=== PATIENT | female | born 1965 | race Two or more races ===

== ENCOUNTER 2020-05-11 12:14 | Outpatient (REF) | payer MEDICAID, SELFPAY ==
--- NOTE | ~2020-05-11 | XR_ITS ---
EXAMINATION: XR HAND/WRIST, BILATERAL CLINICAL INFORMATION: Rheumatoid arthritis with positive rheumatoid factor. COMPARISON: None TECHNIQUE: Four views each hand/wrist. FINDINGS: Left hand/wrist: There is no visible acute fracture, dislocation or subluxation seen. No bony erosive changes. There is an osseous structure adjacent to the ulnar styloid process, likely old avulsion injury. Right hand/wrist: There is no visible acute fracture, dislocation or subluxation. The scaphoid bone is intact. The soft tissues are normal. XR/XR hand wrist LT IMPRESSION: Unremarkable bilateral hand/wrist examination.
--- NOTE | ~2020-05-11 | XR_ITS ---
EXAMINATION: XR HAND/WRIST, BILATERAL CLINICAL INFORMATION: Rheumatoid arthritis with positive rheumatoid factor. COMPARISON: None TECHNIQUE: Four views each hand/wrist. FINDINGS: Left hand/wrist: There is no visible acute fracture, dislocation or subluxation seen. No bony erosive changes. There is an osseous structure adjacent to the ulnar styloid process, likely old avulsion injury. Right hand/wrist: There is no visible acute fracture, dislocation or subluxation. The scaphoid bone is intact. The soft tissues are normal. XR/XR hand wrist RT IMPRESSION: Unremarkable bilateral hand/wrist examination.
[2020-05-11 13:42] LABS: MANUAL DIFF FLAG NO
[2020-05-11 13:47] LABS: Basophils Percent Auto 0.4 % (0-2); Eosinophils Absolute Auto 0.4 X10*3/uL (0.0-0.4); Eosinophils Percent Auto 4.2 % (0-4); Hematocrit 37.3 % (37-47); Hemoglobin 12.3 g/dl (12.0-16.0); Imm Gran Abs Auto 0.03 X10*3/uL (0.00-0.03); Imm Gran Pct Auto 0.4 % (0.0-0.4); Lymphocytes Absolute Auto 3.2 X10*3/uL (1.2-4.9); Lymphocytes Percent Auto 38.4 % (20-40); Mean Corpuscular Hemoglobin 29.4 pg (27.0-33.0); Mean Corpuscular Volume 89.2 fL (80-98); Mean Platelet Volume 11.2 fL (9.4-12.3); Monocytes Absolute Auto 0.8 X10*3/uL (0.1-1.2); Monocytes Percent Auto 9.3 % (2-11); Neutrophils Absolute Auto 3.9 X10*3/uL (2.0-8.3); Neutrophils Percent Auto 47.3 % (45-73); Platelet Count 282 X10*3/uL (160-400); Red Blood Count 4.18 X10*6/uL (4.20-5.50); Red Cell Distribution Width 12.3 % (11.0-16.0); White Blood Count 8.3 X10*3/uL (4.8-10.8)
[2020-05-11 13:50] LABS: Glucose Urine UA NEG (NEG); Leukocyte Esterase Urine NEG (NEG); Nitrite Urine NEG (NEG); Specific Gravity - Urine >= 1.030 (1.005-1.025); Urine Blood 2+ (NEG); Urine Ketones NEG (NEG); Urine Protein 2+ MG/DL (NEG-TRACE)
[2020-05-11 13:51] LABS: Appearance Urine CLEAR; Color Urine YELLOW
[2020-05-11 13:55] LABS: Bacteria Urine TRACE /LPF; Squamous Epithelial Cell Urine 4+ /LPF; WBC Urine 0-2 /HPF (0-4)
[2020-05-11 14:31] LABS: Erythrocyte Sedimentation Rate 28 MM/HR (0-20)
[2020-05-11 14:36] LABS: Alanine Aminotransferase 20 U/L (0-31); Albumin Level 4.1 g/dL (3.5-5.0); Alkaline Phosphatase 83 U/L (39-117); Anion Gap 10 (12-20); Aspartate Amino Transferase 22 U/L (5-31); Blood Urea Nitrogen 17 mg/dL (9-16); C Reactive Protein 1.28 mg/dL (< or = 0.50); Calcium 8.8 mg/dL (8.4-10.2); Carbon Dioxide 32 mmol/L (22-29); Chloride 104 mmol/L (96-108); Estimated Glomerular Filt Rate > 60; Glucose Random 109 mg/dL (60-115); Potassium 3.9 mmol/L (3.3-5.1); Sodium 142 mmol/L (135-145); Total Protein 7.2 g/dL (6.5-8.0)
[2020-05-12 05:26] LABS: Thyroglobulin Antibodies 68 IU/mL (< or = 1); Thyroid Peroxidase Antibodies 370 IU/mL (<9)
[2020-05-12 08:34] LABS: HBS Num1 0.48 mIU/mL (0-7.99); HBc Num1 0.08 S/CO (0.00-0.79); Hepatitis A Antibody IgM 0.68 Index (0-0.79); Hepatitis B Core Antibody Nonreactive (Nonreactive); ~Hepatitis A Antibody IgM Nonreactive (Nonreactive); ~Hepatitis B Surface Antibody NONREACTIVE (Nonreactive)
[2020-05-12 08:55] LABS: HBsAGNum1 0.12 S/CO (0.00-0.99); Hepatitis B Surface Antigen Negative (Negative); ~HepC Num1 0.09 S/CO (0.00-0.79); ~Hepatitis C Antibody Nonreactive (Nonreactive)
[2020-05-12 10:36] LABS: Complement C3 87 mg/dL (83-193)
[2020-05-12 12:38] LABS: Anti DNA DS Antibody 2 IU/mL; Antibody to SS-A Antigen <1.0 NEG AI (<1.0 NEG); Antibody to SS-B Antigen <1.0 NEG AI (<1.0 NEG); Cyclic Citrullinated Peptide 141 UNITS; SM/Ribonucleoprotein Ab <1.0 NEG AI (<1.0 NEG); Scleroderma 70 Antibody <1.0 NEG AI (<1.0 NEG); Smith Protein <1.0 NEG AI (<1.0 NEG)
[2020-05-12 14:11] LABS: Anti Nuclear Antibody Screen NEGATIVE (NEGATIVE)
[2020-05-14 13:56] LABS: TS Negative Control Passed; TS Panel A 0; TS Panel B 0; TS Positive Control Passed; TSpotTB Negative (SeeBelow)
== END 2020-05-11 12:15 | disposition home or self-care (01) ==
LOC: HO.LAB 12:14
PROVIDERS: PCP Family Medicine; Referring Provider Family Medicine; Visit Provider Student in an Organized Health Care Education/Training Program
DX: M05.9 Rheumatoid arthritis with rheumatoid factor, unspecified (principal); R76.8 Other specified abnormal immunological findings in serum; J45.909 Unspecified asthma, uncomplicated; I10 Essential (primary) hypertension; E03.9 Hypothyroidism, unspecified; Z79.899 Other long term (current) drug therapy
CPT/HCPCS: 36415; 73110; 73130; 80053; 81001; 85025; 85652; 86038; 86039; 86140; 86160; 86200; 86225; 86235; 86376; 86431; 86481; 86704; 86706; 86709; 86800; 86803; 87340; 99202

== ENCOUNTER 2020-05-14 13:20 | Outpatient (REF) | payer MEDICAID, SELFPAY ==
--- NOTE | ~2020-05-14 | MM_ITS ---
EXAMINATION: MM SCREENING DIGITAL BREAST TOMOSYNTHESIS, BILATERAL CLINICAL INFORMATION: Screening. Asymptomatic. The lifetime risk of breast cancer based on the Tyrer-Cuzick Model is 5%. COMPARISON: Mammography: 09/13/2018, 06/13/2018, 11/07/2017, 08/08/2016 TECHNIQUE: Digital breast tomosynthesis is performed in both the craniocaudal and mediolateral oblique views along with computer-aided detection (CAD). Synthesized 2D images are generated from the tomosynthesis. FINDINGS: There are scattered areas of fibroglandular density (ACR BI-RADS breast composition Category b). There are no significant masses, abnormal calcifications, or other abnormalities. Parenchymal pattern is similar to prior studies. There is some stable nodularity mid outer right breast. The bilateral axilla and skin contours are unremarkable. MM/MM tomosynthesis screening BI IMPRESSION: No mammographic evidence of malignancy. ASSESSMENT: BI-RADS 2: Benign RECOMMENDATION: Routine annual mammography screening. This patient's information was entered into a reminder system with a target due date for their next mammogram.
== END 2020-05-14 13:21 | disposition home or self-care (01) ==
LOC: HO.MAMMO 13:20
PROVIDERS: PCP Family Medicine; Visit Provider Family Medicine
DX: Z12.31 Encounter for screening mammogram for malignant neoplasm of breast (principal)
CPT/HCPCS: 77063; 77067

== ENCOUNTER → 2020-06-18 13:26 | Outpatient (BNVA) | payer MEDICAID, SELFPAY | PROVIDERS: PCP Family Medicine; Visit Provider Student in an Organized Health Care Education/Training Program | DX: M05.9 Rheumatoid arthritis with rheumatoid factor, unspecified (principal); R76.8 Other specified abnormal immunological findings in serum | CPT/HCPCS: 99212 ==

== ENCOUNTER → 2020-10-13 14:30 | Outpatient (BNVA) | payer MEDICAID, SELFPAY | PROVIDERS: PCP Family Medicine; Visit Provider Student in an Organized Health Care Education/Training Program | DX: M05.9 Rheumatoid arthritis with rheumatoid factor, unspecified (principal); M62.838 Other muscle spasm | CPT/HCPCS: 99212 ==

== ENCOUNTER 2020-11-29 14:03 | Outpatient (REF) | payer MEDICAID, SELFPAY ==
--- NOTE | ~2020-11-29 | XR_ITS ---
EXAMINATION: XR CERVICAL SPINE CLINICAL INFORMATION: Cervicalgia. COMPARISON: None. TECHNIQUE: AP, lateral, open-mouth, and foraminal views of the cervical spine. FINDINGS: Mild reversal the normal cervical lordosis, which may be positional or related to muscular spasm. No acute fracture or subluxation. No loss of vertebral body height. Multilevel loss of intervertebral disc height with anterior endplate osteophytes. Findings are most prominent at C6-C7. Normal atlantoaxial alignment. Unremarkable prevertebral soft tissues. XR/XR cervical spine 4V IMPRESSION: Mild reversal the normal cervical lordosis, which may be positional or related to muscular spasm. Multilevel degenerative disc disease, most prominent at C6-C7.
== END 2020-11-29 14:04 | disposition home or self-care (01) ==
LOC: HO.XRAY 14:03
PROVIDERS: PCP Family Medicine; Visit Provider Family Medicine
DX: M54.2 Cervicalgia (principal)
CPT/HCPCS: 72050

== ENCOUNTER 2021-03-07 14:59 | Emergency (ER) | payer MEDICAID, SELFPAY | END 2021-03-07 20:24 | disposition left against medical advice (07) | PROVIDERS: Emergency Provider Emergency Medicine; PCP Family Medicine | DX: N23 Unspecified renal colic (principal) ==

== ENCOUNTER 2021-06-30 14:32 | Outpatient (REF) | payer MEDICAID, SELFPAY ==
--- NOTE | ~2021-06-30 | MM_ITS ---
EXAMINATION: MM SCREENING DIGITAL BREAST TOMOSYNTHESIS, BILATERAL CLINICAL INFORMATION: Screening. Asymptomatic. The lifetime risk of breast cancer based on the Tyrer-Cuzick Model is 5.2%. COMPARISON: Mammography: May 14, 2020 and studies dating back to January 16, 2013 TECHNIQUE: Digital breast tomosynthesis is performed in both the craniocaudal and mediolateral oblique views along with computer-aided detection (CAD). Synthesized 2D images are generated from the tomosynthesis. FINDINGS: There are scattered areas of fibroglandular density (ACR BI-RADS breast composition Category b). There are no new significant masses, abnormal calcifications, or other abnormalities. There is again noted be stable circumscribed and lobular densities about the lateral aspect of the right breast for which previous ultrasound did not demonstrate any significant ultrasound findings. MM/MM tomosynthesis screening BI IMPRESSION: There are no significant changes from prior study. ASSESSMENT: BI-RADS 2: Benign RECOMMENDATION: Routine annual mammography screening. This patient's information was entered into a reminder system with a target due date for their next mammogram.
== END 2021-06-30 14:33 | disposition home or self-care (01) ==
LOC: HO.MAMMO 14:32
PROVIDERS: PCP Family Medicine; Visit Provider Family Medicine
DX: Z12.31 Encounter for screening mammogram for malignant neoplasm of breast (principal)
CPT/HCPCS: 77063; 77067

== ENCOUNTER 2021-07-28 17:30 | Outpatient (REF) | payer MEDICAID, SELFPAY ==
--- NOTE | ~2021-07-28 | MR_ITS ---
EXAMINATION: MR CERVICAL SPINE WITHOUT CONTRAST CLINICAL INFORMATION: Neck pain. Rheumatoid arthritis. COMPARISON: Cervical spine radiographs 11/29/2020. TECHNIQUE: MRI of the cervical spine was obtained using routine sequences without contrast. FINDINGS: There is nonspecific reversal of cervical lordosis. Alignment is otherwise normal. Vertebral body heights are preserved. No acute bone marrow signal changes. The slight loss of intervertebral disc height and T2 signal intensity at multiple levels related to disc degeneration. There is a retropharyngeal effusion that extends from C1 to C5, the source of which is uncertain on the basis of this examination. There are a few prominent retropharyngeal lymph nodes are also partially included within the [id number] of this examination. Visualized soft tissues of the neck are otherwise normal. Vascular flow voids are grossly maintained. The cervicomedullary junction is normal. Limited visualization of the posterior fossa reveals no abnormal finding. The occipital condyles and lateral C1 masses are intact. There is degenerative arthrosis of the atlantodental joint and the left C1-C2 articular facet joint. At C2-C3 there is a slightly bulging disc. No canal stenosis. There is minimal uncovertebral joint spurring on the left. No substantial neuroforaminal encroachment. At C3-C4 there is a small central protrusion superimposed upon a bulging disc causing mild canal stenosis. Uncovertebral joint spurring and facet degenerative change causes moderate bilateral neuroforaminal encroachment, slightly greater on the left. At C4-C5 there is a bulging disc causing mild canal stenosis. Uncovertebral joint spurring and facet degenerative change causes moderate bilateral neuroforaminal encroachment, slightly greater on the left. At C5-C6 there is a central protrusion superimposed upon a bulging disc. Moderate canal stenosis. Uncovertebral joint spurring and facet degenerative change causes severe bilateral neuroforaminal encroachment. At C6-C7 there is a bulging disc and buckling of the ligamenta flava causing moderate canal stenosis. Uncovertebral joint spurring and facet degenerative change causes severe left and moderate right neuroforaminal encroachment. At C7-T1 the annular contour is normal. No canal or neuroforaminal compromise. MR/MR cervical spine wo con IMPRESSION: There is a retropharyngeal effusion that extends from C1 to C5, the source of which is uncertain on the basis of this examination. Prominent bilateral retropharyngeal lymph nodes are also partially included within the [id number]. There is multilevel degenerative spondylosis of the cervical spine. Moderate canal stenosis at the levels of C5-C6 and C6-C7. Mild canal stenosis at C3-C4 and C4-C5. There are varying degrees of neuroforaminal encroachment related to uncovertebral joint spurring and facet degenerative change as described above.
== END 2021-07-28 17:31 | disposition home or self-care (01) ==
LOC: HO.MRI 17:30
PROVIDERS: Visit Provider Family Medicine
DX: M54.2 Cervicalgia (principal); M05.9 Rheumatoid arthritis with rheumatoid factor, unspecified
CPT/HCPCS: 72141

== ENCOUNTER 2021-09-19 15:12 | Outpatient (REF) | payer MEDICAID, SELFPAY ==
--- NOTE | ~2021-09-19 | US_ITS ---
EXAMINATION: US PELVIS CLINICAL INFORMATION: Pelvic pain. COMPARISON: Ultrasound pelvis 12/04/2017. TECHNIQUE: Ultrasound of the pelvis is performed using both transabdominal and transvaginal transducers along with Doppler. Transvaginal imaging is performed due to inadequate visualization transabdominally. FINDINGS: Uterus: The uterus is retroverted, retroflexed and measures 6.9 x 4.2 x 4.7 cm. The double wall endometrial thickness is 0.8 cm. There are cystic areas seen within the endometrial canal versus tiny fluid. There is a small hyperechoic foci within the endometrial canal measuring 0.9 x 0.6 with an 0.0 cm suspicious for a small polyp. The uterus is smooth in contour and has normal myometrial echogenicity. There are 2 hypoechoic lesions. 1. Lesion in the right upper body of uterus measures 4.0 x 3.4 x 3.1 cm. Previously it measured 3.4 x 2.8 x 2.6 cm. 2. Lesion in the anterior upper/mid body of uterus measures 1.0 x 0.9 x 1.2 cm. Previously it measured 1.0 x 1.0 x 0.9 cm. No additional lesions seen. There are small anechoic cysts seen in the cervix Adnexa: Both ovaries are nonvisualized. Moderate free fluid in the cul-de-sac US/US pelvic and transvaginal IMPRESSION: Small endometrial cyst versus focal fluid collection. There is a small endometrial polyp measuring 0.9 cm. There are at least 2 uterine fibroids which are stable. Small nabothian cysts in the cervix Ovaries are not visualized. There is moderate free fluid in the cul-de-sac.
== END 2021-09-19 15:13 | disposition home or self-care (01) ==
LOC: HO.US 15:12
PROVIDERS: Visit Provider Family Medicine
DX: R10.2 Pelvic and perineal pain (principal)
CPT/HCPCS: 76830; 76856

== ENCOUNTER → 2021-12-21 15:06 | Outpatient (BNVA) | payer MEDICAID, SELFPAY | PROVIDERS: PCP Family Medicine; Visit Provider Anesthesiology | DX: J39.0 Retropharyngeal and parapharyngeal abscess (principal); R59.0 Localized enlarged lymph nodes; M62.838 Other muscle spasm | CPT/HCPCS: 99202 ==

== ENCOUNTER 2022-03-27 11:09 | Outpatient (REF) | payer MEDICAID, SELFPAY | END 2022-03-27 11:10 | disposition home or self-care (01) | LOC: HO.LAB 11:09 | PROVIDERS: PCP Family Medicine; Visit Provider Advanced Practice Midwife | DX: R10.2 Pelvic and perineal pain (principal); D25.9 Leiomyoma of uterus, unspecified; N84.0 Polyp of corpus uteri; R31.9 Hematuria, unspecified; R93.5 Abnormal findings on diagnostic imaging of other abdominal regions, including retroperitoneum | CPT/HCPCS: 0353U; 81003; 87480; 87510; 87624; 87660; 88142; 99202 ==

== ENCOUNTER 2022-03-27 11:53 | Outpatient (REF) | payer MEDICAID, SELFPAY ==
[2022-03-27 18:18] LABS: CT PCR NOT DETECTED (Not Detect.); NG PCR NOT DETECTED (Not Detect.)
[2022-03-28 09:41] LABS: BV Int Neg Control Negative (Negative); BV Int Pos Control Positive (Positive)
[2022-04-01 03:18] LABS: HPV mRNA E6/E7 rflx Not Detected (Not Detected)
== END 2022-03-27 11:54 | disposition home or self-care (01) ==
LOC: HO.LNP 11:53
PROVIDERS: Visit Provider Advanced Practice Midwife
DX: Z01.411 Encounter for gynecological examination (general) (routine) with abnormal findings (principal); Z11.51 Encounter for screening for human papillomavirus (HPV); R10.2 Pelvic and perineal pain
CPT/HCPCS: 0353U; 87480; 87510; 87624; 87660; 88142

== ENCOUNTER 2022-04-17 13:50 | Outpatient (REF) | payer MEDICAID, SELFPAY ==
--- NOTE | ~2022-04-17 | US_ITS ---
EXAMINATION: US PELVIS COMPLETE CLINICAL INFORMATION: Pelvic and perineal pain; postmenopausal patient. COMPARISON: Pelvic ultrasound dated 08/20/2021. TECHNIQUE: Transabdominal and transvaginal imaging were performed. FINDINGS: The uterus is of normal size and echogenicity measuring 7.9 x 4.1 x 6.6 cm. The uterus is retroverted and retroflexed. A regular homogeneous endometrium is identified measuring 0.8 cm. Within the endometrial canal, a 1.2 x 0.6 x 1.0 cm polyp is noted. Previously, this measured 0.9 x 0.6 x 1.0 cm. Nabothian cysts are seen within the endometrial canal. There is nonspecific fluid within the endometrial canal. FIBROIDS: There are 2 fibroids seen. 1. Location: Upper rightward body, myometrial. Size: 3.0 x 2.5 x 3.0 cm. Prior: 4.0 x 3.4 x 3.1 cm. Fibroid characteristics: Heterogeneous echotexture. 2. Location: Anterior upper body, myometrial. Size: 0.8 x 0.6 x 0.9 cm. Prior: 1.0 x 0.9 x 1.2 cm. Fibroid characteristics: Isoechoic. Both ovaries are nonvisualized. There is no pelvic free fluid. No adnexal mass is seen. US/US pelvic and transvaginal IMPRESSION: 1. A mildly increased endometrial polyp is noted, possibly a hyperplastic polyp, focal endometrial hyperplasia, subendometrial fibroid or other neoplasm. Gynecology evaluation and management are recommended, with consideration for tissue sampling. 2. Nabothian cysts are seen within the cervix. 3. There is nonspecific fluid within the endometrial canal. 4. There are uterine fibroids. 5. The bilateral ovaries are nonvisualized.
== END 2022-04-17 13:51 | disposition home or self-care (01) ==
LOC: HO.US 13:50
PROVIDERS: PCP Family Medicine; Visit Provider Advanced Practice Midwife
DX: R10.2 Pelvic and perineal pain (principal); D25.9 Leiomyoma of uterus, unspecified
CPT/HCPCS: 76830; 76856

== ENCOUNTER → 2022-05-04 09:29 | Outpatient (BNVA) | payer MEDICAID, SELFPAY | PROVIDERS: PCP Family Medicine; Visit Provider Advanced Practice Midwife | DX: Z71.2 Person consulting for explanation of examination or test findings (principal); N84.0 Polyp of corpus uteri; E03.9 Hypothyroidism, unspecified; E55.9 Vitamin D deficiency, unspecified | CPT/HCPCS: 99212 ==

== ENCOUNTER → 2022-05-08 13:54 | Outpatient (BNVA) | payer MEDICAID, SELFPAY | PROVIDERS: PCP Family Medicine; Visit Provider Obstetrics & Gynecology | DX: D25.9 Leiomyoma of uterus, unspecified (principal); N84.0 Polyp of corpus uteri; N88.8 Other specified noninflammatory disorders of cervix uteri; N95.9 Unspecified menopausal and perimenopausal disorder | CPT/HCPCS: 99212 ==

== ENCOUNTER 2022-05-17 15:06 | Outpatient (REF) | payer MEDICAID, SELFPAY ==
--- NOTE | ~2022-05-17 | MR_ITS ---
EXAMINATION: MRI NECK WITHOUT AND WITH CONTRAST CLINICAL INFORMATION: Disease of pharynx. The patient states nasal polyps and thyroid problems. COMPARISON: MRI scan of the cervical spine 07/28/2021. TECHNIQUE: MRI of the neck was obtained using routine sequences without and with contrast. Intravenous contrast: Gadavist 8 mL. FINDINGS: There is no cervical lymphadenopathy. There are small lymph nodes at multiple levels in the neck bilaterally. There is a 1.5 x 1.0 cm heterogenous nodule toward the lower pole of the left lobe of the thyroid gland. The parotid glands are homogeneous in signal. The submandibular glands are normal. No contour abnormality or pathologic enhancement is seen within the oral cavity or pharyngeal mucosal space. The tongue base and nasopharyngeal soft tissues are normal. The laryngeal structures are normal. The parapharyngeal fat is preserved. The skull base is normal in appearance. No extramucosal soft tissue mass or fluid collection is seen. No retropharyngeal fluid collection is evident on this study. There is no mediastinal lymphadenopathy. There are at least 3 irregular enhancement areas of opacification in the right and left upper lobes with possible cavitation. At the upper lobe on the left lobe posteriorly there is a 3.7 x 2.0 cm area, toward the apex on the right there is a 3.3 x 2.7 cm area and posteromedially in the right upper lobe there is a 2.0 x 1.5 cm area. There is extensive opacification of the left maxillary sinus with a large polyp, which appears to extend through the ostiomeatal complex into the left middle meatus. There is also mucoperiosteal thickening of the visualized other paranasal sinuses. There appear to be sequelae of prior paranasal sinus surgery. Marrow signal appears homogenous. There are multilevel spondylitic changes in the cervical spine, better demonstrated on the prior MRI of the cervical spine. The imaged portions of the brain parenchyma are unremarkable. MR/MR orbits face neck wo/w con IMPRESSION: 1. There are irregular areas of opacification with possible cavitation in the upper lobes bilaterally. These may be consistent with areas of infection, inflammation or mass lesions. Recommend CT scan of the chest with contrast for further assessment. 2. There is a large polyp in the left maxillary sinus extending into the left middle meatus, and there is opacification of the other paranasal sinuses. 3. There is a 1.5 cm nodule in the lower pole of the left lobe of thyroid gland. In view of the size of this nodule and the lesions noted in the chest, recommend correlation with thyroid ultrasound. 4. There is no cervical lymphadenopathy. 5. Numerous attempts were made to contact the referring physician in the afternoon of 05/31/2022 and in the morning of 06/01/2022. The [facility] staff will call to confirm receipt of this report with acknowledgement of the findings and any recommendations.
== END 2022-05-17 15:07 | disposition home or self-care (01) ==
LOC: HO.MRI 15:06
PROVIDERS: PCP Family Medicine; Visit Provider Otolaryngology
DX: R93.0 Abnormal findings on diagnostic imaging of skull and head, not elsewhere classified (principal); J39.2 Other diseases of pharynx
CPT/HCPCS: 70543; A9585

== ENCOUNTER 2022-05-18 10:20 | Outpatient (REF) | payer MEDICAID, SELFPAY | END 2022-05-18 10:21 | disposition home or self-care (01) | LOC: HO.MRI 10:20 | PROVIDERS: PCP Family Medicine; Visit Provider Otolaryngology | DX: R93.0 Abnormal findings on diagnostic imaging of skull and head, not elsewhere classified (principal); J39.2 Other diseases of pharynx | CPT/HCPCS: A9585 ==

== ENCOUNTER → 2022-05-19 12:01 | Day surgery (SDC) | payer MEDICAID, SELFPAY ==
[2022-05-16 10:19] VITALS: BMI 28.8
--- NOTE | 2022-05-18 11:14 | HO.ANESPROP2 ---
Documented by User: Marjorie Valle NP 05/18/22 11:15 HPI - Anesthesia Eval Consult details Narrative: 57yo F for D&C Hysteroscopy,poss polypectomy,poss myomectomy PMFSH Active Problems Active Problems: All Active Problems (Updated 05/08/22 @ 14:25 by Joel Flores MD) Seropositive rheumatoid arthritis (Acute) CASIE positive (Acute) Neck muscle spasm (Acute) Retropharyngeal and parapharyngeal abscess (Acute) Retropharyngeal lymphadenopathy (Acute) Uterine leiomyoma (Acute) Polyp of corpus uteri (Acute) Past Medical History Medical History Asthma Chronic allergic rhinitis GERD (gastroesophageal reflux disease) History of depression Hypertension Hypothyroid Vitamin D deficiency Family History Family History Mother HTN (hypertension) Diabetes Colon cancer Father HTN (hypertension) Diabetes Hyperlipidemia Colon cancer Surgical History Surgical History (Updated 05/16/22 @ 10:18 by Shira Pederson RN) H/O colonoscopy H/O nasal polypectomy H/O tubal ligation Hx of cystoscopy Social History Social History Household Members: Spouse Household Members Other:: son Housing: Apartment Alcohol intake: former Patient Tobacco Use Status: Never used Tobacco Use of substances other than those prescribed or required for medical reasons: No Are you DNR?: No Advance Directives: No Advance Directives Information Provided: Yes service: No Current occupational status: disabled Meds Allergies Allergy/AdvReac Type Severity Reaction Status Date / Time magnesium Allergy Intermediate rash Verified 05/08/22 14:02 Home Medications Medication Instructions Recorded Confirmed Last Taken Type escitalopram oxalate 10 mg tablet 10 mg PO DAILY 05/11/20 05/19/22 Unknown History fluticasone 500 mcg-salmeterol 50 1 inh inhalation Q12H 05/11/20 05/19/22 Unknown History mcg/dose blistr powdr for inhalation (Advair Diskus) lisinopril 40 mg tablet 40 mg PO DAILY 05/11/20 05/19/22 05/19/22 History montelukast 10 mg tablet 10 mg PO DAILY 05/11/20 05/19/22 Unknown History (Singulair) naproxen 500 mg tablet 500 mg PO BID 05/11/20 05/19/22 Unknown History levothyroxine 75 mcg tablet 75 mcg PO DAILY 12/21/21 05/19/22 Unknown History clonidine HCl 0.2 mg tablet 0.2 mg PO BEDTIME 03/27/22 05/19/22 Unknown History Exam Exam Date and Time: May 18, 2022 1114 Height,Weight and Vital Signs: Height 5 ft 6 in Weight 81 kg Assessment and Plan Assessment Anesthesia Assessment: Chart Reviewed Documented by User: Seth Arauz MD 05/19/22 12:53 PMFSH Past Medical History Medical History Asthma Chronic allergic rhinitis GERD (gastroesophageal reflux disease) History of depression Hypertension Hypothyroid Vitamin D deficiency Family History Family History Mother HTN (hypertension) Diabetes Colon cancer Father HTN (hypertension) Diabetes Hyperlipidemia Colon cancer Family history of problems with anesthesia: No Surgical History Surgical History (Updated 05/16/22 @ 10:18 by Shira Pederson RN) H/O colonoscopy H/O nasal polypectomy H/O tubal ligation Hx of cystoscopy History of Problems with Anesthesia: No Social History Social History Household Members: Spouse Household Members Other:: son Housing: Apartment Alcohol intake: former Patient Tobacco Use Status: Never used Tobacco Use of substances other than those prescribed or required for medical reasons: No Are you DNR?: No Advance Directives: No Advance Directives Information Provided: Yes service: No Current occupational status: disabled Meds Allergies Allergy/AdvReac Type Severity Reaction Status Date / Time magnesium Allergy Intermediate rash Verified 05/08/22 14:02 Home Medications Medication Instructions Recorded Confirmed Last Taken Type escitalopram oxalate 10 mg tablet 10 mg PO DAILY 05/11/20 05/19/22 Unknown History fluticasone 500 mcg-salmeterol 50 1 inh inhalation Q12H 05/11/20 05/19/22 Unknown History mcg/dose blistr powdr for inhalation (Advair Diskus) lisinopril 40 mg tablet 40 mg PO DAILY 05/11/20 05/19/22 05/19/22 History montelukast 10 mg tablet 10 mg PO DAILY 05/11/20 05/19/22 Unknown History (Singulair) naproxen 500 mg tablet 500 mg PO BID 05/11/20 05/19/22 Unknown History levothyroxine 75 mcg tablet 75 mcg PO DAILY 12/21/21 05/19/22 Unknown History clonidine HCl 0.2 mg tablet 0.2 mg PO BEDTIME 03/27/22 05/19/22 Unknown History Exam Airway Mallampati Class: I TM Dist: >3cm Neck ROM: Full Loose/Missing/Broken Teeth: No Heart: ok Lungs: ok Assessment and Plan Assessment Anesthesia Assessment: Anesthesia Plan Discussed and Chart Reviewed Final Anesthetic Review Family History of Problems with Anesthesia: No History of Problems with Anesthesia: No NPO: Yes ASA Class: II Final Preanesthetic Review: No Changes in Pt Med Stat, Meds/Allgs Chart Reviewed, Consent Obtained/Reviewed and Anes Risks/Benef Reviewed Patient Risk: Low Procedure Risk: Low Anesthetic Plan Anesthetic Plan: GA and Agree w/ Assess. and Plan Disposition: Standard PACU
--- NOTE | 2022-05-19 12:19 | MHC.SHP ---
Pre-Procedural Eval Section A Date of Service: 05/19/22 The patient is an INPATIENT: No Changes since office visit: No Cold of Flu in the past 2 weeks, No New Medical Problems, No Changes in Medication and No Patient answered all questions The History & Physical has been completed within 30 days and I have reviewed it.: Yes Section B Chief Complaint: Leiomyoma of uterus, unspecified Allergies: Allergies Allergy/AdvReac Type Severity Reaction Status Date / Time magnesium Allergy Intermediate rash Verified 05/08/22 14:02 Plan Diagnosis/Plan: Unchanged I have reviewed the history and physical and performed a pertinent physical examination on my patient. No changes have occurred unless specified. Time Spent With Patient Time: Total time managing care of this patient today ____ minutes.
[2022-05-19 12:26] VITALS: BP 148/53; PULSE 114; RESP 16; TEMP 36.6; O2SAT 97; BMI 28.2
[2022-05-19] MEDS: Lactated Ringers 1,000 ML 100 ML IVCONT (12:51)
[2022-05-19 13:40] VITALS: BP 119/65; PULSE 83; RESP 14; TEMP 36.2; O2SAT 94
[2022-05-19 13:45] VITALS: BP 112/68; PULSE 81; RESP 14; O2SAT 95
--- NOTE | 2022-05-19 13:45 | PM.OP ---
Brief Operative Note Date of Service: 05/19/22 Pre-op diagnosis: Endometrial polyp by ultrasound Post-op diagnosis: same Procedure: Hysteroscopy D&C, Polypectomy Surgeon: Joel Flores MD Anesthesia: GLMA Was an Executive Personal Assistant used for this Procedure?: No Estimated blood loss (mL): 0 Pathology: other (Endometrial Scrapping. Polyp) Condition: stable Disposition: PACU
--- NOTE | 2022-05-19 13:46 | W.PM.OPN ---
Operative Note Operative Note Date of Service: 05/19/22 Narrative: Preop Diagnosis: Endometrial polyp by US Operation: Diagnostic Hysteroscopy, Dilataion & Curettage and polypectomy Post Op Diagnosis: Endometrial Polyp QBL: Minimal Anesthesia: GLMA Surgeon: Joel Flores MD Hand Or Machine Paster: None Complication: None Pathology: Endometrial Scrapings, Endometrial polyp Procedure: The patient was put in the dorsal lithotomy position, scrubbed, and draped in the usual manner. A sterile speculum was inserted in the patient's vagina. The anterior lip of the cervix was grasped with a single tooth tenaculum. The cervix was dilated up to 5 mm, then the scope was inserted in the patient's uterus. Inspection revealed endometrial polyp. The Myosure Reach device was used; it was introduced through the operative channel and polypectomy done with no complications. The scope was then taken out from the uterine cavity, sharp curettings was carried on with minimal to moderate amount of tissues retrieved. At the end of the procedure, all instruments were taken out of the patient uterine and vaginal cavity. The single tooth tenaculum was removed and homeostasis was assured using pressure,. The patient tolerated the procedure well and was transferred to the PACU in a stable condition.
[2022-05-19 13:50] VITALS: BP 113/58; PULSE 63; RESP 14; O2SAT 95
[2022-05-19 13:55] VITALS: BP 112/48; PULSE 58; RESP 16; O2SAT 95
== END | disposition home or self-care (01) ==
PROVIDERS: PCP Family Medicine; Visit Provider Obstetrics & Gynecology
PROC: 0UDB8ZZ Extraction of Endometrium, Via Natural or Artificial Opening Endoscopic (ICD-10-PCS; CPT 58558; principal; 2022-05-19 13:30)
DX: D25.9 Leiomyoma of uterus, unspecified (principal); N95.0 Postmenopausal bleeding; N84.0 Polyp of corpus uteri; I10 Essential (primary) hypertension; J45.909 Unspecified asthma, uncomplicated; K21.9 Gastro-esophageal reflux disease without esophagitis; E03.9 Hypothyroidism, unspecified; E55.9 Vitamin D deficiency, unspecified; Z79.51 Long term (current) use of inhaled steroids; Z79.899 Other long term (current) drug therapy; Z88.8 Allergy status to other drugs, medicaments and biological substances; Z98.51 Tubal ligation status
CPT/HCPCS: 58558; 88305; J2405; J3010

== ENCOUNTER → 2022-05-31 15:14 | Outpatient (BNVA) | payer MEDICAID, SELFPAY | PROVIDERS: PCP Family Medicine; Visit Provider Obstetrics & Gynecology | DX: N84.0 Polyp of corpus uteri (principal) | CPT/HCPCS: 99212 ==

== ENCOUNTER 2022-06-14 12:58 | Outpatient (REF) | payer MEDICAID, SELFPAY ==
--- NOTE | ~2022-06-14 | US_ITS ---
EXAMINATION: US THYROID CLINICAL INFORMATION: Evaluate thyroid nodule seen on MRI. COMPARISON: MRI of the neck 05/17/2022. TECHNIQUE: Linear transducer grayscale and color Doppler examination with attention to the region of the thyroid. FINDINGS: SIZE: Measurements of the thyroid lobes and nodules are given in sagittal, anteroposterior and transverse dimensions respectively. Right Thyroid Lobe: 4.5 x 1.3 x 1.6 cm, volume 5.0 mL. Parenchyma: The gland echotexture is heterogeneous. Thyroid vascularity is normal. Left Thyroid Lobe: 4.2 x 0.9 x 1.8 cm, volume 3.6 mL. Parenchyma: The gland echotexture is heterogeneous. Thyroid vascularity is normal. Isthmus: 0.3 cm in maximum AP dimension. Estimated total number of nodules greater than or equal to 1 cm: 0. General Merchandise Manager nodules are described as follows: 1. Location: Left upper pole. Size: 0.5 x 0.5 x 0.7 cm, volume 0.09 mL. Nodule characteristics: Composition: Solid/almost completely solid (2). Echogenicity: Isoechoic (1). Shape: Not taller than wide (0). Margins: Ill-defined (0). Echogenic Foci: None (0). ACR TI-RADS total points: 3 ACR TI-RADS category: 3 2. Location: Left lower pole. Size: 0.6 x 0.5 x 0.6 cm, volume 0.09 mL. Nodule characteristics: Composition: Mixed cystic and solid (1). Echogenicity: Hypoechoic (2). Shape: Not taller than wide (0). Margins: Ill-defined (0). Echogenic Foci: None (0). ACR TI-RADS total points: 3 ACR TI-RADS category: 3 NODES: No lymphadenopathy is seen in the tissue surrounding the thyroid gland. Shotty, nonpathologically enlarged bilateral cervical lymph nodes are seen. US/US thyroid IMPRESSION: 1. Small left thyroid lobe nodules are seen, as detailed. 2. There is heterogeneous thyroid echotexture, which can be associated with thyroiditis. ACR TI-RADS RECOMMENDATION REFERENCE: Ultrasound-guided fine-needle aspiration, followup ultrasound, no further follow up. * TR1 (0 point) and TR2 (2 points): No FNA or follow up. * TR3 (3 points): FNA if more than or equal to 2.5 cm in maximum dimension, followup ultrasound in 1, 3 and 5 years if 1.5 to 2.4 cm in maximum dimension. * TR4 (4-6 points): FNA if more than or equal to 1.5 cm in maximum dimension, followup ultrasound in 1, 2, 3 and 5 years if 1 to 1.4 cm in maximum dimension. * TR5 (more than or equal to 7 points): FNA if more than or equal to 1 cm in maximum dimension, followup ultrasound every year for 5 years if 0.5 to 0.9 cm in maximum dimension. * TR3, TR4 or TR5 nodules that are below the size threshold for followup receive no follow up.
== END 2022-06-14 12:59 | disposition home or self-care (01) ==
LOC: HO.US 12:58
PROVIDERS: Visit Provider Otolaryngology
DX: E04.1 Nontoxic single thyroid nodule (principal); J32.9 Chronic sinusitis, unspecified
CPT/HCPCS: 76536

== ENCOUNTER 2022-06-19 15:04 | Outpatient (REF) | payer MEDICAID, SELFPAY ==
[2022-06-19 16:46] LABS: MANUAL DIFF FLAG NO
[2022-06-19 17:13] LABS: Basophils Percent Auto 0.4 % (0-2); Eosinophils Absolute Auto 0.4 X10*3/uL (0.0-0.4); Eosinophils Percent Auto 4.5 % (0-4); Hematocrit 36.2 % (37.0-47.0); Hemoglobin 11.6 g/dl (12.0-16.0); Imm Gran Abs Auto 0.02 X10*3/uL (0.00-0.03); Imm Gran Pct Auto 0.3 % (0.0-0.4); Lymphocytes Absolute Auto 2.3 X10*3/uL (1.2-4.9); Lymphocytes Percent Auto 29.7 % (20-40); Mean Corpuscular Hemoglobin 28.1 pg (27.0-33.0); Mean Corpuscular Volume 87.7 fL (80.0-98.0); Mean Platelet Volume 10.2 fL (9.4-12.3); Monocytes Absolute Auto 0.7 X10*3/uL (0.1-1.2); Monocytes Percent Auto 9.4 % (2-11); Neutrophils Absolute Auto 4.4 x10*3/uL (2.0-8.3); Neutrophils Percent Auto 55.7 % (45-73); Platelet Count 403 X10*3/uL (160-400); Red Blood Count 4.13 X10*6/uL (4.20-5.50); Red Cell Distribution Width 11.8 % (11.0-16.0); White Blood Count 7.9 X10*3/uL (4.8-10.8)
[2022-06-19 17:18] LABS: Appearance Urine Cloudy; Color Urine Yellow; Glucose Urine UA Negative (Negative); Leukocyte Esterase Urine Trace (Negative); Nitrite Urine Negative (Negative); PH 5.5 (5.0-9.0); UMIC TRIGGER UA YES; Urine Blood Large (3+) (Negative); Urine Ketones Trace mg/dL (Negative); Urine Protein 300 (3+) mg/dL (Neg-Trace)
[2022-06-19 17:21] LABS: Bacteria Urine None Seen (None Seen)
[2022-06-19 17:30] LABS: RBC Urine >20 /HPF (0-2)
[2022-06-19 17:46] LABS: Creatinine Urine 158.37 mg/dL; Protein/Creatinine Ratio, Ur 0.99 (<0.2); Total Protein Urine Random 157 mg/dL (<12)
[2022-06-19 17:47] LABS: Alanine Aminotransferase 13 U/L (0-31); Albumin Level 3.6 g/dL (3.5-5.0); Alkaline Phosphatase 94 U/L (39-117); Anion Gap 14 (12-20); Aspartate Amino Transferase 17 U/L (5-31); Bilirubin Total 0.5 mg/dL (0.0-1.0); Blood Urea Nitrogen 14 mg/dL (9-16); C Reactive Protein 8.45 mg/dL (< or = 0.50); Carbon Dioxide 28 mmol/L (22-29); Chloride 105 mmol/L (96-108); Estimated Glomerular Filt Rate > 60; Glucose Random 106 mg/dL (60-115); Potassium 4.2 mmol/L (3.3-5.1); Sodium 143 mmol/L (135-145); Total Protein 7.6 g/dL (6.5-8.0)
[2022-06-19 18:02] LABS: Erythrocyte Sedimentation Rate 94 MM/HR (0-20)
[2022-06-21 05:10] LABS: HBS Num1 0.37 mIU/mL (0-7.99); HBc Num1 0.09 S/CO (0.00-0.79); HBsAGNum1 0.29 S/CO (0.00-0.99); Hepatitis A Antibody IgM 0.66 Index (0-0.79); Hepatitis B Core Antibody Nonreactive (Nonreactive); Hepatitis B Surface Antigen Negative (Negative); ~HepC Num1 0.21 S/CO (0.00-0.79); ~Hepatitis A Antibody IgM Nonreactive (Nonreactive); ~Hepatitis B Surface Antibody NONREACTIVE (Nonreactive); ~Hepatitis C Antibody Nonreactive (Nonreactive)
[2022-06-21 13:49] LABS: TS Negative Control Passed; TS Panel A 0; TS Panel B 0; TS Positive Control Passed; TSpotTB Negative (Negative)
[2022-06-27 15:08] LABS: Myeloperoxidase Antibody <1.0 AI; Proteinase 3 PR3 Antibodies <1.0 AI
== END 2022-06-19 15:05 | disposition home or self-care (01) ==
LOC: HO.LAB 15:04
PROVIDERS: PCP Family Medicine; Visit Provider Nurse Practitioner Family
DX: J32.9 Chronic sinusitis, unspecified (principal); E03.9 Hypothyroidism, unspecified; R93.89 Abnormal findings on diagnostic imaging of other specified body structures; R76.8 Other specified abnormal immunological findings in serum
CPT/HCPCS: 36415; 80053; 81001; 84156; 84443; 85025; 85652; 86021; 86140; 86481; 86704; 86706; 86709; 86803; 87340; 99212

== ENCOUNTER 2022-06-21 14:25 | Outpatient (REF) | payer MEDICAID, SELFPAY ==
[2022-06-21 17:11] LABS: Appearance Urine Cloudy; Color Urine Yellow; Glucose Urine UA Negative (Negative); Leukocyte Esterase Urine Trace (Negative); Nitrite Urine Negative (Negative); PH 5.5 (5.0-9.0); Specific Gravity - Urine 1.015 (1.005-1.025); UMIC TRIGGER UACC YES; Urine Blood Large (3+) (Negative); Urine Ketones Negative (Negative); Urine Protein 100 (2+) mg/dL (Neg-Trace)
[2022-06-21 17:15] LABS: Bacteria Urine None Seen (None Seen); Hyaline Casts Urine 0-2 /LPF (0-2); RBC Urine >20 /HPF (0-2); UACC Culture Trigger YES
== END 2022-06-21 14:26 | disposition home or self-care (01) ==
LOC: HO.LAB 14:25
PROVIDERS: PCP Family Medicine; Visit Provider Nurse Practitioner Family
DX: R82.90 Unspecified abnormal findings in urine (principal)
CPT/HCPCS: 81001; 87086

== ENCOUNTER 2022-06-27 15:33 | Outpatient (REF) | payer MEDICAID, SELFPAY ==
--- NOTE | ~2022-06-27 | CT_ITS ---
EXAMINATION: CT CHEST WITH CONTRAST CLINICAL INFORMATION: Cavitary lesion on MRI. COMPARISON: None available. TECHNIQUE: Multidetector volumetric CT imaging of the chest was obtained after the administration of 50 mL of Omnipaque 350 intravenous contrast without immediate adverse reactions. Axial MIP volume rendering provided. Sagittal and coronal reformatted images were obtained. This CT examination was performed using dose optimization techniques as appropriate, variously including the following: *Automated exposure control *Adjustment of mA and/or kV according to patient size (this includes techniques or standardized protocols for targeted exams where dose is matched to indication/reason for exam; i.e. 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 LUNGS: The lungs are well expanded with right upper lobe consolidation posterior segment. In addition there is linear parenchymal interstitial thickening in both lung apices, question chronic scarring. There is bilateral apical pleural thickening. There is 7 mm and 6 mm subpleural nodules right lung base image 51/4 and image 46/4 respectively. MEDIASTINUM: The thyroid lobes are symmetrical and normal. Central trachea and the bronchi are widely patent. Heart size and the great vessels are normal caliber. No pericardial effusion seen. Central trachea and the bronchi are widely patent. No coronary artery calcification seen. PLEURA: There is no pleural effusion. No pleural mass or thickening. AXILLA: Small shotty lymph nodes are seen in bilateral axilla. The chest wall is unremarkable. UPPER ABDOMEN: Visualized liver, spleen, pancreas and bilateral adrenal glands are unremarkable. OSSEOUS STRUCTURES: Unremarkable. CT/CT chest w IV con IMPRESSION: Bilateral upper lobe consolidation/atelectasis slightly greater on the right side. There is 6 and 7 mm pulmonary nodules right lower lobe. Minimal plate-like atelectasis right lower lobe. Recommend 6 month followup as per Fleischner guidelines Fleischner guidelines were followed.
[2022-06-27] MEDS: iohexoL 350 MG/ML 100 ML INFUS..BTL IV (16:09)
== END 2022-06-27 15:34 | disposition home or self-care (01) ==
LOC: HO.CT 15:33
PROVIDERS: PCP Family Medicine; Visit Provider Otolaryngology
DX: J32.9 Chronic sinusitis, unspecified (principal); R93.0 Abnormal findings on diagnostic imaging of skull and head, not elsewhere classified
CPT/HCPCS: 71260; Q9967

== ENCOUNTER → 2022-07-04 12:50 | Outpatient (BNVA) | payer MEDICAID, SELFPAY | PROVIDERS: PCP Family Medicine; Visit Provider Nurse Practitioner Family | DX: R76.8 Other specified abnormal immunological findings in serum (principal); R80.9 Proteinuria, unspecified; H20.9 Unspecified iridocyclitis; H15.009 Unspecified scleritis, unspecified eye | CPT/HCPCS: 99212 ==

== ENCOUNTER 2022-07-06 14:56 | Outpatient (REF) | payer MEDICAID, SELFPAY ==
--- NOTE | ~2022-07-06 | MM_ITS ---
EXAMINATION: MM SCREENING DIGITAL BREAST TOMOSYNTHESIS, BILATERAL CLINICAL INFORMATION: Screening. Asymptomatic. The lifetime risk of breast cancer based on the Tyrer-Cuzick Model is 5%. COMPARISON: Prior mammography exams, most recent 06/30/2021. TECHNIQUE: Digital breast tomosynthesis is performed in both the craniocaudal and mediolateral oblique views along with computer-aided detection (CAD). Synthesized 2D images are generated from the tomosynthesis. FINDINGS: There are scattered areas of fibroglandular density (ACR BI-RADS breast composition Category b). There are no significant masses, abnormal calcifications, or other abnormalities. No developing density or architectural abnormality. Nodular asymmetry mid outer right breast is stable. The axilla and skin contours are unremarkable. No significant changes. MM/MM tomosynthesis screening BI IMPRESSION: No significant changes from prior exams. ASSESSMENT: BI-RADS 2: Benign RECOMMENDATION: Routine annual mammography screening. This patient's information was entered into a reminder system with a target due date for their next mammogram.
[2022-07-06 16:10] LABS: Anion Gap 11 (12-20); Blood Urea Nitrogen 13 mg/dL (9-16); Carbon Dioxide 30 mmol/L (22-29); Chloride 106 mmol/L (96-108); Estimated Glomerular Filt Rate > 60; Glucose Random 93 mg/dL (60-115); Sodium 143 mmol/L (135-145)
[2022-07-06 17:30] LABS: Appearance Urine Clear; Color Urine Yellow; Glucose Urine UA Negative (Negative); Leukocyte Esterase Urine Negative (Negative); Nitrite Urine Negative (Negative); Specific Gravity - Urine 1.015 (1.005-1.025); UMIC TRIGGER UACC YES; Urine Blood Large (3+) (Negative); Urine Ketones Negative (Negative); Urine Protein 30 (1+) mg/dL (Neg-Trace)
[2022-07-06 17:36] LABS: Bacteria Urine None Seen (None Seen); Hyaline Casts Urine 0-2 /LPF (0-2); RBC Urine >20 /HPF (0-2); Squamous Epithelial Cell Urine 0-2 /HPF (0-2); WBC Urine 0-5 /HPF (0-5)
[2022-07-11 06:19] LABS: Angiotensin Converting Enzyme 6 U/L (9-67)
== END 2022-07-06 14:57 | disposition home or self-care (01) ==
LOC: HO.MAMMO 14:56
PROVIDERS: Absent Provider Nurse Practitioner Family; PCP Family Medicine; Visit Provider Family Medicine
DX: Z12.31 Encounter for screening mammogram for malignant neoplasm of breast (principal); R80.9 Proteinuria, unspecified; H15.009 Unspecified scleritis, unspecified eye
CPT/HCPCS: 36415; 77063; 77067; 80048; 81001; 82164

== ENCOUNTER → 2022-07-11 10:56 | Outpatient (BNVA) | payer MEDICAID, SELFPAY | PROVIDERS: PCP Family Medicine; Visit Provider Internal Medicine Pulmonary Disease | DX: J84.9 Interstitial pulmonary disease, unspecified (principal); J45.909 Unspecified asthma, uncomplicated; R91.8 Other nonspecific abnormal finding of lung field; R93.89 Abnormal findings on diagnostic imaging of other specified body structures | CPT/HCPCS: 99202 ==

== ENCOUNTER → 2022-07-12 14:03 | Outpatient (BNVA) | payer MEDICAID, SELFPAY | PROVIDERS: PCP Family Medicine; Visit Provider Obstetrics & Gynecology | DX: Z30.430 Encounter for insertion of intrauterine contraceptive device (principal) | CPT/HCPCS: 58300; J7298 ==

== ENCOUNTER 2022-07-14 12:49 | Outpatient (REF) | payer MEDICAID, SELFPAY ==
--- NOTE | 2022-07-14 13:55 | PFT_ITS ---
FINDINGS: 1. Forced vital capacity 65%, FEV1 68%, FEV1/FVC ratio is 83. 2. GXS12-48 74% and MVV 62%. 3. Post bronchodilator therapy, there is no significant change. 4. Total lung capacity 72% and residual volume 70%. 5. Diffusion capacity 71%. CONCLUSION: 1. [id number] degree of restrictive pulmonary disorder. 2. No obstructive airway disorder. 3. No response to bronchodilator therapy. Nya Booth MD MSB/MODL / [id number]
== END 2022-07-14 12:50 | disposition home or self-care (01) ==
LOC: HO.RESP 12:49
PROVIDERS: PCP Family Medicine; Visit Provider Internal Medicine Pulmonary Disease
DX: J84.9 Interstitial pulmonary disease, unspecified (principal)
CPT/HCPCS: 94010; 94727; 94729

== ENCOUNTER 2022-07-17 13:19 | Outpatient (REF) | payer MEDICAID, SELFPAY ==
[2022-07-19 12:50] LABS: Immunoglobulin G Subclass 1 1031 mg/dL (382-929); Immunoglobulin G Subclass 2 431 mg/dL (241-700); Immunoglobulin G Subclass 3 176 mg/dL (22-178); Immunoglobulin G Subclass 4 53.2 mg/dL (4-86); Immunoglobulin G Total 1562 mg/dL (600-1640)
== END 2022-07-17 13:20 | disposition home or self-care (01) ==
LOC: HO.LAB 13:19
PROVIDERS: PCP Family Medicine; Visit Provider Nurse Practitioner Family
DX: H20.9 Unspecified iridocyclitis (principal)
CPT/HCPCS: 36415; 82784

== ENCOUNTER → 2022-08-01 12:14 | Outpatient (BNVA) | payer MEDICAID, SELFPAY | PROVIDERS: PCP Family Medicine; Visit Provider Nurse Practitioner Family | DX: R76.8 Other specified abnormal immunological findings in serum (principal); R80.9 Proteinuria, unspecified; H20.9 Unspecified iridocyclitis; H15.009 Unspecified scleritis, unspecified eye; J84.9 Interstitial pulmonary disease, unspecified; Z79.52 Long term (current) use of systemic steroids; Z79.899 Other long term (current) drug therapy | CPT/HCPCS: 99212 ==

== ENCOUNTER 2022-08-04 13:00 | Outpatient (REF) | payer MEDICAID, SELFPAY ==
--- NOTE | ~2022-08-04 | CT_ITS ---
EXAMINATION: CT CHEST WITHOUT CONTRAST CLINICAL INFORMATION: Interstitial pulmonary disease. COMPARISON: CT chest 06/27/2022. TECHNIQUE: Multidetector volumetric CT imaging of the chest was done. Axial MIP volume rendering provided. Sagittal and coronal reformatted images were obtained. This CT examination was performed using dose optimization techniques as appropriate, variously including the following: *Automated exposure control *Adjustment of mA and/or kV according to patient size (this includes techniques or standardized protocols for targeted exams where dose is matched to indication/reason for exam; i.e. 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 LUNGS: The lungs are well expanded and clear of acute pneumonic process. Previously seen right upper lobe posterior segment consolidation and mild atelectatic changes in the posterior segment left upper lobe have resolved with some residual changes of atelectasis seen. No new areas of consolidations or mass seen. Previously visualized 2 small pulmonary nodules right lung base are smaller. Pleural-based lesion right lower lobe axial image 142/6 measures 5 mm previously measured 7 mm and a small nodule at the right posterior CP angle is barely visible. No additional pulmonary nodule seen. Minimal atelectatic changes scarring seen in the lingula and right lung base. MEDIASTINUM: The thyroid lobes are symmetrical and normal. The central trachea and the bronchi are widely patent. The heart size and great vessels are normal caliber. No pericardial effusion seen. No abnormal-sized mediastinal or hilar lymph nodes seen. CORONARY ARTERY CALCIFICATION: None visualized on this study. PLEURA: There is no pleural effusion. No pleural mass or thickening. AXILLA: No abnormal-sized axillary lymph nodes seen. The chest wall is unremarkable. UPPER ABDOMEN: Visualized liver, spleen, pancreas and bilateral adrenal glands are unremarkable. OSSEOUS STRUCTURES: No aggressive lytic or sclerotic process seen. There is mild spondylosis. CT/CT chest wo IV con IMPRESSION: Right upper lobe consolidation and left upper lobe atelectasis have resolved with some residual changes in the right upper lobe of atelectasis. Two small pulmonary nodules seen in the right lung base are minimally smaller. Second nodule more inferiorly has almost disappeared. Minimal scarring or atelectasis seen in right lower lobe. Fleischner guidelines were followed.
== END 2022-08-04 13:01 | disposition home or self-care (01) ==
LOC: HO.CT 13:00
PROVIDERS: PCP Family Medicine; Visit Provider Internal Medicine Pulmonary Disease
DX: J84.9 Interstitial pulmonary disease, unspecified (principal)
CPT/HCPCS: 71250

== ENCOUNTER 2022-08-11 10:35 | Outpatient (REF) | payer MEDICAID, SELFPAY ==
[2022-08-11 12:39] LABS: Appearance Urine Clear; Color Urine Yellow; Glucose Urine UA Negative (Negative); Leukocyte Esterase Urine Trace (Negative); Nitrite Urine Negative (Negative); PH 5.5 (5.0-9.0); UMIC TRIGGER UA YES; Urine Blood Moderate (2+) (Negative); Urine Ketones Negative (Negative); Urine Protein Negative (Neg-Trace)
[2022-08-11 12:44] LABS: Bacteria Urine None Seen (None Seen); Hyaline Casts Urine 0-2 /LPF (0-2); Squamous Epithelial Cell Urine 0-2 /HPF (0-2); WBC Urine 0-5 /HPF (0-5)
[2022-08-11 13:19] LABS: Erythrocyte Sedimentation Rate 14 MM/HR (0-20)
[2022-08-11 13:34] LABS: Alanine Aminotransferase 18 U/L (0-31); Albumin Level 3.7 g/dL (3.5-5.0); Alkaline Phosphatase 62 U/L (39-117); Anion Gap 12 (12-20); Aspartate Amino Transferase 12 U/L (5-31); Bilirubin Total 1.2 mg/dL (0.0-1.0); Blood Urea Nitrogen 28 mg/dL (9-16); C Reactive Protein 0.29 mg/dL (< or = 0.50); Carbon Dioxide 30 mmol/L (22-29); Chloride 101 mmol/L (96-108); Estimated Glomerular Filt Rate > 60; Glucose Random 85 mg/dL (60-115); Potassium 3.9 mmol/L (3.3-5.1); Sodium 139 mmol/L (135-145); Total Protein 6.6 g/dL (6.5-8.0)
[2022-08-11 13:50] LABS: Creatinine Urine 43.77 mg/dL; Protein/Creatinine Ratio, Ur 0.27 (<0.2); Total Protein Urine Random 12 mg/dL (<12)
== END 2022-08-11 10:36 | disposition home or self-care (01) ==
LOC: HO.LAB 10:35
PROVIDERS: Absent Provider Internal Medicine Rheumatology; PCP Family Medicine; Visit Provider Nurse Practitioner Family
DX: H15.009 Unspecified scleritis, unspecified eye (principal); R80.9 Proteinuria, unspecified; J45.909 Unspecified asthma, uncomplicated; J98.4 Other disorders of lung; R93.89 Abnormal findings on diagnostic imaging of other specified body structures
CPT/HCPCS: 36415; 80053; 81001; 84156; 85652; 86140; 99212

== ENCOUNTER 2022-08-15 14:09 | Outpatient (REF) | payer MEDICAID, SELFPAY | END 2022-08-15 14:10 | disposition home or self-care (01) | LOC: HO.LNP 14:09 | PROVIDERS: PCP Family Medicine; Visit Provider Obstetrics & Gynecology | DX: N95.0 Postmenopausal bleeding (principal); Z78.0 Asymptomatic menopausal state | CPT/HCPCS: 58100; 88305; 99212 ==

== ENCOUNTER 2022-08-24 13:40 | Outpatient (REF) | payer MEDICAID, SELFPAY ==
--- NOTE | ~2022-08-24 | MM_ITS ---
EXAMINATION: BONE DENSITOMETRY CLINICAL INDICATION: Asymptomatic menopausal state. COMPARISON: None (current study represents initial baseline exam). TECHNIQUE: Using a [employer] DXA System (software version: 13.1) manufactured by [employer], dual-energy x-ray absorptiometry was performed of the lumbar spine, left hip, and left forearm radius 33%. The images are of good technical quality. Summary results are attached. FINDINGS: AP SPINE L1-L4: BMD 1.238 g/cm2, Z-score 1.1, T-score 0.5, normal. LEFT FEMUR, NECK: BMD 0.825 g/cm2, Z-score -0.7, T-score -1.5, osteopenia. LEFT FEMUR, TOTAL: BMD 0.913 g/cm2, Z-score -0.3, T-score -0.8, normal. LEFT FOREARM RADIUS 33%: BMD 0.916 g/cm2, Z-score 1.3, T-score 0.5, normal. IDENTIFIED RISK FACTORS: Menopause, secondary osteoporosis, glucocorticoids (chronic). HISTORY OF FRACTURE: None listed. MEDICATIONS: None listed. MM/XR DEXA appendicular skeleton IMPRESSION: 1. DIAGNOSIS: Osteopenia based on the lowest T-score value of -1.5 in the femoral neck applying World Health Organization criteria. 2. 10-YEAR FRACTURE RISK PREDICTION, FRAX: Major osteoporotic fracture (clinical spine, forearm, hip or shoulder) 7.1%. Hip fracture 0.7%. 3. Treatment Recommendations: NOF guidelines recommend consideration for treatment in postmenopausal women and men age 50 and older presenting with the following: -A hip or vertebral (clinical or morphometric) fracture. -T-score less than or equal to -2.5 at the femoral neck or spine after appropriate evaluation to exclude secondary causes. -Low bone mass at the hip or spine and a 10-year fracture probability by FRAX of greater than or equal to 3% for hip fracture or greater than or equal to 20% for major osteoporotic fracture based on the [place] adapted WHO algorithm. 4. Other Recommendations: All treatment decisions require clinical judgment and consideration of individual patient factors, including patient preferences, comorbidities, previous drug use, risk factors not captured in the FRAX model (e.g. frailty, falls, vitamin D deficiency, increased bone turnover, interval significant decline in bone density) and possible under or overestimation of fracture risk by FRAX. Additional medical evaluation for secondary cause of low bone mineral density may be appropriate. FUTURE SCAN RECOMMENDATION: People with diagnosed cases of osteoporosis or at high risk for fracture should have regular bone mineral density tests. For patients eligible for Medicare, routine testing is allowed once every 2 years. The testing frequency can be increased to one year for patients who have rapidly progressing disease, those who are receiving or discontinuing medical therapy to restore bone mass, or have additional risk factors.
== END 2022-08-24 13:41 | disposition home or self-care (01) ==
LOC: HO.MAMMO 13:40
PROVIDERS: PCP Family Medicine; Visit Provider Internal Medicine Rheumatology
DX: Z13.820 Encounter for screening for osteoporosis (principal); Z78.0 Asymptomatic menopausal state; Z79.52 Long term (current) use of systemic steroids
CPT/HCPCS: 77081

== ENCOUNTER → 2022-08-31 08:20 | Outpatient (BNVA) | payer MEDICAID, SELFPAY | PROVIDERS: PCP Family Medicine; Visit Provider Obstetrics & Gynecology | DX: N95.0 Postmenopausal bleeding (principal) | CPT/HCPCS: 99212 ==

== ENCOUNTER → 2022-09-13 10:02 | Outpatient (BNVA) | payer MEDICAID, SELFPAY | PROVIDERS: PCP Family Medicine; Visit Provider Internal Medicine Rheumatology | DX: M05.9 Rheumatoid arthritis with rheumatoid factor, unspecified (principal); E27.49 Other adrenocortical insufficiency; J84.9 Interstitial pulmonary disease, unspecified; R76.8 Other specified abnormal immunological findings in serum; R80.9 Proteinuria, unspecified; H20.9 Unspecified iridocyclitis; H15.009 Unspecified scleritis, unspecified eye; E55.9 Vitamin D deficiency, unspecified; Z79.899 Other long term (current) drug therapy | CPT/HCPCS: 99212 ==

== ENCOUNTER 2022-10-05 11:27 | Outpatient (REF) | payer MEDICAID, SELFPAY ==
[2022-10-05 14:03] LABS: Estimated Average Glucose 128 mg/dL; Hemoglobin A1C 149.1171 umol/L; Hemoglobin A1c % 6.1 %
[2022-10-05 14:12] LABS: Alanine Aminotransferase 22 U/L (0-31); Albumin Level 3.6 g/dL (3.5-5.0); Alkaline Phosphatase 60 U/L (39-117); Anion Gap 15 (12-20); Aspartate Amino Transferase 15 U/L (5-31); Bilirubin Total 0.6 mg/dL (0.0-1.0); Blood Urea Nitrogen 22 mg/dL (9-16); Calcium 8.8 mg/dL (8.4-10.2); Carbon Dioxide 26 mmol/L (22-29); Chloride 102 mmol/L (96-108); Estimated Glomerular Filt Rate > 60; Glucose Random 102 mg/dL (60-115); Sodium 140 mmol/L (135-145); Total Protein 6.6 g/dL (6.5-8.0)
[2022-10-05 14:30] LABS: TSH reflex Free T4 1.56 uIU/mL (0.32-4.0)
== END 2022-10-05 11:28 | disposition home or self-care (01) ==
LOC: HO.HHCL 11:27
PROVIDERS: Visit Provider Family Medicine
DX: I10 Essential (primary) hypertension (principal); E03.8 Other specified hypothyroidism; E06.3 Autoimmune thyroiditis; Z79.52 Long term (current) use of systemic steroids
CPT/HCPCS: 36415; 80053; 83036; 84443

== ENCOUNTER 2022-11-02 12:59 | Outpatient (AMB) | payer MEDICAID, SELFPAY ==
--- NOTE | 2022-11-02 13:06 | A.OFFVIS_ITS ---
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 Patient completed 3 months prednisone 50 mg daily with significant improvement in her dyspnea symptoms and imaging. Now she is being slowly titrated off. She denies any recent exacerbations. [facility] Medical History Asthma Chronic allergic rhinitis GERD (gastroesophageal reflux disease) History of depression Hypertension Hypothyroid Vitamin D deficiency Surgical History H/O colonoscopy H/O nasal polypectomy H/O tubal ligation Hx of cystoscopy Family History Mother HTN (hypertension) Diabetes Colon cancer Father HTN (hypertension) Diabetes Hyperlipidemia Colon cancer Social History Household Members: Spouse Household Members Other:: son Housing: Apartment Alcohol intake: former Patient Tobacco Use Status: Never used Tobacco service: No Current occupational status: disabled Female Reproductive History Menstrual Age of Menarche: 10 Review of Systems Const Denies daytime sleepiness, Denies excessive sweating, Denies fatigue, Denies fever(s), Denies lethargy, Denies malaise, Denies night sweats, Denies snoring and Denies weight loss Eyes Denies blurry vision and Denies itchy eyes ENT Denies nasal congestion, Denies post nasal drip, Denies sinus pain, Denies sinus pressure and Denies other ( Thrush) Card Denies chest pain, Denies pedal edema, Denies dyspnea, Denies orthopnea and Denies paroxysmal nocturnal dyspnea Resp Denies cough, Denies hemoptysis, Denies excessive phlegm production, Denies dyspnea, Denies snoring and Denies wheezing GI Denies abdominal pain and Denies heartburn Musc Denies myalgias, Denies arthralgias and Denies joint swelling Skin/Breast Denies rash Neuro Denies memory loss and Denies seizure-like activity Psych Denies abnormal sleep pattern, Denies anxiety and Denies memory loss Endo Denies excessive sweating, Denies fatigue and Denies heat intolerance Agustin/Lymph Denies easy bruising Aller/Immun Denies itchy eyes, Denies seasonal rhinorrhea and Denies wheezing Physical Exam Vital Signs: Last Vital Signs Pulse 78 11/02/22 13:07 BP 128/82 11/02/22 13:07 Pulse Ox 96 11/02/22 13:07 Oxygen Delivery Method Room Air 11/02/22 13:07 BMI result Body Mass Index 31.1 Const General: no acute distress and alert Nutritional Appearance: not obese Orientation/consciousness: Other orientation findings ( oriented) HEENT Head: Yes atraumatic Eyes General: appearance normal, both eyes and all related structures Sclerae: sclerae normal EOM: EOMs intact bilaterally Neck Neck: Yes supple Lymphatic: no lymphadenopathy noted Resp Effort & Inspection: normal respiratory effort and no use of accessory muscles Auscultation: clear to auscultation bilaterally Cardio Rate: regular rate Rhythm: regular rhythm Heart sounds: no gallops, no murmurs and no rubs Skin General skin exam: other ( warm) Extrem General: No clubbing, No cyanosis and No edema Assessment & Plan Assessment & Plan (1) ILD (interstitial lung disease): Code(s): J84.9 - Interstitial pulmonary disease, unspecified Plan: Significant symptomatic improvement, also improvement in CT imaging, now being titrated of prednisone. Will repeat CT chest to document resolution. (2) Abnormal CT scan, chest: Code(s): R93.89 - Abnormal findings on diagnostic imaging of other specified body structures (3) Asthma: Code(s): J45.909 - Unspecified asthma, uncomplicated Plan: Well controlled on current regimen of Advair and albuterol MDI. Continue current regimen. Orders: Orders CT chest wo IV con Today J84.9 - Interstitial pulmonary disease, unspecified Coding Level of Care Code Est Pt Level 4 (77321) Diagnoses ILD (interstitial lung disease) J84.[address] scan, chest R93.89 Asthma J45.909
[2022-11-02 13:07] VITALS: BP 128/82; PULSE 78; O2SAT 96; BMI 31.1
== END 2022-11-02 13:19 | disposition home or self-care (01) ==
PROVIDERS: PCP Family Medicine; Visit Provider Internal Medicine Pulmonary Disease
DX: J84.9 Interstitial pulmonary disease, unspecified (principal); R93.89 Abnormal findings on diagnostic imaging of other specified body structures; J45.909 Unspecified asthma, uncomplicated
CPT/HCPCS: 99214

== ENCOUNTER → 2022-11-02 12:59 | Outpatient (BNVA) | payer MEDICAID, SELFPAY | PROVIDERS: PCP Family Medicine; Visit Provider Internal Medicine Pulmonary Disease | DX: R93.89 Abnormal findings on diagnostic imaging of other specified body structures (principal); J45.909 Unspecified asthma, uncomplicated; J84.9 Interstitial pulmonary disease, unspecified | CPT/HCPCS: 99212 ==

== ENCOUNTER 2022-11-30 15:21 | Outpatient (REF) | payer MEDICAID, SELFPAY | END 2022-11-30 15:22 | disposition home or self-care (01) | LOC: HO.LNP 15:21 | PROVIDERS: PCP Family Medicine; Visit Provider Obstetrics & Gynecology | DX: D25.9 Leiomyoma of uterus, unspecified (principal) | CPT/HCPCS: 58100; 88305 ==

== ENCOUNTER 2022-11-30 15:21 | Outpatient (AMB) | payer MEDICAID, SELFPAY ==
[2022-11-30 15:37] VITALS: BP 124/78; BMI 31.0
--- NOTE | 2022-11-30 15:37 | MHC.OFFVIS ---
Intake Vital Signs 11/30/22 15:37 Height 5 ft 6 in Weight 191 lb 12.835 oz BMI 31.0 BP 124/78 Intake Visit Reasons: 6 month EMB Route Contractor Required: Yes Route Contractor Name: Monegasque Information Interpreted: non-clinical & clinical Osteopathic Medicine Teacher: Osteopathic Medicine Teacher Present (Arlin KUMAR) Accompanied by: Self / Same As Patient Allergies magnesium Allergy (Intermediate, Verified 11/30/22 15:38) rash Post menopausal: Yes PFSH Medical History Vitamin D deficiency GERD (gastroesophageal reflux disease) History of depression Chronic allergic rhinitis Asthma Hypothyroid Hypertension Surgical History H/O colonoscopy Hx of cystoscopy H/O nasal polypectomy H/O tubal ligation Family History Mother HTN (hypertension) Diabetes Colon cancer Father HTN (hypertension) Diabetes Hyperlipidemia Colon cancer Social History Household Members: Spouse Household Members Other:: son Housing: Apartment Alcohol intake: former Patient Tobacco Use Status: Never used Tobacco service: No Current occupational status: disabled Female Reproductive History Menstrual Age of Menarche: 10 Physical Exam Vital Signs: Last Vital Signs BP 124/78 11/30/22 15:37 BMI result Body Mass Index 31.0 Office Procedures Endometrial Biopsy Details: The patient was counseled regarding the indication and benefits of endometrial sampling to rule out endometrial pathology including not limited to endometrial hyperplasia or endometrial cancer and others; The alternatives (Either do nothing vs. hysteroscopy D&C) & the risks were discussed with the patient including but not limited: pain, uterine perforation, bleeding, infection, possible injury to bladder, bowel, ureter, possible need for blood transfusion with all its possible risks. The patient verbalized understanding all questions answered and signed consent. The patient was placed into the dorsal lithotomy position; a speculum was inserted in the vagina. Using aseptic technique for the procedure, the cervix was cleansed with Betadine. The anterior lip of the cervix was grasped with a single tooth tenaculum. The uterus was sounded to 7 cm with a 4 mm Pipelle was used. Tissues samples were obtained and placed in formalin, in a patient labeled container and sent to the pathology department. At the end of the procedure, there was minimal bleeding noted The patient tolerated the procedure well and was discharged in good condition with the following instructions: Nothing in the vagina until the bleeding stops. No sex until the bleeding stops, to call if any of the following occurs: fever (>100.4), flu-like symptoms, abdominal pain, heavy bleeding, four smelling vaginal discharge. The patient was instructed to schedule a Follow up appointment in 2 weeks to discuss pathology results of the biopsy and treatment options. This note was generated with a voice recognition program. Some errors may have been overlooked during the review of this note. Sometimes these errors may affect the content or meaning of a given sentence. 79323-Zeahdnomzrv Biopsy Assessment & Plan Assessment & Plan Orders: Orders AMB Endometrial Biopsy Today Z78.0 - Asymptomatic menopausal state Coding Level of Care Code Procedure Only CPT Codes Endometrial Biopsy - CPT: 03711-Usurdzsdtip Biopsy ([id number])
== END 2022-11-30 15:54 | disposition home or self-care (01) ==
LOC: HO.HWS 15:21
PROVIDERS: PCP Family Medicine; Visit Provider Obstetrics & Gynecology
DX: D25.9 Leiomyoma of uterus, unspecified (principal)
CPT/HCPCS: 58100

== ENCOUNTER 2022-12-05 11:55 | Outpatient (REF) | payer MEDICAID, SELFPAY ==
[2022-12-05 12:25] LABS: MANUAL DIFF FLAG NO
[2022-12-05 12:59] LABS: Basophils Absolute Auto 0.1 X10*3/uL (0.0-0.2); Basophils Percent Auto 0.7 % (0-2); Eosinophils Absolute Auto 0.3 X10*3/uL (0.0-0.4); Eosinophils Percent Auto 3.4 % (0-4); Hematocrit 41.3 % (37.0-47.0); Hemoglobin 13.2 g/dl (12.0-16.0); Imm Gran Abs Auto 0.08 X10*3/uL (0.00-0.03); Imm Gran Pct Auto 0.9 % (0.0-0.4); Lymphocytes Absolute Auto 3.3 X10*3/uL (1.2-4.9); Mean Corpuscular Hemoglobin 28.8 pg (27.0-33.0); Mean Platelet Volume 10.6 fL (9.4-12.3); Monocytes Absolute Auto 0.9 X10*3/uL (0.1-1.2); Monocytes Percent Auto 10.7 % (2-11); Neutrophils Absolute Auto 4.1 x10*3/uL (2.0-8.3); Neutrophils Percent Auto 46.3 % (45-73); Platelet Count 300 X10*3/uL (160-400); Red Blood Count 4.59 X10*6/uL (4.20-5.50); Red Cell Distribution Width 12.5 % (11.0-16.0); White Blood Count 8.8 X10*3/uL (4.8-10.8)
[2022-12-05 14:03] LABS: Erythrocyte Sedimentation Rate 29 MM/HR (0-20)
[2022-12-05 14:09] LABS: C Reactive Protein 1.06 mg/dL (< or = 0.50); Estimated Glomerular Filt Rate > 60
== END 2022-12-05 11:56 | disposition home or self-care (01) ==
LOC: HO.LAB 11:55
PROVIDERS: PCP Family Medicine; Visit Provider Internal Medicine Rheumatology
DX: J84.9 Interstitial pulmonary disease, unspecified (principal); R80.9 Proteinuria, unspecified; Z79.899 Other long term (current) drug therapy
CPT/HCPCS: 36415; 82565; 85025; 85652; 86140

== ENCOUNTER 2022-12-07 14:59 | Outpatient (REF) | payer MEDICAID, SELFPAY ==
--- NOTE | ~2022-12-07 | CT_ITS ---
EXAMINATION: CT CHEST WITHOUT CONTRAST CLINICAL INFORMATION: Interstitial pulmonary disease. COMPARISON: Prior CT examinations, most recently 08/04/2022. TECHNIQUE: Multidetector volumetric CT imaging of the chest was done. Axial MIP volume rendering provided. Sagittal and coronal reformatted images were obtained. This CT examination was performed using dose optimization techniques as appropriate, variously including the following: *Automated exposure control *Adjustment of mA and/or kV according to patient size (this includes techniques or standardized protocols for targeted exams where dose is matched to indication/reason for exam; i.e. 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 LUNGS: The lungs are clear with no evidence of inflammation or parenchymal nodules. At the lateral right base (11:153), an 8 mm benign, pleural-based lymph node is incidentally seen. No new nodule, mass, infiltrate or groundglass opacity is seen. There is very mild biapical pleural and parenchymal scarring. There is no generalized increase in peripheral interlobular septal markings. No bleb or bullous formation is seen. There is no honeycombing. A small airways are clear. The central airways are patent. MEDIASTINUM: The thyroid is normal. The ascending thoracic aorta is ectatic, measuring 4.2 x 4.2 cm (10:28). No giuliana thoracic aortic aneurysm is seen. There is no mediastinal or hilar lymphadenopathy. CORONARY ARTERY CALCIFICATION: None visualized on this study. PLEURA: There is no pleural effusion. No pleural mass or thickening. AXILLA: No lymphadenopathy. UPPER ABDOMEN: Unremarkable. OSSEOUS STRUCTURES: Unremarkable. CT/CT chest wo IV con IMPRESSION: 1. No pulmonary nodule, mass, infiltrate or groundglass opacity is seen. 2. There is no generalized increase in peripheral interlobular septal markings or honeycombing to suggest chronic interstitial lung disease. No emphysematous change is noted. 3. No thoracic lymphadenopathy or pleural effusion is seen. 4. The ascending thoracic aorta is ectatic and nonaneurysmal. 5. Osseous structures are unremarkable. Fleischner guidelines were followed.
== END 2022-12-07 15:00 | disposition home or self-care (01) ==
LOC: HO.CT 14:59
PROVIDERS: PCP Family Medicine; Visit Provider Internal Medicine Pulmonary Disease
DX: J84.9 Interstitial pulmonary disease, unspecified (principal)
CPT/HCPCS: 71250

== ENCOUNTER 2022-12-11 14:38 | Outpatient (AMB) | payer MEDICAID, SELFPAY ==
--- NOTE | 2022-12-11 14:39 | MHC.OFFVIS ---
Intake Vital Signs 12/11/22 14:49 Height 5 ft 6 in Weight 190 lb 0.615 oz BMI 30.7 BP 122/90 H Blood Pressure Location Lt brachial Position Sitting Pulse 80 Pulse Source Pulse Oximeter Temp 97.7 F Temp Source Skin Pulse Oximetry (%) 94 Intake Visit Reasons: ILD with aif Intake Note: Patient presents today for ILD with aif follow up. Guncotton Packer Required: Yes Guncotton Packer Name: Hannah Information Interpreted: clinical only Allergies magnesium Allergy (Intermediate, Verified 12/11/22 14:40) rash Medication List - Last Reconciled 12/11/22 by Jay Boudreaux MD alendronate 70 mg PO QWEEK escitalopram oxalate 10 mg PO DAILY fluticasone propion-salmeterol 500-50 mcg/dose (Advair Diskus) 1 inh inhalation Q12H hydroxychloroquine 200 mg PO BID ibuprofen 600 mg PO TID levothyroxine 75 mcg PO DAILY lisinopril 40 mg PO DAILY montelukast (Singulair) 10 mg PO DAILY HPI HPI Comments History of Present Illness Details The the patient returns for evaluation of her interstitial lung disease with autoimmune features. Our curator medical museum, Hannah, assists with the translation at the visit. The patient remains on hydroxychloroquine 200 mg twice a day. She has noted some pain in the left shoulder over the last 5-6 days. This occurs with lifting the arm up to the horizontal. It has been keeping her up at night. She does not recall any recent or distant fall on the area. She thinks she might have had pain there before but does not exactly know when. She has finished off the prednisone for her ILD about a month ago. Her breathing did improve and has been stabilized at present. Unfortunately she did gain weight on the prednisone. [facility] Medical History Vitamin D deficiency GERD (gastroesophageal reflux disease) History of depression Chronic allergic rhinitis Asthma Hypothyroid Hypertension Surgical History H/O colonoscopy Hx of cystoscopy H/O nasal polypectomy H/O tubal ligation Family History Mother HTN (hypertension) Diabetes Colon cancer Father HTN (hypertension) Diabetes Hyperlipidemia Colon cancer Social History Household Members: Spouse Household Members Other:: son Housing: Apartment Alcohol intake: former Patient Tobacco Use Status: Never used Tobacco service: No Current occupational status: disabled Female Reproductive History Menstrual Age of Menarche: 10 Review of Systems Const Details: some weight gain while on the high-dose prednisone. Negative for appetite change, fever, chills, malaise and fatigue Eyes Details: Negative for vision change, dry eyes,headaches and dizziness ENT Details: Negative for hearing change, tinnitus, oral ulcer, nose bleeds and oral dryness. Card Details: Negative chest pain, edema and syncope Resp Details: Negative for SOB, cough and wheezing GI Details: Negative indigestion/heartburn, nausea, abdominal pain, bowel changes, diarrhea, constipation and bloody stool. Skin/Breast Details: Negative for itching, rash, hives, Raynaud's symptoms, sun sensitivity, and skin cancer Endo Details: Negative for polyuria and polydypsia Agustin/Lymph Details: Negative for excessive bruising or bleeding. Physical Exam Vital Signs: Last Vital Signs Temp 97.7 F 12/11/22 14:49 Pulse 80 12/11/22 14:49 BP 122/90 H 12/11/22 14:49 Pulse Ox 94 12/11/22 14:49 BMI result Body Mass Index 30.7 APPEARANCE: Patient in no acute distress EYES no redness, pupils equal and reactive to light, eyelids normal HEART:? Regular rhythm, S1-S2 heard, no murmurs, rubs or gallops. LUNG:? Clear to auscultation, respiratory rate regular and non-labored. EXTREMITIES:? No edema, no calf tenderness, normal peripheral pulses JOINT EXAM:?? Cervical Spine: Full range of motion with mild discomfort. There is some slight cervical muscle tenderness. Thoracic Spine:? No tenderness on palpation. Lumbar Spine:? Alignment normal.? Full range of motion without pain, no tenderness. Hands: Normal pain-free range of motion without tenderness, swelling, increased warmth or erythema. 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 Wrists: Normal pain-free range of motion without tenderness, swelling, increased warmth or erythema. Elbows: Normal pain-free range of motion without tenderness, swelling, increased warmth or erythema. Shoulders:? Left: Mild to moderate pain with abduction 110 degrees or with more than 10 degrees of internal or external rotation. Pain is felt in the anterior and superior aspect of the shoulder. There is tenderness anteriorly, posteriorly and the subacromial region. There is questionable abductor weakness but no redness or swelling . There is no adenopathy. Right:Full range of motion without pain. No tenderness, weakness, swelling, increased warmth or erythema. Hip bursa:? No tenderness. Knees:? Normal pain-free range of motion without tenderness, swelling, increased warmth or erythema.? There is no effusion or crepitation Ankles:? Normal pain-free range of motion without tenderness, swelling, increased warmth or erythema. Feet:? Normal pain-free range of motion without tenderness, swelling, increased warmth or erythema? Results Reviewed Results Reviewed: Laboratory Tests 12/05/22 12:24 WBC 8.8 Hgb 13.2 ESR 29 H Creatinine 0.82 C-Reactive Protein 1.[address] [place] [address] [address] Scan Report Signed Patient: Ilene Dominguez MR#: [id number] : 1965 Acct:[id number] Age/Sex: 57 / F ADM Date: 12/07/[address]: Zaire Jean MD Ordering Physician: Zaire Jean MD Date of Service: 12/07/22 Procedure(s): CT chest wo IV con Accession Number(s): [id number] cc: Zaire Jean MD; Huong David MD~ EXAMINATION: CT CHEST WITHOUT CONTRAST CLINICAL INFORMATION: Interstitial pulmonary disease. COMPARISON: Prior CT examinations, most recently 08/04/2022. TECHNIQUE: Multidetector volumetric CT imaging of the chest was done. Axial MIP volume rendering provided. Sagittal and coronal reformatted images were obtained. This CT examination was performed using dose optimization techniques as appropriate, variously including the following: *Automated exposure control *Adjustment of mA and/or kV according to patient size (this includes techniques or standardized protocols for targeted exams where dose is matched to indication/reason for exam; i.e. extremities or head) *Use of iterative reconstruction technique DLP: 200 mGy-cm FINDINGS: TAILOR FITTER: The lungs are symmetrically well-expanded and grossly clear. LUNGS: The lungs are clear with no evidence of inflammation or parenchymal nodules. At the lateral right base (11:153), an 8 mm benign, pleural-based lymph node is incidentally seen. No new nodule, mass, infiltrate or groundglass opacity is seen. There is very mild biapical pleural and parenchymal scarring. There is no generalized increase in peripheral interlobular septal markings. No bleb or bullous formation is seen. There is no honeycombing. A small airways are clear. The central airways are patent. MEDIASTINUM: The thyroid is normal. The ascending thoracic aorta is ectatic, measuring 4.2 x 4.2 cm (10:28). No giuliana thoracic aortic aneurysm is seen. There is no mediastinal or hilar lymphadenopathy. CORONARY ARTERY CALCIFICATION: None visualized on this study. PLEURA: There is no pleural effusion. No pleural mass or thickening. AXILLA: No lymphadenopathy. UPPER ABDOMEN: Unremarkable. OSSEOUS STRUCTURES: Unremarkable. CT/CT chest wo IV con IMPRESSION: 1. No pulmonary nodule, mass, infiltrate or groundglass opacity is seen. 2. There is no generalized increase in peripheral interlobular septal markings or honeycombing to suggest chronic interstitial lung disease. No emphysematous change is noted. 3. No thoracic lymphadenopathy or pleural effusion is seen. 4. The ascending thoracic aorta is ectatic and nonaneurysmal. 5. Osseous structures are unremarkable. Fleischner guidelines were followed. Dictated By: Nino Jaramillo MD Assessment & Plan Assessment & Plan (1) Shoulder pain, left: Code(s): M25.512 - Pain in left shoulder (2) ILD (interstitial lung disease): Comment: RF and CCP antibodies positive: ILD with IF Code(s): J84.9 - Interstitial pulmonary disease, unspecified Plan The pulmonary symptoms have improved with a course of prednisone. She has some painful range of motion the left shoulder now suggesting some rotator cuff tendinitis. On exam, now that she is off the prednisone, I still do not see signs of an active rheumatoid arthritis picture. She should for now stay with hydroxychloroquine and get regular eye exams. I will get an x-ray of that shoulder. We could consider some physical therapy or a corticosteroid injection. I asked her to use some heat on the shoulder in the morning and do some gentle yjvad-ex-[id number] exercises on her own for now. We will get back to her with the results of the x-ray. She will book back for return visit in 4-5 months. Orders: Orders XR shoulder LT min 2V Today M25.512 - Pain in left shoulder Coding Level of Care Code Est Pt Level 3 (60311) Diagnoses Shoulder pain, left M25.512 ILD (interstitial lung disease) J84.9
[2022-12-11 14:49] VITALS: BP 122/90; PULSE 80; TEMP 36.5; O2SAT 94; BMI 30.7
== END 2022-12-11 15:08 | disposition home or self-care (01) ==
PROVIDERS: PCP Family Medicine; Visit Provider Internal Medicine Rheumatology
DX: M25.512 Pain in left shoulder (principal); J84.9 Interstitial pulmonary disease, unspecified
CPT/HCPCS: 99213

== ENCOUNTER → 2022-12-11 14:38 | Outpatient (BNVA) | payer MEDICAID, SELFPAY | PROVIDERS: PCP Family Medicine; Visit Provider Internal Medicine Rheumatology | DX: J84.9 Interstitial pulmonary disease, unspecified (principal); M25.512 Pain in left shoulder | CPT/HCPCS: 99212 ==

== ENCOUNTER 2022-12-14 13:24 | Outpatient (AMB) | payer MEDICAID, SELFPAY ==
[2022-12-14 13:32] VITALS: BP 142/84; PULSE 76; O2SAT 96; BMI 31.1
--- NOTE | 2022-12-14 13:32 | MHC.OFFVIS ---
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 Patient completed 3 months prednisone 50 mg daily with significant improvement in her dyspnea symptoms and imaging. After the last office visit she has stopped her prednisone with no recurrence of symptoms and essentially normal CT chest. [facility] Medical History Vitamin D deficiency GERD (gastroesophageal reflux disease) History of depression Chronic allergic rhinitis Asthma Hypothyroid Hypertension Surgical History H/O colonoscopy Hx of cystoscopy H/O nasal polypectomy H/O tubal ligation Family History Mother HTN (hypertension) Diabetes Colon cancer Father HTN (hypertension) Diabetes Hyperlipidemia Colon cancer Social History Household Members: Spouse Household Members Other:: son Housing: Apartment Alcohol intake: former Patient Tobacco Use Status: Never used Tobacco service: No Current occupational status: disabled Female Reproductive History Menstrual Age of Menarche: 10 Review of Systems Const Denies daytime sleepiness, Denies excessive sweating, Denies fatigue, Denies fever(s), Denies lethargy, Denies malaise, Denies night sweats, Denies snoring and Denies weight loss Eyes Denies blurry vision and Denies itchy eyes ENT Denies nasal congestion, Denies post nasal drip, Denies sinus pain, Denies sinus pressure and Denies other ( Thrush) Card Denies chest pain, Denies pedal edema, Denies dyspnea, Denies orthopnea and Denies paroxysmal nocturnal dyspnea Resp Denies cough, Denies hemoptysis, Denies excessive phlegm production, Denies dyspnea, Denies snoring and Denies wheezing GI Denies abdominal pain and Denies heartburn Musc Denies myalgias, Denies arthralgias and Denies joint swelling Skin/Breast Denies rash Neuro Denies memory loss and Denies seizure-like activity Psych Denies abnormal sleep pattern, Denies anxiety and Denies memory loss Endo Denies excessive sweating, Denies fatigue and Denies heat intolerance Agustin/Lymph Denies easy bruising Aller/Immun Denies itchy eyes, Denies seasonal rhinorrhea and Denies wheezing Physical Exam Vital Signs: Last Vital Signs Pulse 76 12/14/22 13:32 BP 142/84 H 12/14/22 13:32 Pulse Ox 96 12/14/22 13:32 Oxygen Delivery Method Room Air 12/14/22 13:32 BMI result Body Mass Index 31.1 Const General: no acute distress and alert Nutritional Appearance: not obese Orientation/consciousness: Other orientation findings ( oriented) HEENT Head: Yes atraumatic Eyes General: appearance normal, both eyes and all related structures Sclerae: sclerae normal EOM: EOMs intact bilaterally Neck Neck: Yes supple Lymphatic: no lymphadenopathy noted Resp Effort & Inspection: normal respiratory effort and no use of accessory muscles Auscultation: clear to auscultation bilaterally Cardio Rate: regular rate Rhythm: regular rhythm Heart sounds: no gallops, no murmurs and no rubs Skin General skin exam: other ( warm) Extrem General: No clubbing, No cyanosis and No edema Assessment & Plan Assessment & Plan (1) ILD (interstitial lung disease): Comment: RF and CCP antibodies positive: ILD with IF Code(s): J84.9 - Interstitial pulmonary disease, unspecified Plan: Resolution of symptoms/imaging findings after 3 months prednisone course and no recurrence. Continue to monitor clinically. (2) Asthma: Code(s): J45.909 - Unspecified asthma, uncomplicated Plan: Well controlled on current regimen of Advair and albuterol MDI. Continue current regimen. Coding Level of Care Code Est Pt Level 4 (53020) Diagnoses ILD (interstitial lung disease) J84.9 Asthma J45.909
== END 2022-12-14 13:52 | disposition home or self-care (01) ==
PROVIDERS: PCP Family Medicine; Visit Provider Internal Medicine Pulmonary Disease
DX: J84.9 Interstitial pulmonary disease, unspecified (principal); J45.909 Unspecified asthma, uncomplicated
CPT/HCPCS: 99214

== ENCOUNTER 2022-12-14 13:24 | Outpatient (REF) | payer MEDICAID, SELFPAY | END 2022-12-14 13:25 | disposition home or self-care (01) | LOC: HO.XRAY 13:24 | PROVIDERS: Absent Provider Internal Medicine Rheumatology; PCP Family Medicine; Visit Provider Internal Medicine Pulmonary Disease | DX: J84.9 Interstitial pulmonary disease, unspecified (principal); J45.909 Unspecified asthma, uncomplicated; M25.512 Pain in left shoulder | CPT/HCPCS: 73030; 99212 ==

== ENCOUNTER 2023-01-03 09:08 | Outpatient (AMB) | payer MEDICAID, SELFPAY ==
--- NOTE | 2023-01-03 09:11 | MHC.OFFVIS ---
Intake Vital Signs 01/03/23 09:16 Height 5 ft 6 in Weight 192 lb 10.944 oz BMI 31.1 BP 144/74 H Blood Pressure Location Lt brachial Position Sitting Pulse 74 Pulse Source Pulse Oximeter Temp 97.5 F Temp Source Skin Pulse Oximetry (%) 97 Oxygen Delivery Method Room Air Intake Visit Reasons: Shoulder Pain/injection Intake Note: Patient here today for left shoulder injection. Top Steep Tender Required: Yes Top Steep Tender Language: Emulsion Coater Name: Caren [id number] Information Interpreted: clinical only Accompanied by: Self / Same As Patient Allergies magnesium Allergy (Intermediate, Verified 01/03/23 09:16) rash Medication List - Last Reconciled 01/03/23 by Jay Boudreaux MD alendronate 70 mg PO QWEEK escitalopram oxalate 10 mg PO DAILY fluticasone propion-salmeterol 500-50 mcg/dose (Advair Diskus) 1 inh inhalation Q12H hydroxychloroquine 200 mg PO BID ibuprofen 600 mg PO TID levothyroxine 75 mcg PO DAILY lisinopril 40 mg PO DAILY montelukast (Singulair) 10 mg PO DAILY HPI HPI Comments History of Present Illness Details The patient returns today for her left shoulder pain. The visit is facilitated through the use of the iPad translating service. The x-ray was normal and we had discussed possible corticosteroid injection. The other joints have not been painful. She remains on hydroxychloroquine. She is now off the prednisone given for her interstitial lung disease. [facility] Medical History Vitamin D deficiency GERD (gastroesophageal reflux disease) History of depression Chronic allergic rhinitis Asthma Hypothyroid Hypertension Surgical History H/O colonoscopy Hx of cystoscopy H/O nasal polypectomy H/O tubal ligation Family History Mother HTN (hypertension) Diabetes Colon cancer Father HTN (hypertension) Diabetes Hyperlipidemia Colon cancer Social History Household Members: Spouse Household Members Other:: son Housing: Apartment Alcohol intake: former Patient Tobacco Use Status: Never used Tobacco service: No Current occupational status: disabled Female Reproductive History Menstrual Age of Menarche: 10 Review of Systems Const Details: Negative for appetite change, weight change, fever, chills, malaise and fatigue Resp Details: Negative for SOB, cough and wheezing Endo Details: Negative for polyuria and polydypsia Agustin/Lymph Details: Negative for excessive bruising or bleeding. Physical Exam Vital Signs: Last Vital Signs Temp 97.5 F 01/03/23 09:16 Pulse 74 01/03/23 09:16 BP 144/74 H 01/03/23 09:16 Pulse Ox 97 01/03/23 09:16 Oxygen Delivery Method Room Air 01/03/23 09:16 BMI result Body Mass Index 31.1 APPEARANCE: Patient in no acute distress Shoulders:? Left: Mild to moderate pain with abduction 110 degrees or with more than 20 degrees of internal or external rotation. Pain is felt in the anterior and superior aspect of the shoulder. There is tenderness anteriorly, posteriorly and the subacromial region. There is questionable abductor weakness but no redness or swelling . There is no adenopathy. Right:Full range of motion without pain. No tenderness, weakness, swelling, increased warmth or erythema. Office Procedures Joint Injection/Drain Joint Injection/Drain Primary Site: left shoulder Injected: 40 mg of, Kenalog, with 1 mL of and 1% plain lidocaine Coding Details: With the patient's consent the left shoulder was prepped with ChloraPrep and alcohol. Under a topical ethyl chloride spray the left subacromial space was injected with 40 mg of triamcinolone and 1 cc of 1% lidocaine. The patient tolerated the procedure without any acute adverse effects. 72761 - Large joint Procedure code (CPT) selection complete Results Reviewed Results Reviewed: [address] [address] XRay Report Signed Patient: Ilene Dominguez MR#: [id number] : 1965 Acct:[id number] Age/Sex: 57 / F ADM Date: 12/14/[address]: Zaire Jean MD Ordering Physician: Jay Boudreaux MD Date of Service: 12/14/22 Procedure(s): XR shoulder LT min 2V Accession Number(s): [id number] cc: Huong David MD; Jay Boudreaux MD~ EXAMINATION: XR SHOULDER, LEFT CLINICAL INFORMATION: Left shoulder pain. COMPARISON: CT chest 12/07/2022. TECHNIQUE: AP external rotation, Grashey, scapular Y, and axillary views of the left shoulder. FINDINGS: The bones and soft tissues are normal. No fracture. Glenohumeral and acromioclavicular alignment is anatomic with normal joint space. No abnormal soft tissue calcifications. XR/XR shoulder LT min 2V IMPRESSION: Normal left shoulder. Dictated By: Louis Graves MD Signed By: <Electronically signed by Louis Graves MD in OV> Assessment & Plan Assessment & Plan (1) Tendinitis of left rotator cuff: Code(s): M75.82 - Other shoulder lesions, left shoulder Plan The radiograph was read as normal. She still has painful range of motion consistent with rotator cuff tendinitis and or impingement symptoms. We reviewed potential side effects and risks of corticosteroid injections. With the patient's consent the left shoulder was prepped with ChloraPrep and alcohol. Under a topical ethyl chloride spray the left subacromial space was injected with 40 mg of triamcinolone and 1 cc of 1% lidocaine. The patient tolerated the procedure without any acute adverse effects. She was instructed to rest the arm for a few days and then he should start some rzjxu-[id number] exercises. I demonstrated some gentle, jjewc-wo-sgrtsx exercises. If she fails to improve we would refer her on to physical therapy. Follow-up to check on her rheumatic disease is recommended for 4 months. Orders: Orders AMB Joint Injection/Aspiration Today M75.82 - Other shoulder lesions, left shoulder Coding Level of Care Code Procedure Only Diagnoses Tendinitis of left rotator cuff M75.82 CPT Codes Coding - 26586 Large joint: 25495 - Large joint ([id number])
[2023-01-03 09:16] VITALS: BP 144/74; PULSE 74; TEMP 36.4; O2SAT 97; BMI 31.1
== END 2023-01-03 09:54 | disposition home or self-care (01) ==
PROVIDERS: PCP Family Medicine; Visit Provider Internal Medicine Rheumatology
DX: M75.82 Other shoulder lesions, left shoulder (principal)
CPT/HCPCS: 20610

== ENCOUNTER → 2023-01-03 09:08 | Outpatient (BNVA) | payer MEDICAID, SELFPAY | PROVIDERS: PCP Family Medicine; Visit Provider Internal Medicine Rheumatology | DX: M75.82 Other shoulder lesions, left shoulder (principal) | CPT/HCPCS: 20610 ==

== ENCOUNTER 2023-01-18 10:55 | Outpatient (REF) | payer MEDICAID, SELFPAY ==
[2023-01-18 13:42] LABS: Estimated Average Glucose 117 mg/dL; Hemoglobin A1c % 5.7 % (<6.0)
[2023-01-18 13:46] LABS: Alanine Aminotransferase 14 U/L (0-31); Alkaline Phosphatase 61 U/L (39-117); Anion Gap 10 (12-20); Aspartate Amino Transferase 18 U/L (5-31); Bilirubin Total 0.9 mg/dL (0.0-1.0); Blood Urea Nitrogen 18 mg/dL (9-16); Calcium 9.2 mg/dL (8.4-10.2); Carbon Dioxide 31 mmol/L (22-29); Chloride 104 mmol/L (96-108); Estimated Glomerular Filt Rate > 60; Glucose Random 85 mg/dL (60-115); Magnesium 2.1 mg/dL (1.6-2.6); Potassium 3.7 mmol/L (3.3-5.1); Sodium 141 mmol/L (135-145); Total Protein 7.6 g/dL (6.5-8.0)
[2023-01-18 14:04] LABS: TSH reflex Free T4 3.04 uIU/mL (0.32-4.0)
== END 2023-01-18 10:56 | disposition home or self-care (01) ==
LOC: HO.HHCL 10:55
PROVIDERS: Visit Provider Family Medicine
DX: E03.8 Other specified hypothyroidism (principal); E06.3 Autoimmune thyroiditis; R73.03 Prediabetes; E87.6 Hypokalemia; I10 Essential (primary) hypertension
CPT/HCPCS: 36415; 80053; 83036; 83735; 84443

== ENCOUNTER 2023-01-23 14:54 | Outpatient (AMB) | payer MEDICAID, SELFPAY ==
[2023-01-23 15:05] VITALS: BP 134/82; BMI 31.0
--- NOTE | 2023-01-23 15:05 | MHC.OFFVIS ---
Intake Vital Signs 01/23/23 15:05 Height 5 ft 6 in Weight 192 lb BMI 31.0 BP 134/82 Intake Visit Reasons: EMB results Granite Cutter Apprentice Required: Yes Granite Cutter Apprentice Language: Physician'S Aide Name: Arlin Diana Allergies magnesium Allergy (Intermediate, Verified 01/23/23 15:06) rash Is last menstrual period known: No Post menopausal: Yes Patient : No HPI HPI Comments History of Present Illness Details Presenting for follow-up post endometrial biopsy. The patient is doing well with no complaints . The pathology showed the following: Endometrium, biopsy: - Superficial fragments of benign endometrium with pseudodecidual change; no atypia or hyperplasia identified. - Chronic endometritis PFSH Medical History Vitamin D deficiency GERD (gastroesophageal reflux disease) History of depression Chronic allergic rhinitis Asthma Hypothyroid Hypertension Surgical History H/O colonoscopy Hx of cystoscopy H/O nasal polypectomy H/O tubal ligation Family History Mother HTN (hypertension) Diabetes Colon cancer Father HTN (hypertension) Diabetes Hyperlipidemia Colon cancer Social History Household Members: Spouse Household Members Other:: son Housing: Apartment Alcohol intake: former Patient Tobacco Use Status: Never used Tobacco service: No Current occupational status: disabled Female Reproductive History Menstrual Age of Menarche: 10 control method: permanent sterilization Date of last pap smear: 03/28/22 (negative) Date of Mammogram: 07/06/22 Date of last Bone Density Screenin08/24/22 Review of Systems Const All systems reviewed & are unremarkable except as noted in HPI and below Reports as per HPI and Reports no additional complaints GI Reports no additional complaints Reports no additional complaints Physical Exam Vital Signs: Last Vital Signs BP 134/82 01/23/23 15:05 BMI result Body Mass Index 31.0 Assessment & Plan Assessment & Plan (1) Post-menopausal: Comment: With history of proliferative endometrium on Mirena IUD Last EMB showed benign endometrium Code(s): Z78.0 - Asymptomatic menopausal state Plan: Discussed with the patient the results the pathology showing benign endometrium on Mirena IUD. Discussed with the patient the increase in the risk of endometrial hyperplasia and carcinoma in patient who are postmenopausal with proliferative endometrium, will keep the patient Mirena IUD repeat endometrial biopsy in 6 months. Instructions given the patient to call in case of vaginal bleeding recurs otherwise schedule an EMB appointment 6 minutes. All questions answered, the patient verbalized understanding Coding Level of Care Code Est Pt Level 3 (79600) Diagnoses Post-menopausal Z78.0
== END 2023-01-23 15:19 | disposition home or self-care (01) ==
LOC: HO.HWS 14:54
PROVIDERS: PCP Family Medicine; Visit Provider Obstetrics & Gynecology
DX: Z78.0 Asymptomatic menopausal state (principal)
CPT/HCPCS: 99213

== ENCOUNTER → 2023-01-23 14:54 | Outpatient (BNVA) | payer MEDICAID, SELFPAY | PROVIDERS: PCP Family Medicine; Visit Provider Obstetrics & Gynecology | DX: Z78.0 Asymptomatic menopausal state (principal) | CPT/HCPCS: 99212 ==

== ENCOUNTER 2023-01-25 10:39 | Outpatient (REF) | payer MEDICAID, SELFPAY ==
[2023-01-25 11:52] LABS: Cholesterol 172 mg/dL (<200); HDL Cholesterol 67 mg/dL (>40); LDL Cholesterol Calculated 97 mg/dL (<100); Triglycerides 44 mg/dL (<150)
[2023-01-25 12:32] LABS: Reflex LDLD? No
== END 2023-01-25 10:40 | disposition home or self-care (01) ==
LOC: HO.HHCL 10:39
PROVIDERS: Visit Provider Family Medicine
DX: I10 Essential (primary) hypertension (principal)
CPT/HCPCS: 36415; 80061

== ENCOUNTER 2023-05-01 14:11 | Outpatient (AMB) | payer MEDICAID, SELFPAY ==
[2023-05-01 14:19] VITALS: BP 134/86; PULSE 72; TEMP 36.3; O2SAT 96; BMI 30.1
--- NOTE | 2023-05-01 14:19 | A.OFFVIS_ITS ---
Intake Vital Signs 05/01/23 14:19 Height 5 ft 6 in Weight 186 lb 4.65 oz BMI 30.1 BP 134/86 Blood Pressure Location Lt brachial Position Sitting Pulse 72 Pulse Source Pulse Oximeter Temp 97.4 F Temp Source Skin Pulse Oximetry (%) 96 Oxygen Delivery Method Room Air Intake Visit Reasons: ild with aif kierra aldana Intake Note: Patient last seen 01/03/23 presents today for follow up. Production Honing Machine Operator Required: Yes Production Honing Machine Operator Language: Dumpman Name: Kendy [id number] Information Interpreted: clinical only Accompanied by: Self / Same As Patient Allergies magnesium Allergy (Intermediate, Verified 05/01/23 14:39) rash Medication List - Last Reconciled 05/01/23 by Carlos Jiang MD alendronate 70 mg PO QWEEK escitalopram oxalate 10 mg PO DAILY fluticasone propion-salmeterol 500-50 mcg/dose (Advair Diskus) 1 inh inhalation Q12H ibuprofen 600 mg PO TID levothyroxine 75 mcg PO DAILY lisinopril 40 mg PO DAILY montelukast (Singulair) 10 mg PO DAILY HPI HPI Comments History of Present Illness Details This is a 58-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 She stated that the steroid injection done for the left shoulder by Dr. Boudreaux last visit was significantly helpful. She stated that she has been having right ankle pain for the last week. She denies any significant trauma or overuse. She denies any swollen joints. Denies any chest pain and shortness of breath. He is not on hydroxychloroquine [facility] Medical History Vitamin D deficiency GERD (gastroesophageal reflux disease) History of depression Chronic allergic rhinitis Asthma Hypothyroid Hypertension Surgical History H/O colonoscopy Hx of cystoscopy H/O nasal polypectomy H/O tubal ligation Family History Mother HTN (hypertension) Diabetes Colon cancer Father HTN (hypertension) Diabetes Hyperlipidemia Colon cancer Social History Household Members: Spouse Household Members Other:: son Housing: Apartment Alcohol intake: former Patient Tobacco Use Status: Never used Tobacco service: No Current occupational status: disabled Female Reproductive History Menstrual Age of Menarche: 10 Review of Systems Card Denies dyspnea Resp Denies cough and Denies dyspnea Musc Reports arthralgias Physical Exam Vital Signs: Last Vital Signs Temp 97.4 F 05/01/23 14:19 Pulse 72 05/01/23 14:19 BP 134/86 05/01/23 14:19 Pulse Ox 96 05/01/23 14:19 Oxygen Delivery Method Room Air 05/01/23 14:19 BMI result Body Mass Index 30.1 Const General: cooperative, healthy appearing and comfortable Nutritional Appearance: overweight Orientation/consciousness: patient oriented x3 Limitations: no limitations HEENT Head: Yes normocephalic and Yes atraumatic Mouth: moist mucous membranes Resp Effort & Inspection: normal respiratory effort and able to speak in complete sentences Auscultation: clear to auscultation bilaterally Cardio Rate: regular rate Skin General skin exam: no rashes or lesions noted Neuro General: patient oriented x3 Extrem Other: Mild tenderness at the right Achilles tendon without swelling No active synovitis otherwise Normal nailfold capillaroscopy Results Reviewed Results Reviewed: [address] [address] XRay Report Signed Patient: Ilene Dominguez MR#: [id number] : 1965 Acct:[id number] Age/Sex: 57 / F ADM Date: 12/14/[address]: Zaire Jean MD Ordering Physician: Jay Boudreaux MD Date of Service: 12/14/22 Procedure(s): XR shoulder LT min 2V Accession Number(s): [id number] cc: Huong David MD; Jay Boudreaux MD~ EXAMINATION: XR SHOULDER, LEFT CLINICAL INFORMATION: Left shoulder pain. COMPARISON: CT chest 12/07/2022. TECHNIQUE: AP external rotation, Grashey, scapular Y, and axillary views of the left shoulder. FINDINGS: The bones and soft tissues are normal. No fracture. Glenohumeral and acromioclavicular alignment is anatomic with normal joint space. No abnormal soft tissue calcifications. XR/XR shoulder LT min 2V IMPRESSION: Normal left shoulder. Dictated By: Louis Graves MD Signed By: <Electronically signed by Louis Graves MD in OV> Assessment & Plan Assessment & Plan (1) ILD (interstitial lung disease): Comment: RF and CCP antibodies positive: ILD with IF Code(s): J84.9 - Interstitial pulmonary disease, unspecified Plan: This is a 58-year-old female with ILD with autoimmune features who presents for follow-up. She has a positive RF and anti CCP. 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 She presents for follow-up. Today she has mild right ankle pain out significant swelling. Advised patient to take ibuprofen 600 mg t.i.d. for 1-2 weeks. If no improvement. Follow-up with Podiatry. Will order comprehensive serology to screen for underlying autoimmune rheumatic disease. Plan I spent 48 minutes reviewing patient's chart, evaluating patient, ordering diagnostic workup, counseling patient and documenting in the chart Orders: Orders Comprehensive Met. Panel 3 Months M06.9 - Rheumatoid arthritis, unspecified C Reactive Protein 3 Months M06.9 - Rheumatoid arthritis, unspecified Hepatitis A,B,C Profile 3 Months Z11.59 - Encounter for screening for other viral diseases Protein Electrophoresis, Serum 3 Months M06.9 - Rheumatoid arthritis, unsp ecified Lysozyme, Serum 3 Months D86.9 - Sarcoidosis, unspecified HLA B27 3 Months M45.9 - Ankylosing spondylitis of unspecified sites in spine Complete Blood Count Auto Diff 3 Months M06.9 - Rheumatoid arthritis, unspecified Erythrocyte Sedimentation Rate 3 Months M06.9 - Rheumatoid arthritis, unspecified T Spot TB 3 Months Z11.7 - Encounter for testing for latent tuberculosis infection Immunofixation Pnl, Serum 3 Months M06.9 - Rheumatoid arthritis, unspecified Angiotensin Converting Enzyme 3 Months D86.9 - Sarcoidosis, unspecified Scleroderma 12 Panel 3 Months M34.9 - Systemic sclerosis, unspecified Coding Level of Care Code Est Pt Level 5 (17268) Diagnoses ILD (interstitial lung disease) J84.9
== END 2023-05-01 15:03 | disposition home or self-care (01) ==
PROVIDERS: PCP Family Medicine; Visit Provider Student in an Organized Health Care Education/Training Program
DX: J84.9 Interstitial pulmonary disease, unspecified (principal); M06.89 Other specified rheumatoid arthritis, multiple sites
CPT/HCPCS: 99215

== ENCOUNTER → 2023-05-01 14:11 | Outpatient (BNVA) | payer MEDICAID, SELFPAY | PROVIDERS: PCP Family Medicine; Visit Provider Student in an Organized Health Care Education/Training Program | DX: J84.9 Interstitial pulmonary disease, unspecified (principal) | CPT/HCPCS: 99212 ==

== ENCOUNTER 2023-05-21 16:18 | Outpatient (REF) | payer MEDICAID, SELFPAY ==
[2023-05-21 17:35] LABS: MANUAL DIFF FLAG NO
[2023-05-21 18:07] LABS: Alanine Aminotransferase 19 U/L (0-31); Alkaline Phosphatase 56 U/L (39-117); Anion Gap 11 (12-20); Aspartate Amino Transferase 22 U/L (5-31); Bilirubin Total 0.5 mg/dL (0.0-1.0); Blood Urea Nitrogen 15 mg/dL (9-16); Calcium 9.2 mg/dL (8.4-10.2); Carbon Dioxide 29 mmol/L (22-29); Chloride 107 mmol/L (96-108); Estimated Glomerular Filt Rate > 60; Glucose Random 110 mg/dL (60-115); Potassium 3.9 mmol/L (3.3-5.1); Sodium 143 mmol/L (135-145); Total Protein 7.4 g/dL (6.5-8.0)
[2023-05-21 18:22] LABS: TSH reflex Free T4 2.68 uIU/mL (0.32-4.0)
[2023-05-21 18:26] LABS: Basophils Absolute Auto 0.1 X10*3/uL (0.0-0.2); Basophils Percent Auto 0.6 % (0-2); Eosinophils Absolute Auto 0.4 X10*3/uL (0.0-0.4); Eosinophils Percent Auto 5.4 % (0-4); Hematocrit 39.5 % (37.0-47.0); Hemoglobin 12.7 g/dl (12.0-16.0); Imm Gran Abs Auto 0.02 X10*3/uL (0.00-0.03); Imm Gran Pct Auto 0.2 % (0.0-0.4); Lymphocytes Absolute Auto 3.4 X10*3/uL (1.2-4.9); Lymphocytes Percent Auto 42.6 % (20-40); Mean Corpuscular HGB Conc 32.2 g/dl (31.0-35.0); Mean Corpuscular Hemoglobin 28.8 pg (27.0-33.0); Mean Corpuscular Volume 89.6 fL (80.0-98.0); Mean Platelet Volume 11.1 fL (9.4-12.3); Monocytes Absolute Auto 0.6 X10*3/uL (0.1-1.2); Monocytes Percent Auto 7.7 % (2-11); Neutrophils Absolute Auto 3.5 x10*3/uL (2.0-8.3); Neutrophils Percent Auto 43.5 % (45-73); Platelet Count 289 X10*3/uL (160-400); Red Blood Count 4.41 X10*6/uL (4.20-5.50); Red Cell Distribution Width 12.8 % (11.0-16.0)
== END 2023-05-21 16:19 | disposition home or self-care (01) ==
LOC: HO.HHCL 16:18
PROVIDERS: Visit Provider Family Medicine
DX: R42 Dizziness and giddiness (principal)
CPT/HCPCS: 36415; 80053; 84443; 85025

== ENCOUNTER 2023-06-21 13:17 | Outpatient (AMB) | payer MEDICAID, SELFPAY ==
[2023-06-21 13:19] VITALS: BP 128/77; PULSE 86; O2SAT 94; BMI 30.1
--- NOTE | 2023-06-21 13:19 | A.OFFVIS_ITS ---
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 In 2022 patient completed 3 months prednisone 50 mg daily with significant improvement in her dyspnea symptoms and imaging. At that time her prednisone was stopped with no recurrence of symptoms and essentially normal CT chest. Patient has been using Advair and albuterol MDI to control her underlying asthma symptoms and Singulair for allergic component. Today she complains of an acute exacerbation symptomatic with wheezing and productive cough. [facility] Medical History Vitamin D deficiency GERD (gastroesophageal reflux disease) History of depression Chronic allergic rhinitis Asthma Hypothyroid Hypertension Surgical History H/O colonoscopy Hx of cystoscopy H/O nasal polypectomy H/O tubal ligation Family History Mother HTN (hypertension) Diabetes Colon cancer Father HTN (hypertension) Diabetes Hyperlipidemia Colon cancer Social History Household Members: Spouse Household Members Other:: son Housing: Apartment Alcohol intake: former Patient Tobacco Use Status: Never used Tobacco service: No Current occupational status: disabled Female Reproductive History Menstrual Age of Menarche: 10 Review of Systems Const Denies daytime sleepiness, Denies excessive sweating, Denies fatigue, Denies fever(s), Denies lethargy, Denies malaise, Denies night sweats, Denies snoring and Denies weight loss Eyes Denies blurry vision and Denies itchy eyes ENT Denies nasal congestion, Denies post nasal drip, Denies sinus pain, Denies sinus pressure and Denies other ( Thrush) Card Denies chest pain, Denies pedal edema, Denies dyspnea, Denies orthopnea and Denies paroxysmal nocturnal dyspnea Resp Reports cough, Denies hemoptysis, Reports excessive phlegm production, Denies dyspnea, Denies snoring and Reports wheezing GI Denies abdominal pain and Denies heartburn Musc Denies myalgias, Denies arthralgias and Denies joint swelling Skin/Breast Denies rash Neuro Denies memory loss and Denies seizure-like activity Psych Denies abnormal sleep pattern, Denies anxiety and Denies memory loss Endo Denies excessive sweating, Denies fatigue and Denies heat intolerance Agustin/Lymph Denies easy bruising Aller/Immun Denies itchy eyes, Denies seasonal rhinorrhea and Reports wheezing Physical Exam Vital Signs: Last Vital Signs Pulse 86 06/21/23 13:19 BP 128/77 06/21/23 13:19 Pulse Ox 94 06/21/23 13:19 Oxygen Delivery Method Room Air 06/21/23 13:19 BMI result Body Mass Index 30.1 Const General: no acute distress and alert Nutritional Appearance: not obese Orientation/consciousness: Other orientation findings ( oriented) HEENT Head: Yes atraumatic Eyes General: appearance normal, both eyes and all related structures Sclerae: sclerae normal EOM: EOMs intact bilaterally Neck Neck: Yes supple Lymphatic: no lymphadenopathy noted Resp Effort & Inspection: normal respiratory effort and no use of accessory muscles Auscultation: clear to auscultation bilaterally Cardio Rate: regular rate Rhythm: regular rhythm Heart sounds: no gallops, no murmurs and no rubs Skin General skin exam: other ( warm) Extrem General: No clubbing, No cyanosis and No edema Assessment & Plan Assessment & Plan (1) Asthma: Code(s): J45.909 - Unspecified asthma, uncomplicated Plan: Baseline controlled on Advair, Singulair, and albuterol MDI. Now with an acute exacerbation. Will treat with a course of prednisone and azithromycin. Continue baseline regimen. (2) ILD (interstitial lung disease): Code(s): J84.9 - Interstitial pulmonary disease, unspecified Plan: Status post 3 months prednisone course with taper and resolution of imaging findings and symptoms. Continue to monitor clinically. Medications: New azithromycin For 250 mg dose pack: take 500 mg today (day 1), then 250 mg for 4 days (days 2-5) PO 6 tabs 0RF prednisone 40 mg (2 x 20 mg) PO DAILY 10 tabs 0RF Coding Level of Care Code Est Pt Level 4 (07096) Diagnoses Asthma J45.909 ILD (interstitial lung disease) J84.9
== END 2023-06-21 13:39 | disposition home or self-care (01) ==
PROVIDERS: PCP Family Medicine; Referring Provider Family Medicine; Visit Provider Internal Medicine Pulmonary Disease
DX: J45.909 Unspecified asthma, uncomplicated (principal); J84.9 Interstitial pulmonary disease, unspecified
CPT/HCPCS: 99214

== ENCOUNTER → 2023-06-21 13:17 | Outpatient (BNVA) | payer MEDICAID, SELFPAY | PROVIDERS: PCP Family Medicine; Visit Provider Internal Medicine Pulmonary Disease | DX: J45.909 Unspecified asthma, uncomplicated (principal); J84.9 Interstitial pulmonary disease, unspecified | CPT/HCPCS: 99212 ==

== ENCOUNTER 2023-07-12 14:54 | Outpatient (REF) | payer MEDICAID, SELFPAY | END 2023-07-12 14:55 | disposition home or self-care (01) | LOC: HO.MAMMO 14:54 | PROVIDERS: PCP Family Medicine; Visit Provider Family Medicine | DX: Z12.31 Encounter for screening mammogram for malignant neoplasm of breast (principal) | CPT/HCPCS: 77063; 77067 ==

== ENCOUNTER → 2023-07-12 15:00 | Outpatient (BNV) | payer MEDICAID, SELFPAY | PROVIDERS: PCP Family Medicine; Visit Provider Radiology Diagnostic Radiology | DX: Z12.31 Encounter for screening mammogram for malignant neoplasm of breast (principal) | CPT/HCPCS: 77063; 77067 ==

== ENCOUNTER 2023-07-17 14:01 | Outpatient (AMB) | payer MEDICAID, SELFPAY ==
--- NOTE | 2023-07-17 14:06 | MHC.OFFVIS ---
Vital Signs 07/17/23 14:07 Height 5 ft 6 in Weight 182 lb 15.739 oz BMI 29.5 BP 141/73 H Blood Pressure Location Lt brachial Position Sitting Pulse 87 Intake Visit Reasons: Colonoscopy Screening Intake Note: Ilene presents in the office as a new patient for a colonoscopy screening. CC: She states that she is just due for a colonoscopy - no concerns. Rn Post Partum Required: Yes Rn Post Partum Name: Svetlana [id number] Allergies magnesium Allergy (Intermediate, Verified 07/17/23 14:12) rash HPI HPI Colonoscopy Screening: Details: Year old? female here today for pre colonoscopy screening.? Patient was sent to us by her PCP.? Colonoscopy 10 years ago at [facility]. Patient had no polyps.? Patient denies any gastrointestinal symptoms in the past or at present.? Denies any personal or family history of gastrointestinal diseas. Family history of CRC both of her parents.? Denies history of difficulty with sedation or anesthesia in the past.? Negative for history of sleep apnea.? Denies any history of cardiac, renal, pulmonary, or hepatic disease.?? No history of infectious? diseases like hepatitis A, B, C, HIV or tuberculosis.? Patient is not on any anticoagulation [facility] Medical History Vitamin D deficiency GERD (gastroesophageal reflux disease) History of depression Chronic allergic rhinitis Asthma Hypothyroid Hypertension Surgical History H/O colonoscopy Hx of cystoscopy H/O nasal polypectomy H/O tubal ligation Family History Mother HTN (hypertension) Diabetes Colon cancer Father HTN (hypertension) Diabetes Hyperlipidemia Colon cancer Social History Household Members: Spouse Household Members Other:: son Housing: Apartment Alcohol intake: former Patient Tobacco Use Status: Never used Tobacco service: No Current occupational status: disabled Female Reproductive History Menstrual Age of Menarche: 10 Review of Systems Const Denies weight gain and Denies weight loss ENT Reports no additional complaints, Denies dysphagia and Denies odynophagia Card Reports no additional complaints Resp Reports no additional complaints GI Denies abdominal pain, Denies belching, Denies melena, Denies bloating, Denies change in bowel habits, Denies dysphagia, Denies excessive flatus, Denies dyspepsia, Denies heartburn, Denies diarrhea, Denies loose stools, Denies nausea, Denies odynophagia and Denies vomiting Musc Reports no additional complaints Neuro Reports no additional complaints Psych Reports no additional complaints Endo Reports no additional complaints Physical Exam Vital Signs: Last Vital Signs Pulse 87 07/17/23 14:07 BP 141/73 H 07/17/23 14:07 BMI result Body Mass Index 29.5 Const General: healthy appearing and no acute distress Nutritional Appearance: obese Orientation/consciousness: patient oriented x3 Resp Effort & Inspection: normal respiratory effort, able to speak in complete sentences, no tracheal deviation and symmetric chest movement Auscultation: clear to auscultation bilaterally Cardio Rate: regular rate GI Inspection: Yes normal to inspection, No distended and Yes obesity Palpation (GI): Soft to palpation, not firm, nontender and No hepatosplenomegaly present Auscultation: normal bowel sounds General: Yes no CVA tenderness Back/Spine/Pelvis Back: no CVA tenderness Skin General skin exam: elasticity normal, turgor normal and dry skin Neuro General: patient oriented x3 Psych Appearance: grossly normal Mental Status: mental status grossly normal Assessment & Plan Assessment & Plan (1) Screen for colon cancer: Code(s): Z12.11 - Encounter for screening for malignant neoplasm of colon Plan Patient denies any GI, cardiac or respiratory symptoms.? Denies any issues with anesthesia in the past.? Denies any history of sleep apnea.? No history infectious diseases in the past or present.? Not on any anticoagulation therapy.? FH of CRC. Patient denies melena, hematochezia, unintentional weight loss or ribbon like stools.? Discussed at length the pre-procedure,? prep, diet & medications as well as what to expect prior, during and after the procedure.?? Stressed the importance of good bowel prep. ?Recommended the use of Vaseline or Calmoseptine OTC & baby wipes with bowel movements to promote comfort.? ?Patient verbalizes understanding and agrees to plan of care.? She was given the opportunity to ask questions and all questions answered.? We will see her after the procedure.? Medications: New polyethylene glycol 3350 (Miralax) As directed by gastroenterology department at [facility] 238 grams PO ONCE 238 grams 0RF Z12.11 - Encounter for screening for malignant neoplasm of colon bisacodyl (Dulcolax (bisacodyl)) take 4 tabs at noon the day before your colonoscopy 20 mg (4 x 5 mg) PO ONCE 1 day 4 tabs 0RF Z12.11 - Encounter for screening for malignant neoplasm of colon Coding Level of Care Code New Pt Level 3 (43790) Diagnoses Screen for colon cancer Z12.11 Time Spent (min) 40 Comment 30 minutes spent with patient and additional 10 minutes spent reviewing her records
[2023-07-17 14:07] VITALS: BP 141/73; PULSE 87; BMI 29.5
== END 2023-07-17 14:52 | disposition home or self-care (01) ==
PROVIDERS: PCP Family Medicine; Visit Provider Nurse Practitioner Family
DX: Z12.11 Encounter for screening for malignant neoplasm of colon (principal); Z01.818 Encounter for other preprocedural examination
CPT/HCPCS: 99203

== ENCOUNTER → 2023-07-17 14:01 | Outpatient (BNVA) | payer MEDICAID, SELFPAY | PROVIDERS: PCP Family Medicine; Visit Provider Nurse Practitioner Family | DX: Z01.818 Encounter for other preprocedural examination (principal) | CPT/HCPCS: 99212 ==

== ENCOUNTER 2023-07-31 13:49 | Outpatient (AMB) | payer MEDICAID, SELFPAY ==
--- NOTE | 2023-07-31 14:00 | MHC.OFFVIS ---
Vital Signs 07/31/23 14:05 Height 5 ft 6 in Weight 183 lb 13.848 oz BMI 29.7 BP 126/92 H Blood Pressure Location Lt brachial Position Sitting Pulse 78 Pulse Source Pulse Oximeter Pulse Oximetry (%) 98 Oxygen Delivery Method Room Air Intake Visit Reasons: IPAF/lvm Intake Note: Patient last seen 04/02/23 presents today for follow up and test results. Clinical Review Specialist Required: Yes Clinical Review Specialist Language: Policy Adviser Name: JOSÉ Salazar/PEPITO Information Interpreted: clinical only Accompanied by: Self / Same As Patient Allergies magnesium Allergy (Intermediate, Verified 07/31/23 14:00) rash Medication List - Last Reconciled 07/31/23 by Carlos Jiang MD alendronate 70 mg PO QWEEK bisacodyl (Dulcolax (bisacodyl)) 20 mg (4 x 5 mg) PO ONCE 1 day escitalopram oxalate 10 mg PO DAILY fluticasone propion-salmeterol 500-50 mcg/dose (Advair Diskus) 1 inh inhalation Q12H folic acid 1 mg PO DAILY levothyroxine 75 mcg PO DAILY lisinopril 40 mg PO DAILY methotrexate sodium 15 mg (6 x 2.5 mg) PO QWEEK montelukast (Singulair) 10 mg PO DAILY polyethylene glycol 3350 (Miralax) 238 grams PO ONCE HPI Comments Details: 58-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 She states that she continues to generalized body aches. she gets intermittent alternating ankle swelling. This occurs every few days and lasts 1-2 days and self resolves. she stated that she had 1 episode scleritis that was treated with steroid eyedrops. This was last year. She has a follow-up appointment with her cement sprayer helper tomorrow. 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 She stated that the steroid injection done for the left shoulder by Dr. Boudreaux last visit was significantly helpful. She stated that she has been having right ankle pain for the last week. She denies any significant trauma or overuse. She denies any swollen joints. Denies any chest pain and shortness of breath. He is not on hydroxychloroquine [facility] Medical History Vitamin D deficiency GERD (gastroesophageal reflux disease) History of depression Chronic allergic rhinitis Asthma Hypothyroid Hypertension Surgical History H/O colonoscopy Hx of cystoscopy H/O nasal polypectomy H/O tubal ligation Family History Mother HTN (hypertension) Diabetes Colon cancer Father HTN (hypertension) Diabetes Hyperlipidemia Colon cancer Social History Household Members: Spouse Household Members Other:: son Housing: Apartment Alcohol intake: former Patient Tobacco Use Status: Never used Tobacco service: No Current occupational status: disabled Female Reproductive History Menstrual Age of Menarche: 10 Review of Systems Card Denies dyspnea Resp Denies cough and Denies dyspnea Musc Reports arthralgias and Reports joint swelling Physical Exam Vital Signs: Last Vital Signs Pulse 78 07/31/23 14:05 BP 126/92 H 07/31/23 14:05 Pulse Ox 98 07/31/23 14:05 Oxygen Delivery Method Room Air 07/31/23 14:05 BMI result Body Mass Index 29.7 Const General: cooperative, healthy appearing and comfortable Nutritional Appearance: overweight Orientation/consciousness: patient oriented x3 Limitations: no limitations HEENT Head: Yes normocephalic and Yes atraumatic Mouth: moist mucous membranes Resp Effort & Inspection: normal respiratory effort and able to speak in complete sentences Auscultation: clear to auscultation bilaterally Cardio Rate: regular rate Skin General skin exam: no rashes or lesions noted Neuro General: patient oriented x3 Extrem Other: Mild tenderness at the right Achilles tendon without swelling No active synovitis otherwise Normal nailfold capillaroscopy Results Reviewed Results Reviewed: [address] [address] XRay Report Signed Patient: Ilene Dominguez MR#: [id number] : 1965 Acct:[id number] Age/Sex: 57 / F ADM Date: 12/14/[address]: Zaire Jean MD Ordering Physician: Jay Boudreaux MD Date of Service: 12/14/22 Procedure(s): XR shoulder LT min 2V Accession Number(s): [id number] cc: Huong David MD; Jay Boudreaux MD~ EXAMINATION: XR SHOULDER, LEFT CLINICAL INFORMATION: Left shoulder pain. COMPARISON: CT chest 12/07/2022. TECHNIQUE: AP external rotation, Grashey, scapular Y, and axillary views of the left shoulder. FINDINGS: The bones and soft tissues are normal. No fracture. Glenohumeral and acromioclavicular alignment is anatomic with normal joint space. No abnormal soft tissue calcifications. XR/XR shoulder LT min 2V IMPRESSION: Normal left shoulder. Dictated By: Louis Graves MD Signed By: <Electronically signed by Louis Graves MD in OV> Assessment & Plan Assessment & Plan (1) Seropositive rheumatoid arthritis: Comment: ++RF ++CCP hx of uveitis & scleritis 2022. 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 She has a positive RF and anti CCP In high titers.? 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 patient gets intermittent synovitis usually affecting her ankles. She has chronically elevated inflammatory markers. I think she likely has early rheumatoid arthritis versus palindromic rheumatism however given her chronically elevated inflammatory markers, her episode of pneumonitis and history of uveitis as well as high titer positive rheumatoid factor and anti CCP needs be started on a DMARD. Discussed risks and benefits of methotrexate. Patient agreed proceed. Start methotrexate 15 mg weekly plus folic acid mg daily Labs next visit in 2 months (2) detention methotrexate user: Code(s): Z79.631 - director long term care (current) use of antimetabolite agent Category: Medical Plan: monitor safety labs Plan I spent 28 minutes reviewing patient's chart, evaluating patient, ordering diagnostic workup, counseling patient and documenting in the chart Orders: Orders Comprehensive Met. Panel 2 Months R76.8 - Other specified abnormal immunological findings in serum, Z79.631 - director long term care (current) use of antimetabolite agent Erythrocyte Sedimentation Rate 2 Months R76.8 - Other specified abnormal immunological findings in serum, Z79.631 - detention (current) use of antimetabolite agent Complete Blood Count Auto Diff 2 Months R76.8 - Other specified abnormal immunological findings in serum, Z79.631 - detention (current) use of antimetabolite agent C Reactive Protein 2 Months R76.8 - Other specified abnormal immunological findings in serum, Z79.631 - detention (current) use of antimetabolite agent Medications: New methotrexate sodium 15 mg (6 x 2.5 mg) PO QWEEK 64 tabs 0RF folic acid 1 mg PO DAILY 90 tabs 0RF Coding Level of Care Code Est Pt Level 4 (65649) Diagnoses Seropositive rheumatoid arthritis M05.9 director long term care methotrexate user Z79.631
[2023-07-31 14:05] VITALS: BP 126/92; PULSE 78; O2SAT 98; BMI 29.7
== END 2023-07-31 15:03 | disposition home or self-care (01) ==
PROVIDERS: PCP Family Medicine; Referring Provider Family Medicine; Visit Provider Student in an Organized Health Care Education/Training Program
DX: M05.79 Rheumatoid arthritis with rheumatoid factor of multiple sites without organ or systems involvement (principal); Z79.631 Long term (current) use of antimetabolite agent
CPT/HCPCS: 99214

== ENCOUNTER → 2023-07-31 13:49 | Outpatient (BNVA) | payer MEDICAID, SELFPAY | PROVIDERS: PCP Family Medicine; Visit Provider Student in an Organized Health Care Education/Training Program | DX: M05.9 Rheumatoid arthritis with rheumatoid factor, unspecified (principal); Z79.631 Long term (current) use of antimetabolite agent | CPT/HCPCS: 99212 ==

== ENCOUNTER 2023-09-04 13:05 | Outpatient (REF) | payer MEDICAID, SELFPAY | END 2023-09-04 13:06 | disposition home or self-care (01) | LOC: HO.LNP 13:05 | PROVIDERS: PCP Family Medicine; Visit Provider Obstetrics & Gynecology | DX: D25.9 Leiomyoma of uterus, unspecified (principal); Z78.0 Asymptomatic menopausal state | CPT/HCPCS: 58100; 88305; 99212 ==

== ENCOUNTER 2023-09-04 13:05 | Outpatient (AMB) | payer MEDICAID, SELFPAY ==
--- NOTE | 2023-09-04 13:09 | A.OFFVIS_ITS ---
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: Yes High School Music Director Language: Avionics Manager Services: High School Music Director Present High School Music Director Name: Arlin KUMAR Information Interpreted: non-clinical & clinical Corner Brace Block Machine Operator: Corner Brace Block Machine Operator Present (Arlin KUMAR) Accompanied by: Self / Same As Patient Allergies magnesium Allergy (Intermediate, Verified 09/04/23 13:23) rash HPI Comments Details: Presenting for endometrial biopsy for proliferative endometrium endometrial identified on hysteroscopy/polypectomy/ D&C pathology in 06/01, since then the patient had Mirena IUD inserted EMB in 09/01 and 12/02 showed no evidence of proliferative endometrium. The patient is doing well with no complaints no vaginal bleeding Last mammogram was in 08/02 was BI-RADS 1 Last co testing was in 04/03 was negative Last pelvic ultrasound in 05/04 showed 2 myomas PFSH Medical History Vitamin D deficiency GERD (gastroesophageal reflux disease) History of depression Chronic allergic rhinitis Asthma Hypothyroid Hypertension Surgical History H/O colonoscopy Hx of cystoscopy H/O nasal polypectomy H/O tubal ligation Family History Mother HTN (hypertension) Diabetes Colon cancer Father HTN (hypertension) Diabetes Hyperlipidemia Colon cancer Social History Household Members: Spouse Household Members Other:: son Housing: Apartment Alcohol intake: former Patient Tobacco Use Status: Never used Tobacco service: No Current occupational status: disabled Female Reproductive History Menstrual Age of Menarche: 10 Review of Systems Const All systems reviewed & are unremarkable except as noted in HPI and below Physical Exam Vital Signs: Last Vital Signs BP 128/80 09/04/23 13:12 BMI result Body Mass Index 29.5 General: Yes no CVA tenderness External Female Exam: normal external appearance and normal appearance of the urethra Speculum Exam - Vagina: normal appearance of the vagina, normal palpation, no lesions and no masses Speculum Exam - Cervix: normal appearance of the cervix, normal palpation, no lesions, no masses and nontender Bimanual exam- vagina & uterus: normal bimanual exam, normal palpation, uterine size normal, normal palpation, uterine shape normal, No Cervical tenderness present and non-tender Bimanual Exam- Adnexa, other: normal adnexae Back/Spine/Pelvis Back: no CVA tenderness Office Procedures Endometrial Biopsy Details: The patient was counseled regarding the indication and benefits of endometrial sampling to rule out endometrial pathology including not limited to endometrial hyperplasia or endometrial cancer and others; The alternatives (Either do nothing vs. hysteroscopy D&C) & the risks were discussed with the patient including but not limited: pain, uterine perforation, bleeding, infection, possible injury to bladder, bowel, ureter, possible need for blood transfusion with all its possible risks. The patient verbalized understanding all questions answered and signed consent. The patient was placed into the dorsal lithotomy position; a speculum was inserted in the vagina. Using aseptic technique for the procedure, the cervix was cleansed with Betadine. The anterior lip of the cervix was grasped with a single tooth tenaculum. The uterus was sounded to 7 cm with a 4 mm Pipelle was used. Tissues samples were obtained and placed in formalin, in a patient labeled container and sent to the pathology department. At the end of the procedure, there was minimal bleeding noted The patient tolerated the procedure well and was discharged in good condition with the following instructions: Nothing in the vagina until the bleeding stops. No sex until the bleeding stops, to call if any of the following occurs: fever (>100.4), flu-like symptoms, abdominal pain, heavy bleeding, four smelling vaginal discharge. The patient was instructed to schedule a Follow up appointment in 2 weeks to discuss pathology results of the biopsy and treatment options. This note was generated with a voice recognition program. Some errors may have been overlooked during the review of this note. Sometimes these errors may affect the content or meaning of a given sentence. [id number] Biopsy Assessment & Plan Assessment & Plan (1) Post-menopausal: Comment: With history of proliferative endometrium on Mirena IUD Last EMB 12/02 showed benign endometrium Code(s): Z78.0 - Asymptomatic menopausal state Category: Medical Plan: EMB done, see procedure note (2) Uterine leiomyoma: Code(s): D25.9 - Leiomyoma of uterus, unspecified Category: Medical Plan: Will repeat ultrasound to enter the size of myomas previously seen on ultrasound in 05/04. Instructions given the patient to schedule pelvic ultrasound and a follow-up appointment afterwards within 2 weeks. Orders: Orders AMB Endometrial Biopsy Today Z78.0 - Asymptomatic menopausal state US pelvic and transvaginal Today Z78.0 - Asymptomatic menopausal state Coding Level of Care Code Est Pt Level 3 (83168) Procedure Only Diagnoses Post-menopausal Z78.0 Uterine leiomyoma D25.9 CPT Codes Endometrial Biopsy - CPT: 96322-Qqkdnfokvhr Biopsy ([id number])
[2023-09-04 13:12] VITALS: BP 128/80; BMI 29.5
== END 2023-09-04 13:39 | disposition home or self-care (01) ==
PROVIDERS: PCP Family Medicine; Visit Provider Obstetrics & Gynecology
DX: D25.9 Leiomyoma of uterus, unspecified (principal)
CPT/HCPCS: 58100; 99213

== ENCOUNTER 2023-09-06 12:30 | Outpatient (REF) | payer MEDICAID, SELFPAY | END 2023-09-06 12:31 | disposition home or self-care (01) | LOC: HO.US 12:30 | PROVIDERS: PCP Family Medicine; Visit Provider Obstetrics & Gynecology | DX: Z13.89 Encounter for screening for other disorder (principal) ==

== ENCOUNTER 2023-09-24 13:38 | Outpatient (REF) | payer MEDICAID, SELFPAY ==
[2023-09-24 14:00] LABS: MANUAL DIFF FLAG NO
[2023-09-24 14:35] LABS: Basophils Percent Auto 0.5 % (0-2); Eosinophils Absolute Auto 0.4 X10*3/uL (0.0-0.4); Eosinophils Percent Auto 4.6 % (0-4); Hematocrit 39.8 % (37.0-47.0); Hemoglobin 13.2 g/dl (12.0-16.0); Imm Gran Abs Auto 0.03 X10*3/uL (0.00-0.03); Imm Gran Pct Auto 0.4 % (0.0-0.4); Lymphocytes Absolute Auto 3.3 X10*3/uL (1.2-4.9); Lymphocytes Percent Auto 40.1 % (20-40); Mean Corpuscular HGB Conc 33.2 g/dl (31.0-35.0); Mean Corpuscular Hemoglobin 29.3 pg (27.0-33.0); Mean Corpuscular Volume 88.4 fL (80.0-98.0); Mean Platelet Volume 10.8 fL (9.4-12.3); Monocytes Absolute Auto 0.6 X10*3/uL (0.1-1.2); Monocytes Percent Auto 7.3 % (2-11); Neutrophils Absolute Auto 3.9 x10*3/uL (2.0-8.3); Neutrophils Percent Auto 47.1 % (45-73); Platelet Count 273 X10*3/uL (160-400); Red Cell Distribution Width 12.6 % (11.0-16.0); White Blood Count 8.3 X10*3/uL (4.8-10.8)
[2023-09-24 15:19] LABS: Erythrocyte Sedimentation Rate 23 MM/HR (0-20)
[2023-09-24 15:31] LABS: Alanine Aminotransferase 16 U/L (0-31); Alkaline Phosphatase 60 U/L (39-117); Anion Gap 14 (12-20); Aspartate Amino Transferase 22 U/L (5-31); Bilirubin Total 0.8 mg/dL (0.0-1.0); Blood Urea Nitrogen 16 mg/dL (9-16); Calcium 9.4 mg/dL (8.4-10.2); Carbon Dioxide 25 mmol/L (22-29); Chloride 106 mmol/L (96-108); Estimated Glomerular Filt Rate > 60; Glucose Random 124 mg/dL (60-115); Potassium 4.1 mmol/L (3.3-5.1); Sodium 141 mmol/L (135-145); Total Protein 7.5 g/dL (6.5-8.0)
[2023-09-25 04:49] LABS: HBS Num1 0.56 mIU/mL (0-7.99); HBc Num1 0.09 S/CO (0.00-0.79); HBsAGNum1 0.27 S/CO (0.00-0.99); Hepatitis B Core Antibody Nonreactive (Nonreactive); Hepatitis B Surface Antigen Negative (Negative); ~HepC Num1 0.11 S/CO (0.00-0.79); ~Hepatitis A Antibody IgM Nonreactive (Nonreactive); ~Hepatitis B Surface Antibody NONREACTIVE (Nonreactive); ~Hepatitis C Antibody Nonreactive (Nonreactive)
[2023-09-26 21:58] LABS: TS Negative Control Passed; TS Panel A 0; TS Panel B 0; TS Positive Control Passed; TSpotTB Negative (Negative)
[2023-09-27 10:08] LABS: IgA 500 mg/dL (47-310); IgG 1316 mg/dL (600-1640); IgM 73 mg/dL (50-300)
[2023-09-27 21:53] LABS: Lysozyme, Serum 11.6 mcg/mL (5.0-11.0)
[2023-09-27 22:28] LABS: Prot Elec - Albumin 3.9 g/dL (3.8-4.8); Prot Elec - Alpha1 0.3 g/dL (0.2-0.3); Prot Elec - Alpha2 0.7 g/dL (0.5-0.9); Prot Elec - Beta 1 0.6 g/dL (0.4-0.6); Prot Elec - Beta 2 0.5 g/dL (0.2-0.5); Prot Elec - Gamma 1.2 g/dL (0.8-1.7); Prot Elec - Total Protein 7.1 g/dL (6.1-8.1)
[2023-09-28 08:42] LABS: Angiotensin Converting Enzyme 18.7 U/L (9-67)
[2023-09-28 23:43] LABS: HLA B27 Negative (Negative)
[2023-10-05 18:28] LABS: Centromere Protein A Ab <11 SI (<11); Centromere Protein B Ab <11 SI (<11); Fibrillarin Ab <11 SI (<11); PM SCL 100 Ab <11 SI (<11); PM SCL 75 Ab <11 SI (<11); RNA Polymerase III RP11 Ab <11 SI (<11); RNA Polymerase III RP155 Ab <11 SI (<11); SCL-70 Extractable Nuclear Ab <11 SI (<11); Th-To Ab <11 SI (<11); U1 SNRNP RNP 70KD <11 SI (<11); U1 SNRNP RNP A <11 SI (<11); U1 SNRNP RNP C <11 SI (<11)
== END 2023-09-24 13:39 | disposition home or self-care (01) ==
LOC: HO.LAB 13:38
PROVIDERS: PCP Family Medicine; Visit Provider Student in an Organized Health Care Education/Training Program
DX: M06.9 Rheumatoid arthritis, unspecified (principal); R76.8 Other specified abnormal immunological findings in serum; M34.9 Systemic sclerosis, unspecified; D86.9 Sarcoidosis, unspecified; M45.9 Ankylosing spondylitis of unspecified sites in spine; Z11.59 Encounter for screening for other viral diseases; Z79.631 Long term (current) use of antimetabolite agent; Z11.7 Encounter for testing for latent tuberculosis infection
CPT/HCPCS: 36415; 80053; 82164; 82784; 84165; 84182; 85025; 85549; 85652; 86140; 86235; 86334; 86481; 86704; 86706; 86709; 86803; 86812; 87340

== ENCOUNTER 2023-10-02 14:08 | Outpatient (AMB) | payer MEDICAID, SELFPAY ==
--- NOTE | 2023-10-02 14:33 | A.OFFVIS_ITS ---
Vital Signs 10/02/23 14:34 Height 5 ft 6 in Weight 183 lb 10.321 oz BMI 29.6 BP 130/80 Blood Pressure Location Lt brachial Pulse 74 Pulse Source Pulse Oximeter Pulse Oximetry (%) 96 Oxygen Delivery Method Room Air Intake Visit Reasons: RA/lm Intake Note: Patient last seen on 07/31/2023 present today for follow up and test results. 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 Patient not start methotrexate for fear of side effects. She states that she gets intermittent GI upset, nausea. She did not want to take a medication that can exacerbate those symptoms. For the last 2-3 weeks she has been having pain at the base of her left thumb. Denies any other joint pain. She denies any shortness of breath. Compliant with her inhalers Initial history: This is a 58-year-old female with IPAF who presents for follow- up. She stated that the steroid injection done for the left shoulder by Dr. Boudreaux last visit was significantly helpful. She stated that she has been having right ankle pain for the last week. She denies any significant trauma or overuse. She denies any swollen joints. Denies any chest pain and shortness of breath. He is not on hydroxychloroquine [facility] Medical History (Updated 10/02/23 @ 17:00 by Carlos Jiang MD) Vitamin D deficiency GERD (gastroesophageal reflux disease) History of depression Chronic allergic rhinitis Asthma Hypothyroid Hypertension Surgical History H/O colonoscopy Hx of cystoscopy H/O nasal polypectomy H/O tubal ligation Family History Mother HTN (hypertension) Diabetes Colon cancer Father HTN (hypertension) Diabetes Hyperlipidemia Colon cancer Social History Household Members: Spouse Household Members Other:: son Housing: Apartment Alcohol intake: former Patient Tobacco Use Status: Never used Tobacco service: No Current occupational status: disabled Female Reproductive History Menstrual Age of Menarche: 10 Review of Systems Card Denies dyspnea Resp Denies cough and Denies dyspnea Musc Reports arthralgias Physical Exam Vital Signs: Last Vital Signs Pulse 74 10/02/23 14:34 BP 130/80 10/02/23 14:34 Pulse Ox 96 10/02/23 14:34 Oxygen Delivery Method Room Air 10/02/23 14:34 BMI result Body Mass Index 29.6 Const General: cooperative, healthy appearing and comfortable Nutritional Appearance: overweight Orientation/consciousness: patient oriented x3 Limitations: no limitations HEENT Head: Yes normocephalic and Yes atraumatic Mouth: moist mucous membranes Resp Effort & Inspection: normal respiratory effort and able to speak in complete sentences Auscultation: wheezes Cardio Rate: regular rate Skin General skin exam: no rashes or lesions noted Neuro General: patient oriented x3 Extrem Other: Positive Fidel test left hand No active synovitis otherwise Normal nailfold capillaroscopy Results Reviewed Results Reviewed: [address] [address] XRay Report Signed Patient: Ilene Dominguez MR#: [id number] : 1965 Acct:[id number] Age/Sex: 57 / F ADM Date: 12/14/[address]: Zaire Jean MD Ordering Physician: Jay Boudreaux MD Date of Service: 12/14/22 Procedure(s): XR shoulder LT min 2V Accession Number(s): [id number] cc: Huong David MD; Jay Boudreaux MD~ EXAMINATION: XR SHOULDER, LEFT CLINICAL INFORMATION: Left shoulder pain. COMPARISON: CT chest 12/07/2022. TECHNIQUE: AP external rotation, Grashey, scapular Y, and axillary views of the left shoulder. FINDINGS: The bones and soft tissues are normal. No fracture. Glenohumeral and acromioclavicular alignment is anatomic with normal joint space. No abnormal soft tissue calcifications. XR/XR shoulder LT min 2V IMPRESSION: Normal left shoulder. Dictated By: Louis Graves MD Signed By: <Electronically signed by Louis Graves MD in OV> Assessment & Plan Assessment & Plan (1) Seropositive rheumatoid arthritis: Comment: ++RF ++CCP hx of uveitis & scleritis 2022. 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 She has a positive RF and anti CCP In high titers.? 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 patient gets intermittent synovitis usually affecting her ankles. She has chronically elevated inflammatory markers. I think she likely has early rheumatoid arthritis versus palindromic rheumatism however given her chronically elevated inflammatory markers, her episode of pneumonitis and history of uveitis as well as high titer positive rheumatoid factor and anti CCP needs be started on a DMARD. Last visit we discussed methotrexate. Patient did not started for fear of GI side effects. Upon evaluation today I do not see any active synovitis. No active scleritis. We will continue to monitor patient clinically off DMARDs. Labs before next visit in 3 month (2) De Quervain's tenosynovitis, left: Code(s): M65.4 - Radial styloid tenosynovitis [de Quervain] Category: Medical Plan: Discuss nature of this condition. It isn't overuse tendonitis. Advised patient to rest her left hand as much as possible. I prescribed a thumb spica splint. Start short prednisone taper. Voltaren gel trial If no improvement in 3-4 weeks, patient can call the clinic for a steroid injection Plan I spent 28 minutes reviewing patient's chart, evaluating patient, ordering diagnostic workup, counseling patient and documenting in the chart Medications: New prednisone Take 2 tabs daily for 1 week then 1 tab daily for 1 week then stop 21 tabs 0RF diclofenac sodium 1% apply to single elbow, wrist or hand; for hand includes palm/fingers/back of hand 2 grams topical QID 100 grams 0RF [thumb spica plint] wear as much as possible throughout the day 1 ea 0RF M65.4 - Radial styloid tenosynovitis [de Quervain] Coding Level of Care Code Est Pt Level 4 (10283) Diagnoses Seropositive rheumatoid arthritis M05.9 De Quervain's tenosynovitis, left M65.4
[2023-10-02 14:34] VITALS: BP 130/80; PULSE 74; O2SAT 96; BMI 29.6
== END 2023-10-02 15:17 | disposition home or self-care (01) ==
PROVIDERS: PCP Family Medicine; Referring Provider Family Medicine; Visit Provider Student in an Organized Health Care Education/Training Program
DX: M05.79 Rheumatoid arthritis with rheumatoid factor of multiple sites without organ or systems involvement (principal); M65.4 Radial styloid tenosynovitis [de Quervain]
CPT/HCPCS: 99214

== ENCOUNTER → 2023-10-02 14:08 | Outpatient (BNVA) | payer MEDICAID, SELFPAY | PROVIDERS: PCP Family Medicine; Visit Provider Student in an Organized Health Care Education/Training Program | DX: M05.9 Rheumatoid arthritis with rheumatoid factor, unspecified (principal); M65.4 Radial styloid tenosynovitis [de Quervain] | CPT/HCPCS: 99212 ==

== ENCOUNTER 2023-10-08 14:39 | Outpatient (REF) | payer MEDICAID, SELFPAY ==
--- NOTE | ~2023-10-08 | US_ITS ---
EXAMINATION: US PELVIS CLINICAL INFORMATION: Fibroids, unknown last menstrual period, postmenopausal. COMPARISON: 04/17/2022. TECHNIQUE: Ultrasound of the pelvis is performed using both transabdominal and transvaginal transducers along with Doppler. Transvaginal imaging is performed due to inadequate visualization transabdominally. FINDINGS: The uterus is anteverted and measures 6.7 x 3.8 x 6.2 cm, volume 82.2 mL. IUD is present within the endometrial cavity. Endometrial thickness is 4 mm, although visualization of the endometrium is limited due to shadowing from IUD. Right ovary not visualized. Limited visualization due to bowel gas. Left ovary measures 1.5 x 1.1 x 0.9 cm, volume of 0.8 mL and is unremarkable. 3.7 x 3.4 x 2.7 cm fibroid, previously 3.0 x 2.5 x 3.0 cm. 0.8 x 1.0 x 0.8 cm fibroid, previously 0.8 x 0.6 x 0.9 cm. US/US pelvic and transvaginal IMPRESSION: 1. Fibroid uterus. 2. IUD is present within the endometrial cavity. Endometrial thickness is 4 mm, although visualization of the endometrium is limited due to shadowing from IUD. This study was presented today October 17, 2023 for interpretation. Stat results provided at this time as requested by referring provider.
== END 2023-10-08 14:40 | disposition home or self-care (01) ==
LOC: HO.US 14:39
PROVIDERS: PCP Family Medicine; Visit Provider Obstetrics & Gynecology
DX: D25.9 Leiomyoma of uterus, unspecified (principal)
CPT/HCPCS: 76830; 76856

== ENCOUNTER 2023-10-18 12:41 | Outpatient (AMB) | payer MEDICAID, SELFPAY ==
--- NOTE | 2023-10-18 12:50 | MHC.OFFVIS ---
Vital Signs 10/18/23 12:51 Height 5 ft 6 in Weight 182 lb 15.739 oz BMI 29.5 Intake Visit Reasons: US/EMB follow up Immunochemist Required: Yes Immunochemist Language: Keno Attendant Services: Immunochemist Present (in person) Immunochemist Name: Arlin Diana Information Interpreted: non-clinical & clinical Accompanied by: Self / Same As Patient Allergies magnesium Allergy (Intermediate, Verified 10/18/23 12:58) rash HPI Comments Details: The patient is presenting after endometrial biopsy. The patient has no complaints, no vaginal bleeding, no feverishness chills or abdominal pain. The endometrial biopsy pathology report showed the following: Scant fragments of benign atrophic endometrium with chronic endometritis, focal breakdown, and decidual stromal change consistent with progestin effect; no atypia or carcinoma Pelvic ultrasound showed the following: The uterus is anteverted and measures 6.7 x 3.8 x 6.2 cm, volume 82.2 mL. IUD is present within the endometrial cavity. Endometrial thickness is 4 mm, although visualization of the endometrium is limited due to shadowing from IUD. Right ovary not visualized. Limited visualization due to bowel gas. Left ovary measures 1.5 x 1.1 x 0.9 cm, volume of 0.8 mL and is unremarkable. 3.7 x 3.4 x 2.7 cm fibroid, previously 3.0 x 2.5 x 3.0 cm. 0.8 x 1.0 x 0.8 cm fibroid, previously 0.8 x 0.6 x 0.9 cm. [facility] Medical History Vitamin D deficiency GERD (gastroesophageal reflux disease) History of depression Chronic allergic rhinitis Asthma Hypothyroid Hypertension Surgical History H/O colonoscopy Hx of cystoscopy H/O nasal polypectomy H/O tubal ligation Family History Mother HTN (hypertension) Diabetes Colon cancer Father HTN (hypertension) Diabetes Hyperlipidemia Colon cancer Social History Household Members: Spouse Household Members Other:: son Housing: Apartment Alcohol intake: former Patient Tobacco Use Status: Never used Tobacco service: No Current occupational status: disabled Female Reproductive History Menstrual Age of Menarche: 10 Review of Systems Const All systems reviewed & are unremarkable except as noted in HPI and below Reports as per HPI and Reports no additional complaints GI Reports no additional complaints Reports no additional complaints Physical Exam Vital Signs: BMI result Body Mass Index 29.5 Assessment & Plan Assessment & Plan (1) Post-menopausal: Comment: With history of proliferative endometrium on Mirena IUD Last EMB 12/02 showed benign endometrium Code(s): Z78.0 - Asymptomatic menopausal state Category: Medical Plan: Discussed with the patient the results of the endometrial biopsy. Discussed with the patient the sensitivity, specificity, positive and negative predictive value, of endometrial biopsy in detecting endometrial pathology including but not limited to endometrial hyperplasia, cancer and other pathology; instructed the patient to call in case vaginal bleeding bleeding recurs, the next step will be to proceed with a diagnostic hysteroscopy/D&C for further endometrial sampling evaluation to rule out endometrial pathology. All questions answered and the patient verbalized understanding and agreed with the plan. (2) Uterine leiomyoma: Code(s): D25.9 - Leiomyoma of uterus, unspecified Category: Medical Plan: Discussed with the patient the findings on pelvic ultrasound & the risk of myosarcoma; discussed with the patient the options of treatment including expectant management versus hysterectomy; the pros and cons, risks benefits of each approach were discussed with the patient including the fact that in cases of myosarcoma, surgical treatment can lead to early diagnosis and positively affects the prognosis; after further discussion, the patient decided to proceed with expectant management. Will repeat pelvic ultrasound periodically. Instructions given to patient to call in case any of the following occurs: pressure symptoms, abnormal uterine bleeding, pelvic pain; and to schedule a 12-months pelvic ultrasound and a follow-up appointment . All questions answered, the patient verbalized understanding and agreed with the plan . Orders: Orders US pelvic and transvaginal 1 Year D25.9 - Leiomyoma of uterus, unspecified Coding Level of Care Code Est Pt Level 3 (73664) Diagnoses Post-menopausal Z78.0 Uterine leiomyoma D25.9
[2023-10-18 12:51] VITALS: BMI 29.5
== END 2023-10-18 13:51 | disposition home or self-care (01) ==
PROVIDERS: PCP Family Medicine; Referring Provider Family Medicine; Visit Provider Obstetrics & Gynecology
DX: Z78.0 Asymptomatic menopausal state (principal); D25.9 Leiomyoma of uterus, unspecified
CPT/HCPCS: 99213

== ENCOUNTER → 2023-10-18 12:41 | Outpatient (BNVA) | payer MEDICAID, SELFPAY | PROVIDERS: PCP Family Medicine; Visit Provider Obstetrics & Gynecology | DX: D25.9 Leiomyoma of uterus, unspecified (principal); Z78.0 Asymptomatic menopausal state | CPT/HCPCS: 99212 ==

== ENCOUNTER 2023-12-12 08:38 | Day surgery (SDC) | payer MEDICAID, SELFPAY ==
--- NOTE | 2023-12-10 15:02 | HO.ANESPROP2 ---
Documented by User: Marjorie Valle NP 12/10/23 15:02 HPI - Anesthesia Eval Consult details Narrative: 58yo F for Colonoscopy PMFSH Active Problems Active Problems: All Active Problems De Quervain's tenosynovitis, left (Acute) Seropositive rheumatoid arthritis (Acute) Tendinitis of left rotator cuff (Acute) Osteopenia (Acute) On prednisone therapy (Acute) Post-menopausal (Acute) ILD (interstitial lung disease) (Acute) Asthma (Acute) Abnormal CT scan, chest (Acute) Scleritis (Acute) Uveitis (Acute) Proteinuria (Acute) Hypothyroid (Acute) CASIE positive (Acute) Neck muscle spasm (Acute) Retropharyngeal and parapharyngeal abscess (Acute) Retropharyngeal lymphadenopathy (Acute) Uterine leiomyoma (Acute) Polyp of corpus uteri (Acute) Past Medical History Medical History Vitamin D deficiency GERD (gastroesophageal reflux disease) History of depression Chronic allergic rhinitis Asthma Hypothyroid Hypertension Family History Family History Mother HTN (hypertension) Diabetes Colon cancer Father HTN (hypertension) Diabetes Hyperlipidemia Colon cancer Family history of problems with anesthesia: No Surgical History Surgical History H/O colonoscopy Hx of cystoscopy H/O nasal polypectomy H/O tubal ligation History of Problems with Anesthesia: No Social History Social History Household Members: Spouse Household Members Other:: son Housing: Apartment Are you a primary healthcare technician to a significant other at home: No Do you presently have visiting nurse or other home services: No Alcohol intake: former Patient Tobacco Use Status: Never used Tobacco Use of substances other than those prescribed or required for medical reasons: No Have you been hit, kicked, punched, or otherwise hurt by someone within the past year? If so, by whom?: No Are you DNR?: No Advance Directives: No Advance Directives Information Provided: Yes Recently lost weight without trying: No Eating poorly because of decreased appetite: No Nutrition Risks: No Nutritional Risk service: No Current occupational status: disabled Meds Allergies Allergy/AdvReac Type Severity Reaction Status Date / Time magnesium Allergy Intermediate rash Verified 10/18/23 12:58 Home Medications ?Medication ?Instructions ?Recorded ?Confirmed ?Last Taken ?Type escitalopram oxalate 10 mg tablet 10 mg PO DAILY 05/11/20 10/02/23 Unknown History fluticasone 500 mcg-salmeterol 50 1 inh inhalation Q12H 05/11/20 10/02/23 Unknown History mcg/dose blistr powdr for inhalation (Advair Diskus) lisinopril 40 mg tablet 40 mg PO DAILY 05/11/20 10/02/23 05/19/22 History montelukast 10 mg tablet 10 mg PO DAILY 05/11/20 10/02/23 Unknown History (Singulair) levothyroxine 75 mcg tablet 75 mcg PO DAILY 12/21/21 10/02/23 Unknown History Assessment and Plan Assessment Anesthesia Assessment: Chart Reviewed Final Anesthetic Review Family History of Problems with Anesthesia: No History of Problems with Anesthesia: No Documented by User: Seth Arauz MD 12/12/23 11:03 PMFSH Past Medical History Medical History Vitamin D deficiency GERD (gastroesophageal reflux disease) History of depression Chronic allergic rhinitis Asthma Hypothyroid Hypertension Family History Family History Mother HTN (hypertension) Diabetes Colon cancer Father HTN (hypertension) Diabetes Hyperlipidemia Colon cancer Surgical History Surgical History H/O colonoscopy Hx of cystoscopy H/O nasal polypectomy H/O tubal ligation Social History Social History Household Members: Spouse Household Members Other:: son Housing: Apartment Are you a primary healthcare technician to a significant other at home: No Do you presently have visiting nurse or other home services: No Alcohol intake: former Patient Tobacco Use Status: Never used Tobacco Use of substances other than those prescribed or required for medical reasons: No Have you been hit, kicked, punched, or otherwise hurt by someone within the past year? If so, by whom?: No Are you DNR?: No Advance Directives: No Advance Directives Information Provided: Yes Recently lost weight without trying: No Eating poorly because of decreased appetite: No Nutrition Risks: No Nutritional Risk service: No Current occupational status: disabled Meds Allergies Allergy/AdvReac Type Severity Reaction Status Date / Time magnesium Allergy Intermediate rash Verified 10/18/23 12:58 Home Medications ?Medication ?Instructions ?Recorded ?Confirmed ?Last Taken ?Type escitalopram oxalate 10 mg tablet 10 mg PO DAILY 05/11/20 10/02/23 Unknown History fluticasone 500 mcg-salmeterol 50 1 inh inhalation Q12H 05/11/20 10/02/23 Unknown History mcg/dose blistr powdr for inhalation (Advair Diskus) lisinopril 40 mg tablet 40 mg PO DAILY 05/11/20 10/02/23 05/19/22 History montelukast 10 mg tablet 10 mg PO DAILY 05/11/20 10/02/23 Unknown History (Singulair) levothyroxine 75 mcg tablet 75 mcg PO DAILY 12/21/21 10/02/23 Unknown History Exam Airway Mallampati Class: II TM Dist: <=3cm Neck ROM: Full Loose/Missing/Broken Teeth: No Heart: ok Lungs: Sat 97% room air Assessment and Plan Assessment Anesthesia Assessment: Anesthesia Plan Discussed Final Anesthetic Review NPO: Yes ASA Class: III Final Preanesthetic Review: No Changes in Pt Med Stat, Meds/Allgs Chart Reviewed, Consent Obtained/Reviewed and Anes Risks/Benef Reviewed Patient Risk: Intermediate Procedure Risk: Low Anesthetic Plan Anesthetic Plan: MAC: and Agree w/ Assess. and Plan Disposition: Standard PACU
[2023-12-12 09:52] VITALS: BMI 29.1
[2023-12-12 10:05] VITALS: BMI 29.1
[2023-12-12 10:11] VITALS: BP 142/81; PULSE 76; RESP 18; TEMP 36.6; O2SAT 97
[2023-12-12] MEDS: Lactated Ringers 1,000 ML 100 ML IVCONT (10:19)
--- NOTE | 2023-12-12 10:25 | MHC.SHP ---
Pre-Procedural Eval Section A - 24 Hr Update-Section A only Date of Service: 12/12/23 Section B - Complete if H&P > 30 days Chief Complaint: screening Relevant Family History (Specify if Yes): No Relevant Social History: None Present Medications: see Short Stay Collaborative assessment Medical History: Significant History (Vitamin D deficiency GERD (gastroesophageal reflux disease) History of depression Chronic allergic rhinitis Asthma Hypothyroid Hypertension) History of Previous Operations: Relevant previous surgery/procedure and date(s) (H/O colonoscopy Hx of cystoscopy H/O nasal polypectomy H/O tubal ligation) Allergies: Allergies Allergy/AdvReac Type Severity Reaction Status Date / Time magnesium Allergy Intermediate rash Verified 10/18/23 12:58 Review of Systems Sugical H&P ROS: Negative: Constitution, Cardiovascular, Respiratory, Neurological, Psychiatric, Hem-Onc, Allergic/Immunologic, Gastrointestinal, Genitourinary, Musculoskeletal, Integumentary, Endocrine and Eyes/Ears/Nose/Throat Exam Surgical H&P Exam: Normal: HEENT, Normal: Heart, Normal: Lungs, Normal: Extremities, Normal: Abdomen, Normal: Skin and Normal: Neurological Plan Diagnosis/Plan: Unchanged I have reviewed the history and physical and performed a pertinent physical examination on my patient. No changes have occurred unless specified. Time Spent With Patient Time: Total time managing care of this patient today ____ minutes.
--- NOTE | 2023-12-12 11:27 | HO.OPN-COLON ---
Colonoscopy Operative Note Operative Note Date of Service: 12/12/23 Narrative: Operative Information Procedure Description: Colonoscopy Indication: colon screening, pos FH Anesthesia: MAC COLONOSCOPY Instrument: Olympus variable stiffness pediatric scope 190L Colonoscopy Monitoring: Vital signs and clinical assessment, continuous EKG monitoring, Pulse oximetry, Carbon Dioxide monitoring and blood pressure monitoring were done throughout the procedure. Colon withdrawal time was 11 minutes. Procedure: The patient was placed in the left lateral decubitis position and pre-procedure medications were administered. After a digital rectal examination of the ano-rectum, the video colonoscope was inserted into the rectum and advanced through the colon to the cecum/TI. The colonoscope was slowly withdrawn in a retrograde panoramic fashion and the colon mucosa was carefully examined including a retroflexed view of the rectum. Findings and interventions are described below. Procedure Difficulty: easy Findings: Terminal Ileum-normal Cecum:normal Right sided retroflexion- normal Ascending Colon: 7-8 mm sessile polyp removed with cold snare Transverse Colon -normal Descending Colon:normal Sigmoid Colon: normal Rectum: Retroflexion with small internal hemorrhoids seen, grade I Anorectum - normal Intervention: cold snare Colon preparation: [place] Bowel Preparation Scale Right colon; 2 Transverse colon: 2 Left colon; 2 (0 = Unprepared colon segment with mucosa not seen due to solid stool that cannot be cleared. 1 = Portion of mucosa of the colon segment seen, but other areas of the colon segment not well seen due to staining, residual stool and/or opaque liquid. 2 = Minor amount of residual staining, small fragments of stool and/or opaque liquid, but mucosa of colon segment seen well. 3 = Entire mucosa of colon segment seen well with no residual staining, small fragments of stool or opaque liquid) Impression and Post Procedure Diagnosis: diverticulosis colon polyps internal hemorrhoids Plan: High fiber diet leaflet Avoid straining at stool, epsom salts and sitz bath, anusol supps or cream Repeat Colonoscopy in 5 years due to FH and polyp or earlier if clinically indicated Above findings were reviewed with the patient and relevant handouts were provided if indicated.
[2023-12-12 11:34] VITALS: BP 94/66; PULSE 92; RESP 18; TEMP 36.9; O2SAT 90
[2023-12-12 11:49] VITALS: BP 116/94; PULSE 66; RESP 17; TEMP 37; O2SAT 97
== END 2023-12-12 12:33 | disposition home or self-care (01) ==
PROVIDERS: PCP Family Medicine; Visit Provider Internal Medicine Gastroenterology
PROC: 0DJD8ZZ Inspection of Lower Intestinal Tract, Via Natural or Artificial Opening Endoscopic (ICD-10-PCS; CPT 45378; principal; 2023-12-12 10:40)
DX: Z12.11 Encounter for screening for malignant neoplasm of colon (principal); Z80.0 Family history of malignant neoplasm of digestive organs; K63.5 Polyp of colon; K57.30 Diverticulosis of large intestine without perforation or abscess without bleeding; K64.0 First degree hemorrhoids; K21.9 Gastro-esophageal reflux disease without esophagitis; J45.909 Unspecified asthma, uncomplicated; E55.9 Vitamin D deficiency, unspecified; E03.9 Hypothyroidism, unspecified; Z79.51 Long term (current) use of inhaled steroids; Z79.899 Other long term (current) drug therapy; Z88.8 Allergy status to other drugs, medicaments and biological substances; Z98.890 Other specified postprocedural states
CPT/HCPCS: 45385; J2003; J2704

== ENCOUNTER → 2023-12-12 08:38 | Outpatient (BNV) | payer MEDICAID, SELFPAY | PROVIDERS: PCP Family Medicine; Visit Provider Internal Medicine Gastroenterology | DX: Z12.11 Encounter for screening for malignant neoplasm of colon (principal); Z80.0 Family history of malignant neoplasm of digestive organs; D12.2 Benign neoplasm of ascending colon; K64.0 First degree hemorrhoids | CPT/HCPCS: 45385 ==

== ENCOUNTER 2023-12-19 10:13 | Outpatient (REF) | payer MEDICAID, SELFPAY ==
[2023-12-19 12:12] LABS: Estimated Average Glucose 117 mg/dL; Hemoglobin A1C 120.5138 umol/L; Hemoglobin A1c % 5.7 % (<6.0); Total Hemoglobin (HGBA1C) 3092.0713 umol/L
[2023-12-19 12:30] LABS: Alanine Aminotransferase 16 U/L (0-31); Albumin Level 3.8 g/dL (3.5-5.0); Alkaline Phosphatase 54 U/L (39-117); Anion Gap 10 (12-20); Aspartate Amino Transferase 18 U/L (5-31); Bilirubin Total 0.7 mg/dL (0.0-1.0); Blood Urea Nitrogen 15 mg/dL (9-16); Calcium 8.8 mg/dL (8.4-10.2); Carbon Dioxide 30 mmol/L (22-29); Chloride 107 mmol/L (96-108); Cholesterol 173 mg/dL (<200); Estimated Glomerular Filt Rate > 60; Glucose Random 135 mg/dL (60-115); HDL Cholesterol 64 mg/dL (>40); LDL Cholesterol Calculated 98 mg/dL (<100); Potassium 3.8 mmol/L (3.3-5.1); Sodium 143 mmol/L (135-145); TSH reflex Free T4 2.52 uIU/mL (0.32-4.0); Total Protein 6.9 g/dL (6.5-8.0); Triglycerides 56 mg/dL (<150)
[2023-12-19 13:38] LABS: Reflex LDLD? No
[2023-12-27 01:18] LABS: IgE Antibody (Anti-IgE IgG) 12 ng/mL (<168)
== END 2023-12-19 10:14 | disposition home or self-care (01) ==
LOC: HO.HHCL 10:13
PROVIDERS: Visit Provider Family Medicine
DX: I10 Essential (primary) hypertension (principal); E06.3 Autoimmune thyroiditis; E66.811 Obesity, class 1; Z68.31 Body mass index [BMI] 31.0-31.9, adult; T78.40XA Allergy, unspecified, initial encounter
CPT/HCPCS: 36415; 80053; 80061; 83036; 83520; 84443

== ENCOUNTER 2023-12-25 13:15 | Outpatient (AMB) | payer MEDICAID, SELFPAY ==
[2023-12-25 13:19] VITALS: BP 114/67; PULSE 98; O2SAT 94; BMI 29.4
--- NOTE | 2023-12-25 13:19 | A.OFFVIS_ITS ---
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 In 2022 patient completed 3 months prednisone 50 mg daily with significant improvement in her dyspnea symptoms and imaging. At that time her prednisone was stopped with no recurrence of symptoms and essentially normal CT chest. Patient has been using Advair and albuterol MDI to control her underlying asthma symptoms and Singulair for allergic component until she developed seasonal exacerbation. [facility] Medical History Vitamin D deficiency GERD (gastroesophageal reflux disease) History of depression Chronic allergic rhinitis Asthma Hypothyroid Hypertension Surgical History H/O colonoscopy Hx of cystoscopy H/O nasal polypectomy H/O tubal ligation Family History Mother HTN (hypertension) Diabetes Colon cancer Father HTN (hypertension) Diabetes Hyperlipidemia Colon cancer Social History Household Members: Spouse Household Members Other:: son Housing: Apartment Are you a primary hospice home care coordinator to a significant other at home: No Do you presently have visiting nurse or other home services: No Alcohol intake: former Patient Tobacco Use Status: Never used Tobacco service: No Current occupational status: disabled Female Reproductive History Menstrual Age of Menarche: 10 Review of Systems Const Denies daytime sleepiness, Denies excessive sweating, Denies fatigue, Denies fever(s), Denies lethargy, Denies malaise, Denies night sweats, Denies snoring and Denies weight loss Eyes Denies blurry vision and Denies itchy eyes ENT Reports nasal congestion, Reports post nasal drip, Denies sinus pain, Denies sinus pressure and Denies other ( Thrush) Card Denies chest pain, Denies pedal edema, Denies dyspnea, Denies orthopnea and Denies paroxysmal nocturnal dyspnea Resp Denies cough, Denies hemoptysis, Denies excessive phlegm production, Denies dyspnea, Denies snoring and Denies wheezing GI Denies abdominal pain and Denies heartburn Musc Denies myalgias, Denies arthralgias and Denies joint swelling Skin/Breast Denies rash Neuro Denies memory loss and Denies seizure-like activity Psych Denies abnormal sleep pattern, Denies anxiety and Denies memory loss Endo Denies excessive sweating, Denies fatigue and Denies heat intolerance Agustin/Lymph Denies easy bruising Aller/Immun Denies itchy eyes, Denies seasonal rhinorrhea and Denies wheezing Physical Exam Vital Signs: Last Vital Signs Pulse 98 12/25/23 13:19 BP 114/67 12/25/23 13:19 Pulse Ox 94 12/25/23 13:19 Oxygen Delivery Method Room Air 12/25/23 13:19 BMI result Body Mass Index 29.4 Const General: no acute distress and alert Nutritional Appearance: not obese Orientation/consciousness: Other orientation findings ( oriented) HEENT Head: Yes atraumatic Eyes General: appearance normal, both eyes and all related structures Sclerae: sclerae normal EOM: EOMs intact bilaterally Neck Neck: Yes supple Lymphatic: no lymphadenopathy noted Resp Effort & Inspection: normal respiratory effort and no use of accessory muscles Auscultation: clear to auscultation bilaterally Cardio Rate: regular rate Rhythm: regular rhythm Heart sounds: no gallops, no murmurs and no rubs Skin General skin exam: other ( warm) Extrem General: No clubbing, No cyanosis and No edema Assessment & Plan Assessment & Plan (1) Asthma: Code(s): J45.909 - Unspecified asthma, uncomplicated Category: Medical Plan: Well controlled on current regimen of Advair, Singulair, and albuterol MDI continue current regimen. (2) Environmental allergies: Code(s): Z91.09 - Other allergy status, other than to drugs and biological substances Category: Medical Plan: Suboptimally controlled on Singulair, will add nasal ipratropium. Medications: New ipratropium bromide administer into each nostril 2 sprays intranasal TID-QID PRN 15 mL 3RF allergy symptoms Coding Level of Care Code Est Pt Level 4 (75416) Diagnoses Asthma J45.909 Environmental allergies Z91.09
== END 2023-12-25 13:34 | disposition home or self-care (01) ==
PROVIDERS: PCP Family Medicine; Visit Provider Internal Medicine Pulmonary Disease
DX: J45.909 Unspecified asthma, uncomplicated (principal); Z91.09 Other allergy status, other than to drugs and biological substances
CPT/HCPCS: 99214

== ENCOUNTER → 2023-12-25 13:15 | Outpatient (BNVA) | payer MEDICAID, SELFPAY | PROVIDERS: PCP Family Medicine; Visit Provider Internal Medicine Pulmonary Disease | DX: J45.909 Unspecified asthma, uncomplicated (principal); Z91.09 Other allergy status, other than to drugs and biological substances | CPT/HCPCS: 99212 ==

== ENCOUNTER 2023-12-26 08:28 | Outpatient (AMB) | payer MEDICAID, SELFPAY ==
--- NOTE | 2023-12-26 08:29 | MHC.OFFVIS ---
Vital Signs 12/26/23 08:30 Height 5 ft 6 in Weight 184 lb 11.958 oz BMI 29.8 BP 160/88 H Blood Pressure Location Rt brachial Position Sitting Pulse 82 Pulse Source Pulse Oximeter Pulse Oximetry (%) 94 Oxygen Delivery Method Room Air Intake Visit Reasons: s/p colon Intake Note: Ilene presents in office today for a scheduled post operative FUV. CC; Since last visit; labs ordered ? none, Rx ordered ? none, diagnostics/images ordered ? done ([place] via [place] -- 12/12/23). Relevant GI Sx as reported per pt. None No other recent surgeries. Pt would like to discuss the results of the procedure. No other concerns noted. [employer] Required: Yes [employer] Services: [employer] Present [employer] Name: Naresh Orta Information Interpreted: non-clinical & clinical Accompanied by: Self / Same As Patient Allergies magnesium Allergy (Intermediate, Verified 12/26/23 08:30) rash HPI HPI s/p colon: Details: LAST VISIT Screen for colon cancer Plan Patient denies any GI, cardiac or respiratory symptoms.? Denies any issues with anesthesia in the past.? Denies any history of sleep apnea.? No history infectious diseases in the past or present.? Not on any anticoagulation therapy.? FH of CRC. Patient denies melena, hematochezia, unintentional weight loss or ribbon like stools.? Discussed at length the pre-procedure,? prep, diet & medications as well as what to expect prior, during and after the procedure.?? Stressed the importance of good bowel prep. ?Recommended the use of Vaseline or Calmoseptine OTC & baby wipes with bowel movements to promote comfort.? ?Patient verbalizes understanding and agrees to plan of care.? She was given the opportunity to ask questions and all questions answered.? We will see her after the procedure.? Medications New polyethylene glycol 3350 (Miralax) As directed by gastroenterology department at [facility] 238 grams PO ONCE 238 grams 0RF Z12.11 bisacodyl (Dulcolax (bisacodyl)) take 4 tabs at noon the day before your colonoscopy 20 mg (4 x 5 mg) PO ONCE 1 day 4 tabs 0RF Z12.11 COLONOSCOPY Findings: Terminal Ileum-normal Cecum:normal Right sided retroflexion- normal Ascending Colon: 7-8 mm sessile polyp removed with cold snare Transverse Colon -normal Descending Colon:normal Sigmoid Colon: normal Rectum: Retroflexion with small internal hemorrhoids seen, grade I Anorectum - normal Intervention: cold snare Colon preparation: [place] Bowel Preparation Scale Right colon; 2 Transverse colon: 2 Left colon; 2 (0 = Unprepared colon segment with mucosa not seen due to solid stool that cannot be cleared. 1 = Portion of mucosa of the colon segment seen, but other areas of the colon segment not well seen due to staining, residual stool and/or opaque liquid. 2 = Minor amount of residual staining, small fragments of stool and/or opaque liquid, but mucosa of colon segment seen well. 3 = Entire mucosa of colon segment seen well with no residual staining, small fragments of stool or opaque liquid) Impression and Post Procedure Diagnosis: diverticulosis colon polyps internal hemorrhoids Plan: High fiber diet leaflet Avoid straining at stool, epsom salts and sitz bath, anusol supps or cream Repeat Colonoscopy in 5 years due to FH and polyp or earlier if clinically indicated TODAY'S VISIT Patient is here today for follow-up and to discuss colonoscopy results. Patient denies any ill effects from the prep, anesthesia or procedure itself. One sessile polyp removed, pathology results not available. Patient has a family history of CRC. Patient's mom of colon cancer 6 years ago. Patient reports that she has been feeling well, however patient admits to occasional constipation. Denies melena, hematochezia. Denies dyspepsia, dysphagia or odynophagia. Patient denies any other GI concerning symptoms. [facility] Medical History Vitamin D deficiency GERD (gastroesophageal reflux disease) History of depression Chronic allergic rhinitis Asthma Hypothyroid Hypertension Surgical History H/O colonoscopy Hx of cystoscopy H/O nasal polypectomy H/O tubal ligation Family History Mother HTN (hypertension) Diabetes Colon cancer Father HTN (hypertension) Diabetes Hyperlipidemia Colon cancer Social History Household Members: Spouse Household Members Other:: son Housing: Apartment Are you a primary hearing care practitioner to a significant other at home: No Do you presently have visiting nurse or other home services: No Alcohol intake: former Patient Tobacco Use Status: Never used Tobacco service: No Current occupational status: disabled Female Reproductive History Menstrual Age of Menarche: 10 Review of Systems Const Denies weight gain and Denies weight loss ENT Reports no additional complaints, Denies dysphagia and Denies odynophagia Card Reports no additional complaints Resp Reports no additional complaints GI Denies abdominal pain, Denies belching, Denies melena, Denies bloating, Denies change in bowel habits, Reports constipation, Denies dysphagia, Denies excessive flatus, Denies dyspepsia, Denies heartburn, Denies diarrhea, Denies loose stools, Denies nausea, Denies odynophagia and Denies vomiting Reports no additional complaints Musc Reports no additional complaints Neuro Reports no additional complaints Psych Reports no additional complaints Endo Reports no additional complaints Physical Exam Vital Signs: Last Vital Signs Pulse 82 12/26/23 08:30 BP 160/88 H 12/26/23 08:30 Pulse Ox 94 12/26/23 08:30 Oxygen Delivery Method Room Air 12/26/23 08:30 BMI result Body Mass Index 29.8 Const General: healthy appearing and no acute distress Nutritional Appearance: obese Orientation/consciousness: patient oriented x3 Resp Effort & Inspection: normal respiratory effort, able to speak in complete sentences, no tracheal deviation and symmetric chest movement Auscultation: clear to auscultation bilaterally Cardio Rate: regular rate GI Inspection: Yes normal to inspection, No distended and Yes obesity Palpation (GI): Soft to palpation, not firm, nontender and No hepatosplenomegaly present Auscultation: normal bowel sounds General: Yes no CVA tenderness Back/Spine/Pelvis Back: no CVA tenderness Skin General skin exam: elasticity normal, turgor normal and dry skin Neuro General: patient oriented x3 Psych Appearance: grossly normal Mental Status: mental status grossly normal Assessment & Plan Assessment & Plan (1) Status post colonoscopy: Code(s): Z98.890 - Other specified postprocedural states (2) Constipation: Code(s): K59.00 - Constipation, unspecified Qualifiers: Constipation type: slow transit constipation Qualified Code(s): K59.01 - Slow transit constipation (3) Sessile colonic polyp: Code(s): K63.5 - Polyp of colon Plan Colonoscopy in 5 years, sooner if clinically necessary. One sessile polyp found. Patient admits to feeling constipated at times. She can try MiraLax daily. Patient will call our office if she will have any GI concerning symptoms. She is agreeable to this plan and verbalizes understanding of instructions. She was given the opportunity to ask questions and all questions answered. For allowing me to participate in her care Medications: New polyethylene glycol 3350 (Miralax) 17 grams PO DAILY 510 grams 2RF Coding Level of Care Code Est Pt Level 3 (79992) Diagnoses Status post colonoscopy Z98.890 Slow transit constipation K59.01 Constipation type: slow transit constipation Sessile colonic polyp K63.5 Time Spent (min) 25 Comment 15 minutes spent with patient and additional 10 minutes spent reviewing her records
[2023-12-26 08:30] VITALS: BP 160/88; PULSE 82; O2SAT 94; BMI 29.8
== END 2023-12-26 08:56 | disposition home or self-care (01) ==
PROVIDERS: PCP Family Medicine; Visit Provider Nurse Practitioner Family
DX: Z98.890 Other specified postprocedural states (principal); K59.01 Slow transit constipation; K63.5 Polyp of colon
CPT/HCPCS: 99213

== ENCOUNTER → 2023-12-26 08:28 | Outpatient (BNVA) | payer MEDICAID, SELFPAY | PROVIDERS: PCP Family Medicine; Visit Provider Nurse Practitioner Family | DX: K59.01 Slow transit constipation (principal); K63.5 Polyp of colon; Z98.890 Other specified postprocedural states | CPT/HCPCS: 99212 ==

== ENCOUNTER 2024-01-02 15:30 | Outpatient (AMB) | payer MEDICAID, SELFPAY ==
--- NOTE | 2024-01-02 15:45 | A.OFFVIS_ITS ---
Vital Signs 01/02/24 15:48 Height 5 ft 6 in Weight 183 lb BMI 29.5 BP 130/70 Blood Pressure Location Lt brachial Pulse 73 Pulse Source Pulse Oximeter Pulse Oximetry (%) 96 Oxygen Delivery Method Room Air Intake Visit Reasons: IPAF/RA Intake Note: Patient last seen by Doctor Carlos Jiang on 10/02/23. Presents today for IPAF/RA follow up. [place] Room Operator Name: [id number] Kristopher Allergies magnesium Allergy (Intermediate, Verified 01/02/24 15:46) rash Medication List - Last Reconciled 01/02/24 by Carlos Jiang MD albuterol sulfate 90 mcg/actuation (Ventolin HFA) 2 puffs inhalation alendronate 70 mg PO QWEEK diclofenac sodium 1% 2 grams topical QID epinephrine IM DIRECTED escitalopram oxalate 10 mg PO DAILY fluticasone propion-salmeterol 500-50 mcg/dose (Advair Diskus) 1 inh inhalation Q12H ipratropium bromide 2 sprays intranasal TID-QID PRN levothyroxine 75 mcg PO DAILY lisinopril 40 mg PO DAILY melatonin (VitaJoy Melatonin) mg PO montelukast (Singulair) 10 mg PO DAILY omeprazole 20 mg PO QAM polyethylene glycol 3350 (Miralax) 17 grams PO DAILY prednisone Take 2 tabs daily for 1 week then 1 tab daily for 1 week then stop [thumb spica plint wear as much as possible throughout the day] HPI Comments Details: 58-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 Patient continues to have pain at the base of her left thumb. She but an OTC splint. Unfortunately it was not a thumb spica splint like I prescribed. It is a wrist splint. She denies any other joint pains. Initial history: This is a 58-year-old female with IPAF who presents for follow- up. She stated that the steroid injection done for the left shoulder by Dr. Boudreaux last visit was significantly helpful. She stated that she has been having right ankle pain for the last week. She denies any significant trauma or overuse. She denies any swollen joints. Denies any chest pain and shortness of breath. He is not on hydroxychloroquine [facility] Medical History Vitamin D deficiency GERD (gastroesophageal reflux disease) History of depression Chronic allergic rhinitis Asthma Hypothyroid Hypertension Surgical History H/O colonoscopy Hx of cystoscopy H/O nasal polypectomy H/O tubal ligation Family History Mother HTN (hypertension) Diabetes Colon cancer Father HTN (hypertension) Diabetes Hyperlipidemia Colon cancer Social History Household Members: Spouse Household Members Other:: son Housing: Apartment Are you a primary transitional care liaison to a significant other at home: No Do you presently have visiting nurse or other home services: No Alcohol intake: former Patient Tobacco Use Status: Never used Tobacco service: No Current occupational status: disabled Female Reproductive History Menstrual Age of Menarche: 10 Review of Systems Card Denies dyspnea Resp Denies cough and Denies dyspnea Musc Reports arthralgias and Reports limited range of motion Physical Exam Vital Signs: Last Vital Signs Pulse 73 01/02/24 15:48 BP 130/70 01/02/24 15:48 Pulse Ox 96 01/02/24 15:48 Oxygen Delivery Method Room Air 01/02/24 15:48 BMI result Body Mass Index 29.5 Const General: cooperative, healthy appearing and comfortable Nutritional Appearance: overweight Orientation/consciousness: patient oriented x3 Limitations: no limitations HEENT Head: Yes normocephalic and Yes atraumatic Mouth: moist mucous membranes Resp Effort & Inspection: normal respiratory effort and able to speak in complete sentences Auscultation: wheezes Cardio Rate: regular rate Skin General skin exam: no rashes or lesions noted Neuro General: patient oriented x3 Extrem Other: Positive Fidel test left hand No active synovitis otherwise Normal nailfold capillaroscopy Office Procedures Tendon Injection Tendon Injection Details: With patient's consent. The the radial side of the dorsal aspect of left wrist was prepped with ChloraPrep. Under a topical ethyl chloride spray 20 mg of Kenalog mixed with 0.2 mL of 1% lidocaine was injected along the tendon sheaths of the abductor pollicis longus and extensor pollicis brevis tendons. The patient tolerated the procedure well with no apparent immediate adverse events. 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 She has a positive RF and anti CCP In high titers.? 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 patient gets intermittent synovitis usually affecting her ankles. She has chronically elevated inflammatory markers. I think she likely has early rheumatoid arthritis versus palindromic rheumatism however given her chronically elevated inflammatory markers, her episode of pneumonitis and history of uveitis as well as high titer positive rheumatoid factor and anti CCP needs be started on a DMARD. We discussed methotrexate in the past. Patient did not want to start any DMARDs for fear of side effects. Upon evaluation today I do not see any active synovitis. No active scleritis We will continue to monitor patient clinically off DMARDs. Labs before next visit in 3 month (2) De Quervain's tenosynovitis, left: Code(s): M65.4 - Radial styloid tenosynovitis [de Quervain] Category: Medical Plan: Discuss nature of this condition. It is an overuse tendonitis. I had prescribed patient a thumb spica splint last visit. She did not get it. Instead she has been using a wrist splint. Her de Quervain tenosynovitis has not improved in the last 3 months. Discussed risks and benefits of a steroid injection including skin depigmentation. Patient agreed to proceed. It was injected in clinic today. Advised patient to use a thumb spica splint. Plan I spent 28 minutes reviewing patient's chart, evaluating patient, ordering diagnostic workup, counseling patient and documenting in the chart Orders: Orders AMB Tendon Injection Today M65.4 - Radial styloid tenosynovitis [de Quervain] Complete Blood Count Auto Diff 3 Months M05.9 - Rheumatoid arthritis with rheumatoid factor, unspecified Comprehensive Met. Panel 3 Months M05.9 - Rheumatoid arthritis with rheumatoid factor, unspecified C Reactive Protein 3 Months M05.9 - Rheumatoid arthritis with rheumatoid factor, unspecified Erythrocyte Sedimentation Rate 3 Months M05.9 - Rheumatoid arthritis with rheumatoid factor, unspecified Coding Level of Care Code Est Pt Level 4 (71500) Diagnoses Seropositive rheumatoid arthritis M05.9 De Quervain's tenosynovitis, left M65.4 CPT Codes Tendon Injection - Tendon Injection 1: [id number] Tendon Sheath Injection ([id number])
[2024-01-02 15:48] VITALS: BP 130/70; PULSE 73; O2SAT 96; BMI 29.5
== END 2024-01-02 16:15 | disposition home or self-care (01) ==
PROVIDERS: PCP Family Medicine; Visit Provider Student in an Organized Health Care Education/Training Program
DX: M05.79 Rheumatoid arthritis with rheumatoid factor of multiple sites without organ or systems involvement (principal); M65.4 Radial styloid tenosynovitis [de Quervain]
CPT/HCPCS: 20550; 99214

== ENCOUNTER → 2024-01-02 15:30 | Outpatient (BNVA) | payer MEDICAID, SELFPAY | PROVIDERS: PCP Family Medicine; Visit Provider Student in an Organized Health Care Education/Training Program | DX: M05.9 Rheumatoid arthritis with rheumatoid factor, unspecified (principal); M65.4 Radial styloid tenosynovitis [de Quervain] | CPT/HCPCS: 20550; 99212 ==

== ENCOUNTER 2024-05-16 08:17 | Outpatient (REF) | payer MEDICAID, SELFPAY ==
--- OUTSIDE RECORDS SUMMARY | 2024-05-16 09:41 | XMS_ITS | Encounter Summary ---
Author Organization [facility] Address [address] [place] [address] Care Team Providers Care Travel Service Consultant Name Role Phone Huong David Primary Care Provider Unavailalia e Dimitri Jimenez MD, PHD Unavailable Unava ilable Encounter Details Date Type Department Care Team Description 03/29/2022 SCAN [facility] Neurosurgery [place] [address] [place] [address] Dimitri Jimenez MD, PHD Social History Tobacco Use Types Packs/Day Years Used Date Smoking Tobacco: Never Smokeless Tobacco: Never Alcohol Use Standard Drinks/Week Comments Yes 0 (1 standard drink = 0.6 oz pur e alcohol) socially Sex Assigned at Date Recorded Not on file documented as of this encounter Plan of Treatment Not on file documented as of this encounter Visit Diagnoses Not on filedocumented in this encounter Care Teams Travel Service Consultant Relationship Specialty Start Date End Date Huogn David PCP - General Family Practice 09/03/18 Dimitri Jimenez MD, PHD Surgeon Neurosurgery 03/28/22 documented as of this encounter
--- OUTSIDE RECORDS SUMMARY | 2024-05-16 09:41 | XMS_ITS | Encounter Summary ---
Author Organization [facility] Address [address] [place] [address] Care Team Providers Care Service Inspector Name Role Phone Huong David Primary Care Provider UnavailDimitri Rdz MD, PHD Unavailable Unava ilable Encounter Details Date Type Department Care Team Description 04/04/2022 Release of Information Medical Records [address] [place] [id number] Abstract, Provider Social History Tobacco Use Types Packs/Day Years [...] on filedocumented in this encounter Care Teams Service Inspector Relationship Specialty Start Date End Date Huong David PCP - General Family Practice 09/03/18 Dimitri Jimenez MD, PHD Surgeon Neurosurgery 03/28/22 documented as of this encounter
--- OUTSIDE RECORDS SUMMARY | 2024-05-16 09:41 | XMS_ITS | Encounter Summary ---
Author Organization [employer] Address [address] [facility] [address] [place] [address] Care Team Providers Care Packer Sausage And Wiener Name Role Phone Huong David MD Primary Care Provider [phone] John Salgado PharmD Unavailable [phone] Encounter Details Date Type Department Care Team (Late st Contact Info) Description 10/06/2022 Orders Only [facility] [address] [place] [address] [phone] Huong David MD [address] [place] [address] [phone] Hypokalemia (Primary Dx) Social History Tobacco Use Types Packs/Day Years Used Date Smoking Tobacco: Never Passive Smoke Exposure: Never Smokeless Tobacco: Never Depression Answer Date Recorded Patient Health Questionnaire-9 Score 0 04/11/2022 Depression Answer Date Recorded Patient Health Questionnaire-2 Score 0 04/11/2022 Comments Unknown Sex and Gender Information Value Date Recorded Sex Assigned at Female 01/09/2022 10:15 AM EDT Legal Sex Female 10:15 AM EDT Gender Identity Female 01/09/2022 10:15 AM EDT Sexual Orientation Straight 01/09/2022 10 :15 AM EDT documented as of this encounter Plan of Treatment Upcoming Encounters Date Type Department Care Team (Late st Contact Info) Description 07/08/2024 2:15 PM EDT Office Visit [facility] [address] [place] [address] [phone] Huong David MD [address] [place] [address] [phone] Scheduled Orders Name Type Priority Associated Diagnoses Orde r Schedule Basic Metabolic Panel Lab Routine Hypokalemia Expected: 10/27/2022, Expires: 10/07/2023 Magnesium Lab Routine Hypokalemia Expected: 10/27/2022, Expires: 10/07/2023 documented as of this encounter Visit Diagnoses Diagnosis Hypokalemia- Primary Hypopotassemia documented in this encounter Additional Health Concerns Assessment Noted Time PHQ-9 Depression Total Score: 0 04/11/19 23 1:19 PM EST documented as of this encounter Care Teams Packer Sausage And Wiener Relationship Specialty Start Date End Date Huong David MD [address] [place] [address] PCP - General Family Medicine 02/22/12 John Salgado, DelmiD [address] [place] [address] Pharmacist Internal Medicine 01/16/23 documented as of this encounter
--- OUTSIDE RECORDS SUMMARY | 2024-05-16 09:41 | XMS_ITS | Encounter Summary ---
Author Organization [employer] Address [address] [facility] [address] [place] [address] Care Team Providers Care Animal Science Professor Name Role Phone Huong David MD Primary Care Provider [phone] John Salgado PharmD Unavailable [phone] Reason for Visit * Reason Onset Date Comments returning call 03/22/2022 Encounter Details Date Type Department Care Team ([facility] st Contact Info) Description 03/22/2022 Telephone [facility] [address] [place], [place] [phone] Huong David MD [address] [place], [place] [phone] returning call Social History Tobacco Use Types Packs/Day Years Used Date Smoking Tobacco: Never Passive Smoke Exposure: Never Smokeless Tobacco: Never Comments Unknown Sex and Gender Information Value Date Recorded Sex Assigned at Female 01/09/2022 10:15 AM EDT Legal Sex Female 10:15 AM EDT Gender Identity Female 01/09/2022 10:15 AM EDT Sexual Orientation Straight 01/09/2022 10 :15 AM EDT COVID-19 Exposure Response Date Recorded In the last 10 days, have yo u been in contact with someone who was confirmed or suspected to have Coronavirus/COVID-19? No / Unsure 03/20/2022 1:49 PM EST documented as of this encounter Miscellaneous Notes * Telephone Encounter - Nic Wright - 03/22/2022 2:28 PM EST Tc from pt returning call. Pt requesting a call back Please contact pt at [phone] documented in this encounter Plan of Treatment Upcoming Encounters Date Type Department Care Team (Late st Contact Info) Description 07/08/2024 2:15 PM EDT Office Visit [facility] [address] [place] [address] Huong David MD [address] [place] [address] documented as of this encounter Visit Diagnoses Not on filedocumented in this encounter Care Teams Animal Science Professor Relationship Specialty Start Date End Date Huong David MD [address] [place] [address] [phone] PCP - General Family Medicine 02/22/12 John Salgado, PharmD [address] [place] [phone] Pharmacist Internal Medicine 01/16/23 documented as of this encounter
--- OUTSIDE RECORDS SUMMARY | 2024-05-16 09:41 | XMS_ITS | Encounter Summary ---
Author Organization [employer] Address [address] [facility] [address] [place] [address] Care Team Providers Care Transport Technician Name Role Phone Huong David MD Primary Care Provider [phone] John Salgado PharmD Unavailable [phone] Reason for Visit * Reason Comments Med Refill Encounter Details Date Type Department Care Team (Late st Contact Info) Description 09/13/[address] [facility] [address] [place], [place] [phone] Name, MD Jemal [address] [place] [address] [phone] Social History Tobacco Use Types Packs/Day Years [...] Description 07/08/2024 2:15 PM EDT Office Visit [facility] [address] [place], [place] [phone] Huong David MD [address] [place] [address] [phone] documented as of this encounter Visit Diagnoses Not on filedocumented in this encounter Additional Health Concerns Assessment Noted Time PHQ-9 Depression Total Score: 0 04/11/19 23 1:19 PM EST documented as of this encounter Care Teams Transport Technician Relationship Specialty Start Date End Date Huong David MD [address] [place] [address] PCP - General Family Medicine 02/22/12 John Salgado, DelmiD [address] [place] [address] Pharmacist Internal Medicine 01/16/23 documented as of this encounter
--- OUTSIDE RECORDS SUMMARY | 2024-05-16 09:41 | XMS_ITS | Encounter Summary ---
Author Organization [facility] Address [address] [place] [address] Care Team Providers Care Chair Car Driver Name Role Phone Huong David Primary Care Provider Unavailalia e Dimitri Jimenez MD, PHD Unavailable Unava ilable Encounter Details Date Type Department Care Team Description 02/09/2022 SCAN [facility] Neurosurgery [place] [address] [place] [address] Dimitri Jimenez MD, PHD Social [...] on filedocumented in this encounter Care Teams Chair Car Driver Relationship Specialty Start Date End Date Huong David PCP - General Family Practice 09/03/18 Dimitri Jimenez MD, PHD Surgeon Neurosurgery 03/28/22 documented as of this encounter
--- OUTSIDE RECORDS SUMMARY | 2024-05-16 09:41 | XMS_ITS | Encounter Summary ---
Author Organization [facility] Address [address] [place] [address] Care Team Providers Care Biomaterials Engineer Name Role Phone Huong David Primary Care Provider Dimitri Rocha MD, PHD Unavailable Unava ilable Reason for Visit * Reason Onset Date Comments refill request 11/11/2019 Encounter Details Date Type Department Care Team Description 11/11/2019 Refill Internal Medicine - [place] [address] [facility], [address] [place] [address] Clark Martínez MD [address] [facility] [address] [place] [address] refill request Social History Tobacco Use Types Packs/Day Years Used Date Smoking Tobacco: Never Smokeless Tobacco: Never Alcohol Use Standard Drinks/Week Comments Yes 0 (1 standard drink = 0.6 oz pur e alcohol) socially Sex Assigned at Date Recorded Not on file documented as of this encounter Miscellaneous Notes * Telephone Encounter - Tricia Bower - 11/12/2019 8:16 AM EDT [place]oni [id number] Next- none * Telephone Encounter - Crystal Hi - 11/11/2019 1:29 PM EDT [facility]- 7.28.20 NOV- unable to reach documented in this encounter Plan of Treatment Not on file documented as of this encounter Visit Diagnoses Diagnosis 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 Allergic rhinitis due to pollen, unspecified seasonality Post-nasal drainage Unspecified sinusitis (chronic) Nasal polyposis Unspecified nasal polyp documented in this encounter Care Teams Biomaterials Engineer Relationship Specialty Start Date End Date Huong David PCP - General Family Practice 09/03/18 Dimitri Jimenez MD, PHD Surgeon Neurosurgery 03/28/22 documented as of this encounter
--- OUTSIDE RECORDS SUMMARY | 2024-05-16 09:41 | XMS_ITS | Encounter Summary ---
Author Organization [employer] [facility] Address [address] [facility] [address] [place] [address] Care Team Providers Care Turbo Electric Operator Name Role Phone Huong David MD Primary Care Provider [phone] John Salgado PharmD Unavailable [phone] Encounter Details Date Type Department Care Team (Late st Contact Info) Description 08/23/2022 Abstract [facility] [address] [place] [address] [phone] Huong David MD [address] [place] [address] [phone] Social History Tobacco Use Types Packs/Day Years [...] Description 07/08/2024 2:15 PM EDT Office Visit [facility] [address] [place] [address] [phone] Huong David MD [address] [place] [address] [phone] documented as of this encounter Procedures Procedure Name Priority Date/Time Associated Diagnosis Comments HM MAMMOGRAPHY Routine 07/06/2022 documented in this encounter Results * Mammography (07/06/2022) Mammogram bi-rads 2 Anatomical Region Laterality Modality Other 07/06/2022 Result [facility] HEALTH MAINTENANCE Final Result documented in this encounter Visit Diagnoses Not on filedocumented in this encounter Additional Health Concerns Assessment Noted Time PHQ-9 Depression Total Score: 0 04/11/19 23 1:19 PM EST documented as of this encounter Care Teams Turbo Electric Operator Relationship Specialty Start Date End Date Huong David MD [address] [place] [address] PCP - General Family Medicine 02/22/12 John Salgado, DelmiD [address] [place] [phone] Pharmacist Internal Medicine 01/16/23 documented as of this encounter
--- OUTSIDE RECORDS SUMMARY | 2024-05-16 09:41 | XMS_ITS | Clinical Summary ---
Author Organization [facility] Address [address] [facility] [address] [place] [address] Phone Care Team Providers Care Resource Conservation Specialist Name Role Phone Huong David MD Primary Care Provider Allergies No known active allergies Medications Zoster [...] 11/06/2022 Overview (11/06/2022): Last Assessment & Plan: -Ornamenter Hand recommended repeat pelvic ultrasound, further evaluation and recommendation Hysteroscopy for endocervical polyp. Patient was reassured that the fibroids typically decrease in size and resolve in menopause. -Recommended removal of polyps. -Scheduled for hysteroscopy with wastewater supervisor Urticaria 04/11/2022 11/06/2022 Degeneration of cervical intervertebral disc 11/06/2022 History of calculus of kidney 03/20/2022 Rheumatoid arthritis 03/20/2022 11/06/2022 Overview (11/06/2022): Last Assessment & Plan: -Seropositive rheumatoid arthritis -Dx September 2019 -03/20/22 ESR 41 -following with [facility] rheumatology providers, last seen in Oct 2020, [...] recent exacerbation in February 2019, hospitalized at [facility] -COVID19 clinical Dx in June 2019 (household member was positive) - did not test at that time due to strict Dx criteria at that time -Frequency of exacerbation, requiring systemic steroid 8 x /year, 2 hospitalizations in 2019, less frequent recently -No Hx of intubation -Followed by both thiokol operator and ENT -Continue Advair as maintenance -Continue [...] 11/06/2022 Overview (11/06/2022): Last Assessment & Plan: -Ornamenter Hand recommended repeat pelvic ultrasound, further evaluation and [...] 11/06/2022 Overview (11/06/2022): Last Assessment & Plan: -[facility] provider: ALBERTO -Current medication: escitalopram 10 mg [...] 1965 [address] [place] [address] [place] * Guarantor: Ilene Dominguez Account Type Relation to Patient Date of Phone Billing Address Personal/Family Self [address] [place] [address] [place] Care Teams Resource Conservation Specialist Relationship Specialty Start Date End Date Huong David MD [address] [place] [id number] PCP - General Family Medicine 06/08/23
--- OUTSIDE RECORDS SUMMARY | 2024-05-16 09:42 | XMS_ITS | Clinical Summary ---
Author Organization [employer] Address [address] [place] [address] Care Team Providers Care Insurance Consultant Name Role Phone Huong David MD Primary Care Provider [phone] John Salgado PharmD Unavailable [phone] Allergies No known active allergies Medications alendronate (Fosamax) 70 MG tablet take 1 tablet once a week with 6 to 8 oz of water 30 min before first food of day. do not lie down for 30 minutes 3 Active ibuprofen 600 MG tablet TAKE 1 TABLET BY MOUTH THREE TIMES DAILY 3 Active omeprazole (PriLOSEC) [address] capsuleIndicat ions:Heartburn TAKE 1 CAPSULE BY MOUTH EVERY DAY BEFORE BREAKFAST DO NOT BREAK, CRUSH, DISSOLVE OR CHEW 90 capsule 3 4 Active famotidine (Pepcid) 40 MG tabletIndicati ons:Heartburn TAKE 1 TABLET BY MOUTH AT BEDTIME 90 tablet 3 4 Active Advair Diskus 500-50 MCG/ACT aerosol powder INHALE 1 PUFF BY MOUTH TWICE DAILY IN THE MORNING AND IN THE EVENING, APPROXIMATELY 12 HOURS APART RINSE MOUTH AFTER USING. 60 each 3 4 Active albuterol (Ventolin HFA) 108 (90 Base) MCG/ACT inhaler INHALE 2 PUFFS BY MOUTH EVERY 4 TO 6 HOURS NEEDED FOR DIFFICULTY BREATHING, FOUR TIMES DAILY 18 g 3 4 Active lisinopril 40 MG tablet TAKE 1 TABLET BY MOUTH EVERY DAY 90 tablet 3 4 Active montelukast (Singulair) 10 MG tablet TAKE 1 TABLET BY MOUTH EVERY EVENING 90 tablet 3 4 Active levothyroxine (Synthroid, Levoxyl) 75 MCG tablet TAKE 1 TABLET BY MOUTH EVERY DAY 90 tablet 3 4 Active EPINEPHrine (Epipen) 0.3 MG/0.3ML injection syringe Inject 0.3 mL (0.3 mg) as directed 1 (one) time for 1 dose. use as directed for allergic reaction and then call 911 1 each 3 4 Active diphenhydrAMIN E (BENADryl) 25 MG tabletIndicati ons:Allergic reaction, subsequent encounter Take 1 tablet (25 mg) by mouth if needed each day for itching. 10 tablet 4 Active Melatonin (VitaJoy Gummies) 2.5 MG chewable tablet CHEW 1 GUMMY BY MOUTH 2 TO 3 HOURS BEFORE BEDTIME 90 tablet 3 4 Active fluticasone (Flonase) 50 MCG/ACT nasal spray Administer 1-2 sprays into each nostril Once per day. Shake gently. Before first use, prime pump. After use, clean tip and replace cap. 16 g 2 5 03/28/19 26 Active Active Problems Problem Noted Date Diagnosed Date Constipation 03/25/2024 Assessment & Plan (03/31/2024 5:22 PM EST): - s/p colonoscopy in Dec [address] Ritchie. Patient was found to have internal hemorrhoids and polyp. The pathology of polyp is not available. Patient was recommended to repeat colonoscopy in 5 years due to family history. Allergic reaction 12/21/2023 Assessment & Plan (03/31/2024 5:05 PM EST): Moderate - severe allergic reaction in Dec 2023 and Jan 2024 She was referred to 3d specialist in the walk-in clinic in Jan [address] Jean [facility] pulmon[facility] if she is interested in allergy testing and treatment Assessment & Plan (02/05/2024 2:26 PM EST): Etiology unknown. Possible allergic reaction - Advised no ibuprofen, alcohol, perfumes, or scented cleaning products 02/05/24 - Prescribed diphenhydrAMINE (BENADryl) 25 MG tablet 02/05/24 - Referral to Allergy 02/05/24 -ER precautions discussed. -Seek medical attention for worsening symptoms. Assessment & Plan (12/21/2023 4:34 PM EDT): Reports tongue swelling, unknown allergen. - given EPIPen with instructions on how to use. De Quervain's tenosynovitis, left 12/21/2023 Assessment & Plan (03/31/2024 5:26 PM EST): >>ASSESSMENT AND PLAN FOR TENOSYNOVITIS OF FINGER AND HAND WRITTEN ON 12/21/2023 4:38 PM BY SUBHASH BARBER - Follow-up with specialist for injections. - Continue topical ointment. - Continue ice and heat therapy. Assessment & Plan (03/31/2024 5:27 PM EST): - seen by Dr. Jiang in Dec 2023 and received steroid injection - previously treated with PO steroid - continue thumb spica splint - continue judicious use of NSAID PO - continue topical diclofenac Hypersensitivity reaction 12/17/2023 Assessment & Plan (12/24/2023 6:05 AM EDT): - no identifiable offending agent - will prescribe Epi-pen Prediabetes 06/03/2023 Assessment & Plan (06/03/2023 6:57 PM EDT): - due to chronic prednisone treatment for ILD - no off - highest A1C 6.1% in Oct 2022 - most recent A1C 5.7% in Jan 2023 Chronic endometritis 01/19/2023 Assessment & Plan (12/24/2023 5:54 AM EDT): - following with [facility] - last EMBx in August 2023 - no sign of malignancy Assessment & Plan (06/03/2023 6:49 PM EDT): - following with [facility] - last EMBx in Nov 2022 - no sign of malignancy Assessment & Plan (01/19/2023 6:00 AM EST): - following with [facility] - last EMBx in Nov 2022 - no sign of malignancy Chronic left shoulder pain 01/19/2023 Assessment & Plan (01/19/2023 6:08 AM EST): - X-ray was normal and pt received steroid injection from helmet coverer in Dec 2022 - no pain at this time Osteopenia of neck of left femur 10/09/2022 Overview (06/03/2023): - DEXA 08/24/22 Lowest T-score - 1.5 - previously on chronic systemic steroid for ILD - continue alendronate - continue weight bearing exercise - continue adequate calcium and vitamin D intake - will recheck DEXA in 2024. If improved and is no longer taking steroid, then can consider discontinuation of alendronate History of systemic steroid therapy 10/09/2022 Assessment & Plan (06/03/2023 6:55 PM EDT): - July 2022 - Nov 2022 - indication ILD - started on prednisone 50 mg daily, then slowly tapered down - DEXA on 08/24/22 showed osteopenia - A1C 6.1% in September 2022 - A1C 5.7% on 01/18/23, improved after discontinuation of prednisone Assessment & Plan (01/19/2023 6:06 AM EST): - July 2022 - Nov 2022 - indication ILD - started on prednisone 50 mg daily, then slowly tapered down - DEXA on 08/24/22 showed osteopenia - A1C 6.1% in September 2022 - check A1C Assessment & Plan (10/09/2022 9:16 AM EDT): - since July 2022 - indication ILD - currently on prednisone 50 mg daily - DEXA on 08/24/22 showed osteopenia - check A1C - monitor BP closely Interstitial lung disease 10/05/2022 Assessment & Plan (03/26/2024 1:12 PM EST): - following with [facility] pul[facility] - status post 3 mo of prednisone treatment - CT showed improvement in July 2022 and near resolution in Nov 2022 - currently monitoring symptoms and with periodic imaging Assessment & Plan (12/21/2023 4:33 PM EDT): - following with [facility] pul[facility] - status post 3 mo of prednisone treatment - CT showed improvement in July 2022 and near resolution in Nov 2022 - currently monitoring symptoms and with periodic imaging Assessment & Plan (06/03/2023 6:45 PM EDT): - following with [facility] pul[facility] - status post 3 mo of prednisone treatment - CT showed improvement in July 2022 and near resolution in Nov 2022 - currently monitoring symptoms and with periodic imaging Assessment & Plan (01/19/2023 5:56 AM EST): - following with [facility] pul[facility] - status post 3 mo of prednisone treatment - CT showed improvement in July 2022 and near resolution in Nov 2022 - currently monitoring symptoms and with periodic imaging Assessment & Plan (10/09/2022 9:00 AM EDT): - following with [facility] pul[facility] - currently taking prednisone 50 mg daily with a plan for slow tapering - CT on 08/01/22 showed improvement - continue current treatment plan and follow up with van cdl driver Elevated erythrocyte sedimentation rate 07/12/19 Assessment & Plan (07/11/2022 11:11 AM EDT): - Most recent ESR 94 on 06/19/22 - her inflammatory markers have increased - now showing more symptoms and signs of rheumatological disorders, possibly vasculitis - complete work-up process by Rheumatology provider - greatly appreciate Tawny Kohli for thorough evaluation - greatly appreciate ENT for follow-up evaluation Other microscopic hematuria 04/22/2022 Assessment & Plan (04/22/2022 5:20 AM EST): - evaluated by urologist and had normal cystoscopy twice or more - multifactorial since pt has Hx kidney stone and interstitial cystitis Urticaria 04/11/2022 Polyp of corpus uteri 04/11/2022 Overview (01/15/2023): Last Assessment & Plan: -Wolf Hunter recommended repeat pelvic ultrasound, further evaluation and recommendation Hysteroscopy for endocervical polyp. Patient was reassured that the fibroids typically decrease in size and resolve in menopause. -Recommended removal of polyps. -Scheduled for hysteroscopy with film tests checker Assessment & Plan (07/11/2022 11:13 AM EDT): - 05/19/22 Hysteroscopy, D&C, polypectomy - benign polyp Assessment & Plan (04/22/2022 5:10 AM EST): -Wolf Hunter recommended repeat pelvic ultrasound, further evaluation and recommendation Hysteroscopy for endocervical polyp. Patient was reassured that the fibroids typically decrease in size and resolve in menopause. -Recommended removal of polyps. -Scheduled for hysteroscopy with film tests checker Degeneration of cervical intervertebral disc Rheumatoid arthritis 03/20/2022 Overview (01/15/2023): Last Assessment & Plan: -Seropositive rheumatoid arthritis -Dx September 2019 -03/20/22 ESR 41 -following with [facility] rheumatology providers, last seen in Oct 2020, q6m visit -pt does not need any mediation at this time because her symtoms are very mild -continue periodic appt, every 6 mo, which is overdue. 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 -Dx September 2019 -following with [facility] rheumatology providers, last seen in Dec 2023 -previously prescribed hydroxychloroquine by helmet coverer when she developed ILD and uveitis, with elevated ESR/CRP in 9069-6120 -s/p prednisone treatment x 3 mo, which was prescribed by van cdl driver for ILD in 2022 -elevated ESR/CRP and evaluated for other rheumatological / autoimmune / connective tissue disorder, including vasculitis. Vasculitis work-up was negative. Current Dx interstitial lung disease -currently monitoring without DMARDs -discussed about DMARD and recommended to have another discussion with Dr. 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 -Dx September 2019 -following with [facility] rheumatology providers, last seen in September 2023 -previously prescribed hydroxychloroquine by helmet coverer when she developed ILD and uveitis, with elevated ESR/CRP in 5611-9441 -s/p prednisone treatment x 3 mo, which was prescribed by van cdl driver for ILD in 2022 -elevated ESR/CRP and evaluated for other rheumatological / autoimmune / connective tissue disorder, including vasculitis. Vasculitis work-up was negative. Current Dx interstitial lung disease -currently monitoring without DMARDs Assessment & Plan (06/03/2023 6:53 PM EDT): -Seropositive rheumatoid arthritis (RF and CCP) -Dx September 2019 -following with [facility] rheumatology providers, last seen in Apr 2023 -previously prescribed hydroxychloroquine by helmet coverer when she developed ILD and uveitis, with elevated ESR/CRP -s/p prednisone treatment x 3 mo, which was prescribed by van cdl driver for ILD -elevated ESR/CRP and evaluated for other rheumatological / autoimmune / connective tissue disorder, including vasculitis. Vasculitis work-up was negative. Current Dx interstitial lung disease -follow up as scheduled Assessment & Plan (01/19/2023 6:03 AM EST): -Seropositive rheumatoid arthritis (RF and CCP) -Dx September 2019 -following with [facility] rheumatology providers, last seen in 2022 -currently prescribed hydroxychloroquine by helmet coverer -s/p prednisone treatment x 3 mo, which was prescribed by van cdl driver for ILD -elevated ESR/CRP and evaluated for other rheumatological / autoimmune / connective tissue disorder, including vasculitis. Vasculitis work-up was negative. Current Dx interstitial lung disease -follow up as scheduled Assessment & Plan (10/09/2022 9:05 AM EDT): -Seropositive rheumatoid arthritis -Dx September 2019 -following with [facility] rheumatology providers, last seen in 2022 -currently prescribed hydroxychloroquine by helmet coverer -currently prescribed prednisone by van cdl driver for ILD -elevated ESR/CRP and evaluated for other rheumatological / autoimmune / connective tissue disorder, including vasculitis. Current Dx interstitial lung disease -follow up as scheduled Assessment & Plan (07/11/2022 11:17 AM EDT): -Seropositive rheumatoid arthritis -Dx September 2019 -03/20/22 ESR 41 -following with [facility] rheumatology providers, last seen in June 2022 -now being evaluated for other rheumatological / autoimmune / connective tissue disorder, including vaculitis -follow up as scheduled Assessment & Plan (04/22/2022 5:13 AM EST): -Seropositive rheumatoid arthritis -Dx September 2019 -03/20/22 ESR 41 -following with [facility] rheumatology providers, last seen in Oct 2020, q6m visit -pt does not need any mediation at this time because her symtoms are very mild -continue periodic appt, every 6 mo, which is overdue. Recommended to call to reschedule appt Assessment & Plan (03/20/2022 8:25 AM EST): -Seropositive rheumatoid arthritis -following with [facility] rheumatology providers, last seen in Oct 2020, q6m visit -pt does not need any mediation at this time because her symtoms are very mild -continue periodic appt -Follow up every 6 months History of renal calculi 03/20/2022 Allergic asthma 10/22/2018 Overview (01/15/2023): Last Assessment & Plan: -Most recent exacerbation in February 2019, hospitalized at [facility] -COVID19 clinical Dx in June 2019 (household member was positive) - did not test at that time due to strict Dx criteria at that time -Frequency of exacerbation, requiring systemic steroid 8 x /year, 2 hospitalizations in 2019, less frequent recently -No Hx of intubation -Followed by both van cdl driver and ENT -Continue Advair as maintenance -Continue Singulair as maintenance -Continue albuterol as rescue -Discussed about the importance of medication adherence and avoidance of 2nd hand smoke / exposure -Use unscented and hypoallergenic products Assessment & Plan (03/31/2024 5:17 PM EST): -Exacerbation in February 2019, hospitalized at [facility] -Mild exacerbation in June 2023, treated as outpatient with azithromycin and prednisone by van cdl driver -Frequency of exacerbation, requiring systemic steroid 8 x /year, 2 hospitalizations in 2018, less frequent recently -No Hx of intubation -Followed by both van cdl driver -Previously seeing ENT -Continue Advair as maintenance -Continue Singulair as maintenance -Continue albuterol as rescue -Discussed about the importance of medication adherence and avoidance of 2nd hand smoke / exposure -Use unscented and hypoallergenic products Assessment & Plan (12/24/2023 5:52 AM EDT): -Exacerbation in February 2019, hospitalized at [facility] -Mild exacerbation in June 2023, treated as outpatient with azithromycin and prednisone by van cdl driver -Frequency of exacerbation, requiring systemic steroid 8 x /year, 2 hospitalizations in 2018, less frequent recently -No Hx of intubation -Followed by both van cdl driver and ENT -Continue Advair as maintenance -Continue Singulair as maintenance -Continue albuterol as rescue -Discussed about the importance of medication adherence and avoidance of 2nd hand smoke / exposure -Use unscented and hypoallergenic products Assessment & Plan (06/03/2023 6:45 PM EDT): -Most recent exacerbation in February 2019, hospitalized at [place] [address] clinical Dx in June 2019 (household member was positive) - did not test at that time due to strict Dx criteria at that time -Frequency of exacerbation, requiring systemic steroid 8 x /year, 2 hospitalizations in 2019, less frequent recently -No Hx of intubation -Followed by both van cdl driver and ENT -Continue Advair as maintenance -Continue Singulair as maintenance -Continue albuterol as rescue -Discussed about the importance of medication adherence and avoidance of 2nd hand smoke / exposure -Use unscented and hypoallergenic products Assessment & Plan (01/19/2023 5:57 AM EST): -Most recent exacerbation in February 2019, hospitalized at [facility] [address] clinical Dx in June 2019 (household member was positive) - did not test at that time due to strict Dx criteria at that time -Frequency of exacerbation, requiring systemic steroid 8 x /year, 2 hospitalizations in 2018, less frequent recently -No Hx of intubation -Followed by both van cdl driver and ENT -Continue Advair as maintenance -Continue Singulair as maintenance -Continue albuterol as rescue -Discussed about the importance of medication adherence and avoidance of 2nd hand smoke / exposure -Use unscented and hypoallergenic products Assessment & Plan (10/09/2022 9:01 AM EDT): -Most recent exacerbation in February 2019, hospitalized at [place] [address] clinical Dx in June 2019 (household member was positive) - did not test at that time due to strict Dx criteria at that time -Frequency of exacerbation, requiring systemic steroid 8 x /year, 2 hospitalizations in 2019, less frequent recently -No Hx of intubation -Followed by both van cdl driver -Continue Advair as maintenance -Continue Singulair as maintenance -Continue albuterol as rescue -Discussed about the importance of medication adherence and avoidance of 2nd hand smoke / exposure -Use unscented and hypoallergenic products Assessment & Plan (07/11/2022 11:12 AM EDT): -Most recent exacerbation in February 2019, hospitalized at [place] [address] clinical Dx in June 2019 (household member was positive) - did not test at that time due to strict Dx criteria at that time -Frequency of exacerbation, requiring systemic steroid 8 x /year, 2 hospitalizations in 2019, less frequent recently -No Hx of intubation -Followed by both van cdl driver and ENT -Continue Advair as maintenance -Continue Singulair as maintenance -Continue albuterol as rescue -Discussed about the importance of medication adherence and avoidance of 2nd hand smoke / exposure -Use unscented and hypoallergenic products Assessment & Plan (04/11/2022 1:14 PM EST): -Most recent exacerbation in February 2019, hospitalized at [place] [address] clinical Dx in June 2019 (household member was positive) - did not test at that time due to strict Dx criteria at that time -Frequency of exacerbation, requiring systemic steroid 8 x /year, 2 hospitalizations in 2019, less frequent recently -No Hx of intubation -Followed by both van cdl driver and ENT -Continue Advair as maintenance -Continue Singulair as maintenance -Continue albuterol as rescue -Discussed about the importance of medication adherence and avoidance of 2nd hand smoke / exposure -Use unscented and hypoallergenic products Assessment & Plan (03/20/2022 8:26 AM EST): -Most recent exacerbation in February 2019, hospitalized at [facility] -COVID19 clinical Dx in June 2019 (household member was positive) - did not test at that time due to strict Dx criteria at that time -Frequency of exacerbation, requiring systemic steroid 8 x /year, 2 hospitalizations in 2019, less frequent recently -No Hx of intubation -Followed by both van cdl driver and ENT -Continue Advair as maintenance -Continue Singulair as maintenance -Continue albuterol as rescue -Discussed about the importance of medication adherence and avoidance of 2nd hand smoke / exposure -Use unscented and hypoallergenic products Nasal polyp 10/22/2018 Overview (01/15/2023): Last Assessment & Plan: ENT Dr. Abdi. s/p Sinus surgery in 2013. Assessment & Plan (07/11/2022 11:18 AM EDT): ENT Dr. Abdi. s/p Sinus surgery in 2013. Seen recently by ENT Continue Tx plan per ENT Assessment & Plan (04/22/2022 5:16 AM EST): ENT Dr. Abdi. s/p Sinus surgery in 2013. Assessment & Plan (03/20/2022 8:27 AM EST): ENT Dr. Abdi. s/p Sinus surgery in 2013. Recently seen again Vitamin D deficiency 10/22/2017 Chronic interstitial cystitis 01/13/2016 Assessment & Plan (12/21/2023 4:33 PM EDT): -pt has hx of hematuria and had [...] taking doxepin -normal abdominal/pelvic CT in 2015 Assessment & Plan (04/22/2022 5:14 AM EST): -pt has hx of hematuria and had [...] taking doxepin -normal abdominal/pelvic CT in 2015 Assessment & Plan (03/20/2022 8:22 AM EST): -pt has hx of hematuria and had [...] currently taking doxepin -normal abdominal/pelvic CT in 2016 Gastroesophageal reflux disease 02/18/2015 Assessment & Plan (03/31/2024 5:19 PM EST): - she is prescribed famotidine and omeprazole - advised to take famotidine at night and omeprazole in the morning - recommended to request a follow up appointment with [facility] 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 -Most recent TSH 3.04 on 03/20/22. -Continue current treatment plan. Assessment & Plan (03/26/2024 1:13 PM EST): -Current replacement: levothyroxine 75 mcg daily -History of elevated thyroid peroxidase antibody, Nino's thyroiditis. -Most recent TSH 3.04 on 01/18/23. -Most recent thyroid US in June 2022 small nodule -Continue current treatment plan. Assessment & Plan (12/21/2023 4:34 PM EDT): -Current replacement: levothyroxine 75 mcg daily -History of elevated thyroid peroxidase antibody, Nino's thyroiditis. -Most recent TSH 3.04 on 01/18/23. -Most recent thyroid US in June 2022 small nodule -Continue current treatment plan. Assessment & Plan (06/03/2023 6:51 PM EDT): -Current replacement: levothyroxine 75 mcg daily -History of elevated thyroid peroxidase antibody, Nino's thyroiditis. -Most recent TSH 3.04 on 01/18/23. -Most recent thyroid US in June 2022 small nodule -Continue current treatment plan. Assessment & Plan (10/09/2022 9:02 AM EDT): -Current replacement: levothyroxine 75 mcg daily -History of elevated thyroid peroxidase antibody, Nino's thyroiditis. -Most recent TSH 3.04 on 03/20/22. -Most recent thyroid US in June 2022 small nodule -Continue current treatment plan. Assessment & Plan (07/11/2022 11:15 AM EDT): -Current replacement: levothyroxine 75 mcg daily -History of elevated thyroid peroxidase antibody, Nino's thyroiditis. -Most recent TSH 3.04 on 03/20/22. -Most recent thyroid US in June 2022 small nodule -Continue current treatment plan. Assessment & Plan (04/22/2022 5:11 AM EST): -Current replacement: levothyroxine 75 mcg daily -History of elevated thyroid peroxidase antibody, Nino's thyroiditis. -Most recent TSH 3.04 on 03/20/22. -Continue current treatment plan. Assessment & Plan (03/20/2022 8:21 AM EST): -Current replacement: levothyroxine 75 mcg daily -History of elevated thyroid peroxidase antibody, Nino's thyroiditis. -Most recent TSH was unremarkable in 03/2021. -repeat thyroid function test -Continue current treatment plan. Obesity 09/27/2012 Assessment & Plan (12/24/2023 5:57 AM EDT): - continue lifestyle modifications - she is comfortable with BMI 27-29, overweight range. She does not lose weight excessively, below BMI < 26 Uterine leiomyoma 08/09/2012 Assessment & Plan (04/22/2022 5:09 AM EST): -Wolf Hunter recommended repeat pelvic ultrasound, further evaluation and [...] is moderate free fluid in the cul-de-sac. Assessment & Plan (03/20/2022 8:23 AM EST): Pelvic US on 09/19/21 showed Small endometrial cyst versus focal fluid collection.There is a small endometrial polyp measuring 0.9 cm. There are at least 2 uterine fibroids which are stable. Small nabothian cysts in the cervix. Ovaries are not visualized. There is moderate free fluid in the cul-de-sac Depression 05/02/2012 Overview (01/15/2023): Last Assessment & Plan: -[facility] provider: ALBERTO -Current medication: escitalopram 10 mg daily; doxepin 10 mg qhs Assessment & Plan (12/21/2023 4:35 PM EDT): -[facility] provider: N -Current medication: escitalopram 10 mg daily; doxepin 10 mg qhs Assessment & Plan (04/22/2022 5:17 AM EST): -[facility] provider: N -Current medication: escitalopram 10 mg daily; doxepin 10 mg qhs Assessment & Plan (03/20/2022 8:29 AM EST): -[facility] provider: N -Current medication: escitalopram 10 mg daily; doxepin 10 mg qhs Allergic rhinitis 05/02/2012 Assessment & Plan (03/26/2024 1:13 PM EST): -ENT: Dr. Abdi, Safely discharged due to her improvement -s/p nasal polypectomy in 2013 -Plan to start Tx with biologics, either Nucala or Xolair -Continue Singulair, loratadine, and Xhance Assessment & Plan (10/09/2022 9:05 AM EDT): -ENT: Dr. Abdi, Safely discharged due to her improvement -s/p nasal polypectomy in 2013 -Plan to start Tx with biologics, either Nucala or Xolair -Continue Singulair, loratadine, and Xhance Assessment & Plan (07/11/2022 11:19 AM EDT): -ENT: Dr. Abdi, Recently seen -s/p nasal polypectomy in 2013 -Plan to start Tx with biologics, either Nucala or Xolair -Continue Singulair, loratadine, and Xhance Assessment & Plan (04/11/2022 1:31 PM EST): -ENT: Dr. Abdi, last seen on 12/16/18, more recently per pt -s/p nasal polypectomy in 2013 -Plan to start Tx with biologics, either Nucala or Xolair -Continue Singulair, loratadine, and Xhance Assessment & Plan (03/20/2022 8:26 AM EST): -ENT: Dr. Abdi, last seen on 12/16/18, more recently per pt -s/p nasal polypectomy in 2013 -Plan to start Tx with biologics, either Nucala or Xolair -Continue Singulair, loratadine, and Xhance Hypertension 05/02/2012 Overview (01/15/2023): Last Assessment & Plan: -Goal BP < [...] mo or sooner if any problem arises Assessment & Plan (03/26/2024 1:12 PM EST): -Goal BP < 150/90 per JNC-8, < 130/80 per ACC/AHA guideline -Previously had frequent asthma exacerbation and prednisone use -EKG no ischemic change in Apr 2018 -Co-managed with our pharmacist, John Salgado RPh, Pharm D, through [facility] -Elevated in our clinic, likely white-coat hypertension as her home blood pressure measurements are reportedly normal -Continue working on lifestyle modifications. -Continue monitoring home BP. -Continue lisinopril 40 mg daily -Treatment Hx: Previously prescribed hydrochlorothiazide 12.5 mg daily, which was discontinued due to hypokalemia. Assessment & Plan (12/24/2023 5:53 AM EDT): -Goal BP < 150/90 per JNC-8, < 130/80 per ACC/AHA guideline -Previously had frequent asthma exacerbation and prednisone use -EKG no ischemic change in Apr 2018 -Co-managed with our pharmacist, John Salgado RPh, Pharm D, through [facility] -Elevated in our clinic, likely white-coat hypertension as her home blood pressure measurements are reportedly normal -Continue working on lifestyle modifications. -Continue monitoring home BP. -Continue lisinopril 40 mg daily -Treatment Hx: Previously prescribed hydrochlorothiazide 12.5 mg daily, which was discontinued due to hypokalemia. Assessment & Plan (06/03/2023 6:48 PM EDT): -Goal BP < 150/90 per JNC-8, < 130/80 per ACC/AHA guideline -Previously had frequent asthma exacerbation and prednisone use -EKG no ischemic change in Apr 2018 -Co-managed with our pharmacist, John Salgado RPh, Pharm D, through [facility] -Continue working on lifestyle modifications. -Continue monitoring home BP. -Continue lisinopril 40 mg daily -Treatment Hx: Previously prescribed hydrochlorothiazide 12.5 mg daily, which was discontinued due to hypokalemia. -Follow-up in 3 mo or sooner if any problem arises -Will request 24 hour bp monitoring with mileage clerk Assessment & Plan (01/19/2023 5:59 AM EST): -Goal BP < 140/90 per JNC-8, < 130/80 per ACC/AHA guideline -Previously had frequent asthma exacerbation and prednisone use -EKG no ischemic change in Apr 2018 -Co-managed with our pharmacist, John Salgado RPh, Pharm D, through [facility] -Continue working on lifestyle modifications. -Continue monitoring home BP. -Continue lisinopril 40 mg daily -Treatment Hx: Previously prescribed hydrochlorothiazide 12.5 mg daily, which was discontinued due to hypokalemia. -Follow-up in 3 mo or sooner if any problem arises Assessment & Plan (10/09/2022 9:01 AM EDT): -Goal BP < 140/90 per JNC-8, < 130/80 per ACC/AHA guideline -Previously had frequent asthma exacerbation and prednisone use -EKG no ischemic change in Apr 2018 -Continue working on lifestyle modifications. -Continue monitoring home BP. -Continue lisinopril 40 mg daily -Continue HCTZ 12.5 mg daily (to be taken when pt is on prednisone or when her BP is > 140/90) -Follow-up in 3 mo or sooner if any problem arises Assessment & Plan (07/11/2022 11:12 AM EDT): -Goal BP < 140/90 per JNC-8, < 130/80 per ACC/AHA guideline -Previously had frequent asthma exacerbation and prednisone use -EKG no ischemic change in Apr 2018 -Continue working on lifestyle modifications. -Continue monitoring home BP. -Continue lisinopril 40 mg daily -Continue HCTZ 12.5 mg daily (to be taken when pt is on prednisone or when her BP is > 140/90) -Follow-up in 4 mo or sooner if any problem arises Assessment & Plan (04/22/2022 5:08 AM EST): -Goal BP < 140/90 per JNC-8, < [...] mo or sooner if any problem arises Assessment & Plan (03/20/2022 8:20 AM EST): -Goal BP < 140/90 per JNC-8, < 130/80 -Frequent asthma exacerbation and prednisone use -EKG no ischemic change in Apr 2018 -Continue working on lifestyle modifications. -Continue monitoring home BP. -Continue lisinopril 40 mg daily -Continue HCTZ 12.5 mg daily (to be taken when pt is on prednisone or when her BP is > 140/90) -Follow-up in 4-6 mo or sooner if any problem arises Resolved Problems Problem Noted Date Diagnosed Date Resolved Date Hypokalemia 01/18/2023 06/03/2023 Assessment & Plan (01/19/2023 6:05 AM EST): - September 2022, K 3.0 mmol/L. Pt reported leg cramps in September - treated with KCL supplementation for 10 days, and symptom has resolved - check BMP and Mg - no longer on hydrochlorothiazide - on albuterol, but not using excessively Cellulitis of face 06/02/2022 3 Overview (01/15/2023): Last Assessment & Plan: Treating this as cellulitis, prescribed doxycycline for 7 days. Patient to RTC PRN if symptoms worsen or fail to improve. Assessment & Plan (06/02/2022 9:32 AM EDT): Treating this as cellulitis, prescribed doxycycline for 7 days. Patient to RTC PRN if symptoms worsen or fail to improve. Encounter for gynecological examination without abnormal finding 04/22/2022 04/22/2022 Acute atopic conjunctivitis 08/22/2017 03/20/2022 Blood in urine 09/27/2012 04/22/2022 Assessment & Plan (04/11/2022 1:44 PM EST): h/o Microscopic Hematuria. -Work-up was neg. -Recently another extensive work-up, w/ Cystoscopy wnl. 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; Rheumatoid arthritis with positive rheumatoid factor, involving unspecified site (CMS/HCC); Allergic rhinitis, unspecified seasonality, unspecified trigger; De Quervain's tenosynovitis, left; Constipation, unspecified constipation type; Allergic reaction, subsequent encounter; Gastroesophageal reflux disease, unspecified whether esophagitis present; Tenosynovitis of finger and hand 03/25/2024 Travel 03/24/2024 Telephone [facility] [address], [place] [phone] Huong David MD Prior Authorization (mometasone) 03/11/2024 Refill [facility] [address], [place] [phone] Huong David MD from Last 3 Months Immunizations Name Administration Dates Next Due Hep B, adult 11/01/2006,06/21/2006,05/03/2006 Influenza Injectable Quadriv alant Preservative Free IIV4 MDCK 04/01/2021 Influenza injectable quadriv alent IIV4 with preservative 03/20/2022,12/10/2017,04/09/2017,01/12,02/18/2015 Influenza injectable quadriv alent preservative free 01/18/2023,12/19/2018 Influenza, IIV3, injectable 12/30/2013, 1 Influenza, Split (incl. nabeel fied surface antigen) 12/04/2012 Influenza, Unspecified 12/30/2013,12/15/2010 Influenza, seasonal, injecta ble, preservative free 12/17/2023 Moderna Covid-19 Vaccine 12+ 04/12/2021 Pneumococcal Conjugate PCV 20 10/05/2022 Pneumococcal Polysaccharide PPSV23 07/14/2018, TD (adult), 2 Lf tetanus tox oid, preservative free, adsorbed 05/03/2006,11/11/1996 Tdap 01/18/2023,12/04/2012 Zoster, Recombinant 10/05/2022,11/07/2021 Zoster, live 11/07/2021 Social History Tobacco Use Types Packs/Day Years Used Date Smoking Tobacco: Never Passive Smoke Exposure: Never Smokeless Tobacco: Never Tobacco Cessation:Counseling Given: Not Answered Alcohol Answer Date Recorded Frequency of Alcohol Consumption Not on file 12/17/2023 Average Number of Drinks Not on file 024 Frequency of Binge Drinking Not on file 09/2023 Score 0 12/17/2023 Depression Answer Date Recorded Patient Health Questionnaire-9 Score 0 05/21/2023 Patient Health Questionnaire-9 Score 0 05/21/2023 Last PHQ-9: Questionnaire Data Not on file 0 05/21/2023 Housing Stability Answer Date Recorded What is your housing situation today? I have claire mae 05/21/[address] you li ve. Do you have problems with any of the following? None of the above 05/21/2023 Food Insecurity Answer Date Recorded Within the past 12 months, y ou worried that your food would run out before you got money to buy more: Never True 05/21/2023 Within the past 12 months,th e food you bought just didn't last and you didn't have enough money to get more: Never True 01/2024 Transportation Answer Date Recorded In the past 12 months, has l ack of transportation kept you from medical appts, meetings, work or from getting things needed for daily living? No 05/21/2023 Utilities Answer Date Recorded In the past 12 months, has t he electric, gas, oil or water company threatened to shut off services in your home? No 05/21/2023 Depression Answer Date Recorded Patient Health Questionnaire-2 Score 0 05/21/2023 Internet Access Answer Date Recorded Internet Access Q1 Yes 12/17/2023 Internet Access Q2 Not on file 12/17/2023 Comments Unknown Sex and Gender Information Value Date Recorded Sex Assigned at Female 01/09/2022 10:15 AM EDT Legal Sex Female 10:15 AM EDT Gender Identity Female 01/09/2022 10:15 AM EDT Sexual Orientation Straight 01/09/2022 10 :15 AM EDT Last Filed Vital Signs Vital Sign Reading Time Taken Comments Blood Pressure 146/91 03/25/2024 1:19 PM EST Pulse 103 03/25/2024 1:19 PM EST Temperature 36.2 ??C (97.1 ??F) 03/25/2024 1:19 PM ES T Respiratory Rate 15 03/25/2024 1:19 PM EST Oxygen Saturation 97% 03/25/2024 1:19 PM EST Inhaled Oxygen Concentration - - Weight 83 kg (183 lb) 03/25/2024 1:19 PM EST Height 165.1 cm (5' 5 ) 02/05/2024 2:02 PM EST Body Mass Index 30.45 02/05/2024 2:02 PM EST Plan of Treatment Upcoming Encounters Date Type Department Care Team (Late st Contact Info) Description 07/08/2024 2:15 PM EDT Office Visit [facility] [address] [place] [address] Huong David MD [address] [place] [address] Health Maintenance Due Date Last Done Comments CT Colonography 1965 FIT DNA/Cologuard 1965 FIT 1965 FOBT 1965 HIV Screening 1965 Sigmoidoscopy 1965 RSV Patients and Patients Aged 60 years or older (1 - Risk 60-74 years 1-dose series) 2023 COVID-19 Vaccine ( season) 2023 04/12/2021 Depression Screening 05/20/2024 05/21/2023, 05/21/19 24 Alcohol/Substance Use Screening 12/16/2024 12/17/2023 SDOH Screening 12/16/2024 12/17/2023 Diabetes: Hemoglobin A1C 12/18/2024 024, 01/18/2023, 10/05/2022, Additional history exists Tobacco Screening 03/25/2025 03/25/2024 Pap Smear 03/27/2025 03/27/2022 Mammogram 07/11/2025 07/12/2023, 04/2 09/2022, 07/06/2022, Additional history exists Cervical Cancer Screening 03/27/2027 HPV/Cotest 03/27/2027 03/27/2022, 04/09/2017 Lipid Panel 12/18/2028 12/19/2023, 01/10, 03/20/2022, Additional history exists DTaP/Tdap/Td Vaccines (3 - Td or Tdap) 01/18/2033 01/18/2023, 12/04/2012, 05/03/2006, Additional history exists Colonoscopy 12/11/2033 12/12/2023, 04/01/2013 Colorectal Cancer Screening 12/11/2033 Hepatitis B Vaccines Completed 11/01/2006, 06/21/2006, 05/03/2006 Pneumococcal Vaccine: 50+ Years Completed 10/05/2022, 07/14/2018, 09/19/2006 Zoster Vaccines Completed 10/05/2022, 10/11, 11/07/2021 Hepatitis C Screening Completed 09/24/2023, 023 Influenza Vaccine Completed 12/17/2023, , 03/20/2022, Additional history exists HIB Vaccines Aged Out No longer eligi ble based on patient's age to complete this topic HPV Vaccines Aged Out No longer eligi ble based on patient's age to complete this topic Hepatitis A Vaccines Aged Out No long er eligible based on patient's age to complete this topic IPV Vaccines Aged Out No longer eligi ble based on patient's age to complete this topic Meningococcal Vaccine Aged Out No nelly alesia eligible based on patient's age to complete this topic RSV under 20 months Aged Out No longe r eligible based on patient's age to complete this topic Rotavirus Vaccines Aged Out No longer eligible based on patient's age to complete this topic Goals Goal Patient Goal Type Associated Problems Recent Progress Patient-Stated? Author Blood Pressure < 150/90 Blood Pressure 146/91(2024 1:19 PM EST) John Spear, PharmD Note: Per JNC-8, Age 60+ without history of CKD or DM Procedures Procedure Name Priority Date/Time Associated Diagnosis Comments HEMOGLOBIN A1C Routine 12/19/2023 10:15 AM EDT Class 1 obesity without serious comorbidity with body mass index (BMI) of 31.0 to 31.9 in adult, unspecified obesity type LIPID PANEL WITH REFLEX TO DIRECT LDL Routine 12/19/2023 10:15 AM EDT Primary hypertension HM COLONOSCOPY Routine 12/12/2023 HEPATITIS PANEL, GENERAL Routine 09/24/2023 1:58 PM EDT BI MAMMOGRAM SCREENING TOMOSYNTHESIS BILATERAL Routine 07/12/2023 3:15 PM EDT HPV MRNA E6/E7 REFLEX TO HPV 16, 18/45 Routine 03/27/2022 11:53 AM EST PAP SMEAR Routine 03/27/2022 11:53 AM EST from Last 3 Months or Most Recently Relevant to Health Maintenance Results * Lipid Panel with Reflex to Direct LDL (12/19/2023 10:15 AM EDT) Triglycerides 56 <150 mg/dL [facility] Comment:Desirable Triglyceri de: less than 150 mg/dLBorderline High Triglyceride 150-199 mg/dLHigh Triglyceride: 200-499 mg/dLVery High Triglyceride: greater than or equal to 5OO mg/dL Cholesterol 173 <200 mg/dL [facility] Comment:Desirable Cholestero l: less than 200 mg/dLBorderline High Cholesterol: 200-239 mg/dLHigh Cholesterol: greater than 239 mg/dL LDL Cholesterol Calculated 98 <100 mg/dL [facility] Comment:Desirable LDL: less than 100 mg/dLNear Optimal/Above Optimal LDL: 110- 129 mg/dLBorderline High LDL: 130-159 mg/dLHigh LDL: 160-189 mg/dLVery High LDL: greater than or equal to 190 mg/dL HDL Cholesterol 64 >40 mg/dL [facility] Comment:Desirable HDL: great er than 40 mg/dL Note: This HDL assay may give artificially low results in patients with liver disease. Blood 12/19/2023 10:1 5 AM EDT 12/19/2023 11:31 AM EDT us Huong David MD LAB BLOOD ORDERABLES Final Resul t [facility] [address] [place] [phone] * Hemoglobin A1c (12/19/2023 10:15 AM EDT) [facility] Hemoglobin A1c 5.7 <6.0 % [facility] Comment:Hemoglobin A1C Refer ence Range Adults: 4.8 - 6.0 % Non diabetic: < 6.0 % Goal: < 7.0 %Additional Action Suggested: > 8.0 %Note: Hemoglobin A1c results are invalid for patients with abnormal amounts of HbF. Blood transfusions may impact the HbA1c concentration in the patient sample. Estimated Average Glucose 117 mg/dL [facility] Comment:eAG = Estimated ave rage glucose which is %A1C expressed asaverage glucose, using the formula of the V4Q-CccxnxzFkmnofd Glucose study (ADAG), Diabetes Care, Vol.31,#8,Oct. 2007 Blood Venous blood specimen / Unknown 12/19/2023 10:15 AM EDT 12/19/2023 11:31 AM EDT Huong David MD LAB BLOOD ORDERABLES Final Resul t [facility] [address] [place] [phone] * Hm Colonoscopy (12/12/2023) [facility] Colonoscopy Normal Normal 12/12/2023 Yimi Provider HEALTH MAINTENANCE Final Result * Hepatitis Panel, General (09/24/2023 1:58 PM EDT) [facility] Hepatitis A IgM Nonreactive Nonreactive [facility] Comment:IgM antibodies to SCOTT V not detected; does not exclude earlyacute or recovered HAV infection. ~Hepatitis B Surface Antibody NONREACTIVE Nonreactive [facility] Comment:Nonreactive: < 8.00 mIU/mL Hepatitis B Core Antibody Nonreactive Nonreactive [facility] Hepatitis C Antibody Nonreactive Nonreactive [facility] Comment:Antibodies to HCV no t detected; does not exclude early acuteHCV infection. Hepatitis B Surface Ag Negative Negative [facility] 09/24/2023 1:58 PM EDT 09/24/2023 1:58 PM EDT us Generic External Data Provider LAB BLOOD ORDERAB LES Final Result [facility] [address] [place] [phone] * BI Mammogram Screening Tomosynthesis Bilateral (07/12/2023 3:15 PM EDT) Anatomical Region Laterality Modality Breast Bilateral Mammography 07/12/2023 3:15 PM EDT Narrative 08/06/2023 12:59 PM EDT ? [facility] [place] ? [address] ?ANJELICA Rosenbaum ? Mammography Report ? Signed ? Patient: DominguezIlene ?MR#: [id number] ?? 5 ? : 1965 ?Acct:[id number] ? Age/Sex: 58 / F ?ADM Date: 07/12/23 ? Loc: HO.MAMMO ? Attending Dr: Huong David MD ? Ordering Physician: Huong David MD ?Results: 1Negative ? Date of Service: 07/12/23 ?Follow Up: 1 Year From Orig ?? inal Mammogram ? Procedure(s): MM tomosynthesis screening BI ?? Accession Number(s): [id number] ? cc: Huong David MD ? EXAMINATION: ?? MM SCREENING DIGITAL BREAST TOMOSYNTHESIS, BILATERAL ? CLINICAL INFORMATION: ? Screening. Asymptomatic. ? COMPARISON: ?? Mammography: This study is compared with prior exams dating back to ?? 2018. ? TECHNIQUE: ?? Digital breast tomosynthesis is performed in both the craniocaudal and ?? mediolateral oblique views along with computer-aided detection (CAD). ?? Synthesized 2D images are generated from the tomosynthesis. ? FINDINGS: ?? The breasts are almost entirely fatty (ACR BI-RADS breast composition ?? Category a). ? There are no significant masses, abnormal calcifications, or other ?? abnormalities. ? MM/MM tomosynthesis screening BI ?? IMPRESSION: ?? No mammographic evidence of malignancy. ? ASSESSMENT: ? BI-RADS BI-RADS 1 - Negative ? RECOMMENDATION: ?? Routine annual mammography screening. ? 1 year F/U ? This examination should not preclude the clinical evaluation of a ?? suspicious palpable abnormality. ? This patient's information was entered into a reminder system with a ?? target due date for their next mammogram. ? Dictated By: ?Alix Craven MD ? Signed By: ?<Electronically signed by Alix Craven MD in OV> ? 08/06/23 1256 ? DD/ 1515 ? TD/TT: ? Arc Cutter: ? Procedure Note Juancarlos Carvajal - 08/06/2023 [facility] [address] [place] [address] [place] [phone] Mammography Report Signed Patient: Robert DomingueznMR#: [id number] 5 : 1965Acct:[id number] Age/Sex: 58 / FADM Date: 07/12/23 Loc: [facility] Attending Dr: Huong David MD Ordering Physician: Huong Davidults: 1Negative Date of Service: 07/12/23Follow Up: 1 Year From Orig inal Mammogram Procedure(s): MM tomosynthesis screening BI Accession Number(s): [id number] cc: Huong David MD EXAMINATION: MM SCREENING DIGITAL BREAST TOMOSYNTHESIS, BILATERAL CLINICAL INFORMATION: Screening. Asymptomatic. COMPARISON: Mammography: This study is compared with prior exams dating back to 2018. TECHNIQUE: Digital breast tomosynthesis is performed in both the craniocaudal and mediolateral oblique views along with computer-aided detection (CAD). Synthesized 2D images are generated from the tomosynthesis. FINDINGS: The breasts are almost entirely fatty (ACR BI-RADS breast composition Category a). There are no significant masses, abnormal calcifications, or other abnormalities. MM/MM tomosynthesis screening BI IMPRESSION: No mammographic evidence of malignancy. ASSESSMENT: BI-RADS BI-RADS 1 - Negative RECOMMENDATION: Routine annual mammography screening. 1 year F/U This examination should not preclude the clinical evaluation of a suspicious palpable abnormality. This patient's information was entered into a reminder system with a target due date for their next mammogram. Dictated By: Alix Craven MD Signed By: <Electronically signed by Alix Craven MD in OV> 08/06/23 1256 DD/ 1515 TD/TT: Arc Cutter: Huong David MD IM BI PROCEDURES Final Result * HPV mRNA E6/E7 w/Reflex to HPV Genotypes 16, 18/45 (03/27/2022 11:53 AM EST) HPV nRNA E6/E7 Not Detected Not Detected [facility] Comment:Methodology: Transcr iption-Mediated AmplificationThis assay detects E6/E7 viral messenger RNA (mRNA) from 14high-risk HPV types (16,18,31,33,35,39,45,51,52,56,58,59,66,68).Cervical sources are required for HPV testing.If a vaginal source from a patient who has had atotal hysterectomy with removal of cervix wassubmitted, please contact the testing laboratoryfor alternative testing options.For additional information, please refer tohttp://education.GlassUp/faq/ATA610t3(This link if provided for information/educational purposes only.)THIS TEST WAS PERFORMED AT:[employer] [place] [address] (NL1)[place] [phone] MORIN MD HPV mRNA E6/E7 TNP [facility] HPV 16 RNA TNP [facility] HPV 18/45 RNA TNP [facility] 03/27/2022 11:5 3 AM EST 03/28/2022 3:45 PM EST us [facility] External Provider LAB CYT OLOGY ORDERABLES Final Result Performing Organization Address City/State/[facility] Co de Phone Number [facility] [address] [place] [address] [phone] * Pap Smear (03/27/2022 11:53 AM EST) 03/27/2022 11:5 3 AM EST 03/28/2022 3:45 PM EST Narrative [facility] - 04/02/2022 11:56 AM EST ----- ------- Name: Ilene Dominguez ?Age/Sex: 57/F ? : 1965 Unit#: [id number] ?? Attend : Francy Cabrera CNM ?Re03/27/22 ?Status: DEP REF ? Location: HO.LNP ?Disch: ? ----- ------- SPEC : [id number] ?RECD: 03/28/22 ? STATUS: ??SOUT ? REQ NUM: [id number] ? ZE: 03/27/22 ? SUBM DR: Francy Cabrera CNMerritt ? ENTERED: ??03/28/22 ?SP TYPE: Pap Smr ?OTHR : ? ORDERED: ??Pap Smear ? Interpretation ?? Satisfactory for evaluation. ?? Negative for intraepithelial lesion or malignancy. ? HPV mRNA E6/E7: ? NOT DETECTED ? This assay detects E6/E7 viral messenger RNA (mRNA) from 14 high-risk HPV types (16, 18, ?? 31, 33, 35, 39, 45, 51, 52, 56, 58, 59, 66, 68) ? HPV testing performed by [facility], [place], [place]. ??See reference laboratory ?? portion of the EMR for entire report. ?Clinical Information LMP: Menopausal Previous PAP test: 2018, WNL ? Material Received ?? ThinPrep-Cervical ----- ------- Signed (signature on file) Porsche Schmitz 04/02/22 1156 ? ----- ------- ? END OF REPORT ? [facility] External Provider LAB CYT OLOG ORDERABLES Final Result [facility] [address], [place] [phone] from Last 3 Months or Most Recently Relevant to Health Maintenance Insurance * Guarantor: Ilene Dominguez Account Type Relation to Patient Date of Phone Billing Address Personal/Family Self [address] [place] [address] [facility] * Guarantor: Ilene Dominguez Account Type Relation to Patient Date of Phone Billing Address Personal/Family Self [address] [facility] [address] [place] [address] * Guarantor: Ilene Dominguez Account Type Relation to Patient Date of Phone Billing Address Personal/Family Self [address] [facility] [address] [place], [place] * Guarantor: Ilene Dominguez Account Type Relation to Patient Date of Phone Billing Address Personal/Family Self [address] [facility] [address] [place], [place] Care Teams Insurance Consultant Relationship Specialty Start Date End Date Huong David MD [address] [place] [phone] PCP - General Family Medicine 02/22/12 John Salgado, PharmD [address] [place] [address]35 Pharmacist Internal Medicine 01/16/23
--- OUTSIDE RECORDS SUMMARY | 2024-05-16 09:42 | XMS_ITS | Encounter Summary ---
Author Organization [employer] Address [address] [facility] 7t [place] [address] Care Team Providers Care Communications Equipment Supervisor Name Role Phone Huong David MD Primary Care Provider [phone] John Salgado PharmD Unavailable [phone] Encounter Details Date Type Department Care Team (Late st Contact Info) Description 09/29/2022 Abstract [facility] MEDICINE [address] [place] [address] [phone] Huong David MD [address] [place] [address] [phone] Social History Tobacco Use Types Packs/Day Years [...] Description 07/08/2024 2:15 PM EDT Office Visit [facility] MEDICINE [address] [place] [address] [phone] Huong David MD [address] [place] [address] [phone] documented as of this encounter Procedures Procedure Name Priority Date/Time Associated Diagnosis Comments HM COLONOSCOPY Routine 04/01/2013 documented in this encounter Results * Colonoscopy (04/01/2013) Colonoscopy Normal Normal Kenna Unassmadan Pcp HEALTH MAINTENANCE Edited Result - Final documented in this encounter Visit Diagnoses Not on filedocumented in this encounter Additional Health Concerns Assessment Noted Time PHQ-9 Depression Total Score: 0 04/11/19 23 1:19 PM EST documented as of this encounter Care Teams Communications Equipment Supervisor Relationship Specialty Start Date End Date Huong David MD [address] [place] [address] PCP - General Family Medicine 02/22/12 John Salgado, DelmiD [address] [place] [address] Pharmacist Internal Medicine 01/16/23 documented as of this encounter
--- OUTSIDE RECORDS SUMMARY | 2024-05-16 09:42 | XMS_ITS | Encounter Summary ---
Author Organization [facility] Address [address] [place] [address] Care Team Providers Care Roll Contour Grinder Name Role Phone Huong David Primary Care Provider Unavailalia e Dimitri Jimenez MD, PHD Unavailable Unava ilable Encounter Details Date Type Department Care Team Description 08/30/2018 Photo Studio Assistant Report Medical Records [address] [place] [address] Delroy Abdi MD Social History Tobacco Use Types Packs/Day Years Used Date Smoking Tobacco: Never Assessed Sex Assigned at Date Recorded Not on file documented as of this encounter Plan of Treatment Not on file documented as of this encounter Visit Diagnoses Not on filedocumented in this encounter Care Teams Roll Contour Grinder Relationship Specialty Start Date End Date Huong David PCP - General Family Practice 09/03/18 Dimitri Jimenez MD, PHD Surgeon Neurosurgery 03/28/22 documented as of this encounter
--- OUTSIDE RECORDS SUMMARY | 2024-05-16 09:42 | XMS_ITS | Encounter Summary ---
Author Organization [employer] Address [address] [facility] [address] 7t [place] [address] Care Team Providers Care Manager Food Safety Name Role Phone Huong David MD Primary Care Provider [phone] John Salgado PharmD Unavailable [phone] Encounter Details Date Type Department Care Team (Late st Contact Info) Description 04/04/2024 Abstract [facility] MEDICINE [address] [place], [place] [phone] Amaya Bhatia [place] Social History Tobacco Use Types Packs/Day Years Used Date Smoking Tobacco: Never Passive Smoke Exposure: Never Smokeless Tobacco: Never Alcohol Answer Date Recorded Frequency of Alcohol [...] Description 07/08/2024 2:15 PM EDT Office Visit [facility] MEDICINE [address] [place] [address] Huong David MD [address] [place] [address] documented as of this encounter Goals Goal Patient Goal Type Associated Problems Recent Progress Patient-Stated? Author Blood Pressure < 150/90 Blood Pressure 146/91(2024 1:19 PM EST) John Spear, Vikki Note: Per JNC-8, Age 60+ without history of CKD or DM documented as of this encounter Visit Diagnoses Not on filedocumented in this encounter Additional Health Concerns Assessment Noted Time PHQ-9 Depression Total Score: 0 05/21/19 24 3:22 PM EDT documented as of this encounter Care Teams Manager Food Safety Relationship Specialty Start Date End Date Huong David MD [address] [place] [address] [phone] PCP - General Family Medicine 02/22/12 John Salgado, Vikki [address] [place] [address] Pharmacist Internal Medicine 01/16/23 documented as of this encounter
--- OUTSIDE RECORDS SUMMARY | 2024-05-16 09:42 | XMS_ITS | Encounter Summary ---
Author Organization [facility] Address [address] [place] [address] Care Team Providers Care Electric Motor Assembler And Tester Name Role Phone Huong David Primary Care Provider Unavailalia e Dimitri Jimenez MD, PHD Unavailable Unava ilable Encounter Details Date Type Department Care Team Description 08/28/2018 Lower School Music Teacher Report Medical Records [address] [place] [phone] Huong David Social History Tobacco Use Types Packs/Day Years Used Date Smoking Tobacco: Never Assessed Sex Assigned at Date Recorded Not on file documented as of this encounter Plan of Treatment Not on file documented as of this encounter Visit Diagnoses Not on filedocumented in this encounter Care Teams Electric Motor Assembler And Tester Relationship Specialty Start Date End Date Huong David PCP - General Family Practice 09/03/18 Dimitri Jimenez MD, PHD Surgeon Neurosurgery 03/28/22 documented as of this encounter
--- OUTSIDE RECORDS SUMMARY | 2024-05-16 09:42 | XMS_ITS | Encounter Summary ---
Author Organization [facility] Address [address] [place] [address] Care Team Providers Care Curtain Inspector Name Role Phone Huong David Primary Care Provider Dimitri Rocha MD, PHD Unavailable Unava ilable Encounter Details Date Type Department Care Team Description 03/07/2019 Release of Information Medical Records [address] [place] [phone] Abstract, Provider Social History Tobacco Use Types [...] on filedocumented in this encounter Care Teams Curtain Inspector Relationship Specialty Start Date End Date Huong David PCP - General Family Practice 09/03/18 Dimitri Jimenez MD, PHD Surgeon Neurosurgery 03/28/22 documented as of this encounter
--- OUTSIDE RECORDS SUMMARY | 2024-05-16 09:42 | XMS_ITS | Encounter Summary ---
Author Organization [employer] Address [address] [facility] [address] 7t [place] [address] Care Team Providers Care Client Server Programmer Name Role Phone Huong David MD Primary Care Provider [phone] John Salgado PharmD Unavailable [phone] Encounter Details Date Type Department Care Team (Late st Contact Info) Description 03/28/2024 Orders Only [facility] MEDICINE [address] [place], [place] [phone] Huong David MD [address] [place], [place] [phone] Social History Tobacco Use Types Packs/Day Years [...] Description 07/08/2024 2:15 PM EDT Office Visit [facility] MEDICINE [address] [place] [address] Huong David MD [address] [place] [address] documented as of this encounter Goals Goal Patient Goal Type Associated Problems Recent Progress Patient-Stated? Author Blood Pressure < 150/90 Blood Pressure 146/91(2024 1:19 PM EST) No John Salgado PharmD Note: Per JNC-8, Age 60+ without history of CKD or DM documented as of this encounter Visit Diagnoses Not on filedocumented in this encounter Additional Health Concerns Assessment Noted Time PHQ-9 Depression Total Score: 0 05/21/19 24 3:22 PM EDT documented as of this encounter Care Teams Client Server Programmer Relationship Specialty Start Date End Date Huong David MD [address] [place] [address] PCP - General Family Medicine 02/22/12 John Salgado, PharmD [address] [place] [address] Pharmacist Internal Medicine 01/16/23 documented as of this encounter
[2024-05-20 15:09] LABS: HPV Genotype 16 Negative (Negative); HPV Genotype 18 Negative (Negative); HPV High Risk Negative (Negative)
== END 2024-05-16 08:18 | disposition home or self-care (01) ==
LOC: HO.LNP 08:17
PROVIDERS: PCP Family Medicine; Visit Provider Obstetrics & Gynecology
DX: Z01.419 Encounter for gynecological examination (general) (routine) without abnormal findings (principal); N95.0 Postmenopausal bleeding
CPT/HCPCS: 87626; 88175; 99212; 99396; 99459

== ENCOUNTER 2024-05-16 08:17 | Outpatient (AMB) | payer MEDICAID, SELFPAY ==
--- OUTSIDE RECORDS SUMMARY | 2024-05-16 08:33 | XMS_ITS | Clinical Summary ---
Author Organization [facility] Address [address] [facility] [address] [place] [address] Phone Care Team Providers Care Manager Transmission Name Role Phone Huong David MD Primary Care Provider [phone] Allergies No known active allergies Medications Zoster Vac Recomb Adjuvanted (Shingrix) 50 MCG/0.5ML reconstituted suspension inject 0.5 milliliter by intramuscular route once 07/20/19 22 Active montelukast (SINGULAIR) 10 MG tablet Take 1 tablet by mouth 1 (one) time each day in the evening 06/10/19 23 Active lisinopril 40 MG tablet Take 1 tablet by mouth 1 (one) time each day 06/10/19 23 Active levothyroxine (SYNTHROID, LEVOTHROID) 75 MCG tablet Take 1 tablet by mouth 1 (one) time each day 06/10/19 23 Active Ventolin HFA 108 (90 Base) MCG/ACT inhaler INHALE 2 PUFFS BY MOUTH EVERY 4 TO 6 HOURS NEEDED FOR DIFFICULTY BREATHING, FOUR TIMES DAILY 10/06/19 23 Active Advair Diskus 500-50 MCG/ACT aerosol powder INHALE 1 PUFF BY MOUTH TWICE DAILY IN THE MORNING AND IN THE EVENING, APPROXIMATELY 12 HOURS APART RINSE MOUTH AFTER USING. 09/14/19 23 Active alendronate (FOSAMAX) 70 MG tablet take 1 tablet once a week with 6 to 8 oz of water 30 min before first food of day. do not lie down for 30 minutes 09/01/19 23 Active Active Problems Problem Noted Date Diagnosed Date Cellulitis of face 06/02/2022 11/06/2022 Overview (11/06/2022): Last Assessment & Plan: Treating this as cellulitis, prescribed doxycycline for 7 days. Patient to RTC PRN if symptoms worsen or fail to improve. Other microscopic hematuria 04/22/2022 08/2 10/2022 Overview (11/06/2022): Last Assessment & Plan: - evaluated by urologist and had normal cystoscopy twice or more - multifactorial since pt has Hx kidney stone and interstitial cystitis Polyp of corpus uteri 04/11/2022 11/06/2022 Overview (11/06/2022): Last Assessment & Plan: -Pulp Mixer recommended repeat pelvic ultrasound, further evaluation and recommendation Hysteroscopy for endocervical polyp. Patient was reassured that the fibroids typically decrease in size and resolve in menopause. -Recommended removal of polyps. -Scheduled for hysteroscopy with life enrichment assistant Urticaria 04/11/2022 11/06/2022 Degeneration of cervical intervertebral disc 11/06/2022 History of calculus of kidney 03/20/2022 Rheumatoid arthritis 03/20/2022 11/06/2022 Overview (11/06/2022): Last Assessment & Plan: -Seropositive rheumatoid arthritis -Dx September 2019 -03/20/22 ESR 41 -following with [facility] rheumatology providers, last seen in Oct 2020, q6m visit -pt does not need any mediation at this time because her symtoms are very mild -continue periodic appt, every 6 mo, which is overdue. Recommended to call to reschedule appt Hypothyroidism 05/19/2019 11/06/2022 Allergic conjunctivitis of bilateral eyes 201911/06/2022 Nephrolithiasis 05/19/2019 11/06/2022 Allergic rhinitis due to pollen 10/22/2018 11/06/2022 Allergic asthma 10/22/2018 11/06/2022 Overview (11/06/2022): Last Assessment & Plan: -Most recent exacerbation in February 2019, hospitalized at [facility] -COVID19 clinical Dx in June 2019 (household member was positive) - did not test at that time due to strict Dx criteria at that time -Frequency of exacerbation, requiring systemic steroid 8 x /year, 2 hospitalizations in 2019, less frequent recently -No Hx of intubation -Followed by both workers compensation specialist and ENT -Continue Advair as maintenance -Continue Singulair as maintenance -Continue albuterol as rescue -Discussed about the importance of medication adherence and avoidance of 2nd hand smoke / exposure -Use unscented and hypoallergenic products Nasal discharge 10/22/2018 11/06/2022 Nasal polyp 10/22/2018 11/06/2022 Overview (11/06/2022): Last Assessment & Plan: ENT Dr. Abdi. s/p Sinus surgery in 2013. Vitamin D deficiency 10/22/2017 11/06/2022 Chronic interstitial cystitis 01/13/2016 Overview (11/06/2022): Last Assessment & Plan: -pt has hx of hematuria and had extensive workup by her urologist -seen again on 11/17/21, and given reassurance in terms of hematuria -previously prescribed Vesicare and Mybetriq, but pt is not currently taking any medication and does not recall trying Mybetriq -will consider trial of TCA or Elmiron -pt has taken amitriptyline in the past for headache, and is currently taking doxepin -normal abdominal/pelvic CT in 2015 Gastroesophageal reflux disease 02/18/2015 11/06/2022 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 -Most recent TSH 3.04 on 03/20/22. -Continue current treatment plan. Obesity 09/27/2012 11/06/2022 Uterine leiomyoma 08/09/2012 11/06/2022 Overview (11/06/2022): Last Assessment & Plan: -Pulp Mixer recommended repeat pelvic ultrasound, further evaluation and recommendation Hysteroscopy for endocervical polyp. Patient was reassured that the fibroids typically decrease in size and resolve in menopause. -Recommended removal of polyps. -last Pelvic US on 09/19/21 showed Small endometrial cyst versus focal fluid collection.There is a small endometrial polyp measuring 0.9 cm. There are at least 2 uterine fibroids which are stable. Small nabothian cysts in the cervix. Ovaries are not visualized. There is moderate free fluid in the cul-de-sac. Hypertension 05/02/2012 11/06/2022 Overview (11/06/2022): Last Assessment & Plan: -Goal BP < 140/90 per JNC-8, < 130/80 per ACC/AHA guideline -Previously had frequent asthma exacerbation and prednisone use -EKG no ischemic change in Apr 2018 -Continue working on lifestyle modifications. -Continue monitoring home BP. -Continue lisinopril 40 mg daily -Continue HCTZ 12.5 mg daily (to be taken when pt is on prednisone or when her BP is > 140/90) -Follow-up in 4-6 mo or sooner if any problem arises Depressive disorder 05/02/2012 11/06/2022 Overview (11/06/2022): Last Assessment & Plan: -[facility] provider: ALBERTO -Current medication: escitalopram 10 mg daily; doxepin 10 mg qhs Immunizations Name Administration Dates Next Due Hepatitis B 11/01/2006,06/21/2006,05/03/2006 Influenza Split 12/04/2012 Influenza, MDCK, PF, Quadrivalent 04/01/2021 Influenza, Quadrivalent, Pre servative Free 12/19/2018 Influenza, Quadrivalent, Wit h Preservative 03/20/2022,12/10/2017,04/09/2017,01/12,02/18/2015 Influenza, Unspecified 12/30/2013,12/15/2010 Moderna SARS-COV-2 04/12/2021 Pneumococcal Polysaccharide 07/14/2018, 7 Shingrix 11/07/2021 Td 05/03/2006,11/11/1996 Tdap 12/04/2012 Family History Relation Status Comments Father Mother Social History Tobacco Use Types Packs/Day Years Used Date Smoking Tobacco: Never Smokeless Tobacco: Never Tobacco Cessation:Counseling Given: Not Answered Alcohol Use Standard Drinks/Week Comments Not Currently 0 (1 standard drink = 0.6 oz pur e alcohol) Comments Unknown Sex and Gender Information Value Date Recorded Sex Assigned at Not on file Legal Sex Female 2:56 PM EDT Gender Identity Not on file Sexual Orientation Not on file Last Filed Vital Signs Vital Sign Reading Time Taken Comments Blood Pressure 140/96 01/02/2024 11:23 AM EDT Pulse 83 01/02/2024 11:23 AM EDT Temperature - - Respiratory Rate - - Oxygen Saturation 98% 01/02/2024 11:23 AM EDT Inhaled Oxygen Concentration - - Weight 82.6 kg (182 lb) 01/02/2024 11:23 AM EDT Height - - Body Mass Index - - Plan of Treatment Health Maintenance Due Date Last Done Comments Breast Cancer Screening 1965 Colorectal Cancer Screening: Annual FOBT 02/18/2012 Colorectal Cancer Screening: Colonoscopy 02/18/2012 Colorectal Cancer Screening: Sigmoidoscopy 02/18/2012 Hepatitis B Vaccine Aged Out 11/01/2006, 06/21/2006, 05/03/2006 No longer eligible based on patient's age to complete this topic Pneumococcal Vaccine: Pediatrics (0 to 5 Years) and At-Risk Patients (6 to 64 Years) Completed 10/05/2022, 07/14/2018, 09/19/2006 Influenza Vaccine Completed 12/17/2023, , 03/20/2022, Additional history exists Insurance * Guarantor: Ilene Dominguez Account Type Relation to Patient Date of Phone Billing Address Personal/Family Self 1965 [address] [place] [address] MEDICAID [place] * Guarantor: Ilene Dominguez Account Type Relation to Patient Date of Phone Billing Address Personal/Family Self [address] [place] [address] [place]ID [place] Care Teams Manager Transmission Relationship Specialty Start Date End Date Huong David MD [address] [place] [id number] PCP - General Family Medicine 06/08/23
--- NOTE | 2024-05-16 08:34 | A.OFFVIS_ITS ---
Vital Signs 05/16/24 08:36 Height 5 ft 6 in Weight 176 lb BMI 28.4 BP 118/74 Intake Visit Reasons: DAIRY MANUFACTURING TECHNOLOGIST annual exam/DO NOT RS X3 Director Of Student Aid Required: Yes Director Of Student Aid Language: P[employer] Services: Director Of Student Aid Present (in person) Director Of Student Aid Name: Arlin KUMAR Information Interpreted: non-clinical & clinical Commercial Maintenance Technician: Commercial Maintenance Technician Present (Arlin Diana MELISSAMarietta) Accompanied by: Self / Same As Patient Allergies magnesium Allergy (Intermediate, Verified 05/16/24 08:41) rash Post menopausal: Yes HPI Comments Details: Presenting for annual exam. Complaining of an episode of vaginal bleeding 3 months ago. The patient had postmenopausal bleeding followed by hysteroscopy D&C polypectomy, the pathology in 06/01 showed proliferative endometrium, the Mirena IUD was inserted and the patient had 3 EMB is showed inactive benign endometrium on 09/01, 12/02 and Last was 09/02. Last Pap/HPV was negative in 04/03 Last Mammogram was BI-RADS 1 in 08/02 Last Colonoscopy was done in 01/02, the recommendation was to repeat in 5 years REPLACED BY [facility] Medical History Vitamin D deficiency GERD (gastroesophageal reflux disease) History of depression Chronic allergic rhinitis Asthma Hypothyroid Hypertension Surgical History H/O colonoscopy Hx of cystoscopy H/O nasal polypectomy H/O tubal ligation Family History Mother HTN (hypertension) Diabetes Colon cancer Father HTN (hypertension) Diabetes Hyperlipidemia Colon cancer Social History Household Members: Spouse Household Members Other:: son Housing: Apartment Are you a primary childcare teacher to a significant other at home: No Do you presently have visiting nurse or other home services: No Alcohol intake: former Patient Tobacco Use Status: Never used Tobacco service: No Current occupational status: disabled Female Reproductive History Menstrual Age of Menarche: 10 control method: permanent sterilization Date of last pap smear: 03/28/22 Date of Mammogram: 07/12/23 Review of Systems Const All systems reviewed & are unremarkable except as noted in HPI and below Card Reports as per HPI Resp Reports as per HPI GI Reports as per HPI and Reports no additional complaints Reports as per HPI Physical Exam Vital Signs: Last Vital Signs BP 118/74 05/16/24 08:36 BMI result Body Mass Index 28.4 Const General: cooperative, healthy appearing and comfortable Chest Chest palpation & inspection: normal inspection of the chest and normal palpation of entire chest wall Breast/axilla inspection: normal inspection of the breasts and normal inspection of the axillae Breast/axilla palpation: normal palpation of the breasts, normal palpation of t he axillae and no axillary lymphadenopathy Resp Effort & Inspection: normal respiratory effort Auscultation: clear to auscultation bilaterally Percussion: percussion normal Cardio Palpation: normal PMI Rate: regular rate Rhythm: regular rhythm Heart sounds: no murmurs and no rubs Peripheral pulses: Peripheral pulses 2+ throughout GI Inspection: Yes normal to inspection Palpation (GI): Soft to palpation, nontender, no guarding, not rigid and No hepatosplenomegaly present Percussion: Yes normal to percussion Auscultation: normal bowel sounds Rectal Exam - Female: deferred General: Yes bladder normal to palpation External Female Exam: No lesion Speculum Exam - Vagina: normal appearance of the vagina, normal palpation, normal vaginal discharge and not erythematous Speculum Exam - Cervix: normal appearance of the cervix and normal palpation Bimanual exam- vagina & uterus: normal bimanual exam, normal palpation, uterine size normal, bladder normal to palpation, consistency normal and normal palpation Bimanual Exam- Adnexa, other: normal adnexae, no masses and no tenderness Assessment & Plan Assessment & Plan (1) Well woman exam: Code(s): Z01.419 - Encounter for gynecological examination (general) (routine) without abnormal findings Category: Medical Plan: Co testing not indicated this year. Counseled the patient about the recommended dietary allowance of 1200 mg of Calcium & 600 IU of vitamin D. Instructions given the patient to schedule next screen Mammogram in 08/03, order placed. The patient was instructed to perform monthly self-breast exams and schedule annual exam in a year. All questions answered and the patient verbalized understanding. (2) Postmenopausal bleeding: Comment: With history of proliferative endometrium on Mirena IUD EMB 09/01, 12/02 and 09/02 showed benign endometrium Code(s): N95.0 - Postmenopausal bleeding Category: Medical Plan: Discussed with the patient the differential diagnosis of post menopausal bleeding with normal pelvic exam including but not limited to, endometrial hyperplasia, cancer, polyps and other causes; co testing done, recommended ultrasound to measure the endometrial stripe; discussed with the patient that if the endometrial thickness is 4 mm or less the negative predictive value of endometrial pathology is 99%, otherwise If endometrial thickness is more than 4 mm will proceed with endometrial sampling versus hysteroscopy D&C polypectomy depending on the ultrasound findings. Instructed the patient to schedule an ultrasound with a follow-up appointment in 2 weeks. All questions answered, the patient verbalized understanding and agreed with the plan. This note was generated with a voice recognition program. Some errors may have been overlooked during the review of this note. Sometimes these errors may affect the content or meaning of a given sentence. Orders: Orders Pap Smear Today Z01.419 - Encounter for gynecological examination (general) (ro utine) without abnormal findings HPV High risk Today Z01.419 - Encounter for gynecological examination (general) (routine) without abnormal findings MM tomosynthesis screening BI Today Z12.31 - Encounter for screening mammogram for malignant neoplasm of breast US pelvic and transvaginal Today N95.0 - Postmenopausal bleeding Coding Level of Care Code Est Pt Level 3 (64990) Est Pt Prev Care 40-64y(86566) Diagnoses Well woman exam Z01.419 Postmenopausal bleeding N95.0
[2024-05-16 08:36] VITALS: BP 118/74; BMI 28.4
== END 2024-05-16 09:04 | disposition home or self-care (01) ==
LOC: HO.HWS 08:17
PROVIDERS: PCP Family Medicine; Visit Provider Obstetrics & Gynecology
DX: Z01.419 Encounter for gynecological examination (general) (routine) without abnormal findings (principal); N95.0 Postmenopausal bleeding
CPT/HCPCS: 99213; 99396; 99459

== ENCOUNTER 2024-05-28 12:39 | Outpatient (REF) | payer MEDICAID, SELFPAY ==
[2024-05-28 14:00] LABS: MANUAL DIFF FLAG NO
[2024-05-28 14:39] LABS: Basophils Percent Auto 0.4 % (0-2); Eosinophils Absolute Auto 0.4 X10*3/uL (0.0-0.4); Eosinophils Percent Auto 3.9 % (0-4); Hematocrit 39.2 % (37.0-47.0); Hemoglobin 13.2 g/dl (12.0-16.0); Imm Gran Abs Auto 0.03 X10*3/uL (0.00-0.03); Imm Gran Pct Auto 0.3 % (0.0-0.4); Lymphocytes Absolute Auto 3.9 X10*3/uL (1.2-4.9); Lymphocytes Percent Auto 39.7 % (20-40); Mean Corpuscular HGB Conc 33.7 g/dl (31.0-35.0); Mean Corpuscular Hemoglobin 29.3 pg (27.0-33.0); Mean Corpuscular Volume 87.1 fL (80.0-98.0); Mean Platelet Volume 10.7 fL (9.4-12.3); Monocytes Absolute Auto 0.8 X10*3/uL (0.1-1.2); Monocytes Percent Auto 8.3 % (2-11); Neutrophils Absolute Auto 4.6 x10*3/uL (2.0-8.3); Neutrophils Percent Auto 47.4 % (45-73); Platelet Count 300 X10*3/uL (160-400); Red Cell Distribution Width 12.4 % (11.0-16.0); White Blood Count 9.7 X10*3/uL (4.8-10.8)
[2024-05-28 15:25] LABS: C Reactive Protein 1.56 mg/dL (< or = 0.50)
[2024-05-28 15:28] LABS: Erythrocyte Sedimentation Rate 34 MM/HR (0-20)
[2024-05-28 17:18] LABS: Alanine Aminotransferase 21 U/L (0-31); Alkaline Phosphatase 67 U/L (39-117); Anion Gap 11 (12-20); Aspartate Amino Transferase 25 U/L (5-31); Bilirubin Total 0.4 mg/dL (0.0-1.0); Blood Urea Nitrogen 15 mg/dL (9-16); C Reactive Protein 1.57 mg/dL (< or = 0.50); Calcium 9.4 mg/dL (8.4-10.2); Carbon Dioxide 27 mmol/L (22-29); Chloride 108 mmol/L (96-108); Estimated Glomerular Filt Rate > 60; Glucose Random 90 mg/dL (60-115); Potassium 3.7 mmol/L (3.3-5.1); Sodium 142 mmol/L (135-145); Total Protein 8.1 g/dL (6.5-8.0)
[2024-05-29 09:48] LABS: RPR Rapid Plasma Reagin NON-REACTIVE (NON-REACTIVE)
[2024-05-31 00:13] LABS: TS Negative Control Passed; TS Panel A 1; TS Panel B 0; TS Positive Control Passed; TSpotTB Negative (Negative)
[2024-06-01 15:57] LABS: Angiotensin Converting Enzyme 5 U/L (9-67)
[2024-06-03 21:34] LABS: Lysozyme, Serum 7.7 mcg/mL (5.0-11.0)
[2024-06-16 13:18] LABS: Class Alternaria alternata 0/1; Class Aspergillus fumigatus 0/1; Class Birch 4; Class Cladosporium herbarum 0; Class Cockroach 0/1; Class Common Ragweed 2; Class Cottonwood 0/1; Class Derm. pterony 0/1; Class Dermatophagoides farinae 0/1; Class Elm 1; Class Maple Box Elder 0/1; Class Mountain Cedar 0/1; Class Mugwort 0/1; Class Oak 4; Class Penicillium crysogenum 0; Class Rough Pigweed 0/1; Class Sheep Sorrel 0/1; Class Sycamore 0/1; Class Walnut Tree 1; Class White Ash 0/1; Class White Mulberry 0/1; D001 IgE D pteronyssinus 0.15 kU/L; D002 - IgE D farinae 0.21 kU/L; I006-IgE Cockroach, German 0.15 kU/L; M001 IgE Penicillium chrysogen <0.10 kU/L; M002 - IgE Cladosporium herbar <0.10 kU/L; M003 - IgE Aspergillus fumigat 0.28 kU/L; M006 - IgE Alternaria alternat <0.10 kU/L; T001 IgE Maple/Box Elder 0.27 kU/L; T003 IgE Common Silver Birch 40.6 kU/L; T006 - IgE Cedar, Mountain 0.15 kU/L; T008 IgE Elm, American 0.61 kU/L; T010 - IgE Walnut 0.43 kU/L; T014 - IgE Cottonwood 0.34 kU/L; T015 - IgE Ash, White 0.29 kU/L; T070 - IgE White Mulberry 0.11 kU/L; W001 - IgE Ragweed, Short 1.43 kU/L; W006 - IgE Mugwort 0.12 kU/L; W014 IgE Pigweed, Common 0.15 kU/L; W018 IgE Sheep Sorrel 0.27 kU/L
== END 2024-05-28 12:40 | disposition home or self-care (01) ==
LOC: HO.LAB 12:39
PROVIDERS: Student in an Organized Health Care Education/Training Program; Absent Provider Ophthalmology; PCP Family Medicine; Visit Provider Internal Medicine Pulmonary Disease
DX: J84.9 Interstitial pulmonary disease, unspecified (principal); J45.909 Unspecified asthma, uncomplicated; Z91.09 Other allergy status, other than to drugs and biological substances; H30.23 Posterior cyclitis, bilateral
CPT/HCPCS: 36415; 80053; 82164; 82785; 85025; 85549; 85652; 86003; 86140; 86481; 86592; 99212

== ENCOUNTER 2024-05-28 12:39 | Outpatient (AMB) | payer MEDICAID, SELFPAY ==
--- NOTE | 2024-05-28 13:07 | MHC.OFFVIS ---
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 In 2022 patient completed 3 months prednisone 50 mg daily with significant improvement in her dyspnea symptoms and imaging. At that time her prednisone was stopped with no recurrence of symptoms and essentially normal CT chest. Patient has been using Advair and albuterol MDI to control her underlying asthma symptoms and Singulair for allergic component until she developed seasonal exacerbation. Today she has complain of some dyspnea on exertion, though no significant wheezing. [facility] Medical History Vitamin D deficiency GERD (gastroesophageal reflux disease) History of depression Chronic allergic rhinitis Asthma Hypothyroid Hypertension Surgical History H/O colonoscopy Hx of cystoscopy H/O nasal polypectomy H/O tubal ligation Family History Mother HTN (hypertension) Diabetes Colon cancer Father HTN (hypertension) Diabetes Hyperlipidemia Colon cancer Social History Household Members: Spouse Household Members Other:: son Housing: Apartment Are you a primary memory care program director to a significant other at home: No Do you presently have visiting nurse or other home services: No Alcohol intake: former Patient Tobacco Use Status: Never used Tobacco service: No Current occupational status: disabled Female Reproductive History Menstrual Age of Menarche: 10 Review of Systems Const Denies daytime sleepiness, Denies excessive sweating, Denies fatigue, Denies fever(s), Denies lethargy, Denies malaise, Denies night sweats, Denies snoring and Denies weight loss Eyes Denies blurry vision and Denies itchy eyes ENT Denies nasal congestion, Denies post nasal drip, Denies sinus pain, Denies sinus pressure and Denies other ( Thrush) Card Denies chest pain, Denies pedal edema, Denies dyspnea, Denies orthopnea and Denies paroxysmal nocturnal dyspnea Resp Denies cough, Denies hemoptysis, Denies excessive phlegm production, Denies dyspnea, Denies snoring and Denies wheezing GI Denies abdominal pain and Denies heartburn Musc Denies myalgias, Denies arthralgias and Denies joint swelling Skin/Breast Denies rash Neuro Denies memory loss and Denies seizure-like activity Psych Denies abnormal sleep pattern, Denies anxiety and Denies memory loss Endo Denies excessive sweating, Denies fatigue and Denies heat intolerance Agustin/Lymph Denies easy bruising Aller/Immun Denies itchy eyes, Denies seasonal rhinorrhea and Denies wheezing Physical Exam Vital Signs: Last Vital Signs Pulse 74 05/28/24 13:08 BP 137/82 05/28/24 13:08 Pulse Ox 94 05/28/24 13:08 Oxygen Delivery Method Room Air 05/28/24 13:08 BMI result Body Mass Index 29.0 Const General: no acute distress and alert Nutritional Appearance: not obese Orientation/consciousness: Other orientation findings ( oriented) HEENT Head: Yes atraumatic Eyes General: appearance normal, both eyes and all related structures Sclerae: sclerae normal EOM: EOMs intact bilaterally Neck Neck: Yes supple Lymphatic: no lymphadenopathy noted Resp Effort & Inspection: normal respiratory effort and no use of accessory muscles Auscultation: clear to auscultation bilaterally and other (Poor bilateral air movement) Cardio Rate: regular rate Rhythm: regular rhythm Heart sounds: no gallops, no murmurs and no rubs Skin General skin exam: other ( warm) Extrem General: No clubbing, No cyanosis and No edema Assessment & Plan Assessment & Plan (1) Asthma: Code(s): J45.909 - Unspecified asthma, uncomplicated Category: Medical Plan: Baseline controlled on high-dose Advair and albuterol MDI. Continue current regimen. Now with acute seasonal exacerbation, will treat with a prednisone taper. (2) Environmental allergies: Code(s): Z91.09 - Other allergy status, other than to drugs and biological substances Category: Medical Plan: Continue Singulair. Will check RAST panel and CBC with differential for further evaluation. Orders: Orders Complete Blood Count Auto Diff Today J45.909 - Unspecified asthma, uncomplicated Resp Allergy Profile Region I Today J45.909 - Unspecified asthma, uncomplicated Medications: New prednisone Take 4 tabs daily for 5 days, then go down by 1 tab every 5 days 10 mg PO DIRECTED 50 tabs 0RF Coding Level of Care Code Est Pt Level 4 (22447) Diagnoses Asthma J45.909 Environmental allergies Z91.09
[2024-05-28 13:08] VITALS: BP 137/82; PULSE 74; O2SAT 94; BMI 29.0
--- OUTSIDE RECORDS SUMMARY | 2024-05-28 15:02 | XMS_ITS | Encounter Summary ---
Author Organization [facility] Address [address] [facility] 7t [place] [address] Care Team Providers Care Director Of Securities And Real Estate Name Role Phone Huong David MD Primary Care Provider [phone] John Salgado PharmD Unavailable [phone] Encounter Details Date Type Department Care Team (Late st Contact Info) Description 08/23/2022 Abstract [facility] MEDICINE [address] [place] [address] [phone] Huong David MD [address] [place] [address] [phone] Social History Tobacco Use Types Packs/Day Years [...] Description 07/08/2024 2:15 PM EDT Office Visit [facility] MEDICINE [address] [place] [address] [phone] Huong David MD [address] [place] [address] [phone] documented as of this encounter Procedures Procedure Name Priority Date/Time Associated Diagnosis Comments HM MAMMOGRAPHY Routine 07/06/2022 documented in this encounter Results * Mammography (07/06/2022) Mammogram bi-rads 2 Anatomical Region Laterality Modality Other 07/06/2022 Result [facility] HEALTH MAINTENANCE Final Result documented in this encounter Visit Diagnoses Not on filedocumented in this encounter Additional Health Concerns Assessment Noted Time PHQ-9 Depression Total Score: 0 04/11/19 23 1:19 PM EST documented as of this encounter Care Teams Director Of Securities And Real Estate Relationship Specialty Start Date End Date Huong David MD [address] [place] [address] PCP - General Family Medicine 02/22/12 John Salgado, DelmiD [address] [place] [address] Pharmacist Internal Medicine 01/16/23 documented as of this encounter
--- OUTSIDE RECORDS SUMMARY | 2024-05-28 15:02 | XMS_ITS | Clinical Summary ---
Author Organization [facility] Address [address] [facility] [address] [place] [address] Phone Care Team Providers Care Fur Floor Worker Name Role Phone Huong David MD Primary Care Provider [phone] Allergies No known active allergies Medications Zoster [...] 11/06/2022 Overview (11/06/2022): Last Assessment & Plan: -Sail Lay Out Worker recommended repeat pelvic ultrasound, further evaluation and recommendation Hysteroscopy for endocervical polyp. Patient was reassured that the fibroids typically decrease in size and resolve in menopause. -Recommended removal of polyps. -Scheduled for hysteroscopy with employee relations assistant Urticaria 04/11/2022 11/06/2022 Degeneration of cervical intervertebral disc 11/06/2022 History of calculus of kidney 03/20/2022 Rheumatoid arthritis 03/20/2022 11/06/2022 Overview (11/06/2022): Last Assessment & Plan: -Seropositive rheumatoid arthritis -Dx September 2019 -03/20/22 ESR 41 -following with [facility] rheumatology providers, last seen in Oct 2020, [...] recent exacerbation in February 2019, hospitalized at [facility] -COVID19 clinical Dx in June 2019 (household member was positive) - did not test at that time due to strict Dx criteria at that time -Frequency of exacerbation, requiring systemic steroid 8 x /year, 2 hospitalizations in 2019, less frequent recently -No Hx of intubation -Followed by both chemical blender and ENT -Continue Advair as maintenance -Continue [...] 11/06/2022 Overview (11/06/2022): Last Assessment & Plan: -Sail Lay Out Worker recommended repeat pelvic ultrasound, further evaluation and [...] 11/06/2022 Overview (11/06/2022): Last Assessment & Plan: -[facility] provider: ALBERTO -Current medication: escitalopram 10 mg [...] 1965 [address] [place] [address] [place] * Guarantor: Ilene Dominguez Account Type Relation to Patient Date of Phone Billing Address Personal/Family Self [address] [place] [address] [place] Care Teams Fur Floor Worker Relationship Specialty Start Date End Date Huong David MD [address] [place] [address] 40671 PCP - General Family Medicine 06/08/23
--- OUTSIDE RECORDS SUMMARY | 2024-05-28 15:02 | XMS_ITS | Encounter Summary ---
Author Organization [employer] Address [address] [facility] 7t [place] [address] Care Team Providers Care A/C Technician Name Role Phone Huong David MD Primary Care Provider [phone] John Salgado PharmD Unavailable [phone] Reason for Visit * Reason Onset Date Comments returning call 03/22/2022 Encounter Details Date Type Department Care Team ([facility] st Contact Info) Description 03/22/2022 Telephone [facility] MEDICINE [address] [place], [place] [phone] Huong David MD [address] [place], [place] [phone] returning call Social History Tobacco Use Types [...] a call back Please contact pt at [phone] documented in this encounter Plan of Treatment Upcoming Encounters Date Type Department Care Team (Late st Contact Info) Description 07/08/2024 2:15 PM EDT Office Visit [facility] MEDICINE [address] [place] [address] Huong David MD [address] [place] [address] documented as of this encounter Visit Diagnoses Not on filedocumented in this encounter Care Teams A/C Technician Relationship Specialty Start Date End Date Huong David MD [address] [place] [address] [phone] PCP - General Family Medicine 02/22/12 John Salgado, PharmD [address] [place] [address] Pharmacist Internal Medicine 01/16/23 documented as of this encounter
--- OUTSIDE RECORDS SUMMARY | 2024-05-28 15:03 | XMS_ITS | Encounter Summary ---
Author Organization [employer] Address [address] [facility] 7t [place] [address] Care Team Providers Care Armored Service Technician Name Role Phone Huong David MD Primary Care Provider [phone] John Salgado PharmD Unavailable [phone] Encounter Details Date Type Department Care Team (Late st Contact Info) Description 05/23/2024 Population Health Risk Score [facility] (C[facility]) Department [address] [facility] 7 [place] [address] Provider, Population Health Generic Social History Tobacco Use Types Packs/Day Years [...] Description 07/08/2024 2:15 PM EDT Office Visit [facility] MEDICINE [address] [place] [address] Huong David MD [address] [place] [phone] documented as of this encounter Goals Goal Patient Goal Type Associated Problems Recent Progress Patient-Stated? Author Blood Pressure < 150/90 Blood Pressure 146/91(2024 1:19 PM EST) No John Salgado, Vikki Note: Per JNC-8, Age 60+ without history of CKD or DM documented as of this encounter Visit Diagnoses Not on filedocumented in this encounter Additional Health Concerns Assessment Noted Time PHQ-9 Depression Total Score: 0 05/21/19 24 3:22 PM EDT documented as of this encounter Care Teams Armored Service Technician Relationship Specialty Start Date End Date Huong David MD [address] [place] [address] PCP - General Family Medicine 02/22/12 John Salgado, Vikki [address] [place] [phone] Pharmacist Internal Medicine 01/16/23 documented as of this encounter
--- OUTSIDE RECORDS SUMMARY | 2024-05-28 15:03 | XMS_ITS | Clinical Summary ---
Author Organization [employer] Address [address] [facility] [address] [place] [address] Care Team Providers Care Triage Technician Name Role Phone Huong David MD Primary Care Provider [phone] John Salgado PharmD Unavailable [phone] Allergies No known active allergies Medications alendronate [...] and Jan 2024 She was referred to internet marketing specialist in the walk-in clinic in Jan [address] Jean [facility] pulmonology if she is interested in allergy [...] 5:54 AM EDT): - following with [facility] LAMP STACK DEVELOPER - last EMBx in August 2023 - no sign of malignancy Assessment & Plan (06/03/2023 6:49 PM EDT): - following with [facility] LAMP STACK DEVELOPER - last EMBx in Nov 2022 - no sign of malignancy Assessment & Plan (01/19/2023 6:00 AM EST): - following with [facility] LAMP STACK DEVELOPER - last EMBx in Nov 2022 - no sign of malignancy Chronic left shoulder pain 01/19/2023 Assessment & Plan (01/19/2023 6:08 AM EST): - X-ray was normal and pt received steroid injection from journalism teacher in Dec 2022 - no pain at [...] (03/26/2024 1:12 PM EST): - following with [facility] pulmonology - status post 3 mo of prednisone treatment - CT showed improvement in July 2022 and near resolution in Nov 2022 - currently monitoring symptoms and with periodic imaging Assessment & Plan (12/21/2023 4:33 PM EDT): - following with [facility] pulmonology - status post 3 mo of prednisone treatment - CT showed improvement in July 2022 and near resolution in Nov 2022 - currently monitoring symptoms and with periodic imaging Assessment & Plan (06/03/2023 6:45 PM EDT): - following with [facility] pulmonology - status post 3 mo of prednisone treatment - CT showed improvement in July 2022 and near resolution in Nov 2022 - currently monitoring symptoms and with periodic imaging Assessment & Plan (01/19/2023 5:56 AM EST): - following with [facility] pulmonology - status post 3 mo of prednisone treatment - CT showed improvement in July 2022 and near resolution in Nov 2022 - currently monitoring symptoms and with periodic imaging Assessment & Plan (10/09/2022 9:00 AM EDT): - following with [facility] pulmonology - currently taking prednisone 50 mg daily with a plan for slow tapering - CT on 08/01/22 showed improvement - continue current treatment plan and follow up with marine consultant Elevated erythrocyte sedimentation rate 07/12/19 Assessment & [...] 04/11/2022 Overview (01/15/2023): Last Assessment & Plan: -Chemistry Professor recommended repeat pelvic ultrasound, further evaluation and recommendation Hysteroscopy for endocervical polyp. Patient was reassured that the fibroids typically decrease in size and resolve in menopause. -Recommended removal of polyps. -Scheduled for hysteroscopy with neon tube pumper Assessment & Plan (07/11/2022 11:13 AM EDT): - 05/19/22 Hysteroscopy, D&C, polypectomy - benign polyp Assessment & Plan (04/22/2022 5:10 AM EST): -Chemistry Professor recommended repeat pelvic ultrasound, further evaluation and recommendation Hysteroscopy for endocervical polyp. Patient was reassured that the fibroids typically decrease in size and resolve in menopause. -Recommended removal of polyps. -Scheduled for hysteroscopy with neon tube pumper Degeneration of cervical intervertebral disc Rheumatoid arthritis 03/20/2022 Overview (01/15/2023): Last Assessment & Plan: -Seropositive rheumatoid arthritis -Dx September 2019 -03/20/22 ESR 41 -following with [facility] rheumatology providers, last seen in Oct 2020, [...] and CCP. -Dx September 2019 -following with [facility] rheumatology providers, last seen in Dec 2023 -previously prescribed hydroxychloroquine by journalism teacher when she developed ILD and uveitis, with elevated ESR/CRP in [id number] -s/p prednisone treatment x 3 mo, which was prescribed by marine consultant for ILD in 2022 -elevated ESR/CRP and [...] and CCP. -Dx September 2019 -following with [facility] rheumatology providers, last seen in September 2023 -previously prescribed hydroxychloroquine by journalism teacher when she developed ILD and uveitis, with elevated ESR/CRP in [id number] -s/p prednisone treatment x 3 mo, which was prescribed by marine consultant for ILD in 2022 -elevated ESR/CRP and evaluated for other rheumatological / autoimmune / connective tissue disorder, including vasculitis. Vasculitis work-up was negative. Current Dx interstitial lung disease -currently monitoring without DMARDs Assessment & Plan (06/03/2023 6:53 PM EDT): -Seropositive rheumatoid arthritis (RF and CCP) -Dx September 2019 -following with [facility] rheumatology providers, last seen in Apr 2023 -previously prescribed hydroxychloroquine by journalism teacher when she developed ILD and uveitis, with elevated ESR/CRP -s/p prednisone treatment x 3 mo, which was prescribed by marine consultant for ILD -elevated ESR/CRP and evaluated for other rheumatological / autoimmune / connective tissue disorder, including vasculitis. Vasculitis work-up was negative. Current Dx interstitial lung disease -follow up as scheduled Assessment & Plan (01/19/2023 6:03 AM EST): -Seropositive rheumatoid arthritis (RF and CCP) -Dx September 2019 -following with [facility] rheumatology providers, last seen in 2022 -currently prescribed hydroxychloroquine by journalism teacher -s/p prednisone treatment x 3 mo, which was prescribed by marine consultant for ILD -elevated ESR/CRP and evaluated for other rheumatological / autoimmune / connective tissue disorder, including vasculitis. Vasculitis work-up was negative. Current Dx interstitial lung disease -follow up as scheduled Assessment & Plan (10/09/2022 9:05 AM EDT): -Seropositive rheumatoid arthritis -Dx September 2019 -following with [facility] rheumatology providers, last seen in 2022 -currently prescribed hydroxychloroquine by journalism teacher -currently prescribed prednisone by marine consultant for ILD -elevated ESR/CRP and evaluated for other rheumatological / autoimmune / connective tissue disorder, including vasculitis. Current Dx interstitial lung disease -follow up as scheduled Assessment & Plan (07/11/2022 11:17 AM EDT): -Seropositive rheumatoid arthritis -Dx September 2019 -03/20/22 ESR 41 -following with [facility] rheumatology providers, last seen in June 2022 -now being evaluated for other rheumatological / autoimmune / connective tissue disorder, including vaculitis -follow up as scheduled Assessment & Plan (04/22/2022 5:13 AM EST): -Seropositive rheumatoid arthritis -Dx September 2019 -03/20/22 ESR 41 -following with [facility] rheumatology providers, last seen in Oct 2020, q6m visit -pt does not need any mediation at this time because her symtoms are very mild -continue periodic appt, every 6 mo, which is overdue. Recommended to call to reschedule appt Assessment & Plan (03/20/2022 8:25 AM EST): -Seropositive rheumatoid arthritis -following with [facility] rheumatology providers, last seen in Oct 2020, q6m visit -pt does not need any mediation at this time because her symtoms are very mild -continue periodic appt -Follow up every 6 months History of renal calculi 03/20/2022 Allergic asthma 10/22/2018 Overview (01/15/2023): Last Assessment & Plan: -Most recent exacerbation in February 2019, hospitalized at [facility] -COVID19 clinical Dx in June 2019 (household member was positive) - did not test at that time due to strict Dx criteria at that time -Frequency of exacerbation, requiring systemic steroid 8 x /year, 2 hospitalizations in 2019, less frequent recently -No Hx of intubation -Followed by both marine consultant and ENT -Continue Advair as maintenance -Continue Singulair as maintenance -Continue albuterol as rescue -Discussed about the importance of medication adherence and avoidance of 2nd hand smoke / exposure -Use unscented and hypoallergenic products Assessment & Plan (03/31/2024 5:17 PM EST): -Exacerbation in February 2019, hospitalized at [facility] -Mild exacerbation in June 2023, treated as outpatient with azithromycin and prednisone by marine consultant -Frequency of exacerbation, requiring systemic steroid 8 x /year, 2 hospitalizations in 2018, less frequent recently -No Hx of intubation -Followed by both marine consultant -Previously seeing ENT -Continue Advair as maintenance -Continue Singulair as maintenance -Continue albuterol as rescue -Discussed about the importance of medication adherence and avoidance of 2nd hand smoke / exposure -Use unscented and hypoallergenic products Assessment & Plan (12/24/2023 5:52 AM EDT): -Exacerbation in February 2019, hospitalized at [facility] -Mild exacerbation in June 2023, treated as outpatient with azithromycin and prednisone by marine consultant -Frequency of exacerbation, requiring systemic steroid 8 x /year, 2 hospitalizations in 2018, less frequent recently -No Hx of intubation -Followed by both marine consultant and ENT -Continue Advair as maintenance -Continue Singulair as maintenance -Continue albuterol as rescue -Discussed about the importance of medication adherence and avoidance of 2nd hand smoke / exposure -Use unscented and hypoallergenic products Assessment & Plan (06/03/2023 6:45 PM EDT): -Most recent exacerbation in February 2019, hospitalized at [place] [address] clinical Dx in June 2019 (household member was positive) - did not test at that time due to strict Dx criteria at that time -Frequency of exacerbation, requiring systemic steroid 8 x /year, 2 hospitalizations in 2019, less frequent recently -No Hx of intubation -Followed by both marine consultant and ENT -Continue Advair as maintenance -Continue Singulair as maintenance -Continue albuterol as rescue -Discussed about the importance of medication adherence and avoidance of 2nd hand smoke / exposure -Use unscented and hypoallergenic products Assessment & Plan (01/19/2023 5:57 AM EST): -Most recent exacerbation in February 2019, hospitalized at [facility] [address] clinical Dx in June 2019 (household member was positive) - did not test at that time due to strict Dx criteria at that time -Frequency of exacerbation, requiring systemic steroid 8 x /year, 2 hospitalizations in 2018, less frequent recently -No Hx of intubation -Followed by both marine consultant and ENT -Continue Advair as maintenance -Continue Singulair as maintenance -Continue albuterol as rescue -Discussed about the importance of medication adherence and avoidance of 2nd hand smoke / exposure -Use unscented and hypoallergenic products Assessment & Plan (10/09/2022 9:01 AM EDT): -Most recent exacerbation in February 2019, hospitalized at [place] [address] clinical Dx in June 2019 (household member was positive) - did not test at that time due to strict Dx criteria at that time -Frequency of exacerbation, requiring systemic steroid 8 x /year, 2 hospitalizations in 2019, less frequent recently -No Hx of intubation -Followed by both marine consultant -Continue Advair as maintenance -Continue Singulair as maintenance -Continue albuterol as rescue -Discussed about the importance of medication adherence and avoidance of 2nd hand smoke / exposure -Use unscented and hypoallergenic products Assessment & Plan (07/11/2022 11:12 AM EDT): -Most recent exacerbation in February 2019, hospitalized at [place] [address] clinical Dx in June 2019 (household member was positive) - did not test at that time due to strict Dx criteria at that time -Frequency of exacerbation, requiring systemic steroid 8 x /year, 2 hospitalizations in 2019, less frequent recently -No Hx of intubation -Followed by both marine consultant and ENT -Continue Advair as maintenance -Continue Singulair as maintenance -Continue albuterol as rescue -Discussed about the importance of medication adherence and avoidance of 2nd hand smoke / exposure -Use unscented and hypoallergenic products Assessment & Plan (04/11/2022 1:14 PM EST): -Most recent exacerbation in February 2019, hospitalized at [place] [address] clinical Dx in June 2019 (household member was positive) - did not test at that time due to strict Dx criteria at that time -Frequency of exacerbation, requiring systemic steroid 8 x /year, 2 hospitalizations in 2019, less frequent recently -No Hx of intubation -Followed by both marine consultant and ENT -Continue Advair as maintenance -Continue Singulair as maintenance -Continue albuterol as rescue -Discussed about the importance of medication adherence and avoidance of 2nd hand smoke / exposure -Use unscented and hypoallergenic products Assessment & Plan (03/20/2022 8:26 AM EST): -Most recent exacerbation in February 2019, hospitalized at [facility] -COVID19 clinical Dx in June 2019 (household member was positive) - did not test at that time due to strict Dx criteria at that time -Frequency of exacerbation, requiring systemic steroid 8 x /year, 2 hospitalizations in 2019, less frequent recently -No Hx of intubation -Followed by both marine consultant and ENT -Continue Advair as maintenance -Continue [...] to request a follow up appointment with [facility] GI 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 Overview [...] Assessment & Plan (04/22/2022 5:09 AM EST): -Chemistry Professor recommended repeat pelvic ultrasound, further evaluation and [...] 05/02/2012 Overview (01/15/2023): Last Assessment & Plan: -[facility] provider: ALBERTO -Current medication: escitalopram 10 mg daily; doxepin 10 mg qhs Assessment & Plan (12/21/2023 4:35 PM EDT): -[facility] provider: N -Current medication: escitalopram 10 mg daily; doxepin 10 mg qhs Assessment & Plan (04/22/2022 5:17 AM EST): -[facility] provider: N -Current medication: escitalopram 10 mg daily; doxepin 10 mg qhs Assessment & Plan (03/20/2022 8:29 AM EST): -[facility] provider: N -Current medication: escitalopram 10 mg [...] -Will request 24 hour bp monitoring with peer financial counselor Assessment & Plan (01/19/2023 5:59 AM EST): [...] Encounters Date Type Department Care Team Description 05/23/2024 Population Health Risk Score [facility] (C3) Department [address] [place] [address] [phone] Provider, Population Health Generic 05/16/2024 Orders Only GENERIC EXTERNAL DATA DEPARTMENT Provider, Generic External Data 04/04/2024 Abstract [facility] MEDIC[facility] [address] [place] [address] Amaya Bhatia MA 04/04/2024 Abstract [facility] [address] [facility] [place] [address] Amaya Bhatia MA 03/28/2024 Orders Only [facility] [address] [facility] [place] [address] Huong David MD 03/25/2024 1:15 PM EST Office Visit [facility] [address] [facility] [address] [place] [address] Huong David MD Primary hypertension (Primary Dx); Interstitial lung disease ([facility]); 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; Vitamin D deficiency; 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; Rheumatoid arthritis with positive rheumatoid factor, involving unspecified site ([facility]); Allergic rhinitis, unspecified seasonality, unspecified trigger; De Quervain's tenosynovitis, left; Constipation, unspecified constipation type; Allergic reaction, subsequent encounter; Gastroesophageal reflux disease, unspecified whether esophagitis present; Tenosynovitis of finger and hand 03/25/2024 Travel 03/24/2024 Telephone [facility] [address] [place], [place] [phone] Huong David MD Prior Authorization (mometasone) 03/11/2024 Refill [facility] [address] [facility] [place], [place] [phone] Huong David MD from Last 3 Months [...] Description 07/08/2024 2:15 PM EDT Office Visit [facility] MED[facility] [address] [place], [place] [phone] Huong David MD [address] [place], [place] [phone] Health Maintenance Due Date Last Done Comments [...] Additional history exists Tobacco Screening 03/25/2025 03/25/2024 Mammogram 07/11/2025 07/12/2023, 06/11, 07/06/2022, Additional history exists Pap Smear 05/17/2027 05/16/2024, 03/27/2022 Lipid Panel 12/18/2028 12/19/2023, 01/10, 03/20/2022, Additional history exists Cervical Cancer Screening 05/16/2029 HPV/Cotest 05/16/2029 05/16/2024, 03/12, 04/09/2017 DTaP/Tdap/Td Vaccines (3 - Td or Tdap) [...] 146/91(2024 1:19 PM EST) No John Salgado, PharmD Note: Per JNC-8, Age 60+ without history of CKD or DM Procedures Procedure Name Priority Date/Time Associated Diagnosis Comments PAP SMEAR Routine 05/16/2024 8:57 AM EST HPV DNA, LOW/HIGH RISK Routine 05/16/2024 8:57 AM EST HEMOGLOBIN A1C Routine 12/19/2023 10:15 AM EDT Class 1 obesity without serious comorbidity with body mass index (BMI) of 31.0 to 31.9 in adult, unspecified obesity type LIPID PANEL WITH REFLEX TO DIRECT LDL Routine 12/19/2023 10:15 AM EDT Primary hypertension HM COLONOSCOPY Routine 12/12/2023 HEPATITIS PANEL, GENERAL Routine 09/24/2023 1:58 PM EDT BI MAMMOGRAM SCREENING TOMOSYNTHESIS BILATERAL Routine 07/12/2023 3:15 PM EDT from Last 3 Months or Most Recently Relevant to Health Maintenance Results * HPV DNA, Low/High Risk (05/16/2024 8:57 AM EST) HPV High Risk Negative Negative [facility] HPV Genotype 16 Negative Negative [facility] HPV Genotype 18 Negative Negative [facility] Comment:HPV testing performe d at [facility] (CLIA#[id number]), [address] [place] [address].Testing for HPV was performed using the [employer] TILA 6800system. The presence of HPV in the female genital tract isassociated with a number of diseases, including cervicalcarcinoma. The HPV DNA high risk pool tests for HPV 31, 33,35, 39, 45, 51, 52, 56, 58, 59, 66 and 68. The testing forHPV 16 and 18 genotypes has also been performed. A positiveresult indicates detection of nucleic acid sequences fromone or more subtypes, whereas a negative result indicatessuch sequences were not detected. 05/16/2024 8:57 AM EST 05/16/2024 11:39 AM EST us Generic External Data Provider LAB BLOOD ORDERAB LES Final Result [facility] [address] [place] [phone] * Pap Smear (05/16/2024 8:57 AM EST) 05/16/2024 8:57 AM EST 05/16/2024 11:39 AM EST [facility] - 05/20/2024 9:43 AM EDT ----- ------- Name: Ilene Dominguez ?Age/Sex: 59/F ? : 1965 Unit#: [id number] ?? Attend Dr: Joel Flores MD ?Re05/16/24 ?Status: DEP REF ? Location: HO.LNP ?Disch: ? ----- ------- SPEC : [id number] ? RECD: 05/16/24-1138 ? STATUS: ??SOUT ? REQ NUM: [id number] ? ZE: 05/16/24-0857 ? SUBM DR: Joel Flores MD ? ENTERED: ??05/16/24-1151 ?SP TYPE: Pap Smr ?OTHR DR: Huong David MD ? ORDERED: ??Pap Smear ? Interpretation ?? Satisfactory for evaluation. ?? Negative for intraepithelial lesion or malignancy. ? HPV High Risk: ??Negative ? HPV Genotyping 16: ??Negative ?? HPV Genotyping 18: ??Negative ?Clinical Information LMP:Unknown date Previous PAP test: 03/28/22, Unknown findings ? Material Received ?? ThinPrep-Cervical Copies To: ?? Huong David MD ?? [facility] ?? [address] [facility] ?? [place] [address] ?? [phone] ?? Joel Flores MD ?? [facility] ?? [address] [facility] [address] ?? [place] [address] ?? [phone] ----- ------- Signed (signature on file) ZOILA Little (ASCP) 05/20/24 0943 ? ----- ------- ? END OF REPORT ? us Generic External Data Provider LAB CYTOLOGY ORDE RABMARILEE Final Result [facility] [address] [place] [phone] * Lipid Panel with Reflex to Direct LDL (12/19/2023 10:15 AM EDT) Triglycerides 56 <150 mg/dL [facility] Comment:Desirable Triglyceri de: less than 150 mg/dLBorderline High Triglyceride 150-199 mg/dLHigh Triglyceride: 200-499 mg/dLVery High Triglyceride: greater than or equal to 5OO mg/dL Cholesterol 173 <200 mg/dL [facility] Comment:Desirable Cholestero l: less than 200 mg/dLBorderline High Cholesterol: 200-239 mg/dLHigh Cholesterol: greater than 239 mg/dL LDL Cholesterol Calculated 98 <100 mg/dL [facility] Comment:Desirable LDL: less than 100 mg/dLNear Optimal/Above Optimal LDL: 110- 129 mg/dLBorderline High LDL: 130-159 mg/dLHigh LDL: 160-189 mg/dLVery High LDL: greater than or equal to 190 mg/dL HDL Cholesterol 64 >40 mg/dL [facility] Comment:Desirable HDL: great er than 40 mg/dL Note: This HDL assay may give artificially low results in patients with liver disease. Blood 12/19/2023 10:1 5 AM EDT 12/19/2023 11:31 AM EDT us Huong David MD LAB BLOOD ORDERABLES Final Resul t Performing Organization Address [facility]/ZIP Co de Phone Number [facility] [address] [place] [phone] * Hemoglobin A1c (12/19/2023 10:15 AM EDT) [facility] Hemoglobin A1c 5.7 <6.0 % [facility] Comment:Hemoglobin A1C Refer ence Range Adults: 4.8 - 6.0 % Non diabetic: < 6.0 % Goal: < 7.0 %Additional Action Suggested: > 8.0 %Note: Hemoglobin A1c results are invalid for patients with abnormal amounts of HbF. Blood transfusions may impact the HbA1c concentration in the patient sample. Estimated Average Glucose 117 mg/dL [facility] Comment:eAG = Estimated ave rage glucose which is %A1C expressed asaverage glucose, using the formula of the C8B-PrwglykOwyewxl Glucose study (ADAG), Diabetes Care, Vol.31,#8,Oct. 2007 Blood Venous blood specimen / Unknown 12/19/2023 10:15 AM EDT 12/19/2023 11:31 AM EDT Huong David MD LAB BLOOD ORDERABLES Final Resul t Performing Organization Address [facility] [[email or web address]] Co de Phone Number [facility] [address] [place] [phone] * Hm Colonoscopy (12/12/2023) [facility] Colonoscopy Normal Normal 12/12/2023 Yimi Provider HEALTH MAINTENANCE Final Result * Hepatitis Panel, General (09/24/2023 1:58 PM EDT) [facility] Hepatitis A IgM Nonreactive Nonreactive [facility] Comment:IgM antibodies to SCOTT V not detected; does not exclude earlyacute or recovered HAV infection. ~Hepatitis B Surface Antibody NONREACTIVE Nonreactive [facility] Comment:Nonreactive: < 8.00 mIU/mL Hepatitis B Core Antibody Nonreactive Nonreactive [facility] Hepatitis C Antibody Nonreactive Nonreactive [facility] Comment:Antibodies to HCV no t detected; does not exclude early acuteHCV infection. Hepatitis B Surface Ag Negative Negative [facility] 09/24/2023 1:58 PM EDT 09/24/2023 1:58 PM EDT us Generic External Data Provider LAB BLOOD ORDERAB LES Final Result [facility] [address] [place] [phone] * BI Mammogram Screening Tomosynthesis Bilateral (07/12/2023 3:15 PM EDT) Anatomical Region Laterality Modality Breast Bilateral Mammography 07/12/2023 3:15 PM EDT Narrative 08/06/2023 12:59 PM EDT ? [facility] [place] ? [address] ?[place] [phone] ? Mammography Report ? Signed ? Patient: Dominguez,Ilene ?MR#: [id number] ?? 5 ? : 1965 ?Acct:[id number] ? Age/Sex: 58 / F ?ADM Date: 07/12/23 ? Loc: HO.MAMMO ? Attending Dr: Huong David MD ? Ordering Physician: Huong David MD ?Results: 1Negative ? Date of Service: 07/12/23 ?Follow Up: 1 Year From Orig ?? inal Mammogram ? Procedure(s): MM tomosynthesis screening BI ?? Accession Number(s): [id number] ? cc: Huong David MD ? EXAMINATION: ?? MM SCREENING DIGITAL BREAST TOMOSYNTHESIS, BILATERAL ? CLINICAL INFORMATION: ? Screening. Asymptomatic. ? COMPARISON: ?? Mammography: This study is compared with prior exams dating back to ?? 2017. ? TECHNIQUE: ?? Digital breast tomosynthesis is [...] 1256 ? DD/ 1515 ? TD/TT: ? Roll Coating Machine Operator: ? Procedure Note Juancarlos Carvajal - 08/06/2023 [facility] [address] [place] [address] Dr. Rosenbaum, ANJELICA [address] Mammography Report Signed Patient: Robert DominguezNeelimaSandi#: [id number] 5 : 1965Acct:[id number] Age/Sex: 58 / FADM Date: 07/12/23 Loc: HO.MAMMO Attending Dr: Huong David MD Ordering Physician: Huong David MDResults: 1Negative Date of Service: 07/12/23Follow Up: 1 Year From Orig ina Mammogram Procedure(s): MM tomosynthesis screening BI Accession Number(s): [id number] cc: Huong David MD EXAMINATION: MM SCREENING [...] in OV> 08/06/23 1256 DD/ 1515 TD/TT: Roll Coating Machine Operator: Huong David MD IMG BI PROCEDURES Final Result from Last 3 Months or Most Recently Relevant to Health Maintenance Insurance * Guarantor: Ilene Dominguez Account Type Relation to Patient Date of Phone Billing Address Personal/Family Self [address] [place] [address] [employer] * Guarantor: Ilene Dominguez Account Type Relation to Patient Date of Phone Billing Address Personal/Family Self [address] [place] [address] * Guarantor: Ilene Dominguez Account Type Relation to Patient Date of Phone Billing Address Personal/Family Self [address] [facility] [address] [place] [address] * Guarantor: Ilene Dominguez Account Type Relation to Patient Date of Phone Billing Address Personal/Family Self [address] [facility] [address] [place], [place] Care Teams Triage Technician Relationship Specialty Start Date End Date Huong David MD [address] [place] [address] PCP - General Family Medicine 02/22/12 John Salgado, DelmiD [address] [place] [address] Pharmacist Internal Medicine 01/16/23
--- OUTSIDE RECORDS SUMMARY | 2024-05-28 15:03 | XMS_ITS | Encounter Summary ---
Author Organization [employer] Address 75 [facility] 7t [place] [address] Care Team Providers Care Heat And Frost Insulator Helper Name Role Phone Huong David MD Primary Care Provider [phone] John Salgado PharmD Unavailable [phone] Encounter Details Date Type Department Care Team (Late st Contact Info) Description 09/29/2022 Abstract [facility] [address] [place] [address] [phone] Huong David MD [address] [place] [address] [phone] Social History Tobacco Use Types Packs/Day Years [...] Description 07/08/2024 2:15 PM EDT Office Visit [facility] [address] [place] [address] [phone] Huong David MD [address] [place] [address] [phone] documented as of this encounter Procedures Procedure Name Priority Date/Time Associated Diagnosis Comments HM COLONOSCOPY Routine 04/01/2013 documented in this encounter Results * Colonoscopy (04/01/2013) Colonoscopy Normal Normal [place] [facility] Pcp HEALTH MAINTENANCE Edited Result - Final documented in this encounter Visit Diagnoses Not on filedocumented in this encounter Additional Health Concerns Assessment Noted Time PHQ-9 Depression Total Score: 0 04/11/19 23 1:19 PM EST documented as of this encounter Care Teams Heat And Frost Insulator Helper Relationship Specialty Start Date End Date Huong David MD [address] [place] [address] PCP - General Family Medicine 02/22/12 John Salgado, DelmiD [address] [place] [address] Pharmacist Internal Medicine 01/16/23 documented as of this encounter
--- OUTSIDE RECORDS SUMMARY | 2024-05-28 15:03 | XMS_ITS | Encounter Summary ---
Author Organization [employer] Address 75 [facility] 7t [place] [address] Care Team Providers Care Body Design Checker Name Role Phone Huong David MD Primary Care Provider [phone] John Salgado PharmD Unavailable [phone] Encounter Details Date Type Department Care Team (Late st Contact Info) Description 10/06/2022 Orders Only [facility] [address] [place] [address] [phone] Huong David MD [address] [place] [address] [phone] Hypokalemia (Primary Dx) Social History Tobacco Use [...] Description 07/08/2024 2:15 PM EDT Office Visit [facility] [address] [place] [address] [phone] Huong David MD [address] [place] [address] [phone] Scheduled Orders Name Type Priority Associated Diagnoses [...] documented as of this encounter Care Teams Body Design Checker Relationship Specialty Start Date End Date Huong David MD [address] [place] [address] PCP - General Family Medicine 02/22/12 John Salgado, DelmiD [address] [place] [address] Pharmacist Internal Medicine 01/16/23 documented as of this encounter
--- OUTSIDE RECORDS SUMMARY | 2024-05-28 15:03 | XMS_ITS | Encounter Summary ---
Author Organization [employer] Address [address] [place] [address] 7t [place] [address] Care Team Providers Care Belt Loop Machine Operator Name Role Phone Huong David MD Primary Care Provider [phone] John Salgado PharmD Unavailable [phone] Reason for Visit * Reason Comments Med Refill Encounter Details Date Type Department Care Team (Late st Contact Info) Description 09/13/2022 Refill [facility] [address] [place], [place] [phone] Name, MD Jemal [address] [place] [address] [phone] Social History Tobacco Use Types Packs/Day Years [...] 07/08/2024 2:15 PM EDT Office Visit [facility] [address] [place], [place] [phone] Huong David MD [address] [place] [address] [phone] documented as of this encounter Visit Diagnoses Not on filedocumented in this encounter Additional Health Concerns Assessment Noted Time PHQ-9 Depression Total Score: 0 04/11/19 23 1:19 PM EST documented as of this encounter Care Teams Belt Loop Machine Operator Relationship Specialty Start Date End Date Huong David MD [address] [place] [address] PCP - General Family Medicine 02/22/12 John Salgado, DelmiD [address] [place] [address] Pharmacist Internal Medicine 01/16/23 documented as of this encounter
--- OUTSIDE RECORDS SUMMARY | 2024-05-28 15:03 | XMS_ITS | Encounter Summary ---
Author Organization [employer] Address [address] [facility] [address] 7t [place] [address] Care Team Providers Care Quality Engineer Medical Device Name Role Phone Huong David MD Primary Care Provider [phone] John Salgado PharmD Unavailable [phone] Encounter Details Date Type Department Care Team (Late st Contact Info) Description 04/04/2024 Abstract [facility] [address] [place], [place] [phone] Amaya Bhatia [place] Social History Tobacco Use [...] Description 07/08/2024 2:15 PM EDT Office Visit [facility] [address] [place] [address] Huong David MD [address] [place] [phone] documented as of this encounter Goals Goal [...] documented as of this encounter Care Teams Quality Engineer Medical Device Relationship Specialty Start Date End Date Huong David MD [address] [place] [address] [phone] PCP - General Family Medicine 02/22/12 John Salgado, Vikki [address] [place] [phone] Pharmacist Internal Medicine 01/16/23 documented as of this encounter
--- OUTSIDE RECORDS SUMMARY | 2024-05-28 15:03 | XMS_ITS | Encounter Summary ---
Author Organization [employer] Address [address] [facility] [address] 7t [place] [address] Care Team Providers Care Wash Rack Operator Name Role Phone Huong David MD Primary Care Provider [phone] John Salgado PharmD Unavailable [phone] Encounter Details Date Type Department Care Team (Late st Contact Info) Description 05/16/2024 Orders Only GENERIC EXTERNAL DATA DEPARTMENT Provider, Generic External Data Social History Tobacco Use Types Packs/Day Years [...] Description 07/08/2024 2:15 PM EDT Office Visit [facility] [address] [place], [place] [phone] Huong David MD [address] [place] [address] documented as of this encounter Goals Goal Patient Goal Type Associated Problems Recent Progress Patient-Stated? Author Blood Pressure < 150/90 Blood Pressure 146/91(2024 1:19 PM EST) No John Salgado, DelmiD Note: Per JNC-8, Age 60+ without history of CKD or DM documented as of this encounter Procedures Procedure Name Priority Date/Time Associated Diagnosis Comments HPV DNA, LOW/HIGH RISK Routine 05/16/2024 8:57 AM EST PAP SMEAR Routine 05/16/2024 8:57 AM EST documented in this encounter Results * HPV DNA, Low/High Risk (05/16/2024 8:57 AM EST) HPV High Risk Negative Negative [facility] HPV Genotype 16 Negative Negative [facility] HPV Genotype 18 Negative Negative [facility] Comment:HPV testing performe d at [facility] (CLIA#[id number]), [address] [place] [phone].Testing for HPV was performed using the Benjamín [...] Provider LAB BLOOD ORDERAB LES Final Result Performing Organization Address City/State/[facility] Co de Phone Number [facility] [address] [place] [phone] * Pap Smear (05/16/2024 8:57 AM EST) 05/16/2024 8:57 AM EST 05/16/2024 11:39 AM EST Narrative [facility] - 05/20/2024 9:43 AM EDT ----- ------- Name: Ilene Dominguez ?Age/Sex: 59/F ? : 1965 Unit#: [id number] ?? Attend Dr: Joel Flores MD ?Re05/16/24 ?Status: DEP REF ? Location: HO.LNP ?Disch: ? ----- ------- SPEC : [id number] ? RECD: 05/16/24 ? STATUS: ??SOUT ? REQ NUM: [id number] ? ZE: 05/16/24 ? SUBM DR: Joel Flores MD ? ENTERED: ??05/16/24 ?SP TYPE: Pap Smr ?OTHR DR: Huong David MD ? ORDERED: ??Pap Smear ? Interpretation ?? Satisfactory for evaluation. ?? Negative for intraepithelial lesion or malignancy. ? HPV High Risk: ??Negative ? HPV Genotyping 16: ??Negative ?? HPV Genotyping 18: ??Negative ?Clinical Information LMP:Unknown date Previous PAP test: 03/28/22, Unknown findings ? Material Received ?? ThinPrep-Cervical Copies To: ?? Huong David MD ?? [facility] ?? [address] [facility] ?? [place] [address] ?? [phone] ?? Joel Flores MD ?? [facility] ?? [address] [facility] [address] ?? [place] [address] ?? [phone] ----- ------- Signed (signature on file) ZOILA Little ([facility]) 05/20/24 0943 ? ----- ------- ? END OF REPORT ? us Generic External Data Provider LAB CYTOLOGY BRUNILDAE NIKOS Final Result [facility] [address] [place] [address] [phone] documented in this encounter Visit Diagnoses Not on filedocumented in this encounter Additional Health Concerns Assessment Noted Time PHQ-9 Depression Total Score: 0 05/21/19 24 3:22 PM EDT documented as of this encounter Care Teams Wash Rack Operator Relationship Specialty Start Date End Date Huong David MD [address] [place] [address] PCP - General Family Medicine 02/22/12 John Salgado, DelmiD [address] [place] [phone] Pharmacist Internal Medicine 01/16/23 documented as of this encounter
--- OUTSIDE RECORDS SUMMARY | 2024-05-28 15:03 | XMS_ITS | Encounter Summary ---
Author Organization [employer] Address [address] [facility] [address] 7t [place] [address] Care Team Providers Care Paving Machine Operator Name Role Phone Huong David MD Primary Care Provider [phone] John Salgado PharmD Unavailable Encounter Details Date Type Department Care Team (Late st Contact Info) Description 03/28/2024 Orders Only [facility] [address] [place], [place] [phone] Huong David MD [address] [place], [place] [phone] Social History Tobacco Use Types Packs/Day Years [...] Description 07/08/2024 2:15 PM EDT Office Visit [facility] [address] [place] [phone] Huong David MD [address] [place] [phone] documented as of this encounter Goals Goal [...] documented as of this encounter Care Teams Paving Machine Operator Relationship Specialty Start Date End Date Huong David MD [address] [place] [phone] PCP - General Family Medicine 02/22/12 John Salgado, PharmD [address] [place] [address] Pharmacist Internal Medicine 01/16/23 documented as of this encounter
== END 2024-05-28 13:36 | disposition home or self-care (01) ==
LOC: HO.HPS 12:40
PROVIDERS: PCP Family Medicine; Visit Provider Internal Medicine Pulmonary Disease
DX: J45.909 Unspecified asthma, uncomplicated (principal); Z91.09 Other allergy status, other than to drugs and biological substances
CPT/HCPCS: 99214

== ENCOUNTER 2024-06-13 14:45 | Outpatient (AMB) | payer MEDICAID, SELFPAY ==
--- NOTE | 2024-06-13 14:46 | MHC.OFFVIS ---
Vital Signs 06/13/24 14:48 Height 5 ft 6 in Weight 185 lb 10.067 oz BMI 30.0 Pulse 66 Pulse Source Pulse Oximeter Pulse Oximetry (%) 96 Oxygen Delivery Method Room Air Intake Visit Reasons: gerd Intake Note: ESTABLISHED PATIENT for GERD mgmt. Previously advised 6 mos ago to FU PRN. Chief Complaint; C/O very occasional abd pain, generalized. No additional concerns at this time. Incinerator Plant Supervisor Required: Yes Incinerator Plant Supervisor Services: Incinerator Plant Supervisor Present Incinerator Plant Supervisor Name: Jesse Luis [phone] Information Interpreted: clinical only Accompanied by: Self / Same As Patient Allergies magnesium Allergy (Intermediate, Verified 06/13/24 14:47) rash HPI HPI gerd: Details: LAST VISIT: Status post colonoscopy Constipation Sessile colonic polyp Plan Colonoscopy in 5 years, sooner if clinically necessary. One sessile polyp found. Patient admits to feeling constipated at times. She can try MiraLax daily. Patient will call our office if she will have any GI concerning symptoms. She is agreeable to this plan and verbalizes understanding of instructions. She was given the opportunity to ask questions and all questions answered. ? For allowing me to participate in her care Medications New polyethylene glycol 3350 (Miralax) 17 grams PO DAILY 510 grams 2RF TODAY'S VISIT: Patient is here today for consultation. Seen in the past by me for colonoscopy, last seen in December. Colonoscopy recall is for 5 years, sooner if clinically necessary. Patient reports occasional acid reflux, taking omeprazole as needed. Patient reports few times a week. Patient reports that she is trying to avoid dietary triggers. Denies dyspepsia, dysphagia or odynophagia. Denies melena, hematochezia, unintentional weight loss or ribbon like stools. Patient reports that her niece was just diagnosed with stomach cancer in late 20s as well as her on an her grandmother. Patient denies any nausea or vomiting. Occasional epigastric pain. [facility] Medical History (Updated 06/13/24 @ 15:26 by [facility] Family history of gastric cancer Vitamin D deficiency GERD (gastroesophageal reflux disease) History of depression Chronic allergic rhinitis Asthma Hypothyroid Hypertension Surgical History (Updated 06/13/24 @ 15:27 by NEHEMIAH Ashley) H/O colonoscopy Hx of cystoscopy H/O nasal polypectomy H/O tubal ligation Family History Mother HTN (hypertension) Diabetes Colon cancer Father HTN (hypertension) Diabetes Hyperlipidemia Colon cancer Social History Household Members: Spouse Household Members Other:: son Housing: Apartment Are you a primary ambulatory care nurse to a significant other at home: No Do you presently have visiting nurse or other home services: No Alcohol intake: former Patient Tobacco Use Status: Never used Tobacco service: No Current occupational status: disabled Female Reproductive History Menstrual Age of Menarche: 10 Review of Systems Const Denies weight gain and Denies weight loss ENT Reports no additional complaints, Denies dysphagia and Denies odynophagia Card Reports no additional complaints Resp Reports no additional complaints GI Reports abdominal pain (Epigastric), Denies belching, Denies melena, Denies bloating, Denies change in bowel habits, Reports constipation, Denies dysphagia, Denies excessive flatus, Denies dyspepsia, Reports heartburn, Denies diarrhea, Denies loose stools, Denies nausea, Denies odynophagia and Denies vomiting Reports no additional complaints Musc Reports no additional complaints Neuro Reports no additional complaints Psych Reports no additional complaints Endo Reports no additional complaints Physical Exam Vital Signs: Last Vital Signs Pulse 66 06/13/24 14:48 Pulse Ox 96 06/13/24 14:48 Oxygen Delivery Method Room Air 06/13/24 14:48 BMI result Body Mass Index 30.0 Const General: healthy appearing and no acute distress Nutritional Appearance: obese Orientation/consciousness: patient oriented x3 Resp Effort & Inspection: normal respiratory effort, able to speak in complete sentences, no tracheal deviation and symmetric chest movement Auscultation: clear to auscultation bilaterally Cardio Rate: regular rate GI Inspection: Yes normal to inspection, No distended and Yes obesity Palpation (GI): Soft to palpation, not firm, nontender and No hepatosplenomegaly present Auscultation: normal bowel sounds General: Yes no CVA tenderness Back/Spine/Pelvis Back: no CVA tenderness Skin General skin exam: elasticity normal, turgor normal and dry skin Neuro General: patient oriented x3 Psych Appearance: grossly normal Mental Status: mental status grossly normal Assessment & Plan Assessment & Plan (1) Family history of gastric cancer: Code(s): Z80.0 - Family history of malignant neoplasm of digestive organs Category: Medical (2) GERD (gastroesophageal reflux disease): Code(s): K21.9 - Gastro-esophageal reflux disease without esophagitis Qualifiers: Esophagitis presence: esophagitis presence not specified Qualified Code(s): K21.9 - Gastro-esophageal reflux disease without esophagitis Plan Patient will be scheduled for upper endoscopy, family history of stomach cancer, patient reports her aunt and her niece were diagnosed with stomach cancer as well as her grandmother. Patient was encouraged to take omeprazole every day. Avoid dietary triggers and late night snacking. Staying upright for minimum 3 hours after meals discussed with patient. Patient will follow-up after the procedure. Message sent to surgical schedulers to book procedure for patient. Patient is agreeable to current plan of care and verbalizes understanding of instructions. She was given the opportunity to ask questions and all questions answered. Thank you for allowing me to participate in her care Coding Level of Care Code Est Pt Level 4 (71380) Complex EM visit Add On G2211 Diagnoses Family history of gastric cancer Z80.0 Gastroesophageal reflux disease, unspecified whether esophagitis present K21.9 Esophagitis presence: esophagitis presence not specified Time Spent (min) 35 Comment 25 minutes spent with patient and additional 10 minutes spent reviewing her records
[2024-06-13 14:48] VITALS: PULSE 66; O2SAT 96
--- OUTSIDE RECORDS SUMMARY | 2024-06-13 16:14 | XMS_ITS | Encounter Summary ---
Author Organization [employer] [facility] Address [address] [facility] 7t [place] [address] Care Team Providers Care Boiler Operator Helper Name Role Phone Huong David MD Primary Care Provider John Salgado PharmD Unavailable [phone] Encounter Details Date Type Department Care Team (Late st Contact Info) Description 08/23/2022 Abstract [facility] [address] [place] [address] [phone] Huong David MD [address] [place] [address] [phone] Social History Tobacco Use Types Packs/Day Years [...] 2:15 PM EDT Office Visit [facility] [address] [place] [address] [phone] Huong David MD [address] [place] [address] [phone] documented as of this encounter Procedures Procedure Name Priority Date/Time Associated Diagnosis Comments HM MAMMOGRAPHY Routine 07/06/2022 documented in this encounter Results * Mammography (07/06/2022) Mammogram bi-rads 2 Anatomical Region Laterality Modality Other 07/06/2022 Result [facility] HEALTH MAINTENANCE Final Result documented in this encounter Visit Diagnoses Not on filedocumented in this encounter Additional Health Concerns Assessment Noted Time PHQ-9 Depression Total Score: 0 04/11/19 23 1:19 PM EST documented as of this encounter Care Teams Boiler Operator Helper Relationship Specialty Start Date End Date Huong David MD [address] [place] [address] PCP - General Family Medicine 02/22/12 John Salgado, DelmiD [address] [place] [address] Pharmacist Internal Medicine 01/16/23 documented as of this encounter
--- OUTSIDE RECORDS SUMMARY | 2024-06-13 16:14 | XMS_ITS | Clinical Summary ---
Author Organization [facility] Address [address] [facility] [address] [place] [address] Phone Care Team Providers Care Children'S Court Magistrate Name Role Phone Huong David MD Primary Care Provider [phone] Allergies No known active allergies Medications Zoster [...] 11/06/2022 Overview (11/06/2022): Last Assessment & Plan: -Mems Integration Engineer recommended repeat pelvic ultrasound, further evaluation and recommendation Hysteroscopy for endocervical polyp. Patient was reassured that the fibroids typically decrease in size and resolve in menopause. -Recommended removal of polyps. -Scheduled for hysteroscopy with medical planner Urticaria 04/11/2022 11/06/2022 Degeneration of cervical intervertebral disc 11/06/2022 History of calculus of kidney 03/20/2022 Rheumatoid arthritis 03/20/2022 11/06/2022 Overview (11/06/2022): Last Assessment & Plan: -Seropositive rheumatoid arthritis -Dx September 2019 -03/20/22 ESR 41 -following with [facility] rheumatology providers, last seen in Oct 2020, [...] recent exacerbation in February 2019, hospitalized at [facility] -COVID19 clinical Dx in June 2019 (household member was positive) - did not test at that time due to strict Dx criteria at that time -Frequency of exacerbation, requiring systemic steroid 8 x /year, 2 hospitalizations in 2019, less frequent recently -No Hx of intubation -Followed by both asphalt distributor tender and ENT -Continue Advair as maintenance -Continue Singulair as maintenance -Continue albuterol as rescue -Discussed about the importance of medication adherence and avoidance of 2nd hand smoke / exposure -Use unscented and hypoallergenic products Nasal discharge 10/22/2018 11/06/2022 Nasal polyp 10/22/2018 11/06/2022 Overview (11/06/2022): Last Assessment & Plan: ENT Dr. Abdi. s/p Sinus surgery in 2013. Vitamin D deficiency 10/22/2017 11/06/2022 Chronic primary bladder pain syndrome 01/13/2016 11/06/2022 Overview (11/06/2022): Last Assessment & Plan: -pt [...] 11/06/2022 Overview (11/06/2022): Last Assessment & Plan: -Mems Integration Engineer recommended repeat pelvic ultrasound, further evaluation and [...] 11/06/2022 Overview (11/06/2022): Last Assessment & Plan: -[facility] provider: ALBERTO -Current medication: escitalopram [...] 1965 [address] [place] [address] [place] * Guarantor: Ilene Dominguez Account Type Relation to Patient Date of Phone Billing Address Personal/Family Self [address] [place] [address] [place] Care Teams Children'S Court Magistrate Relationship Specialty Start Date End Date Huong David MD [address] [place] [phone] PCP - General Family Medicine 06/08/23
--- OUTSIDE RECORDS SUMMARY | 2024-06-13 16:14 | XMS_ITS | Clinical Summary ---
Author Organization [employer] Address [address] [facility] [address] [place] [address] Care Team Providers Care Research And Development Director Name Role Phone Huong David MD Primary Care Provider [phone] John Salgado PharmD Unavailable [phone] Allergies No known active allergies Medications alendronate [...] and Jan 2024 She was referred to flight communications specialist in the walk-in clinic in Jan [address] Jean [facility] pulmonology if she is interested in allergy [...] 5:54 AM EDT): - following with [facility]YNAMIC BALANCER SET UP WORKER - last EMBx in August 2023 - no sign of malignancy Assessment & Plan (06/03/2023 6:49 PM EDT): - following with [facility]NAMIC [facility]ANC[facility] SET UP WORKER - last EMBx in Nov 2022 - no sign of malignancy Assessment & Plan (01/19/2023 6:00 AM EST): - following with [facility]YNAMIC BALANCER SET UP WORKER - last EMBx in Nov 2022 - no sign of malignancy Chronic left shoulder pain 01/19/2023 Assessment & Plan (01/19/2023 6:08 AM EST): - X-ray was normal and pt received steroid injection from material loader in Dec 2022 - no pain at [...] (03/26/2024 1:12 PM EST): - following with [facility] pulmonology - status post 3 mo of prednisone treatment - CT showed improvement in July 2022 and near resolution in Nov 2022 - currently monitoring symptoms and with periodic imaging Assessment & Plan (12/21/2023 4:33 PM EDT): - following with [facility] pulmonology - status post 3 mo of prednisone treatment - CT showed improvement in July 2022 and near resolution in Nov 2022 - currently monitoring symptoms and with periodic imaging Assessment & Plan (06/03/2023 6:45 PM EDT): - following with [facility] pulmonology - status post 3 mo of prednisone treatment - CT showed improvement in July 2022 and near resolution in Nov 2022 - currently monitoring symptoms and with periodic imaging Assessment & Plan (01/19/2023 5:56 AM EST): - following with [facility] pulmonology - status post 3 mo of prednisone treatment - CT showed improvement in July 2022 and near resolution in Nov 2022 - currently monitoring symptoms and with periodic imaging Assessment & Plan (10/09/2022 9:00 AM EDT): - following with [facility] pulmonology - currently taking prednisone 50 mg daily with a plan for slow tapering - CT on 08/01/22 showed improvement - continue current treatment plan and follow up with material planner Elevated erythrocyte sedimentation rate 07/12/19 Assessment & [...] 04/11/2022 Overview (01/15/2023): Last Assessment & Plan: -Wellhead Pumper recommended repeat pelvic ultrasound, further evaluation and recommendation Hysteroscopy for endocervical polyp. Patient was reassured that the fibroids typically decrease in size and resolve in menopause. -Recommended removal of polyps. -Scheduled for hysteroscopy with rn clinical appeals Assessment & Plan (07/11/2022 11:13 AM EDT): - 05/19/22 Hysteroscopy, D&C, polypectomy - benign polyp Assessment & Plan (04/22/2022 5:10 AM EST): -Wellhead Pumper recommended repeat pelvic ultrasound, further evaluation and recommendation Hysteroscopy for endocervical polyp. Patient was reassured that the fibroids typically decrease in size and resolve in menopause. -Recommended removal of polyps. -Scheduled for hysteroscopy with rn clinical appeals Degeneration of cervical intervertebral disc Rheumatoid arthritis 03/20/2022 Overview (01/15/2023): Last Assessment & Plan: -Seropositive rheumatoid arthritis -Dx September 2019 -03/20/22 ESR 41 -following with [facility] rheumatology providers, last seen in Oct 2020, [...] and CCP. -Dx September 2019 -following with [facility] rheumatology providers, last seen in Dec 2023 -previously prescribed hydroxychloroquine by material loader when she developed ILD and uveitis, with elevated ESR/CRP in 8462-3467 -s/p prednisone treatment x 3 mo, which was prescribed by material planner for ILD in 2022 -elevated ESR/CRP and [...] and CCP. -Dx September 2019 -following with [facility] rheumatology providers, last seen in September 2023 -previously prescribed hydroxychloroquine by material loader when she developed ILD and uveitis, with elevated ESR/CRP in 8870-2872 -s/p prednisone treatment x 3 mo, which was prescribed by material planner for ILD in 2022 -elevated ESR/CRP and evaluated for other rheumatological / autoimmune / connective tissue disorder, including vasculitis. Vasculitis work-up was negative. Current Dx interstitial lung disease -currently monitoring without DMARDs Assessment & Plan (06/03/2023 6:53 PM EDT): -Seropositive rheumatoid arthritis (RF and CCP) -Dx September 2019 -following with [facility] rheumatology providers, last seen in Apr 2023 -previously prescribed hydroxychloroquine by material loader when she developed ILD and uveitis, with elevated ESR/CRP -s/p prednisone treatment x 3 mo, which was prescribed by material planner for ILD -elevated ESR/CRP and evaluated for other rheumatological / autoimmune / connective tissue disorder, including vasculitis. Vasculitis work-up was negative. Current Dx interstitial lung disease -follow up as scheduled Assessment & Plan (01/19/2023 6:03 AM EST): -Seropositive rheumatoid arthritis (RF and CCP) -Dx September 2019 -following with [facility] rheumatology providers, last seen in 2022 -currently prescribed hydroxychloroquine by material loader -s/p prednisone treatment x 3 mo, which was prescribed by material planner for ILD -elevated ESR/CRP and evaluated for other rheumatological / autoimmune / connective tissue disorder, including vasculitis. Vasculitis work-up was negative. Current Dx interstitial lung disease -follow up as scheduled Assessment & Plan (10/09/2022 9:05 AM EDT): -Seropositive rheumatoid arthritis -Dx September 2019 -following with [facility] rheumatology providers, last seen in 2022 -currently prescribed hydroxychloroquine by material loader -currently prescribed prednisone by material planner for ILD -elevated ESR/CRP and evaluated for other rheumatological / autoimmune / connective tissue disorder, including vasculitis. Current Dx interstitial lung disease -follow up as scheduled Assessment & Plan (07/11/2022 11:17 AM EDT): -Seropositive rheumatoid arthritis -Dx September 2019 -03/20/22 ESR 41 -following with [facility] rheumatology providers, last seen in June 2022 -now being evaluated for other rheumatological / autoimmune / connective tissue disorder, including vaculitis -follow up as scheduled Assessment & Plan (04/22/2022 5:13 AM EST): -Seropositive rheumatoid arthritis -Dx September 2019 -03/20/22 ESR 41 -following with [facility] rheumatology providers, last seen in Oct 2020, q6m visit -pt does not need any mediation at this time because her symtoms are very mild -continue periodic appt, every 6 mo, which is overdue. Recommended to call to reschedule appt Assessment & Plan (03/20/2022 8:25 AM EST): -Seropositive rheumatoid arthritis -following with [facility] rheumatology providers, last seen in Oct 2020, q6m visit -pt does not need any mediation at this time because her symtoms are very mild -continue periodic appt -Follow up every 6 months History of renal calculi 03/20/2022 Allergic asthma 10/22/2018 Overview (01/15/2023): Last Assessment & Plan: -Most recent exacerbation in February 2019, hospitalized at [facility] -COVID19 clinical Dx in June 2019 (household member was positive) - did not test at that time due to strict Dx criteria at that time -Frequency of exacerbation, requiring systemic steroid 8 x /year, 2 hospitalizations in 2019, less frequent recently -No Hx of intubation -Followed by both material planner and ENT -Continue Advair as maintenance -Continue Singulair as maintenance -Continue albuterol as rescue -Discussed about the importance of medication adherence and avoidance of 2nd hand smoke / exposure -Use unscented and hypoallergenic products Assessment & Plan (03/31/2024 5:17 PM EST): -Exacerbation in February 2019, hospitalized at [facility] -Mild exacerbation in June 2023, treated as outpatient with azithromycin and prednisone by material planner -Frequency of exacerbation, requiring systemic steroid 8 x /year, 2 hospitalizations in 2018, less frequent recently -No Hx of intubation -Followed by both material planner -Previously seeing ENT -Continue Advair as maintenance -Continue Singulair as maintenance -Continue albuterol as rescue -Discussed about the importance of medication adherence and avoidance of 2nd hand smoke / exposure -Use unscented and hypoallergenic products Assessment & Plan (12/24/2023 5:52 AM EDT): -Exacerbation in February 2019, hospitalized at [facility] -Mild exacerbation in June 2023, treated as outpatient with azithromycin and prednisone by material planner -Frequency of exacerbation, requiring systemic steroid 8 x /year, 2 hospitalizations in 2018, less frequent recently -No Hx of intubation -Followed by both material planner and ENT -Continue Advair as maintenance -Continue Singulair as maintenance -Continue albuterol as rescue -Discussed about the importance of medication adherence and avoidance of 2nd hand smoke / exposure -Use unscented and hypoallergenic products Assessment & Plan (06/03/2023 6:45 PM EDT): -Most recent exacerbation in February 2019, hospitalized at [place] [address] clinical Dx in June 2019 (household member was positive) - did not test at that time due to strict Dx criteria at that time -Frequency of exacerbation, requiring systemic steroid 8 x /year, 2 hospitalizations in 2019, less frequent recently -No Hx of intubation -Followed by both material planner and ENT -Continue Advair as maintenance -Continue Singulair as maintenance -Continue albuterol as rescue -Discussed about the importance of medication adherence and avoidance of 2nd hand smoke / exposure -Use unscented and hypoallergenic products Assessment & Plan (01/19/2023 5:57 AM EST): -Most recent exacerbation in February 2019, hospitalized at [facility] [address] clinical Dx in June 2019 (household member was positive) - did not test at that time due to strict Dx criteria at that time -Frequency of exacerbation, requiring systemic steroid 8 x /year, 2 hospitalizations in 2018, less frequent recently -No Hx of intubation -Followed by both material planner and ENT -Continue Advair as maintenance -Continue Singulair as maintenance -Continue albuterol as rescue -Discussed about the importance of medication adherence and avoidance of 2nd hand smoke / exposure -Use unscented and hypoallergenic products Assessment & Plan (10/09/2022 9:01 AM EDT): -Most recent exacerbation in February 2019, hospitalized at [place] [address] clinical Dx in June 2019 (household member was positive) - did not test at that time due to strict Dx criteria at that time -Frequency of exacerbation, requiring systemic steroid 8 x /year, 2 hospitalizations in 2019, less frequent recently -No Hx of intubation -Followed by both material planner -Continue Advair as maintenance -Continue Singulair as maintenance -Continue albuterol as rescue -Discussed about the importance of medication adherence and avoidance of 2nd hand smoke / exposure -Use unscented and hypoallergenic products Assessment & Plan (07/11/2022 11:12 AM EDT): -Most recent exacerbation in February 2019, hospitalized at [place] [address] clinical Dx in June 2019 (household member was positive) - did not test at that time due to strict Dx criteria at that time -Frequency of exacerbation, requiring systemic steroid 8 x /year, 2 hospitalizations in 2019, less frequent recently -No Hx of intubation -Followed by both material planner and ENT -Continue Advair as maintenance -Continue Singulair as maintenance -Continue albuterol as rescue -Discussed about the importance of medication adherence and avoidance of 2nd hand smoke / exposure -Use unscented and hypoallergenic products Assessment & Plan (04/11/2022 1:14 PM EST): -Most recent exacerbation in February 2019, hospitalized at [place] [address] clinical Dx in June 2019 (household member was positive) - did not test at that time due to strict Dx criteria at that time -Frequency of exacerbation, requiring systemic steroid 8 x /year, 2 hospitalizations in 2019, less frequent recently -No Hx of intubation -Followed by both material planner and ENT -Continue Advair as maintenance -Continue Singulair as maintenance -Continue albuterol as rescue -Discussed about the importance of medication adherence and avoidance of 2nd hand smoke / exposure -Use unscented and hypoallergenic products Assessment & Plan (03/20/2022 8:26 AM EST): -Most recent exacerbation in February 2019, hospitalized at [facility] -COVID19 clinical Dx in June 2019 (household member was positive) - did not test at that time due to strict Dx criteria at that time -Frequency of exacerbation, requiring systemic steroid 8 x /year, 2 hospitalizations in 2019, less frequent recently -No Hx of intubation -Followed by both material planner and ENT -Continue Advair as maintenance -Continue [...] to request a follow up appointment with [facility] GI 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 Overview [...] Assessment & Plan (04/22/2022 5:09 AM EST): -Wellhead Pumper recommended repeat pelvic ultrasound, further evaluation and [...] 05/02/2012 Overview (01/15/2023): Last Assessment & Plan: -[facility] provider: ALBERTO -Current medication: escitalopram 10 mg daily; doxepin 10 mg qhs Assessment & Plan (12/21/2023 4:35 PM EDT): -[facility] provider: N -Current medication: escitalopram 10 mg daily; doxepin 10 mg qhs Assessment & Plan (04/22/2022 5:17 AM EST): -[facility] provider: N -Current medication: escitalopram 10 mg daily; doxepin 10 mg qhs Assessment & Plan (03/20/2022 8:29 AM EST): -[facility] provider: N -Current medication: escitalopram 10 mg [...] -Will request 24 hour bp monitoring with dry wall installer Assessment & Plan (01/19/2023 5:59 AM EST): [...] Team Description 05/23/2024 Population Health Risk Score [facility] ([facility]) Department [address] [place] [phone] Provider, Population Health Generic 05/16/2024 Orders Only GENERIC EXTERNAL DATA DEPARTMENT Provider, Generic External Data 04/04/2024 Abstract [facility] [address] [place] [address] Amaya Bhatia MA 04/04/2024 Abstract [facility] [address] [facility] [place] [address] Amaya Bhatia MA 03/28/2024 Orders Only [facility] [address] [facility] [place] [address] Huong David MD 03/25/2024 1:15 PM EST Office Visit [facility] [address] [facility] [address] [place] [address] Huong David MD Primary hypertension (Primary Dx); Interstitial lung disease ([facility]); 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; Vitamin D deficiency; 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; Rheumatoid arthritis with positive rheumatoid factor, involving unspecified site ([facility]); Allergic rhinitis, unspecified seasonality, unspecified trigger; De Quervain's tenosynovitis, left; Constipation, unspecified constipation type; Allergic reaction, subsequent encounter; Gastroesophageal reflux disease, unspecified whether esophagitis present; Tenosynovitis of finger and hand 03/25/2024 Travel 03/24/2024 Telephone [facility] [address] [place], [place] [phone] Huong David MD Prior Authorization (mometasone) from Last 3 Months Immunizations Name Administration [...] Description 07/08/2024 2:15 PM EDT Office Visit [facility] [address] [place] [address] Huong David MD [address] [place], [place] [phone] Health Maintenance Due Date Last Done Comments [...] 07/11/2025 07/12/2023, 06/11, 07/06/2022, Additional history exists Lipid Panel 12/18/2028 12/19/2023, 01/10, 03/20/2022, Additional history exists Cervical Cancer Screening 05/16/2029 HPV/Cotest 05/16/2029 05/16/2024, 03/12, 04/09/2017 Pap Smear 05/16/2029 05/16/2024, 03/27/2022 DTaP/Tdap/Td Vaccines (3 - Td or Tdap) [...] Procedure Name Priority Date/Time Associated Diagnosis Comments AMB REFERRAL TO ALLERGY Routine 06/02/2024 Allergic reaction, subsequent encounter PAP SMEAR Routine 05/16/2024 8:57 AM EST [...] Recently Relevant to Health Maintenance Results * Referral to Allergy (06/02/2024) Carmen Malone MD OUTPATIENT REFERRAL ORDERA BLES Final Result * HPV DNA, Low/High Risk (05/16/2024 8:57 AM EST) HPV High Risk Negative Negative [facility] HPV Genotype 16 Negative Negative [facility] HPV Genotype 18 Negative Negative [facility] Comment:HPV testing performe d at [facility] (CLIA#[id number]), [address] [place] [address].Testing for HPV was performed using the Benjamín [...] Provider LAB BLOOD ORDERAB LES Final Result [facility] [address] [place] [address] [phone] * Pap Smear (05/16/2024 8:57 AM EST) 05/16/2024 8:57 AM EST 05/16/2024 11:39 AM EST Narrative [facility] - 05/20/2024 9:43 AM EDT ----- ------- Name: Ilene Dominguez ?Age/Sex: 59/F ? : 1965 Unit#: [id number] ?? Attend Dr: Joel Flores MD ?Re05/16/24 ?Status: DEP REF ? Location: HO.LNP ?Disch: ? ----- ------- SPEC : [id number] ? RECD: 05/16/24-1138 ? STATUS: ??SOUT ? REQ NUM: [id number] ? ZE: 05/16/24 ? SUBM DR: Joel Flores MD ? ENTERED: ??05/16/24-1150 ?SP TYPE: Pap Smr ?OTHR DR: Huong David MD ? ORDERED: ??Pap Smear ? Interpretation ?? Satisfactory for evaluation. ?? Negative for intraepithelial lesion or malignancy. ? HPV High Risk: ??Negative ? HPV Genotyping 16: ??Negative ?? HPV Genotyping 18: ??Negative ?Clinical Information LMP:Unknown date Previous PAP test: 03/28/22, Unknown findings ? Material Received ?? ThinPrep-Cervical Copies To: ?? Huong David MD ?? [facility] ?? [address] [facility] [address] ?? [place] [address] ?? [phone] ?? Joel Flores MD ?? [facility] ?? [address] ?? [place] [address] ?? [phone] ----- ------- Signed (signature on file) ZOILA Little (ASCP) 05/20/24 0943 ? ----- ------- ? END OF REPORT ? us Generic External Data Provider LAB CYTOLOGY ORDE RABLES Final Result [facility] [address] [place] [phone] * Lipid Panel with Reflex to Direct LDL (12/19/2023 10:15 AM EDT) Triglycerides 56 <150 mg/dL [facility] Comment:Desirable Triglyceri de: less than 150 mg/dLBorderline High Triglyceride 150-199 mg/dLHigh Triglyceride: 200-499 mg/dLVery High Triglyceride: greater than or equal to 5OO mg/dL Cholesterol 173 <200 mg/dL [facility] Comment:Desirable Cholestero l: less than 200 mg/dLBorderline High Cholesterol: 200-239 mg/dLHigh Cholesterol: greater than 239 mg/dL LDL Cholesterol Calculated 98 <100 mg/dL [facility] Comment:Desirable LDL: less than 100 mg/dLNear Optimal/Above Optimal LDL: 110- 129 mg/dLBorderline High LDL: 130-159 mg/dLHigh LDL: 160-189 mg/dLVery High LDL: greater than or equal to 190 mg/dL HDL Cholesterol 64 >40 mg/dL [facility] Comment:Desirable HDL: great er than 40 mg/dL Note: This HDL assay may give artificially low results in patients with liver disease. Blood 12/19/2023 10:1 5 AM EDT 12/19/2023 11:31 AM EDT Huong David MD LAB BLOOD ORDERABLES Final Resul t Performing Organization Address [facility] Co de Phone Number [facility] [address] [place] [phone] * Hemoglobin A1c (12/19/2023 10:15 AM EDT) Hemoglobin A1c 5.7 <6.0 % [facility] Comment:Hemoglobin A1C Refer ence Range Adults: 4.8 - 6.0 % Non diabetic: < 6.0 % Goal: < 7.0 %Additional Action Suggested: > 8.0 %Note: Hemoglobin A1c results are invalid for patients with abnormal amounts of HbF. Blood transfusions may impact the HbA1c concentration in the patient sample. Estimated Average Glucose 117 mg/dL [facility] Comment:eAG = Estimated ave rage glucose which is %A1C expressed asaverage glucose, using the formula of the O8R-ImwolrwYtdgrxw Glucose study (ADAG), Diabetes Care, Vol.31,#8,Oct. 2007 Blood Venous blood specimen / Unknown 12/19/2023 10:15 AM EDT 12/19/2023 11:31 AM EDT Huong David MD LAB BLOOD ORDERABLES Final Resul t Performing Organization Address [facility] Co de Phone Number [facility] [address] [place] [phone] * Hm Colonoscopy (12/12/2023) Colonoscopy Normal Normal 12/12/2023 Yimi Diaz MD HEALTH MAINTENANCE Final Result * Hepatitis Panel, General (09/24/2023 1:58 PM EDT) Hepatitis A IgM Nonreactive Nonreactive [facility] Comment:IgM antibodies to SCOTT V not detected; does not exclude earlyacute or recovered HAV infection. ~Hepatitis B Surface Antibody NONREACTIVE Nonreactive [facility] Comment:Nonreactive: < 8.00 mIU/mL Hepatitis B Core Antibody Nonreactive Nonreactive [facility] Hepatitis C Antibody Nonreactive Nonreactive [facility] Comment:Antibodies to HCV no t detected; does not exclude early acuteHCV infection. Hepatitis B Surface Ag Negative Negative [facility] 09/24/2023 1:58 PM EDT 09/24/2023 1:58 PM EDT us Generic External Data Provider LAB BLOOD ORDERAB LES Final Result [facility] [address] [place] [phone] * BI Mammogram Screening Tomosynthesis Bilateral (07/12/2023 3:15 PM EDT) Anatomical Region Laterality Modality Breast Bilateral Mammography 07/12/2023 3:15 PM EDT Narrative 08/06/2023 12:59 PM EDT ? [facility] ? [address] ?[place] [address] ? Mammography Report ? Signed ? Patient: DominguezIlene ?MR#: [id number] ?? 5 ? : 1965 ?Acct:[id number] ? Age/Sex: 58 / F ?ADM Date: 07/12/23 ? Loc: HO.MAMMO ? Attending Dr: Huong David MD ? Ordering Physician: Huong David MD ?Results: 1Negative ? Date of Service: 07/12/23 ?Follow Up: 1 Year From Orig ?? inal Mammogram ? Procedure(s): MM tomosynthesis screening BI ?? Accession Number(s): [id number] ? cc: Huong David MD ? EXAMINATION: [...] in OV> ? 08/06/23 1256 ? DD/ ? TD/TT: ? Health Science Writer: ? Procedure Note Juancarlos Carvajal - 08/06/[address] [facility] [address] [place] [address] Mammography Report Signed Patient: Robert DominguezTyler#: [id number] 5 : 1965Acct:[id number] Age/Sex: 58 / FADM Date: 07/12/23 Loc: [facility] Attending Dr: Huong David MD Ordering Physician: Huong David MDResults: 1Negative Date of Service: 07/12/23Follow Up: 1 Year From Orig ina Mammogram Procedure(s): MM tomosynthesis screening BI Accession Number(s): [id number] cc: Huong David MD EXAMINATION: MM SCREENING [...] in OV> 08/06/23 1256 DD/ 1515 TD/TT: Health Science Writer: Huong David MD IMG BI PROCEDURES Final Result from Last 3 Months or Most Recently Relevant to Health Maintenance Insurance * Guarantor: Ilene Dominguez Account Type Relation to Patient Date of Phone Billing Address Personal/Family Self 1965 [address] [facility] [address] [place] [address] [facility] * Guarantor: Robert Dominguezn Account Type Relation to Patient Date of Phone Billing Address Personal/Family Self [address] [facility] [address] [place] [address] * Guarantor: Renee Dominguezelyn Account Type Relation to Patient Date of Phone Billing Address Personal/Family Self [address] [facility] [address] [place] [address] * Guarantor: Robert Dominguezn Account Type Relation to Patient Date of Phone Billing Address Personal/Family Self [address] [place], [place] Care Teams Research And Development Director Relationship Specialty Start Date End Date Huong David MD [address] [place] [address] PCP - General Family Medicine 02/22/12 John Salgado, DelmiD [address] [place] [address] Pharmacist Internal Medicine 01/16/23
--- OUTSIDE RECORDS SUMMARY | 2024-06-13 16:14 | XMS_ITS | Encounter Summary ---
Author Organization [employer] Address [address] [facility] 7t [place] [address] Care Team Providers Care Semiconductor Equipment Technician Name Role Phone Huong David MD Primary Care Provider [phone] John Salgado PharmD Unavailable [phone] Reason for Visit * Reason Onset Date Comments returning call 03/22/2022 Encounter Details Date Type Department Care Team ([facility] st Contact Info) Description 03/22/2022 Telephone [facility] MEDICINE [address] [place], [place] [phone] Huong David MD [address] [place], [place] [phone] returning call Social History Tobacco Use Types [...] a call back Please contact pt at [phone] documented in this encounter Plan of Treatment Upcoming Encounters Date Type Department Care Team (Late st Contact Info) Description 07/08/2024 2:15 PM EDT Office Visit [facility] [address] [place] [address] Huong David MD [address] [place] [address] documented as of this encounter Visit Diagnoses Not on filedocumented in this encounter Care Teams Semiconductor Equipment Technician Relationship Specialty Start Date End Date Huong David MD [address] [place] [address] [phone] PCP - General Family Medicine 02/22/12 John Salgado, PharmD [address] [place] [phone] Pharmacist Internal Medicine 01/16/23 documented as of this encounter
--- OUTSIDE RECORDS SUMMARY | 2024-06-13 16:15 | XMS_ITS | Encounter Summary ---
Author Organization [employer] Address [address] [facility] [address] 7[address] [place] [address] Care Team Providers Care Tar Man Name Role Phone Huong David MD Primary Care Provider [phone] John Salgado PharmD Unavailable [phone] Encounter Details Date Type Department Care Team (Late st Contact Info) Description 03/28/2024 Orders Only [facility] [address] [place], [place] [phone] Huong David MD [address] [place], [place] [phone] Social History Tobacco Use Types Packs/Day Years [...] Description 07/08/2024 2:15 PM EDT Office Visit [facility] [address] [place] [phone] Huong David MD [address] [place] [phone] documented as of this encounter Goals Goal [...] documented as of this encounter Care Teams Tar Man Relationship Specialty Start Date End Date Huong David MD [address] [place] [phone] PCP - General Family Medicine 02/22/12 John Salgado, PharmD [address] [place] [address] Pharmacist Internal Medicine 01/16/23 documented as of this encounter
--- OUTSIDE RECORDS SUMMARY | 2024-06-13 16:15 | XMS_ITS | Encounter Summary ---
Author Organization [facility] [facility] Address [address] [facility] 7t [place] [address] Care Team Providers Care Lime Hide Inspector Name Role Phone Huong David MD Primary Care Provider [phone] John Salgado PharmD Unavailable [phone] Encounter Details Date Type Department Care Team (Late st Contact Info) Description 09/29/2022 Abstract [facility] MEDICINE [address] [place] [address] [phone] Huong David MD [address] [place] [address] [phone] Social History Tobacco Use Types Packs/Day Years [...] 2:15 PM EDT Office Visit [facility] MEDICINE [address] [place] [address] [phone] Huong David MD [address] [place] [address] [phone] documented as of this encounter Procedures Procedure Name Priority Date/Time Associated Diagnosis Comments HM COLONOSCOPY Routine 04/01/2013 documented in this encounter Results * Colonoscopy (04/01/2013) Colonoscopy Normal Normal [facility] Pcp HEALTH MAINTENANCE Edited Result - Final documented in this encounter Visit Diagnoses Not on filedocumented in this encounter Additional Health Concerns Assessment Noted Time PHQ-9 Depression Total Score: 0 04/11/19 23 1:19 PM EST documented as of this encounter Care Teams Lime Hide Inspector Relationship Specialty Start Date End Date Huong David MD [address] [place] [address] PCP - General Family Medicine 02/22/12 John Salgado, DelmiD [address] [place] [address] Pharmacist Internal Medicine 01/16/23 documented as of this encounter
--- OUTSIDE RECORDS SUMMARY | 2024-06-13 16:15 | XMS_ITS | Encounter Summary ---
Author Organization [employer] Address [address] [facility] [address] 7t [place] [address] Care Team Providers Care Respiratory Therapy Director Name Role Phone Huong David MD Primary Care Provider [phone] John Salgado PharmD Unavailable [phone] Encounter Details Date Type Department Care Team (Late st Contact Info) Description 04/04/2024 Abstract [facility] MEDICINE [address] [place], [place] [phone] Amaya Bhatia [place] Social History Tobacco Use [...] Description 07/08/2024 2:15 PM EDT Office Visit [facility]INE [address] [place] [address] Huong David MD [address] [place] [address] documented as of this encounter Goals Goal [...] documented as of this encounter Care Teams Respiratory Therapy Director Relationship Specialty Start Date End Date Huong David MD [address] [place] [address] [phone] PCP - General Family Medicine 02/22/12 John Salgado, Vikki [address] [place] [phone] Pharmacist Internal Medicine 01/16/23 documented as of this encounter
--- OUTSIDE RECORDS SUMMARY | 2024-06-13 16:15 | XMS_ITS | Encounter Summary ---
Author Organization [employer] Address 75 [facility] 7t [place] [address] Care Team Providers Care Reel Fed Printer Name Role Phone Huong David MD Primary Care Provider [phone] John Salgado PharmD Unavailable [phone] Reason for Visit * Reason Comments Med Refill Encounter Details Date Type Department Care Team (Late st Contact Info) Description 09/13/2022 Refill [facility] MEDICINE [address] [place], [place] [phone] Name, MD Jemal [address] [place] [address] [phone] Social History Tobacco Use Types Packs/Day Years [...] Description 07/08/2024 2:15 PM EDT Office Visit [facility] MEDICINE [address] [place], [place] [phone] Huong David MD [address] [place] [address] [phone] documented as of this encounter Visit Diagnoses Not on filedocumented in this encounter Additional Health Concerns Assessment Noted Time PHQ-9 Depression Total Score: 0 04/11/19 23 1:19 PM EST documented as of this encounter Care Teams Reel Fed Printer Relationship Specialty Start Date End Date Huong David MD [address] [place] [address] PCP - General Family Medicine 02/22/12 John Salgado, DelmiD [address] [place] [address] Pharmacist Internal Medicine 01/16/23 documented as of this encounter
--- OUTSIDE RECORDS SUMMARY | 2024-06-13 16:15 | XMS_ITS | Encounter Summary ---
Author Organization [employer] Address [address] [facility] 7t [place] [address] Care Team Providers Care Glaze Handler Name Role Phone Huong David MD Primary Care Provider [phone] John Salgado PharmD Unavailable [phone] Encounter Details Date Type Department Care Team (Late st Contact Info) Description 10/06/2022 Orders Only [facility]INE [address] [place] [address] [phone] Huong David MD [address] [place] [address] [phone] Hypokalemia (Primary Dx) Social History Tobacco Use [...] Description 07/08/2024 2:15 PM EDT Office Visit [facility] [address] [place] [address] [phone] Huong David MD [address] [place] [address] [phone] Scheduled Orders Name Type Priority Associated Diagnoses [...] documented as of this encounter Care Teams Glaze Handler Relationship Specialty Start Date End Date Huong David MD [address] [place] [address] PCP - General Family Medicine 02/22/12 John Salgado, DelmiD [address] [place] [address] Pharmacist Internal Medicine 01/16/23 documented as of this encounter
== END 2024-06-13 15:24 | disposition home or self-care (01) ==
LOC: HO.HGI 14:45
PROVIDERS: PCP Family Medicine; Visit Provider Nurse Practitioner Family
DX: Z80.0 Family history of malignant neoplasm of digestive organs (principal); K21.9 Gastro-esophageal reflux disease without esophagitis
CPT/HCPCS: 99214

== ENCOUNTER → 2024-06-13 14:45 | Outpatient (BNVA) | payer MEDICAID, SELFPAY | PROVIDERS: PCP Family Medicine; Visit Provider Nurse Practitioner Family | DX: K21.9 Gastro-esophageal reflux disease without esophagitis (principal); Z80.0 Family history of malignant neoplasm of digestive organs | CPT/HCPCS: 99212 ==

== ENCOUNTER 2024-06-16 11:03 | Outpatient (REF) | payer MEDICAID, SELFPAY ==
--- NOTE | ~2024-06-16 | US_ITS ---
CLINICAL HISTORY: N95.0 - Postmenopausal bleeding US pelvis transabdominal and transvaginal with color Doppler Comparison: US/SR - US PELVIC AND TRANSVAGINAL - 10/08/23 14:45 EDT US/PA/SR - US PELVIC AND TRANSVAGINAL - 04/17/22 14:00 EST Findings: Transabdominal scanning performed for overall anatomy. Transvaginal scanning performed for additional detail. LMP: Postmenopausal Retroverted uterus, heterogeneous echotexture measuring 6.3 x 3.6 x 6.7 cm previously measuring 6.7 x 3.8 x 6.2 cm. Incidental nabothian cysts Well defined endometrium, measuring 4.0 mm in thickness. The horizontal and vertical limbs of the IUD are well postioned within the endometrial cavity. Minimal fluid in the endometrial cavity. Uterine fibroids as follows: Anterior fundal subserosal 3.5 x 2.9 x 2.9 cm previously 3.7 x 3.4 x 2.7 cm Anterior fundal intramural 1.3 x 1.3 x 1.3 cm not previously demonstrated. Posterior fundal intramural 1.2 x 0.9 x 1.2 cm The right ovary measures, 1.3 x 0.7 x 0.8 cm. Normal sonographic appearance right ovary. The left ovary measures, 2.0 x 1.1 x 1.5 cm. Normal sonographic appearance left ovary. No adnexal masses or fluid collections. No free fluid Impression: 1. Leiomyomatous retroflexed uterus. 2. The horizontal and vertical limbs of the IUD well positioned in the endomertial cavity. 3. Normal ovaries/adnexa. This document has been electronically signed by: Ozzy Lynn MD on 06/17/2024 11:11:59
--- OUTSIDE RECORDS SUMMARY | 2024-06-16 13:13 | XMS_ITS | Encounter Summary ---
Author Organization [facility] Address [address] [facility] 7t [place] [address] Care Team Providers Care Stamp Collector Name Role Phone Huong David MD Primary Care Provider [phone] John Salgado PharmD Unavailable [phone] Encounter Details Date Type Department Care Team (Late st Contact Info) Description 08/23/2022 Abstract [facility] MEDICINE [address] [place] [address] [phone] Huong David MD [address] [place] [address] [phone] Social History Tobacco Use Types Packs/Day Years [...] Office Visit [facility] MEDICINE [address] [place] [address] [phone] Huong David MD [address] [place] [address] [phone] documented as of this encounter Procedures Procedure Name Priority Date/Time Associated Diagnosis Comments HM MAMMOGRAPHY Routine 07/06/2022 documented in this encounter Results * Mammography (07/06/2022) Mammogram bi-rads 2 Anatomical Region Laterality Modality Other 07/06/2022 Result [facility] Pcp HEALTH MAINTENANCE Final Result documented in this encounter Visit Diagnoses Not on filedocumented in this encounter Additional Health Concerns Assessment Noted Time PHQ-9 Depression Total Score: 0 04/11/19 23 1:19 PM EST documented as of this encounter Care Teams Stamp Collector Relationship Specialty Start Date End Date Huong David MD [address] [place] [address] PCP - General Family Medicine 02/22/12 John Salgado, DelmiD [address] [place] [address] Pharmacist Internal Medicine 01/16/23 documented as of this encounter
--- OUTSIDE RECORDS SUMMARY | 2024-06-16 13:13 | XMS_ITS | Encounter Summary ---
Author Organization [employer] Address [address] [facility] 7t [place] [address] Care Team Providers Care Usability Specialist Name Role Phone Huong David MD Primary Care Provider [phone] John Salgado PharmD Unavailable [phone] Reason for Visit * Reason Onset Date Comments returning call 03/22/2022 Encounter Details Date Type Department Care Team ([facility] st Contact Info) Description 03/22/2022 Telephone [facility] MEDICINE [address] [place], [place] [phone] Huong David MD [address] [place], [place] [phone] returning call Social History Tobacco Use Types [...] a call back Please contact pt at [phone] documented in this encounter Plan of Treatment Upcoming Encounters Date Type Department Care Team (Late st Contact Info) Description 07/08/2024 2:15 PM EDT Office Visit [facility]INE [address] [place] [address] Huong David MD [address] [place] [address] documented as of this encounter Visit Diagnoses Not on filedocumented in this encounter Care Teams Usability Specialist Relationship Specialty Start Date End Date Huong David MD [address] [place] [address] [phone] PCP - General Family Medicine 02/22/12 John Salgado, PharmD [address] [place] [phone] Pharmacist Internal Medicine 01/16/23 documented as of this encounter
--- OUTSIDE RECORDS SUMMARY | 2024-06-16 13:13 | XMS_ITS | Clinical Summary ---
Author Organization [facility] Address [address] [facility] [address] [place] [address] Phone Care Team Providers Care Senior Product Marketing Manager Name Role Phone Huong David MD Primary Care Provider [phone] Allergies No known active allergies Medications Zoster [...] 11/06/2022 Overview (11/06/2022): Last Assessment & Plan: -Basin Finish Operator Tig Welder recommended repeat pelvic ultrasound, further evaluation and recommendation Hysteroscopy for endocervical polyp. Patient was reassured that the fibroids typically decrease in size and resolve in menopause. -Recommended removal of polyps. -Scheduled for hysteroscopy with project engineering director Urticaria 04/11/2022 11/06/2022 Degeneration of cervical intervertebral disc 11/06/2022 History of calculus of kidney 03/20/2022 Rheumatoid arthritis 03/20/2022 11/06/2022 Overview (11/06/2022): Last Assessment & Plan: -Seropositive rheumatoid arthritis -Dx September 2019 -03/20/22 ESR 41 -following with [facility] rheumatology providers, last seen in Oct 2020, [...] recent exacerbation in February 2019, hospitalized at [facility] -COVID19 clinical Dx in June 2019 (household member was positive) - did not test at that time due to strict Dx criteria at that time -Frequency of exacerbation, requiring systemic steroid 8 x /year, 2 hospitalizations in 2019, less frequent recently -No Hx of intubation -Followed by both vacuum bottle assembler and ENT -Continue Advair as maintenance -Continue [...] 11/06/2022 Overview (11/06/2022): Last Assessment & Plan: -Basin Finish Operator Tig Welder recommended repeat pelvic ultrasound, further evaluation and [...] 11/06/2022 Overview (11/06/2022): Last Assessment & Plan: -[facility] provider: ALBERTO -Current medication: escitalopram 10 mg [...] 1965 [address] [place] [address] [place]ICA[place] * Guarantor: Ilene Dominguez Account Type Relation to Patient Date of Phone Billing Address Personal/Family Self [address] [place] [address] MEDICAID [place] Care Teams Senior Product Marketing Manager Relationship Specialty Start Date End Date Huong David MD [address] [place] [phone] PCP - General Family Medicine 06/08/23
--- OUTSIDE RECORDS SUMMARY | 2024-06-16 13:14 | XMS_ITS | Clinical Summary ---
Author Organization [employer] Address [address] [facility] [address] [place] [address] Care Team Providers Care Wallpaper Printer Helper Name Role Phone Huong David MD Primary Care Provider [phone] John Salgado PharmD Unavailable [phone] Allergies No known active allergies Medications alendronate [...] and Jan 2024 She was referred to training development specialist in the walk-in clinic in Jan [address] Jean [facility] pulmonology if she is interested in allergy [...] 5:54 AM EDT): - following with [facility]WORK INTELLIGENCE ANALYST - last EMBx in August 2023 - no sign of malignancy Assessment & Plan (06/03/2023 6:49 PM EDT): - following with [facility]WORK INTELLIGENCE ANALYST - last EMBx in Nov 2022 - no sign of malignancy Assessment & Plan (01/19/2023 6:00 AM EST): - following with [facility] NETWORK INTELLIGENCE ANALYST - last EMBx in Nov 2022 - no sign of malignancy Chronic left shoulder pain 01/19/2023 Assessment & Plan (01/19/2023 6:08 AM EST): - X-ray was normal and pt received steroid injection from valuation manager in Dec 2022 - no pain at [...] (03/26/2024 1:12 PM EST): - following with [facility] pulmonology - status post 3 mo of prednisone treatment - CT showed improvement in July 2022 and near resolution in Nov 2022 - currently monitoring symptoms and with periodic imaging Assessment & Plan (12/21/2023 4:33 PM EDT): - following with [facility] pulmonology - status post 3 mo of prednisone treatment - CT showed improvement in July 2022 and near resolution in Nov 2022 - currently monitoring symptoms and with periodic imaging Assessment & Plan (06/03/2023 6:45 PM EDT): - following with [facility] pulmonology - status post 3 mo of prednisone treatment - CT showed improvement in July 2022 and near resolution in Nov 2022 - currently monitoring symptoms and with periodic imaging Assessment & Plan (01/19/2023 5:56 AM EST): - following with [facility] pulmonology - status post 3 mo of prednisone treatment - CT showed improvement in July 2022 and near resolution in Nov 2022 - currently monitoring symptoms and with periodic imaging Assessment & Plan (10/09/2022 9:00 AM EDT): - following with [facility] pulmonology - currently taking prednisone 50 mg daily with a plan for slow tapering - CT on 08/01/22 showed improvement - continue current treatment plan and follow up with rn baby Elevated erythrocyte sedimentation rate 07/12/19 Assessment & [...] 04/11/2022 Overview (01/15/2023): Last Assessment & Plan: -Temporary Data Entry Clerk recommended repeat pelvic ultrasound, further evaluation and recommendation Hysteroscopy for endocervical polyp. Patient was reassured that the fibroids typically decrease in size and resolve in menopause. -Recommended removal of polyps. -Scheduled for hysteroscopy with construction site manager Assessment & Plan (07/11/2022 11:13 AM EDT): - 05/19/22 Hysteroscopy, D&C, polypectomy - benign polyp Assessment & Plan (04/22/2022 5:10 AM EST): -Temporary Data Entry Clerk recommended repeat pelvic ultrasound, further evaluation and recommendation Hysteroscopy for endocervical polyp. Patient was reassured that the fibroids typically decrease in size and resolve in menopause. -Recommended removal of polyps. -Scheduled for hysteroscopy with construction site manager Degeneration of cervical intervertebral disc Rheumatoid arthritis 03/20/2022 Overview (01/15/2023): Last Assessment & Plan: -Seropositive rheumatoid arthritis -Dx September 2019 -03/20/22 ESR 41 -following with [facility] rheumatology providers, last seen in Oct 2020, [...] and CCP. -Dx September 2019 -following with [facility] rheumatology providers, last seen in Dec 2023 -previously prescribed hydroxychloroquine by valuation manager when she developed ILD and uveitis, with elevated ESR/CRP in 1809-4404 -s/p prednisone treatment x 3 mo, which was prescribed by rn baby for ILD in 2022 -elevated ESR/CRP and [...] and CCP. -Dx September 2019 -following with [facility] rheumatology providers, last seen in September 2023 -previously prescribed hydroxychloroquine by valuation manager when she developed ILD and uveitis, with elevated ESR/CRP in 2589-9425 -s/p prednisone treatment x 3 mo, which was prescribed by rn baby for ILD in 2022 -elevated ESR/CRP and evaluated for other rheumatological / autoimmune / connective tissue disorder, including vasculitis. Vasculitis work-up was negative. Current Dx interstitial lung disease -currently monitoring without DMARDs Assessment & Plan (06/03/2023 6:53 PM EDT): -Seropositive rheumatoid arthritis (RF and CCP) -Dx September 2019 -following with [facility] rheumatology providers, last seen in Apr 2023 -previously prescribed hydroxychloroquine by valuation manager when she developed ILD and uveitis, with elevated ESR/CRP -s/p prednisone treatment x 3 mo, which was prescribed by rn baby for ILD -elevated ESR/CRP and evaluated for other rheumatological / autoimmune / connective tissue disorder, including vasculitis. Vasculitis work-up was negative. Current Dx interstitial lung disease -follow up as scheduled Assessment & Plan (01/19/2023 6:03 AM EST): -Seropositive rheumatoid arthritis (RF and CCP) -Dx September 2019 -following with [facility] rheumatology providers, last seen in 2022 -currently prescribed hydroxychloroquine by valuation manager -s/p prednisone treatment x 3 mo, which was prescribed by rn baby for ILD -elevated ESR/CRP and evaluated for other rheumatological / autoimmune / connective tissue disorder, including vasculitis. Vasculitis work-up was negative. Current Dx interstitial lung disease -follow up as scheduled Assessment & Plan (10/09/2022 9:05 AM EDT): -Seropositive rheumatoid arthritis -Dx September 2019 -following with [facility] rheumatology providers, last seen in 2022 -currently prescribed hydroxychloroquine by valuation manager -currently prescribed prednisone by rn baby for ILD -elevated ESR/CRP and evaluated for other rheumatological / autoimmune / connective tissue disorder, including vasculitis. Current Dx interstitial lung disease -follow up as scheduled Assessment & Plan (07/11/2022 11:17 AM EDT): -Seropositive rheumatoid arthritis -Dx September 2019 -03/20/22 ESR 41 -following with [facility] rheumatology providers, last seen in June 2022 -now being evaluated for other rheumatological / autoimmune / connective tissue disorder, including vaculitis -follow up as scheduled Assessment & Plan (04/22/2022 5:13 AM EST): -Seropositive rheumatoid arthritis -Dx September 2019 -03/20/22 ESR 41 -following with [facility] rheumatology providers, last seen in Oct 2020, q6m visit -pt does not need any mediation at this time because her symtoms are very mild -continue periodic appt, every 6 mo, which is overdue. Recommended to call to reschedule appt Assessment & Plan (03/20/2022 8:25 AM EST): -Seropositive rheumatoid arthritis -following with [facility] rheumatology providers, last seen in Oct 2020, q6m visit -pt does not need any mediation at this time because her symtoms are very mild -continue periodic appt -Follow up every 6 months History of renal calculi 03/20/2022 Allergic asthma 10/22/2018 Overview (01/15/2023): Last Assessment & Plan: -Most recent exacerbation in February 2019, hospitalized at [facility] -COVID19 clinical Dx in June 2019 (household member was positive) - did not test at that time due to strict Dx criteria at that time -Frequency of exacerbation, requiring systemic steroid 8 x /year, 2 hospitalizations in 2019, less frequent recently -No Hx of intubation -Followed by both rn baby and ENT -Continue Advair as maintenance -Continue Singulair as maintenance -Continue albuterol as rescue -Discussed about the importance of medication adherence and avoidance of 2nd hand smoke / exposure -Use unscented and hypoallergenic products Assessment & Plan (03/31/2024 5:17 PM EST): -Exacerbation in February 2019, hospitalized at [facility] -Mild exacerbation in June 2023, treated as outpatient with azithromycin and prednisone by rn baby -Frequency of exacerbation, requiring systemic steroid 8 x /year, 2 hospitalizations in 2018, less frequent recently -No Hx of intubation -Followed by both rn baby -Previously seeing ENT -Continue Advair as maintenance -Continue Singulair as maintenance -Continue albuterol as rescue -Discussed about the importance of medication adherence and avoidance of 2nd hand smoke / exposure -Use unscented and hypoallergenic products Assessment & Plan (12/24/2023 5:52 AM EDT): -Exacerbation in February 2019, hospitalized at [facility] -Mild exacerbation in June 2023, treated as outpatient with azithromycin and prednisone by rn baby -Frequency of exacerbation, requiring systemic steroid 8 x /year, 2 hospitalizations in 2018, less frequent recently -No Hx of intubation -Followed by both rn baby and ENT -Continue Advair as maintenance -Continue Singulair as maintenance -Continue albuterol as rescue -Discussed about the importance of medication adherence and avoidance of 2nd hand smoke / exposure -Use unscented and hypoallergenic products Assessment & Plan (06/03/2023 6:45 PM EDT): -Most recent exacerbation in February 2019, hospitalized at [place] [address] clinical Dx in June 2019 (household member was positive) - did not test at that time due to strict Dx criteria at that time -Frequency of exacerbation, requiring systemic steroid 8 x /year, 2 hospitalizations in 2019, less frequent recently -No Hx of intubation -Followed by both rn baby and ENT -Continue Advair as maintenance -Continue Singulair as maintenance -Continue albuterol as rescue -Discussed about the importance of medication adherence and avoidance of 2nd hand smoke / exposure -Use unscented and hypoallergenic products Assessment & Plan (01/19/2023 5:57 AM EST): -Most recent exacerbation in February 2019, hospitalized at [facility] [place] [address] clinical Dx in June 2019 (household member was positive) - did not test at that time due to strict Dx criteria at that time -Frequency of exacerbation, requiring systemic steroid 8 x /year, 2 hospitalizations in 2018, less frequent recently -No Hx of intubation -Followed by both rn baby and ENT -Continue Advair as maintenance -Continue Singulair as maintenance -Continue albuterol as rescue -Discussed about the importance of medication adherence and avoidance of 2nd hand smoke / exposure -Use unscented and hypoallergenic products Assessment & Plan (10/09/2022 9:01 AM EDT): -Most recent exacerbation in February 2019, hospitalized at [place] [address] clinical Dx in June 2019 (household member was positive) - did not test at that time due to strict Dx criteria at that time -Frequency of exacerbation, requiring systemic steroid 8 x /year, 2 hospitalizations in 2019, less frequent recently -No Hx of intubation -Followed by both rn baby -Continue Advair as maintenance -Continue Singulair as maintenance -Continue albuterol as rescue -Discussed about the importance of medication adherence and avoidance of 2nd hand smoke / exposure -Use unscented and hypoallergenic products Assessment & Plan (07/11/2022 11:12 AM EDT): -Most recent exacerbation in February 2019, hospitalized at [place] [address] clinical Dx in June 2019 (household member was positive) - did not test at that time due to strict Dx criteria at that time -Frequency of exacerbation, requiring systemic steroid 8 x /year, 2 hospitalizations in 2019, less frequent recently -No Hx of intubation -Followed by both rn baby and ENT -Continue Advair as maintenance -Continue Singulair as maintenance -Continue albuterol as rescue -Discussed about the importance of medication adherence and avoidance of 2nd hand smoke / exposure -Use unscented and hypoallergenic products Assessment & Plan (04/11/2022 1:14 PM EST): -Most recent exacerbation in February 2019, hospitalized at [place] [address] clinical Dx in June 2019 (household member was positive) - did not test at that time due to strict Dx criteria at that time -Frequency of exacerbation, requiring systemic steroid 8 x /year, 2 hospitalizations in 2019, less frequent recently -No Hx of intubation -Followed by both rn baby and ENT -Continue Advair as maintenance -Continue Singulair as maintenance -Continue albuterol as rescue -Discussed about the importance of medication adherence and avoidance of 2nd hand smoke / exposure -Use unscented and hypoallergenic products Assessment & Plan (03/20/2022 8:26 AM EST): -Most recent exacerbation in February 2019, hospitalized at [facility] -COVID19 clinical Dx in June 2019 (household member was positive) - did not test at that time due to strict Dx criteria at that time -Frequency of exacerbation, requiring systemic steroid 8 x /year, 2 hospitalizations in 2019, less frequent recently -No Hx of intubation -Followed by both rn baby and ENT -Continue Advair as maintenance -Continue [...] to request a follow up appointment with [facility] GI 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 Overview [...] Assessment & Plan (04/22/2022 5:09 AM EST): -Temporary Data Entry Clerk recommended repeat pelvic ultrasound, further evaluation and [...] 05/02/2012 Overview (01/15/2023): Last Assessment & Plan: -[facility] provider: ALBERTO -Current medication: escitalopram 10 mg daily; doxepin 10 mg qhs Assessment & Plan (12/21/2023 4:35 PM EDT): -[facility] provider: N -Current medication: escitalopram 10 mg daily; doxepin 10 mg qhs Assessment & Plan (04/22/2022 5:17 AM EST): -[facility] provider: N -Current medication: escitalopram 10 mg daily; doxepin 10 mg qhs Assessment & Plan (03/20/2022 8:29 AM EST): -[facility] provider: N -Current medication: escitalopram 10 mg [...] -Will request 24 hour bp monitoring with greaser helper Assessment & Plan (01/19/2023 5:59 AM EST): [...] Team Description 05/23/2024 Population Health Risk Score [facility] (C[facility]) Department [address] [place] [address] [phone] Provider, Population Health Generic 05/16/2024 Orders Only GENERIC EXTERNAL DATA DEPARTMENT Provider, Generic External Data 04/04/2024 Abstract [facility] [address] [place] [address] Amaya Bhatia MA 04/04/2024 Abstract [facility] [address] [facility] [place] [address] Amaya Bhatia MA 03/28/2024 Orders Only [facility] [address] [facility] [place] [address] Huong David MD 03/25/2024 1:15 PM EST Office Visit [facility] [address] [facility] [place] [address] Huong David MD Primary hypertension (Primary Dx); Interstitial lung disease ([facility]); 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; Vitamin D deficiency; 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; Rheumatoid arthritis with positive rheumatoid factor, involving unspecified site ([facility]); Allergic rhinitis, unspecified seasonality, unspecified trigger; De Quervain's tenosynovitis, left; Constipation, unspecified constipation type; Allergic reaction, subsequent encounter; Gastroesophageal reflux disease, unspecified whether esophagitis present; Tenosynovitis of finger and hand 03/25/2024 Travel 03/24/2024 Telephone [facility] [address] [place], [place] [phone] Huong David MD Prior Authorization (mometasone) from [...] 07/08/2024 2:15 PM EDT Office Visit [facility] [address] [place] [address] Huong David MD [address] [place], [place] [phone] Health Maintenance Due Date Last Done Comments [...] AM EST) HPV High Risk Negative Negative [facility] HPV Genotype 16 Negative Negative [facility] HPV Genotype 18 Negative Negative [facility] Comment:HPV testing performe d at [facility] (CLIA#[id number]), [address] [place] [address].Testing for HPV was performed using the Benjamín [...] Provider LAB BLOOD ORDERAB LES Final Result [facility] [address] [place] [address] [phone] * Pap Smear (05/16/2024 8:57 AM EST) 05/16/2024 8:57 AM EST 05/16/2024 11:39 AM EST Narrative [facility] - 05/20/2024 9:43 AM EDT ----- ------- Name: Ilene Dominguez ?Age/Sex: 59/F ? : 1965 Unit#: [id number] ?? Attend Dr: Joel Flores MD ?Re05/16/24 ?Status: DEP REF ? Location: HO.LNP ?Disch: ? ----- ------- SPEC : [id number] ? RECD: 05/16/24-1138 ? STATUS: ??SOUT ? REQ NUM: [id number] ? ZE: 05/16/24 ? SUBM DR: Joel [...] Copies To: ?? Huong David MD ?? [facility] ?? [address] [facility] ?? [place] [address] ?? [phone] ?? Joel Flores MD ?? [facility] ?? [address] ?? [place] [address] ?? [phone] ----- ------- Signed (signature on file) ZOILA Little (ASCP) 05/20/24 0943 ? ----- ------- ? END OF REPORT ? us Generic External Data Provider LAB CYTOLOGY ORDE RABLES Final Result [facility] [address] [place] [phone] * Lipid Panel with Reflex to Direct LDL (12/19/2023 10:15 AM EDT) Triglycerides 56 <150 mg/dL [facility] Comment:Desirable Triglyceri de: less than 150 mg/dLBorderline High Triglyceride 150-199 mg/dLHigh Triglyceride: 200-499 mg/dLVery High Triglyceride: greater than or equal to 5OO mg/dL Cholesterol 173 <200 mg/dL [facility] Comment:Desirable Cholestero l: less than 200 mg/dLBorderline High Cholesterol: 200-239 mg/dLHigh Cholesterol: greater than 239 mg/dL LDL Cholesterol Calculated 98 <100 mg/dL [facility] Comment:Desirable LDL: less than 100 mg/dLNear Optimal/Above Optimal LDL: 110- 129 mg/dLBorderline High LDL: 130-159 mg/dLHigh LDL: 160-189 mg/dLVery High LDL: greater than or equal to 190 mg/dL HDL Cholesterol 64 >40 mg/dL [facility] Comment:Desirable HDL: great er than 40 mg/dL Note: This HDL assay may give artificially low results in patients with liver disease. Blood 12/19/2023 10:1 5 AM EDT 12/19/2023 11:31 AM EDT Huong David MD LAB BLOOD ORDERABLES Final Resul t Performing Organization Address [facility] Co de Phone Number [facility] [address] [place] [phone] * Hemoglobin A1c (12/19/2023 10:15 AM EDT) Hemoglobin A1c 5.7 <6.0 % [facility] Comment:Hemoglobin A1C Refer ence Range Adults: 4.8 - 6.0 % Non diabetic: < 6.0 % Goal: < 7.0 %Additional Action Suggested: > 8.0 %Note: Hemoglobin A1c results are invalid for patients with abnormal amounts of HbF. Blood transfusions may impact the HbA1c concentration in the patient sample. Estimated Average Glucose 117 mg/dL [facility] Comment:eAG = Estimated ave rage glucose which is %A1C expressed asaverage glucose, using the formula of the P5X-JqhtoblGrjcxeh Glucose study (ADAG), Diabetes Care, Vol.31,#8,Oct. 2007 Blood Venous blood specimen / Unknown 12/19/2023 10:15 AM EDT 12/19/2023 11:31 AM EDT Huong David MD LAB BLOOD ORDERABLES Final Resul t Performing Organization Address [facility] Co de Phone Number [facility] [address] [place] [phone] * Hm Colonoscopy (12/12/2023) Colonoscopy Normal Normal 12/12/2023 Yimi Diaz MD HEALTH MAINTENANCE Final Result * Hepatitis Panel, General (09/24/2023 1:58 PM EDT) Hepatitis A IgM Nonreactive Nonreactive [facility] Comment:IgM antibodies to SCOTT V not detected; does not exclude earlyacute or recovered HAV infection. ~Hepatitis B Surface Antibody NONREACTIVE Nonreactive [facility] Comment:Nonreactive: < 8.00 mIU/mL Hepatitis B Core Antibody Nonreactive Nonreactive [facility] Hepatitis C Antibody Nonreactive Nonreactive [facility] Comment:Antibodies to HCV no t detected; does not exclude early acuteHCV infection. Hepatitis B Surface Ag Negative Negative [facility] 09/24/2023 1:58 PM EDT 09/24/2023 1:58 PM EDT us Generic External Data Provider LAB BLOOD ORDERAB LES Final Result [facility] [address] [place] [address] [phone] * BI Mammogram Screening Tomosynthesis Bilateral (07/12/2023 3:15 PM EDT) Anatomical Region Laterality Modality Breast Bilateral Mammography 07/12/2023 3:15 PM EDT Narrative 08/06/2023 12:59 PM EDT ? [facility] [place] ? [address] ?[place] [address] ? Mammography Report ? Signed ? Patient: DominguezIlene ?MR#: [id number] ?? 5 ? : 1965 ?Acct:[id number] ? Age/Sex: 58 / F ?ADM Date: 07/12/23 ? Loc: HO.MAMMO ? Attending Dr: Huong David MD ? Ordering Physician: Huong David MD ?Results: 1Negative ? Date of Service: 07/12/23 ?Follow Up: 1 Year From Orig ?? inal Mammogram ? Procedure(s): MM tomosynthesis screening BI ?? Accession Number(s): [id number] ? cc: Huong David MD ? EXAMINATION: [...] 08/06/23 1256 ? DD/ ? TD/TT: ? Division Supervisor: ? Procedure Note Juancarlos Carvajal - 08/06/2023 Robi [facility] [address] [place] [address] Mammography Report Signed Patient: Robert DominguezTyler#: [id number] 5 : 1965Acct:[id number] Age/Sex: 58 / FADM Date: 07/12/23 Loc: [facility] Attending Dr: Huong David MD Ordering Physician: Huong David MDResults: 1Negative Date of Service: 07/12/23Follow Up: 1 Year From Orig ina Mammogram Procedure(s): MM tomosynthesis screening BI Accession Number(s): [id number] cc: Huong David MD EXAMINATION: MM SCREENING [...] in OV> 08/06/23 1256 DD/ 1515 TD/TT: Division Supervisor: Huong David MD IMG BI PROCEDURES Final Result from Last 3 Months or Most Recently Relevant to Health Maintenance Insurance * Guarantor: Ilene Dominguez Account Type Relation to Patient Date of Phone Billing Address Personal/Family Self 1965 [address] [facility] [address] [place] [address] [facility] * Guarantor: Robert Dominguezn Account Type Relation to Patient Date of Phone Billing Address Personal/Family Self [address] [place] [address] * Guarantor: Renee Dominguezelyn Account Type Relation to Patient Date of Phone Billing Address Personal/Family Self [address] [place] [address] * Guarantor: Robert Dominguezn Account Type Relation to Patient Date of Phone Billing Address Personal/Family Self [address] [place], [place] Care Teams Wallpaper Printer Helper Relationship Specialty Start Date End Date Huong David MD [address] [place] [address] PCP - General Family Medicine 02/22/12 John Salgado, DelmiD [address] [place] [address] Pharmacist Internal Medicine 01/16/23
--- OUTSIDE RECORDS SUMMARY | 2024-06-16 13:14 | XMS_ITS | Encounter Summary ---
Author Organization [employer] Address [address] [facility] 7t [place] [address] Care Team Providers Care Quantitative Developer Name Role Phone Huong David MD Primary Care Provider [phone] John Salgado PharmD Unavailable [phone] Encounter Details Date Type Department Care Team (Late st Contact Info) Description 09/29/2022 Abstract [facility] [address] [place] [address] [phone] Huong David MD [address] [place] [address] [phone] Social History Tobacco Use Types Packs/Day Years [...] Description 07/08/2024 2:15 PM EDT Office Visit [facility] [address] [place] [address] [phone] Huong David MD [address] [place] [address] [phone] documented as of this encounter Procedures Procedure Name Priority Date/Time Associated Diagnosis Comments HM COLONOSCOPY Routine 04/01/2013 documented in this encounter Results * Colonoscopy (04/01/2013) Colonoscopy Normal Normal [place] [facility] Pcp HEALTH MAINTENANCE Edited Result - Final documented in this encounter Visit Diagnoses Not on filedocumented in this encounter Additional Health Concerns Assessment Noted Time PHQ-9 Depression Total Score: 0 04/11/19 23 1:19 PM EST documented as of this encounter Care Teams Quantitative Developer Relationship Specialty Start Date End Date Huong David MD [address] [place] [address] PCP - General Family Medicine 02/22/12 John Salgado, DelmiD [address] [place] [address] Pharmacist Internal Medicine 01/16/23 documented as of this encounter
--- OUTSIDE RECORDS SUMMARY | 2024-06-16 13:14 | XMS_ITS | Encounter Summary ---
Author Organization [employer] Address [address] [facility] 7t [place] [address] Care Team Providers Care Professor Of Criminal Justice Name Role Phone Huong David MD Primary Care Provider [phone] John Salgado PharmD Unavailable [phone] Encounter Details Date Type Department Care Team (Late st Contact Info) Description 10/06/2022 Orders Only [facility] [address] [place] [address] [phone] Huong David MD [address] [place] [address] [phone] Hypokalemia (Primary Dx) Social History Tobacco Use [...] 2:15 PM EDT Office Visit [facility] [address] [place] [address] [phone] Huong David MD [address] [place] [address] [phone] Scheduled Orders Name Type Priority Associated Diagnoses [...] documented as of this encounter Care Teams Professor Of Criminal Justice Relationship Specialty Start Date End Date Huong David MD [address] [place] [address] PCP - General Family Medicine 02/22/12 John Salgado, DelmiD [address] [place] [address] Pharmacist Internal Medicine 01/16/23 documented as of this encounter
--- OUTSIDE RECORDS SUMMARY | 2024-06-16 13:14 | XMS_ITS | Encounter Summary ---
Author Organization [employer] Address [address] [facility] [address] 7t [place] [address] Care Team Providers Care Corporate Recruiter Name Role Phone Huong David MD Primary Care Provider [phone] John Salgado PharmD Unavailable [phone] Encounter Details Date Type Department Care Team (Late st Contact Info) Description 04/04/2024 Abstract [facility]INE [address] [place], [place] [phone] Amaya Bhatia [place] Social History Tobacco Use [...] Visit [facility] [address] [place] [address] Huong David MD [address] [place] [phone] documented as of this encounter Goals Goal [...] documented as of this encounter Care Teams Corporate Recruiter Relationship Specialty Start Date End Date Huong David MD [address] [place] [address] [phone] PCP - General Family Medicine 02/22/12 John Salgado, Vikki [address] [place] [address] Pharmacist Internal Medicine 01/16/23 documented as of this encounter
--- OUTSIDE RECORDS SUMMARY | 2024-06-16 13:14 | XMS_ITS | Encounter Summary ---
Author Organization [employer] Address [address] [facility] [address] 7[address] [place] [address] Care Team Providers Care Art Coordinator Name Role Phone Huong David MD Primary Care Provider [phone] John Salgado PharmD Unavailable [phone] Encounter Details Date Type Department Care Team (Late st Contact Info) Description 03/28/2024 Orders Only [facility] MEDICINE [address] [place], [place] [phone] Huong David MD [address] [place], [place] [phone] Social History Tobacco Use Types Packs/Day Years [...] 2:15 PM EDT Office Visit [facility] MEDICINE [address] [place] [phone] Huong David MD [address] [place] [phone] documented as of this encounter Goals Goal [...] documented as of this encounter Care Teams Art Coordinator Relationship Specialty Start Date End Date Huong David MD [address] [place] [phone] PCP - General Family Medicine 02/22/12 John Salgado, PharmD [address] [place] [address] Pharmacist Internal Medicine 01/16/23 documented as of this encounter
--- OUTSIDE RECORDS SUMMARY | 2024-06-16 13:14 | XMS_ITS | Encounter Summary ---
Author Organization [employer] Address [address] [facility] 7t [place] [address] Care Team Providers Care Process Control Tech Name Role Phone Huong David MD Primary Care Provider [phone] John Salgado PharmD Unavailable [phone] Reason for Visit * Reason Comments Med Refill Encounter Details Date Type Department Care Team (Late st Contact Info) Description 09/13/2022 Refill [facility]INE [address] [place], [place] [phone] Name, MD Jemal [address] [place] [address] [phone] Social History Tobacco Use Types Packs/Day Years [...] Description 07/08/2024 2:15 PM EDT Office Visit [facility] [address] [place], [place] [phone] Huong David MD [address] [place] [address] [phone] documented as of this encounter Visit Diagnoses Not on filedocumented in this encounter Additional Health Concerns Assessment Noted Time PHQ-9 Depression Total Score: 0 04/11/19 23 1:19 PM EST documented as of this encounter Care Teams Process Control Tech Relationship Specialty Start Date End Date Huong David MD [address] [place] [address] PCP - General Family Medicine 02/22/12 John Salgado, DelmiD [address] [place] [address] Pharmacist Internal Medicine 01/16/23 documented as of this encounter
== END 2024-06-16 11:04 | disposition home or self-care (01) ==
LOC: HO.US 11:03
PROVIDERS: PCP Family Medicine; Visit Provider Obstetrics & Gynecology
DX: N95.0 Postmenopausal bleeding (principal)
CPT/HCPCS: 76830; 76856

== ENCOUNTER → 2024-06-16 11:05 | Outpatient (BNV) | payer MEDICAID, SELFPAY | PROVIDERS: PCP Family Medicine; Visit Provider Radiology Diagnostic Radiology | DX: N95.0 Postmenopausal bleeding (principal); D25.9 Leiomyoma of uterus, unspecified | CPT/HCPCS: 76830; 76856; 93975 ==

== ENCOUNTER 2024-07-14 12:18 | Outpatient (REF) | payer MEDICAID, SELFPAY ==
--- OUTSIDE RECORDS SUMMARY | 2024-07-14 13:46 | XMS_ITS | Encounter Summary ---
Author Organization [employer] Address [address] [facility] [address] [place] [address] Care Team Providers Care Risk Specialist Name Role Phone Huong David MD Primary Care Provider John Salgado PharmD Unavailable [phone] Reason for Visit * Reason Comments Med Refill Encounter Details Date Type Department Care Team ([facility] st Contact Info) Description 07/11/2024 Refill [facility] [address] [place], [place] [phone] Huong David MD [address] [place], [place] [phone] Social History Tobacco Use Types Packs/Day Years Used Date Smoking Tobacco: Never Passive Smoke Exposure: Never Smokeless Tobacco: Never Alcohol Answer Date Recorded Frequency of Alcohol Consumption Not on file 12/17/2023 Average Number of Drinks Not on file 024 Frequency of Binge Drinking Not on file 09/2023 Score 0 12/17/2023 Depression Answer Date Recorded Patient Health Questionnaire-9 Score 1 07/08/2024 Patient Health Questionnaire-9 Score 1 07/08/2024 Last PHQ-9: Questionnaire Data Not on file 0 07/08/2024 Housing Stability Answer Date Recorded What is your housing situation today? I have claire tu 05/21/[address] you li [...] Date Recorded Patient Health Questionnaire-2 Score 0 07/08/2024 Internet Access Answer Date Recorded Internet Access [...] on file documented as of this encounter Goals Goal Patient Goal Type Associated Problems Recent Progress Patient-Stated? Author Blood Pressure < 150/90 Blood Pressure 124/82(2024 2:09 PM EDT) No John Salgado PharmD Note: Per JNC-8, Age 60+ without history of CKD or DM documented as of this encounter Visit Diagnoses Not on filedocumented in this encounter Additional Health Concerns Assessment Noted Time PHQ-9 Depression Total Score: 1 07/09/19 25 3:36 PM EDT documented as of this encounter Care Teams Risk Specialist Relationship Specialty Start Date End Date Huong David MD [address] [place] [address] PCP - General Family Medicine 02/22/12 John Salgado, Vikki [address] [place] [address] Pharmacist Internal Medicine 01/16/23 documented as of this encounter
--- OUTSIDE RECORDS SUMMARY | 2024-07-14 13:46 | XMS_ITS | Encounter Summary ---
Author Organization [employer] Address [address] [facility] [address] [place] [address] Care Team Providers Care Corncob Pipe Supervisor Name Role Phone Huong David MD Primary Care Provider [phone] John Salgado PharmD Unavailable [phone] Encounter Details Date Type Department Care Team (Late st Contact Info) Description 03/28/2024 Orders Only [facility] MED[facility]INE [address] [place], [place] [phone] Huong David MD [address] [place], [place] [phone] Social History Tobacco Use Types Packs/Day Years [...] Pressure 124/82(2024 2:09 PM EDT) No John Salgado, Vikki Note: Per JNC-8, Age 60+ without history of CKD or DM documented as of this encounter Visit Diagnoses Not on filedocumented in this encounter Additional Health Concerns Assessment Noted Time PHQ-9 Depression Total Score: 0 05/21/19 24 3:22 PM EDT documented as of this encounter Care Teams Corncob Pipe Supervisor Relationship Specialty Start Date End Date Huong David MD [address] [place] [address] PCP - General Family Medicine 02/22/12 John Salgado, DelmiD [address] [place] [address] Pharmacist Internal Medicine 01/16/23 documented as of this encounter
--- OUTSIDE RECORDS SUMMARY | 2024-07-14 13:46 | XMS_ITS | Encounter Summary ---
Author Organization [employer] Address [address] [facility] 7t [place] [address] Care Team Providers Care Currency Counter Name Role Phone Huong David MD Primary Care Provider [phone] John Salgado PharmD Unavailable [phone] Encounter Details Date Type Department Care Team (Late st Contact Info) Description 09/29/2022 Abstract [facility] [address] [place], [place] [phone] Huong David MD [address] [place], [place] [phone] Social History Tobacco Use Types Packs/Day Years [...] on file documented as of this encounter Procedures Procedure Name Priority Date/Time Associated Diagnosis Comments COLONOSCOPY Routine 04/01/2013 documented in this encounter Results * Colonoscopy (04/01/2013) Colonoscopy Normal Normal [facility] HEALTH MAINTENANCE Edited Result - Final documented in this encounter Visit Diagnoses Not on filedocumented in this encounter Additional Health Concerns Assessment Noted Time PHQ-9 Depression Total Score: 0 04/11/19 1:19 PM EST documented as of this encounter Care Teams Currency Counter Relationship Specialty Start Date End Date Huong David MD [address] [place] [phone] PCP - General Family Medicine 02/22/12 John Salgado, Vikki [address] [place] [address] Pharmacist Internal Medicine 01/16/23 documented as of this encounter
--- OUTSIDE RECORDS SUMMARY | 2024-07-14 13:46 | XMS_ITS | Clinical Summary ---
Author Organization [employer] Address [address] [place] [address] Care Team Providers Care Renewable Energy Consultant Name Role Phone Huong David MD Primary Care Provider [phone] John Salgado PharmD Unavailable [phone] Allergies No known active allergies Medications alendronate (Fosamax) 70 MG tablet take 1 tablet once a week with 6 to 8 oz of water 30 min before first food of day. do not lie down for 30 minutes 12/20/19 23 Active ibuprofen 600 MG tablet TAKE 1 TABLET BY MOUTH THREE TIMES DAILY 09/14/19 23 Active famotidine (Pepcid) 40 MG tabletIndicat ions:Heartbur n TAKE 1 TABLET BY MOUTH AT BEDTIME 90 tablet 3 09/19/19 24 Active Advair Diskus 500-50 MCG/ACT aerosol powder INHALE 1 PUFF BY MOUTH TWICE DAILY IN THE MORNING AND IN THE EVENING, APPROXIMATELY 12 HOURS APART RINSE MOUTH AFTER USING. 60 each 3 09/19/19 24 Active montelukast (Singulair) 10 MG tablet TAKE 1 TABLET BY MOUTH EVERY EVENING 90 tablet 3 09/19/19 24 Active levothyroxine (Synthroid, Levoxyl) 75 MCG tablet TAKE 1 TABLET BY MOUTH EVERY DAY 90 tablet 3 09/19/19 24 Active EPINEPHrine (Epipen) 0.3 MG/0.3ML injection syringe Inject 0.3 mL (0.3 mg) as directed 1 (one) time for 1 dose. use as directed for allergic reaction and then call 911 1 each 3 12/17/19 24 Active diphenhydrAMI NE (BENADryl) 25 MG tabletIndicat ions:Allergic reaction, subsequent encounter Take 1 tablet (25 mg) by mouth if needed each day for itching. 10 tablet 02/05/20 24 Active Melatonin (VitaJoy Gummies) 2.5 MG chewable tablet CHEW 1 GUMMY BY MOUTH 2 TO 3 HOURS BEFORE BEDTIME 90 tablet 3 03/11/20 24 Active fluticasone (Flonase) 50 MCG/ACT nasal spray INSTILL 1-2 SPRAYS IN EACH NOSTRIL ONCE DAILY 48 g 06/20/19 25 Active metroNIDAZOLE (Metrogel) 0.75 % gel Apply and rub a thin film twice daily, morning and evening, to entire affected areas after washing 45 g 2 07/09/19 25 Active olmesartan (Benicar) 40 MG tablet Take 1 tablet (40 mg) by mouth Once per day. 90 tablet 3 07/09/19 25 2025 Active albuterol (Ventolin HFA) 108 (90 Base) MCG/ACT inhaler INHALE 2 PUFFS BY MOUTH EVERY 4 TO 6 HOURS NEEDED FOR DIFFICULTY BREATHING UP TO FOUR TIMES DAILY. 18 g 3 07/12/19 25 Active omeprazole (PriLOSEC) [address] capsuleIndica tions:Heartbu rn Take 1 capsule (20 mg) by mouth before breakfast. Do not crush or chew. 90 capsule 3 07/14/19 25 Active omeprazole (PriLOSEC) [address] capsuleIndica tions:Heartbu rn TAKE 1 CAPSULE BY MOUTH EVERY DAY BEFORE BREAKFAST DO NOT BREAK, CRUSH, DISSOLVE OR CHEW 90 capsule 3 09/19/19 24 2024 Discontinued(R eorder (will not trigger notification to Pharmacy)) albuterol (Ventolin HFA) 108 (90 Base) MCG/ACT inhaler INHALE 2 PUFFS BY MOUTH EVERY 4 TO 6 HOURS NEEDED FOR DIFFICULTY BREATHING, FOUR TIMES DAILY 18 g 3 09/19/19 24 2024 Discontinued lisinopril 40 MG tablet TAKE 1 TABLET BY MOUTH EVERY DAY 90 tablet 3 09/19/19 24 2024 Discontinued fluticasone (Flonase) 50 MCG/ACT nasal spray Administer 1-2 sprays into each nostril Once per day. Shake gently. Before first use, prime pump. After use, clean tip and replace cap. 16 g 2 03/28/19 25 2024 Discontinued Active Problems Problem Noted Date Diagnosed Date Rosacea 07/08/2024 Assessment & Plan (07/08/2024 3:17 PM EDT): - Presumptive diagnosis at this time - Will try metronidazole gel 07/08/24 Constipation 03/25/2024 Assessment & Plan (03/31/2024 5:22 [...] and Jan 2024 She was referred to reporting specialist in the walk-in clinic in Jan [address] Jean [facility] pulmonology if she is interested in allergy [...] prescribe Epi-pen Prediabetes 06/03/2023 Assessment & Plan (07/13/2024 5:36 PM EDT): - due to chronic prednisone treatment for ILD - now off, but episodic use - highest A1C 6.1% in Oct 2022 - most recent A1C 5.7% in Jan 2024 Assessment & Plan (06/03/2023 6:57 PM EDT): - due to chronic prednisone treatment for ILD - no off - highest A1C 6.1% in Oct 2022 - most recent A1C 5.7% in Jan 2023 Chronic endometritis 01/19/2023 Assessment & Plan (12/24/2023 5:54 AM EDT): - following with [facility] CARDIAC CATH TECHNOLOGIST - last EMBx in August 2023 - no sign of malignancy Assessment & Plan (06/03/2023 6:49 PM EDT): - following with [facility] CARDIAC CATH TECHNOLOGIST - last EMBx in Nov 2022 - no sign of malignancy Assessment & Plan (01/19/2023 6:00 AM EST): - following with [facility] CARDIAC CATH TECHNOLOGIST - last EMBx in Nov 2022 - no sign of malignancy Chronic left shoulder pain 01/19/2023 Assessment & Plan (01/19/2023 6:08 AM EST): - X-ray was normal and pt received steroid injection from tool design checker in Dec 2022 - no pain at [...] Interstitial lung disease 10/05/2022 Assessment & Plan (07/08/2024 3:04 PM EDT): - following with [facility] pulmonology - status post 3 mo of prednisone treatment - CT showed improvement in July 2022 and near resolution in Nov 2022 - currently monitoring symptoms and with periodic imaging Assessment & Plan (03/26/2024 1:12 PM EST): - following with [facility] pulmonology - status post 3 mo of prednisone treatment - CT showed improvement in July 2022 and near resolution in Nov 2022 - currently monitoring symptoms and with periodic imaging Assessment & Plan (12/21/2023 4:33 PM EDT): - following with [facility] pulmonology - status post 3 mo of prednisone treatment - CT showed improvement in July 2022 and near resolution in Nov 2022 - currently monitoring symptoms and with periodic imaging Assessment & Plan (06/03/2023 6:45 PM EDT): - following with [facility] pulmonology - status post 3 mo of prednisone treatment - CT showed improvement in July 2022 and near resolution in Nov 2022 - currently monitoring symptoms and with periodic imaging Assessment & Plan (01/19/2023 5:56 AM EST): - following with [facility] pulmonology - status post 3 mo of prednisone treatment - CT showed improvement in July 2022 and near resolution in Nov 2022 - currently monitoring symptoms and with periodic imaging Assessment & Plan (10/09/2022 9:00 AM EDT): - following with [facility] pulmonology - currently taking prednisone 50 mg daily with a plan for slow tapering - CT on 08/01/22 showed improvement - continue current treatment plan and follow up with air conditioning service technician Elevated erythrocyte sedimentation rate 07/12/19 Assessment & [...] 04/11/2022 Overview (01/15/2023): Last Assessment & Plan: -Street Supervisor recommended repeat pelvic ultrasound, further evaluation and recommendation Hysteroscopy for endocervical polyp. Patient was reassured that the fibroids typically decrease in size and resolve in menopause. -Recommended removal of polyps. -Scheduled for hysteroscopy with it security project manager Assessment & Plan (07/11/2022 11:13 AM EDT): - 05/19/22 Hysteroscopy, D&C, polypectomy - benign polyp Assessment & Plan (04/22/2022 5:10 AM EST): -Street Supervisor recommended repeat pelvic ultrasound, further evaluation and recommendation Hysteroscopy for endocervical polyp. Patient was reassured that the fibroids typically decrease in size and resolve in menopause. -Recommended removal of polyps. -Scheduled for hysteroscopy with it security project manager Degeneration of cervical intervertebral disc Rheumatoid arthritis 03/20/2022 Overview (01/15/2023): Last Assessment & Plan: -Seropositive rheumatoid arthritis -Dx September 2019 -03/20/22 ESR 41 -following with [facility] rheumatology providers, last seen in Oct 2020, q6m visit -pt does not need any mediation at this time because her symtoms are very mild -continue periodic appt, every 6 mo, which is overdue. 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 -Dx September 2019 -following with [facility] rheumatology providers, last seen in Dec 2023 -previously prescribed hydroxychloroquine by tool design checker when she developed ILD and uveitis, with elevated ESR/CRP in [id number] -s/p prednisone treatment x 3 mo, which was prescribed by air conditioning service technician for ILD in 2022 -elevated ESR/CRP and evaluated for other rheumatological / autoimmune / connective tissue disorder, including vasculitis. Vasculitis work-up was negative. Current Dx interstitial lung disease -currently monitoring without DMARDs -discussed about DMARD and recommended to have another discussion with Dr. 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 -Dx September 2019 -following with [facility] rheumatology providers, last seen in Dec 2023 -previously prescribed hydroxychloroquine by tool design checker when she developed ILD and uveitis, with elevated ESR/CRP in [id number] -s/p prednisone treatment x 3 mo, which was prescribed by air conditioning service technician for ILD in 2022 -elevated ESR/CRP and [...] CCP. -Dx September 2019 -following with [facility] rheumatology providers, last seen in September 2023 -previously prescribed hydroxychloroquine by tool design checker when she developed ILD and uveitis, with elevated ESR/CRP in [id number] -s/p prednisone treatment x 3 mo, which was prescribed by air conditioning service technician for ILD in 2022 -elevated ESR/CRP and evaluated for other rheumatological / autoimmune / connective tissue disorder, including vasculitis. Vasculitis work-up was negative. Current Dx interstitial lung disease -currently monitoring without DMARDs Assessment & Plan (06/03/2023 6:53 PM EDT): -Seropositive rheumatoid arthritis (RF and CCP) -Dx September 2019 -following with [facility] rheumatology providers, last seen in Apr 2023 -previously prescribed hydroxychloroquine by tool design checker when she developed ILD and uveitis, with elevated ESR/CRP -s/p prednisone treatment x 3 mo, which was prescribed by air conditioning service technician for ILD -elevated ESR/CRP and evaluated for other rheumatological / autoimmune / connective tissue disorder, including vasculitis. Vasculitis work-up was negative. Current Dx interstitial lung disease -follow up as scheduled Assessment & Plan (01/19/2023 6:03 AM EST): -Seropositive rheumatoid arthritis (RF and CCP) -Dx September 2019 -following with [facility] rheumatology providers, last seen in 2022 -currently prescribed hydroxychloroquine by tool design checker -s/p prednisone treatment x 3 mo, which was prescribed by air conditioning service technician for ILD -elevated ESR/CRP and evaluated for other rheumatological / autoimmune / connective tissue disorder, including vasculitis. Vasculitis work-up was negative. Current Dx interstitial lung disease -follow up as scheduled Assessment & Plan (10/09/2022 9:05 AM EDT): -Seropositive rheumatoid arthritis -Dx September 2019 -following with [facility] rheumatology providers, last seen in 2022 -currently prescribed hydroxychloroquine by tool design checker -currently prescribed prednisone by air conditioning service technician for ILD -elevated ESR/CRP and evaluated for other rheumatological / autoimmune / connective tissue disorder, including vasculitis. Current Dx interstitial lung disease -follow up as scheduled Assessment & Plan (07/11/2022 11:17 AM EDT): -Seropositive rheumatoid arthritis -Dx September 2019 -03/20/22 ESR 41 -following with [facility] rheumatology providers, last seen in June 2022 -now being evaluated for other rheumatological / autoimmune / connective tissue disorder, including vaculitis -follow up as scheduled Assessment & Plan (04/22/2022 5:13 AM EST): -Seropositive rheumatoid arthritis -Dx September 2019 -03/20/22 ESR 41 -following with [facility] rheumatology providers, last seen in Oct 2020, q6m visit -pt does not need any mediation at this time because her symtoms are very mild -continue periodic appt, every 6 mo, which is overdue. Recommended to call to reschedule appt Assessment & Plan (03/20/2022 8:25 AM EST): -Seropositive rheumatoid arthritis -following with [facility] rheumatology providers, last seen in Oct 2020, q6m visit -pt does not need any mediation at this time because her symtoms are very mild -continue periodic appt -Follow up every 6 months History of renal calculi 03/20/2022 Allergic asthma 10/22/2018 Overview (01/15/2023): Last Assessment & Plan: -Most recent exacerbation in February 2019, hospitalized at [facility] -COVID19 clinical Dx in June 2019 (household member was positive) - did not test at that time due to strict Dx criteria at that time -Frequency of exacerbation, requiring systemic steroid 8 x /year, 2 hospitalizations in 2019, less frequent recently -No Hx of intubation -Followed by both air conditioning service technician and ENT -Continue Advair as maintenance -Continue Singulair as maintenance -Continue albuterol as rescue -Discussed about the importance of medication adherence and avoidance of 2nd hand smoke / exposure -Use unscented and hypoallergenic products Assessment & Plan (07/08/2024 3:14 PM EDT): -Exacerbation in February 2019, hospitalized at [facility] -Mild exacerbation in May 2024, treated as outpatient with prednisone by air conditioning service technician -Frequency of exacerbation, requiring systemic steroid 8 x /year, 2 hospitalizations in 2018, less frequent recently -No Hx of intubation -Followed by both air conditioning service technician -Previously seeing ENT -Continue Advair as maintenance -Continue Singulair as maintenance -Continue albuterol as rescue -Discussed about the importance of medication adherence and avoidance of 2nd hand smoke / exposure -Use unscented and hypoallergenic products Assessment & Plan (03/31/2024 5:17 PM EST): -Exacerbation in February 2019, hospitalized at [facility] -Mild exacerbation in June 2023, treated as outpatient with azithromycin and prednisone by air conditioning service technician -Frequency of exacerbation, requiring systemic steroid 8 x /year, 2 hospitalizations in 2018, less frequent recently -No Hx of intubation -Followed by both air conditioning service technician -Previously seeing ENT -Continue Advair as maintenance -Continue Singulair as maintenance -Continue albuterol as rescue -Discussed about the importance of medication adherence and avoidance of 2nd hand smoke / exposure -Use unscented and hypoallergenic products Assessment & Plan (12/24/2023 5:52 AM EDT): -Exacerbation in February 2019, hospitalized at [facility] -Mild exacerbation in June 2023, treated as outpatient with azithromycin and prednisone by air conditioning service technician -Frequency of exacerbation, requiring systemic steroid 8 x /year, 2 hospitalizations in 2018, less frequent recently -No Hx of intubation -Followed by both air conditioning service technician and ENT -Continue Advair as maintenance -Continue Singulair as maintenance -Continue albuterol as rescue -Discussed about the importance of medication adherence and avoidance of 2nd hand smoke / exposure -Use unscented and hypoallergenic products Assessment & Plan (06/03/2023 6:45 PM EDT): -Most recent exacerbation in February 2019, hospitalized at [place] [address] clinical Dx in June 2019 (household member was positive) - did not test at that time due to strict Dx criteria at that time -Frequency of exacerbation, requiring systemic steroid 8 x /year, 2 hospitalizations in 2018, less frequent recently -No Hx of intubation -Followed by both air conditioning service technician and ENT -Continue Advair as maintenance -Continue Singulair as maintenance -Continue albuterol as rescue -Discussed about the importance of medication adherence and avoidance of 2nd hand smoke / exposure -Use unscented and hypoallergenic products Assessment & Plan (01/19/2023 5:57 AM EST): -Most recent exacerbation in February 2019, hospitalized at [place] [address] clinical Dx in June 2019 (household member was positive) - did not test at that time due to strict Dx criteria at that time -Frequency of exacerbation, requiring systemic steroid 8 x /year, 2 hospitalizations in 2019, less frequent recently -No Hx of intubation -Followed by both air conditioning service technician and ENT -Continue Advair as maintenance -Continue Singulair as maintenance -Continue albuterol as rescue -Discussed about the importance of medication adherence and avoidance of 2nd hand smoke / exposure -Use unscented and hypoallergenic products Assessment & Plan (10/09/2022 9:01 AM EDT): -Most recent exacerbation in February 2019, hospitalized at [place] [address] clinical Dx in June 2019 (household member was positive) - did not test at that time due to strict Dx criteria at that time -Frequency of exacerbation, requiring systemic steroid 8 x /year, 2 hospitalizations in 2019, less frequent recently -No Hx of intubation -Followed by both air conditioning service technician -Continue Advair as maintenance -Continue Singulair as maintenance -Continue albuterol as rescue -Discussed about the importance of medication adherence and avoidance of 2nd hand smoke / exposure -Use unscented and hypoallergenic products Assessment & Plan (07/11/2022 11:12 AM EDT): -Most recent exacerbation in February 2019, hospitalized at [place] [address] clinical Dx in June 2019 (household member was positive) - did not test at that time due to strict Dx criteria at that time -Frequency of exacerbation, requiring systemic steroid 8 x /year, 2 hospitalizations in 2018, less frequent recently -No Hx of intubation -Followed by both air conditioning service technician and ENT -Continue Advair as maintenance -Continue Singulair as maintenance -Continue albuterol as rescue -Discussed about the importance of medication adherence and avoidance of 2nd hand smoke / exposure -Use unscented and hypoallergenic products Assessment & Plan (04/11/2022 1:14 PM EST): -Most recent exacerbation in February 2019, hospitalized at [place] [address] clinical Dx in June 2019 (household member was positive) - did not test at that time due to strict Dx criteria at that time -Frequency of exacerbation, requiring systemic steroid 8 x /year, 2 hospitalizations in 2019, less frequent recently -No Hx of intubation -Followed by both air conditioning service technician and ENT -Continue Advair as maintenance -Continue Singulair as maintenance -Continue albuterol as rescue -Discussed about the importance of medication adherence and avoidance of 2nd hand smoke / exposure -Use unscented and hypoallergenic products Assessment & Plan (03/20/2022 8:26 AM EST): -Most recent exacerbation in February 2019, hospitalized at [place] [address] clinical Dx in June 2019 (household member was positive) - did not test at that time due to strict Dx criteria at that time -Frequency of exacerbation, requiring systemic steroid 8 x /year, 2 hospitalizations in 2019, less frequent recently -No Hx of intubation -Followed by both air conditioning service technician and ENT -Continue Advair as maintenance -Continue [...] (04/22/2022 5:16 AM EST): ENT Dr. Abdi. s/harlan Sinus surgery in 2013. Assessment & Plan (03/20/2022 8:27 AM EST): ENT Dr. Abdi. s/harlan Sinus surgery in 2013. Recently seen again [...] Gastroesophageal reflux disease 02/18/2015 Assessment & Plan (07/13/2024 5:38 PM EDT): - previously prescribed famotidine and omeprazole - s/p EGD in June 2024. No significant abnormality. Continue omeprazole. 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 -Most recent TSH 3.04 on 03/20/22. -Continue current treatment plan. Assessment & Plan (07/13/2024 5:37 PM EDT): -Current replacement: levothyroxine 75 mcg daily -History of elevated thyroid peroxidase antibody, Nino's thyroiditis. -Most recent TSH therapeutic in Dec 2023 -Most recent thyroid US in June 2022 [...] Assessment & Plan (04/22/2022 5:09 AM EST): -Street Supervisor recommended repeat pelvic ultrasound, further evaluation and [...] 05/02/2012 Overview (01/15/2023): Last Assessment & Plan: -S provider: [facility] -Current medication: escitalopram 10 mg daily; doxepin 10 mg qhs Assessment & Plan (12/21/2023 4:35 PM EDT): -S provider: [facility] -Current medication: escitalopram 10 mg daily; doxepin 10 mg qhs Assessment & Plan (04/22/2022 5:17 AM EST): -S provider: [facility] -Current medication: escitalopram 10 mg daily; doxepin 10 mg qhs Assessment & Plan (03/20/2022 8:29 AM EST): -[facility] provider: Kylah -Current medication: escitalopram 10 mg daily; doxepin 10 mg qhs Allergic rhinitis 05/02/2012 Assessment & Plan (07/08/2024 3:05 PM EDT): -ENT: Dr. Abdi, Safely discharged due to her improvement -s/p nasal polypectomy in 2013 -Plan to start Tx with biologics, either Nucala or Xolair -Continue Singulair, loratadine, and Xhance Assessment & Plan (03/26/2024 1:13 PM EST): [...] if any problem arises Assessment & Plan (07/08/2024 3:16 PM EDT): -Goal BP < 150/90 per JNC-8, < 130/80 per ACC/AHA guideline -Previously had frequent asthma exacerbation and prednisone use -EKG no ischemic change in Apr 2018 -Co-managed with our pharmacist, John Salgado [facility], Pharm D, through [facility] -Elevated in our clinic, likely white-coat hypertension as her home blood pressure measurements are reportedly normal -Continue working on lifestyle modifications. -Continue monitoring home BP. -Change lisinopril 40 mg daily to olmesartan 40 mg daily due to possible reaction to lisinopril 07/08/24 -Treatment Hx: Previously prescribed hydrochlorothiazide 12.5 mg daily, which was discontinued due to hypokalemia. Assessment & Plan (03/26/2024 1:12 PM EST): [...] -Will request 24 hour bp monitoring with image assembler Assessment & Plan (01/19/2023 5:59 AM EST): [...] not using excessively Cellulitis of face 06/02/2022 Overview (01/15/2023): Last Assessment & Plan: Treating [...] Encounters Date Type Department Care Team Description 07/11/2024 [facility] [address] [place] [id number] Huong David MD 07/08/2024 2:15 PM EDT Office Visit [facility] [address] [place] [address] Huong David MD Primary hypertension (Primary Dx); Interstitial lung disease ([facility]/HCC); 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; 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; Prediabetes; Allergic rhinitis, unspecified seasonality, unspecified trigger; Rheumatoid arthritis with positive rheumatoid factor, involving unspecified site ([facility]/HCC); Rosacea; Gastroesophageal reflux disease, unspecified whether esophagitis present; Dietary counseling; Exercise counseling; Class 1 obesity due to excess calories with serious comorbidity and body mass index (BMI) of 30.0 to 30.9 in adult; Heartburn 07/08/2024 Travel 07/07/2024 Telephone [facility] [address] [place] [address] Huong David MD chart prep 06/19/2024 Refill [facility] [address] [place] [address] Huong David MD 06/16/2024 Orders Only [facility] External Provider, [facility] 05/23/2024 Population Health Risk Score [facility] () Department [address] [place] [address] [phone] Provider, Population Health Generic 05/16/2024 Orders Only GENERIC EXTERNAL DATA DEPARTMENT Provider, Generic External Data from Last 3 Months Immunizations Name Administration [...] Sign Reading Time Taken Comments Blood Pressure 124/82 07/08/2024 2:09 PM EDT Pulse 72 07/08/2024 2:09 PM EDT Temperature 36.3 ??C (97.4 ??F) 07/08/2024 2:09 PM ED T Respiratory Rate 17 07/08/2024 2:09 PM EDT Oxygen Saturation 97% 03/25/2024 1:19 PM EST Inhaled Oxygen Concentration - - Weight 84 kg (185 lb 3.2 oz) 07/08/2024 2:09 PM EDT Height 166.4 cm (5' 5.5 ) 07/08/2024 2:09 PM EDT Body Mass Index 30.35 07/08/2024 2:09 PM EDT Plan of Treatment Health Maintenance Due Date Last Done Comments CT Colonography 1965 FIT DNA/Cologuard 1965 FIT 1965 FOBT 1965 HIV Screening 1965 Sigmoidoscopy 1965 RSV Patients and Patients Aged 60 years or older (1 - Risk 60-74 years 1-dose series) 2023 COVID-19 Vaccine ( season) 2023 04/12/2021 Alcohol/Substance Use Screening 12/16/2024 12/17/2023 Diabetes: Hemoglobin A1C 12/18/2024 024, 01/18/2023, 10/05/2022, Additional history exists Depression Screening 07/08/2025 07/08/2024, 07/09/19 25 SDOH Screening 07/08/2025 07/08/2024 Mammogram 07/11/2025 07/12/2023, 06/11, 07/06/2022, Additional history exists Tobacco Screening 07/13/2025 07/13/2024 Lipid Panel 12/18/2028 12/19/2023, 01/10, 03/20/2022, Additional [...] 150/90 Blood Pressure 124/82(2024 2:09 PM EDT) John Spear, PharmD Note: Per JNC-8, Age 60+ without history of CKD or DM Procedures Procedure Name Priority Date/Time Associated Diagnosis Comments US PELVIS TRANSVAGINAL Routine 06/17/2024 11:11 AM EDT AMB REFERRAL TO ALLERGY Routine 06/02/2024 Allergic [...] Recently Relevant to Health Maintenance Results * US Pelvis Transvaginal (06/17/2024 11:11 AM EDT) Anatomical Region Laterality Modality Pelvis Ultrasound 06/17/2024 11:1 1 AM EDT Narrative 06/17/2024 11:13 AM EDT ? [facility] ?[address] ?[place] [address] ? Ultrasound Report ? Signed ? Patient: Dominguez,Ilene ?MR#: [id number] ?? 5 ? : 1965 ?Acct:[id number] ? Age/Sex: 59 / F ?ADM Date: 04/07/25 ? Loc: HO.US ? Attending Dr: Joel Flores MD ? Ordering Physician: Joel Flores MD ?? Date of Service: 06/16/24 ?? Procedure(s): US pelvic and transvaginal ?? Accession Number(s): [id number] ? cc: Huong David MD; Joel Flores MD ? CLINICAL HISTORY: N95.0 - Postmenopausal bleeding ? US pelvis transabdominal and transvaginal with color Doppler ? Comparison: US/SR - US PELVIC AND TRANSVAGINAL - 10/08/23 14:45 EDT ?? US/NH/SR - US PELVIC AND TRANSVAGINAL - 04/17/22 14:00 EST ? Findings: ?? Transabdominal scanning performed for overall anatomy. Transvaginal ?? scanning performed for additional detail. ? LMP: Postmenopausal ? Retroverted uterus, heterogeneous echotexture measuring 6.3 x 3.6 x 6.7 cm ?? previously measuring 6.7 x 3.8 x 6.2 cm. Incidental nabothian cysts ?? Well defined endometrium, measuring 4.0 mm in thickness. The horizontal ?? and vertical limbs of the IUD are well postioned within the endometrial ?? cavity. Minimal fluid in the endometrial cavity. ? Uterine fibroids as follows: ? Anterior fundal subserosal 3.5 x 2.9 x 2.9 cm previously 3.7 x 3.4 x 2.7 ?? cm ?? Anterior fundal intramural 1.3 x 1.3 x 1.3 cm not previously demonstrated. ?? Posterior fundal intramural 1.2 x 0.9 x 1.2 cm ? The right ovary measures, 1.3 x 0.7 x 0.8 cm. Normal sonographic ?? appearance right ovary. ?? The left ovary measures, 2.0 x 1.1 x 1.5 cm. Normal sonographic appearance ?? left ovary. ?? No adnexal masses or fluid collections. ?? No free fluid ? Impression: ?? 1. Leiomyomatous retroflexed uterus. ?? 2. The horizontal and vertical limbs of the IUD well positioned in the ?? endomertial cavity. ?? 3. Normal ovaries/adnexa. ? This document has been electronically signed by: Ozzy Lynn MD on ?? 06/17/2024 11:11:59 ? Dictated By: ?Ozzy Lynn MD ? Signed By: ?<Electronically signed by Ozzy Lynn MD in OV> ?06/17/24 1113 ? DD/ 1111 ? TD/TT: 06/17/24 1111 ? Manager Performance: ? Procedure Note Donotuseinterpreter, Image - 06/17/2024 [place] [id number] Ultrasound Report Signed Patient: Charles Dominguez#: [id number] 5 : 1965Acct:[id number] Age/Sex: 59 / FADM Date: 06/16/24 Loc: HO.US Attending Dr: Joel Flores MD Ordering Physician: Joel Flores MD Date of Service: 06/16/24 Procedure(s): US pelvic and transvaginal Accession Number(s): [id number] cc: Huong David MD; Joel Flores MD CLINICAL HISTORY: N95.0 - Postmenopausal bleeding US pelvis transabdominal and transvaginal with color Doppler Comparison: US/SR - US PELVIC AND TRANSVAGINAL - 10/08/23 14:45 EDT US/NH/SR - US PELVIC AND TRANSVAGINAL - 04/17/22 14:00 EST Findings: Transabdominal scanning performed for overall anatomy. Transvaginal scanning performed for additional detail. LMP: Postmenopausal Retroverted uterus, heterogeneous echotexture measuring 6.3 x 3.6 x 6.7 cm previously measuring 6.7 x 3.8 x 6.2 cm. Incidental nabothian cysts Well defined endometrium, measuring 4.0 mm in thickness. The horizontal and vertical limbs of the IUD are well postioned within the endometrial cavity. Minimal fluid in the endometrial cavity. Uterine fibroids as follows: Anterior fundal subserosal 3.5 x 2.9 x 2.9 cm previously 3.7 x 3.4 x 2.7 cm Anterior fundal intramural 1.3 x 1.3 x 1.3 cm not previously demonstrated. Posterior fundal intramural 1.2 x 0.9 x 1.2 cm The right ovary measures, 1.3 x 0.7 x 0.8 cm. Normal sonographic appearance right ovary. The left ovary measures, 2.0 x 1.1 x 1.5 cm. Normal sonographic appearance left ovary. No adnexal masses or fluid collections. No free fluid Impression: 1. Leiomyomatous retroflexed uterus. 2. The horizontal and vertical limbs of the IUD well positioned in the endomertial cavity. 3. Normal ovaries/adnexa. This document has been electronically signed by: Ozzy Lynn MD on 06/17/2024 11:11:59 Dictated By: Ozzy Lynn MD Signed By: <Electronically signed by Ozzy Lynn MD in OV> 06/17/24 1113 DD/ 1111 TD/TT: 06/17/24 1111 Manager Performance: [facility] External Provider IMG US PROCEDURES Final Result * Referral to Allergy (06/02/2024) Carmen Malone MD OUTPATIENT REFERRAL ORDERA BLES Final Result * HPV DNA, Low/High Risk (05/16/2024 8:57 AM EST) HPV High Risk Negative Negative [facility] HPV Genotype 16 Negative Negative [facility] HPV Genotype 18 Negative Negative [facility] Comment:HPV testing performe d at [facility] (CLIA#[id number]), [address] [place] [address].Testing for HPV was performed using the Benjamín [...] 8:57 AM EST 05/16/2024 11:39 AM EST Generic External Data Provider LAB BLOOD ORDERAB LES Final Result [facility] [address] [place] [phone] * Pap Smear (05/16/2024 8:57 AM EST) 05/16/2024 8:57 AM EST 05/16/2024 11:39 AM EST [facility] - 05/20/2024 9:43 AM EDT ----- ------- Name: Ilene Dominguez ?Age/Sex: 59/F ? : 1965 Unit#: [id number] ?? Attend Dr: Joel Flores MD ?Re05/16/24 ?Status: DEP REF ? Location: HO.LNP ?Disch: ? ----- ------- SPEC : [id number] ? RECD: 05/16/24-1138 ? STATUS: ??SOUT ? REQ NUM: [id number] ? ZE: 05/16/24-0857 ? SUBM DR: Joel Flores MD ? ENTERED: ??05/16/24-1 ?SP TYPE: Pap Smr ?OTHR DR: Huong David MD ? ORDERED: ??Pap Smear ? Interpretation ?? Satisfactory for evaluation. ?? Negative for intraepithelial lesion or malignancy. ? HPV High Risk: ??Negative ? HPV Genotyping 16: ??Negative ?? HPV Genotyping 18: ??Negative ?Clinical Information LMP:Unknown date Previous PAP test: 03/28/22, Unknown findings ? Material Received ?? ThinPrep-Cervical Copies To: ?? Huong David MD ?? [facility] ?? [address] ?? [place] [address] ?? [phone] ?? Joel Flores MD ?? [facility] ?? [address] [facility] [address] ?? [place] [address] ?? [phone] ----- ------- Signed (signature on file) ZOILA Little (ASCP) 05/20/24 0943 ? ----- ------- ? END OF REPORT ? us Generic External Data Provider LAB CYTOLOGY ORDE RABLES Final Result Performing Organization Address [facility]/State/ZIP Co de Phone Number [facility] [address] [place] [address] [phone] * Lipid Panel with Reflex to Direct LDL (12/19/2023 10:15 AM EDT) Triglycerides 56 <150 mg/dL [facility] Comment:Desirable Triglyceri de: less than 150 mg/dLBorderline High Triglyceride 150-199 mg/dLHigh Triglyceride: 200-499 mg/dLVery High Triglyceride: greater than or equal to 5OO mg/dL Cholesterol 173 <200 mg/dL [facility] Comment:Desirable Cholestero l: less than 200 mg/dLBorderline High Cholesterol: 200-239 mg/dLHigh Cholesterol: greater than 239 mg/dL LDL Cholesterol Calculated 98 <100 mg/dL [facility] Comment:Desirable LDL: less than 100 mg/dLNear Optimal/Above Optimal LDL: 110- 129 mg/dLBorderline High LDL: 130-159 mg/dLHigh LDL: 160-189 mg/dLVery High LDL: greater than or equal to 190 mg/dL HDL Cholesterol 64 >40 mg/dL [facility] Comment:Desirable HDL: great er than 40 mg/dL Note: This HDL assay may give artificially low results in patients with liver disease. Blood 12/19/2023 10:1 5 AM EDT 12/19/2023 11:31 AM EDT Huong David MD LAB BLOOD ORDERABLES Final Resul t Performing Organization Address City/[facility]/ZIP Co de Phone Number [facility] [address] [place] [address] [phone] * Hemoglobin A1c (12/19/2023 10:15 AM EDT) Hemoglobin A1c 5.7 <6.0 % [facility] Comment:Hemoglobin A1C Refer ence Range Adults: 4.8 - 6.0 % Non diabetic: < 6.0 % Goal: < 7.0 %Additional Action Suggested: > 8.0 %Note: Hemoglobin A1c results are invalid for patients with abnormal amounts of HbF. Blood transfusions may impact the HbA1c concentration in the patient sample. Estimated Average Glucose 117 mg/dL [facility] Comment:eAG = Estimated ave rage glucose which is %A1C expressed asaverage glucose, using the formula of the N4J-PnenoimPlumxuu Glucose study (ADAG), Diabetes Care, Vol.31,#8,Oct. 2007 Blood Venous blood specimen / Unknown 12/19/2023 10:15 AM EDT 12/19/2023 11:31 AM EDT Huong David MD LAB BLOOD ORDERABLES Final Resul t Performing Organization Address [facility] Co de Phone Number [facility] [address] [place] [phone] * Hm Colonoscopy (12/12/2023) Pathologist [facility] Colonoscopy Normal Normal 12/12/2023 Historical Provider HEALTH MAINTENANCE Final Result * Hepatitis Panel, General (09/24/2023 1:58 PM EDT) Pathologist [facility] Hepatitis A IgM Nonreactive Nonreactive [facility] Comment:IgM antibodies to SCOTT V not detected; does not exclude earlyacute or recovered HAV infection. ~Hepatitis B Surface Antibody NONREACTIVE Nonreactive [facility] Comment:Nonreactive: < 8.00 mIU/mL Hepatitis B Core Antibody Nonreactive Nonreactive [facility] Hepatitis C Antibody Nonreactive Nonreactive [facility] Comment:Antibodies to HCV no t detected; does not exclude early acuteHCV infection. Hepatitis B Surface Ag Negative Negative [facility] 09/24/2023 1:58 PM EDT 09/24/2023 1:58 PM EDT us Generic External Data Provider LAB BLOOD ORDERAB LES Final Result [facility] [address] [place] [phone] [phone] * BI Mammogram Screening Tomosynthesis Bilateral (07/12/2023 3:15 PM EDT) Anatomical Region Laterality Modality Breast Bilateral Mammography 07/12/2023 3:15 PM EDT Narrative 08/06/2023 12:59 PM EDT ? [facility] [place] ? [address] ?[place] [address] ? Mammography Report ? Signed ? Patient: Angelica,Ilene ?MR#: [id number] ?? 5 ? : 1965 ?Acct:[id number] ? Age/Sex: 58 / F ?ADM Date: //24 ? Loc: HO.MAMMO ? Attending Dr: Huong David MD ? Ordering Physician: Huong David MD ?Results: 1Negative ? Date of Service: //24 ?Follow Up: 1 Year From Orig ?? inal Mammogram ? Procedure(s): MM tomosynthesis screening BI ?? Accession Number(s): [id number] ? cc: Huong David MD ? EXAMINATION: [...] 1256 ? DD/ 1515 ? TD/TT: ? Manager Performance: ? Procedure Note Alena, Image - 08/06/2023 [facility] [address] [place] [address] [place] [address] Mammography Report Signed Patient: Charles Dominguez#: [id number] 5 : 1965Acct:[id number] Age/Sex: 58 / FADM Date: 07/12/23 Loc: HO.MAMMO Attending Dr: Huong David MD Ordering Physician: Huong David MDResults: 1Negative Date of Service: 07/12/23Follow Up: 1 Year From Orig on license of [facility] Mammogram Procedure(s): MM tomosynthesis screening BI Accession Number(s): [id number] cc: Huong David MD EXAMINATION: MM SCREENING [...] in OV> 08/06/23 1256 DD/ 1515 TD/TT: Manager Performance: Huong David MD IMG BI PROCEDURES Final Result from Last 3 Months or Most Recently Relevant to Health Maintenance Insurance * Guarantor: Ilene Dominguez Account Type Relation to Patient Date of Phone Billing Address Personal/Family Self [address] [place] [address] [employer] * Guarantor: Ilene Dominguez Account Type Relation to Patient Date of Phone Billing Address Personal/Family Self [address] [facility] [address] [place] [address] * Guarantor: Ilene Dominguez Account Type Relation to Patient Date of Phone Billing Address Personal/Family Self [address] [facility] [address] [place] [address] * Guarantor: Ilene Dominguez Account Type Relation to Patient Date of Phone Billing Address Personal/Family Self [address] [facility] [address] [place] [address] Care Teams Renewable Energy Consultant Relationship Specialty Start Date End Date Huong David MD [address] [place] [address] PCP - General Family Medicine 02/22/12 John Salgado, DelmiD [address] [place] [phone] Pharmacist Internal Medicine 01/16/23
--- OUTSIDE RECORDS SUMMARY | 2024-07-14 13:46 | XMS_ITS | Encounter Summary ---
Author Organization [facility] Address [address] [place] [address] Care Team Providers Care Slot Shift Supervisor Name Role Phone Huong David Primary Care Provider Dimitri Rocha MD, PHD Unavailable Unava ilable Reason for Visit * Reason Onset Date Comments refill request 11/11/2019 Encounter Details Date Type Department Care Team Description 11/11/2019 Refill Internal Medicine - [place] [address] [facility], [address] [place] [address] Clark Martínez MD [address] [facility] [address] [place] [phone] refill request Social History Tobacco Use Types [...] polyp documented in this encounter Care Teams Slot Shift Supervisor Relationship Specialty Start Date End Date Huong David PCP - General Family Practice 09/03/18 Dimitri Jimenez MD, PHD Surgeon Neurosurgery 03/28/22 documented as of this encounter
--- OUTSIDE RECORDS SUMMARY | 2024-07-14 13:46 | XMS_ITS | Encounter Summary ---
Author Organization [employer] Address [address] [place] [address] Care Team Providers Care Political Research Scientist Name Role Phone Huong David MD Primary Care Provider [phone] John Salgado PharmD Unavailable [phone] Encounter Details Date Type Department Care Team (Late st Contact Info) Description 04/04/2024 Abstract [facility] [address] [place], [place] [phone] Amaya Bhatia [place] Social History Tobacco Use [...] 124/82(2024 2:09 PM EDT) No John Salgado, PharmD Note: Per JNC-8, Age 60+ without history of CKD or DM documented as of this encounter Visit Diagnoses Not on filedocumented in this encounter Additional Health Concerns Assessment Noted Time PHQ-9 Depression Total Score: 0 05/21/19 24 3:22 PM EDT documented as of this encounter Care Teams Political Research Scientist Relationship Specialty Start Date End Date Huong David MD [address] [place] [address] PCP - General Family Medicine 02/22/12 John Salgado, PharmD [address] [place] [address] Pharmacist Internal Medicine 01/16/23 documented as of this encounter
--- OUTSIDE RECORDS SUMMARY | 2024-07-14 13:46 | XMS_ITS | Encounter Summary ---
Author Organization [facility] Address [address] [place] [address] Care Team Providers Care Chair Pad Maker Name Role Phone Huong David Primary Care Provider Unavailalia e Dimitri Jimenez MD, PHD Unavailable Unava ilable Encounter Details Date Type Department Care Team Description 03/29/2022 [facility] Neurosurgery [place] [address] [place] [address] Dimitri Jimenez MD, PHD Social [...] filedocumented in this encounter Care Teams Chair Pad Maker Relationship Specialty Start Date End Date Huong David PCP - General Family Practice 09/03/18 Dimitri Jimenez MD, PHD Surgeon Neurosurgery 03/28/22 documented as of this encounter
--- OUTSIDE RECORDS SUMMARY | 2024-07-14 13:46 | XMS_ITS | Encounter Summary ---
Author Organization [employer] Address [address] [facility] [facility] [address] [place] [address] Care Team Providers Care Instrumentation Manager Name Role Phone Jabari David MD Primary Care Provider [phone] John Salgado PharmD Unavailable [phone] Reason for Visit * Reason Comments Follow-up HTN Encounter Details Date Type Department Care Team ([facility] st Contact Info) Description 07/08/2024 2:15 PM EDT Office Visit [facility] [address] [place], [place] [phone] Jabari David MD [address] [place], [place] [phone] Primary hypertension (Primary Dx); Interstitial lung disease (CMS/HCC); 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; 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; Prediabetes; Allergic rhinitis, unspecified seasonality, unspecified trigger; Rheumatoid arthritis with positive rheumatoid factor, involving unspecified site (CMS/HCC); Rosacea; Gastroesophageal reflux disease, unspecified whether esophagitis present; Dietary counseling; Exercise counseling; Class 1 obesity due to excess calories with serious comorbidity and body mass index (BMI) of 30.0 to 30.9 in adult; Heartburn Social History Tobacco Use Types Packs/Day Years [...] AM EDT documented as of this encounter Last Filed Vital Signs Vital Sign Reading Time Taken Comments Blood Pressure 124/82 07/08/2024 2:09 PM EDT Pulse 72 07/08/2024 2:09 PM EDT Temperature 36.3 ??C (97.4 ??F) 07/08/2024 2:09 PM ED T Respiratory Rate 17 07/08/2024 2:09 PM EDT Oxygen Saturation - - Inhaled Oxygen Concentration - - Weight 84 kg (185 lb 3.2 oz) 07/08/2024 2:09 PM EDT Height 166.4 cm (5' 5.5 ) 07/08/2024 2:09 PM EDT Body Mass Index 30.35 07/08/2024 2:09 PM EDT documented in this encounter Progress Notes * Jabari David MD - 07/08/2024 2:15 PM EDT Subjective Ilene Dominguez is a 59 y.o. female who has rheumatoid arthritis and hypertension, and patient presents for follow up of chronic conditions. Background: Our last encounter was 03/25/2024. Referred to GI. Waiting for appointment with client technologies specialist. Interval history: Pt was seen by her energy audit advisor in May 2024. Pt was seen by pulmonology in May 2024. She was found to have asthma exacerbation and was prescribed prednisone. She was seen by gastroenterology in June 2024 and was scheduled for endoscopy. Today: Pt reports she has been having asthma flare ups. She also states she has an eczema rash on her face. Pt states she does not currently have any eczema cream and she has had an outbreak for about a week. Pt also notes she needs to change her BP medication because she is having an allergic reaction that is making her tongue swell. She reports her next appointment with her crepe machine operator is in November. Pt also notes she has an appointment with her dry mixer on August 17 and an endoscopy is in August or September. Pt declines the covid vaccine. Review of Systems Constitutional: Negative for activity change, appetite change and fever. Respiratory: Negative for shortness of breath. Cardiovascular: Negative for chest pain. Objective Vitals: 07/08/24 1409 BP: 124/82 BP Location: Left arm Patient Position: Sitting BP Cuff Size: Adult Pulse: 72 Resp: 17 Temp: 97.4 ??F (36.3 ??C) TempSrc: Oral Weight: 185 lb 3.2 oz (84 kg) Height: 5' 5.5 (1.664 m) Physical Exam Constitutional: General: She is not in acute distress. Appearance: Normal appearance. She is not ill-appearing. HENT: Head: Normocephalic and atraumatic. Mouth/Throat: Mouth: Mucous membranes are moist. Eyes: Extraocular Movements: Extraocular movements intact. Pupils: Pupils are equal, round, and reactive to light. Cardiovascular: Rate and Rhythm: Normal rate and regular rhythm. Heart sounds: No murmur heard. Pulmonary: Effort: Pulmonary effort is normal. No respiratory distress. Breath sounds: Normal breath sounds. No wheezing or rhonchi. Skin: General: Skin is warm. Findings: Rash (Pt had redness on her right cheek, and slightly on her nose) present. Neurological: Mental Status: She is alert. Mental status is at baseline. Psychiatric: Mood and Affect: Mood normal. Results: Lab Results Component Value Date NA 143 12/19/2023 K 3.8 12/19/2023 CL 107 12/19/2023 CO2 30 (H) 12/19/2023 BUN 15 12/19/2023 CREATININE 0.74 12/19/2023 EGFR >60 12/19/2023 GLUCOSE 135 (H) 12/19/2023 TOTALBILIRUB 0.7 12/19/2023 AST 18 12/19/2023 ALT 16 12/19/2023 TOTPROTEIN 6.9 12/19/2023 ALB 3.8 12/19/2023 ALP 54 12/19/2023 Lab Results Component Value Date TRIG 56 12/19/2023 CHOL 173 12/19/2023 LDLCHOLCAL 98 12/19/2023 HDL 64 12/19/2023 Lab Results Component Value Date HGBA1C 5.7 12/19/2023 CREATUR 43.77 08/11/2022 Lab Results Component Value Date WBC 8.3 09/24/2023 HGB 13.2 09/24/2023 HCT 39.8 09/24/2023 PLT 273 09/24/2023 MCV 88.4 09/24/2023 The 10-year ASCVD risk score (Isidra LEE, et al., 2019) is: 3.8% Values used to calculate the score: Age: 59 years Sex: Female Is Non- : No Diabetic: No Tobacco smoker: No Systolic Blood Pressure: 124 mmHg Is BP treated: Yes HDL Cholesterol: 64 mg/dL Total Cholesterol: 173 mg/dL FIB-4 Calculation: 1.21 at 09/24/2023 1:58 PM Calculated from: SGOT/AST: 22 U/L at 09/24/2023 1:58 PM SGPT/ALT: 16 U/L at 09/24/2023 1:58 PM Platelets: 273 X10*3/uL at 09/24/2023 1:58 PM Age: 58 years Lab Results Component Value Date TSH 2.52 12/19/2023 TSH 2.68 05/21/2023 TSH 3.04 01/18/2023 Screenings: PHQ-2/9 Score: Patient Health Questionnaire-9 Score: 1 (07/08/2024 3:36 PM) Patient Health Questionnaire-2 Score: 0 (07/08/2024 3:36 PM) Thoughts that you would be better off or hurting yourself in some way: Not at all (07/08/2024 3:36 PM) LUCIANO-7 Score: LUCIANO-7 Total Score: 0 (07/08/2024 3:37 PM) Assessment/Plan Problem List Items Addressed This Visit Allergic rhinitis -ENT: Dr. Abdi, Safely discharged due to her improvement -s/p nasal polypectomy in 2013 -Plan to start Tx with biologics, either Nucala or Xolair -Continue Singulair, loratadine, and Xhance Gastroesophageal reflux disease - previously prescribed famotidine and omeprazole - s/p EGD in June 2024. No significant abnormality. Continue omeprazole. Hypertension - Primary -Goal BP < 150/90 per JNC-8, < 130/80 per ACC/AHA guideline -Previously had frequent asthma exacerbation and prednisone use -EKG no ischemic change in Apr 2018 -Co-managed with our pharmacist, John Salgado [facility], Pharm D, through [facility] -Elevated in our clinic, likely white-coat hypertension as her home blood pressure measurements arereportedly normal -Continue working on lifestyle modifications. -Continue monitoring home BP. -Change lisinopril 40 mg daily to olmesartan 40 mg daily due to possible reaction to lisinopril 07/08/24 -Treatment Hx: Previously prescribed hydrochlorothiazide 12.5 mg daily, which was discontinued due to hypokalemia. 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 -Most recent TSH therapeutic in Dec 2023 -Most recent thyroid US in June 2022 small nodule -Continue current treatment plan. 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 -Dx September 2019 -following with [facility] rheumatology providers, last seen in Dec 2023 -previously prescribed hydroxychloroquine by dry mixer when she developed ILD and uveitis, with elevated ESR/CRP in 7618-7085 -s/p prednisone treatment x 3 mo, which was prescribed by gold frame assembler for ILD in 2022 -elevated ESR/CRP and evaluated for other rheumatological / autoimmune / connective tissue disorder, including vasculitis. Vasculitis work-up was negative. Current Dx interstitial lung disease -currently monitoring without DMARDs -discussed about DMARD and recommended to have another discussion with Dr. Jiang Allergic asthma -Exacerbation in February 2019, hospitalized at [facility] -Mild exacerbation in May 2024, treated as outpatient with prednisone by gold frame assembler -Frequency of exacerbation, requiring systemic steroid 8 x /year, 2 hospitalizations in 2019, less frequent recently -No Hx of intubation -Followed by both gold frame assembler -Previously seeing ENT -Continue Advair as maintenance -Continue Singulair as maintenance -Continue albuterol as rescue -Discussed about the importance of medication adherence and avoidance of 2nd hand smoke / exposure -Use unscented and hypoallergenic products Interstitial lung disease (CMS/HCC) - following with [facility] pulmonology - status post 3 mo of prednisone treatment - CT showed improvement in July 2022 and near resolution in Nov 2022 - currently monitoring symptoms and with periodic imaging Prediabetes - due to chronic prednisone treatment for ILD - now off, but episodic use - highest A1C 6.1% in Oct 2022 - most recent A1C 5.7% in Jan 2024 Rosacea - Presumptive diagnosis at this time - Will try metronidazole gel 07/08/24 Other Visit Diagnoses Dietary counseling Exercise counseling Heartburn Relevant Medications omeprazole (PriLOSEC) [address] capsule No Known Allergies Current Outpatient Medications Medication Instructions Advair Diskus 500-50 MCG/ACT aerosol powder INHALE 1 PUFF BY MOUTH TWICE DAILY IN THE MORNING AND IN THE EVENING, APPROXIMATELY 12 HOURS APART RINSE MOUTH AFTER USING. albuterol (Ventolin HFA) 108 (90 Base) MCG/ACT inhaler INHALE 2 PUFFS BY MOUTH EVERY 4 TO 6 HOURS NEEDED FOR DIFFICULTY BREATHING UP TO FOUR TIMES DAILY. alendronate (Fosamax) 70 MG tablet take 1 tablet once a week with 6 to 8 oz of water 30 min before first food of day. do not lie down for 30 minutes diphenhydrAMINE (BENADRYL) 25 mg, Oral, Daily PRN EPINEPHrine (EPIPEN) 0.3 mg, Injection, Once, use as directed for allergic reaction and then call 911 famotidine (Pepcid) 40 MG tablet TAKE 1 TABLET BY MOUTH AT BEDTIME fluticasone (Flonase) 50 MCG/ACT nasal spray INSTILL 1-2 SPRAYS IN EACH NOSTRIL ONCE DAILY ibuprofen 600 MG tablet TAKE 1 TABLET BY MOUTH THREE TIMES DAILY levothyroxine (Synthroid, Levoxyl) 75 MCG tablet TAKE 1 TABLET BY MOUTH EVERY DAY Melatonin (VitaJoy Gummies) 2.5 MG chewable tablet CHEW 1 GUMMY BY MOUTH 2 TO 3 HOURS BEFORE BEDTIME metroNIDAZOLE (Metrogel) 0.75 % gel Apply and rub a thin film twice daily, morning and evening, to entire affected areas after washing montelukast (SINGULAIR) 10 mg, Oral, Nightly olmesartan (BENICAR) 40 mg, Oral, Daily omeprazole (PRILOSEC) 20 mg, Oral, Daily before breakfast, Do not crush or chew. Follow-up: 3 months or sooner if any problem arises. Scribe Attestation: IMaine, am serving as a scribe to document services personally performed by Jabari David MD, based on the patient's response to questions by provider and provides statements to me. documented in this encounter Miscellaneous Notes * Assessment & Plan Note - Jabari David MD - 07/13/2024 5:38 PM EDTAssociated Problem(s): Gastroesophageal reflux disease - previously prescribed famotidine and omeprazole - s/p EGD in June 2024. No significant abnormality. Continue omeprazole. * Assessment & Plan Note - [place] Linda MA - 07/08/2024 3:17 PM EDTAssociated Problem(s): Rosacea - Presumptive diagnosis at this time - Will try metronidazole gel 07/08/24 * Assessment & Plan Note - Maine Linda MA - 07/08/2024 3:14 PM EDTAssociated Problem(s): Allergic asthma -Exacerbation in February 2019, hospitalized at [facility] -Mild exacerbation in May 2024, treated as outpatient with prednisone by gold frame assembler -Frequency of exacerbation, requiring systemic steroid 8 x /year, 2 hospitalizations in 2019, less frequent recently -No Hx of intubation -Followed by both gold frame assembler -Previously seeing ENT -Continue Advair as maintenance -Continue Singulair as maintenance -Continue albuterol as rescue -Discussed about the importance of medication adherence and avoidance of 2nd hand smoke / exposure -Use unscented and hypoallergenic products * Assessment & Plan Note - Maine Linda MA - 07/08/2024 3:05 PM EDTAssociated Problem(s): Rheumatoid arthritis (CMS/HCC) -Seropositive rheumatoid arthritis (RF and CCP), 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 -Dx September 2019 -following with [facility] rheumatology providers, last seen in Dec 2023 -previously prescribed hydroxychloroquine by dry mixer when she developed ILD and uveitis, with elevated ESR/CRP in 1388-1567 -s/p prednisone treatment x 3 mo, which was prescribed by gold frame assembler for ILD in 2022 -elevated ESR/CRP and evaluated for other rheumatological / autoimmune / connective tissue disorder, including vasculitis. Vasculitis work-up was negative. Current Dx interstitial lung disease -currently monitoring without DMARDs -discussed about DMARD and recommended to have another discussion with Dr. Jiang * Assessment & Plan Note - Maine Linda MA - 07/08/2024 3:05 PM EDTAssociated Problem(s): Allergic rhinitis -ENT: Dr. 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 -Most recent TSH therapeutic in Dec 2023 -Most recent thyroid US in June 2022 small nodule -Continue current treatment plan. * Assessment & Plan Note - Maine Linda MA - 07/08/2024 3:04 PM EDTAssociated Problem(s): Hypertension -Goal BP < 150/90 per JNC-8, < 130/80 per ACC/AHA guideline -Previously had frequent asthma exacerbation and prednisone use -EKG no ischemic change in Apr 2018 -Co-managed with our pharmacist, John Salgado [facility], Pharm D, through [facility] -Elevated in our clinic, likely white-coat hypertension as her home blood pressure measurements arereportedly normal -Continue working on lifestyle modifications. -Continue monitoring home BP. -Change lisinopril 40 mg daily to olmesartan 40 mg daily due to possible reaction to lisinopril 07/08/24 -Treatment Hx: Previously prescribed hydrochlorothiazide 12.5 mg daily, which was discontinued due to hypokalemia. * Assessment & Plan Note - Maine Linda MA - 07/08/2024 3:04 PM EDTAssociated Problem(s): Interstitial lung disease (CMS/HCC) - following with [facility] pulmonology - status post 3 mo of prednisone treatment - CT showed improvement in July 2022 and near resolution in Nov 2022 - currently monitoring symptoms and with periodic imaging * Addendum Note - Jabari David MD - 07/08/2024 2:15 PM EDTAddended by: JABARI DAVID on: 07/13/2024 05:49 PM Modules accepted: Orders documented in this encounter Plan of Treatment Not on file documented as of this encounter Goals Goal Patient Goal Type Associated Problems Recent Progress Patient-Stated? 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 Prediabetes Other abnormal glucose Allergic rhinitis, unspecified seasonality, unspecified trigger Rheumatoid arthritis with positive rheumatoid factor, involving unspecified site (CMS/HCC) Rosacea Gastroesophageal reflux disease, unspecified whether esophagitis present Dietary counseling Dietary surveillance and counseling Exercise counseling Class 1 obesity due to excess calories with serious comorbidity and body mass index (BMI) of 30.0 to 30.9 in adult Heartburn documented in this encounter Additional Health Concerns Assessment Noted Time PHQ-9 Depression Total Score: 1 07/09/19 25 3:36 PM EDT documented as of this encounter Care Teams Instrumentation Manager Relationship Specialty Start Date End Date Jabari David MD [address] [place] [address] PCP - General Family Medicine 02/22/12 John Salgado, DelmiD [address] [place] [address] Pharmacist Internal Medicine 01/16/23 documented as of this encounter
--- OUTSIDE RECORDS SUMMARY | 2024-07-14 13:46 | XMS_ITS | Clinical Summary ---
Author Organization [facility] Address [address] [facility] [address] [place] [address] Phone Care Team Providers Care Supervisor Sewing Department Name Role Phone Huong David MD Primary Care Provider [phone] Allergies No known active allergies Medications Zoster [...] 11/06/2022 Overview (11/06/2022): Last Assessment & Plan: -Tool Drawing Checker recommended repeat pelvic ultrasound, further evaluation and recommendation Hysteroscopy for endocervical polyp. Patient was reassured that the fibroids typically decrease in size and resolve in menopause. -Recommended removal of polyps. -Scheduled for hysteroscopy with production machine shop supervisor Urticaria 04/11/2022 11/06/2022 Degeneration of cervical intervertebral disc 11/06/2022 History of calculus of kidney 03/20/2022 Rheumatoid arthritis 03/20/2022 11/06/2022 Overview (11/06/2022): Last Assessment & Plan: -Seropositive rheumatoid arthritis -Dx September 2019 -03/20/22 ESR 41 -following with [facility] [place] providers, last seen [...] recent exacerbation in February 2019, hospitalized at [facility] -COVID19 clinical Dx in June 2019 (household member was positive) - did not test at that time due to strict Dx criteria at that time -Frequency of exacerbation, requiring systemic steroid 8 x /year, 2 hospitalizations in 2019, less frequent recently -No Hx of intubation -Followed by both primary health organisation manager and ENT -Continue Advair as maintenance -Continue [...] 11/06/2022 Overview (11/06/2022): Last Assessment & Plan: -Tool Drawing Checker recommended repeat pelvic ultrasound, further evaluation and [...] 11/06/2022 Overview (11/06/2022): Last Assessment & Plan: -[facility] provider: ALBERTO -Current medication: escitalopram 10 mg daily; doxepin 10 mg qhs Immunizations Immunization Administration Dates Next Due Hepatitis B 11/01/2006,06/21/2006,05/03/2006 [...] age to complete this topic Pneumococcal Vaccine: 50+ Years Completed 10/05/2022, 07/14/2018, 09/19/2006 Pneumococcal Vaccine: Peds (0 to 5 Years) and At-Risk Patients (6 to 49 Years) Discontinued 10/05/2022, 07/14/2018, 09/19/2006 Influenza Vaccine Completed 12/17/2023, , 03/20/2022, Additional history exists Insurance * Guarantor: Ilene Dominguez Account Type Relation to Patient Date of Phone Billing Address Personal/Family Self 1965 [address] [place] [address] [address] * Guarantor: Ilene Dominguez Account Type Relation to Patient Date of Phone Billing Address Personal/Family Self [address] [place], [place] Care Teams Supervisor Sewing Department Relationship Specialty Start Date End Date Huong David MD [address] [place] [address] PCP - General Family Medicine 06/08/23
--- OUTSIDE RECORDS SUMMARY | 2024-07-14 13:46 | XMS_ITS | Encounter Summary ---
Author Organization [facility] Address [address] [place] [address] Care Team Providers Care Custom Feed Mill Operator Helper Name Role Phone Huong David Primary Care Provider Unavailalia e Dimitri Jimenez MD, PHD Unavailable Unava ilable Encounter Details Date Type Department Care Team Description 08/30/2018 Trim And Burr Operator Report Medical Records [address] [place] [address] Delroy Abdi MD Social History Tobacco Use Types Packs/Day Years Used Date Smoking Tobacco: Never Assessed Sex Assigned at Date Recorded Not on file documented as of this encounter Plan of Treatment Not on file documented as of this encounter Visit Diagnoses Not on filedocumented in this encounter Care Teams Custom Feed Mill Operator Helper Relationship Specialty Start Date End Date Huong David PCP - General Family Practice 09/03/18 Dimitri Jimenez MD, PHD Surgeon Neurosurgery 03/28/22 documented as of this encounter
--- OUTSIDE RECORDS SUMMARY | 2024-07-14 13:46 | XMS_ITS | Encounter Summary ---
Author Organization [email or web address] Address [address] [facility] [address] [place] [address] Care Team Providers Care Tool Tender Name Role Phone Huong David MD Primary Care Provider [phone] John Salgado PharmD Unavailable [phone] Reason for Visit * Reason Comments Med Refill Encounter Details Date Type Department Care Team (Late st Contact Info) Description 09/13/2022 Refill [facility] [address] [place], [place] [phone] Name, MD Jemal [address] [place], [place] [phone] Social History Tobacco Use Types Packs/Day Years [...] documented as of this encounter Care Teams Tool Tender Relationship Specialty Start Date End Date Huong David MD [address] [place] [id number] PCP - General Family Medicine 02/22/12 John Salgado, PharmD [address] [place] [address] Pharmacist Internal Medicine 01/16/23 documented as of this encounter
--- OUTSIDE RECORDS SUMMARY | 2024-07-14 13:46 | XMS_ITS | Encounter Summary ---
Author Organization [facility] Address [address] [place] [address] Care Team Providers Care Director Biomedical Engineering Name Role Phone Huong David Primary Care Provider UnavailDimitri Rdz MD, PHD Unavailable Unava ilable Encounter Details Date Type Department Care Team Description 10/23/2018 Orders Only Pulmonology - [place] [address] [facility] [address] [place] [phone] Clark Martínez MD [address] [facility] [address] [address] [place] [phone] 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; Allergic rhinitis due to pollen, unspecified seasonality; Post-nasal drainage; Nasal polyposis Social History Tobacco Use Types Packs/Day Years [...] Procedure Name Priority Date/Time Associated Diagnosis Comments CHG RADIOLOGIC EXAM CHEST 2 VIEWS Routine 10/22/2018 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 Allergic rhinitis due to pollen, unspecified seasonality Post-nasal drainage Nasal polyposis documented in this encounter Results * RADIOLOGIC EXAM CHEST 2 VIEWS (10/22/2018) Clark Martínez MD RADIOLOGY documented in this encounter Visit Diagnoses Diagnosis 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 Allergic rhinitis due to pollen, unspecified seasonality Post-nasal drainage Unspecified sinusitis (chronic) Nasal polyposis Unspecified nasal polyp documented in this encounter Care Teams Director Biomedical Engineering Relationship Specialty Start Date End Date Huong David PCP - General Family Practice 09/03/18 Dimitri Jimenez MD, PHD Surgeon Neurosurgery 03/28/22 documented as of this encounter
--- OUTSIDE RECORDS SUMMARY | 2024-07-14 13:46 | XMS_ITS | Encounter Summary ---
Author Organization [employer] Address [address] [facility] 7t [place] [address] Care Team Providers Care Foot Roentgenologist Name Role Phone Huong David MD Primary Care Provider [phone] John Salgado PharmD Unavailable [phone] Encounter Details Date Type Department Care Team (Late st Contact Info) Description 08/23/2022 Abstract [facility] MEDICINE [address] [place], [place] [phone] Huong David MD [address] [place], [place] [phone] Social History Tobacco Use Types Packs/Day Years [...] Procedure Name Priority Date/Time Associated Diagnosis Comments MAMMOGRAPHY Routine 07/06/2022 documented in this encounter Results * Mammography (07/06/2022) Mammogram bi-rads 2 Anatomical Region Laterality Modality Other 07/06/2022 [facility] HEALTH MAINTENANCE Final Result documented in this encounter Visit Diagnoses Not on filedocumented in this encounter Additional Health Concerns Assessment Noted Time PHQ-9 Depression Total Score: 0 04/11/19 23 1:19 PM EST documented as of this encounter Care Teams Foot Roentgenologist Relationship Specialty Start Date End Date Huong David MD [address] [place] [address] PCP - General Family Medicine 02/22/12 John Salgado, DelmiD [address] [place] [address] Pharmacist Internal Medicine 01/16/23 documented as of this encounter
--- OUTSIDE RECORDS SUMMARY | 2024-07-14 13:46 | XMS_ITS | Encounter Summary ---
Author Organization [facility] Address [address] [place] [address] Care Team Providers Care Straight Pin Making Machine Operator Name Role Phone Huong David Primary Care Provider UnavailDimitri Rdz MD, PHD Unavailable Unava ilable Encounter Details Date Type Department Care Team Description 04/04/2022 Release of Information Medical Records [address] [place] [id number] Abstract, Provider Social History Tobacco Use Types [...] on filedocumented in this encounter Care Teams Straight Pin Making Machine Operator Relationship Specialty Start Date End Date Huong David PCP - General Family Practice 09/03/18 Dimitri Jimenez MD, PHD Surgeon Neurosurgery 03/28/22 documented as of this encounter
--- OUTSIDE RECORDS SUMMARY | 2024-07-14 13:46 | XMS_ITS | Encounter Summary ---
Author Organization [employer] Address [address] [facility] 7t [place] [address] Care Team Providers Care Electronic Sales And Service Technician Name Role Phone Huong David MD Primary Care Provider [phone] John Salgado PharmD Unavailable [phone] Reason for Visit * Reason Onset Date Comments returning call 03/22/2022 Encounter Details Date Type Department Care Team ([facility] st Contact Info) Description 03/22/2022 Telephone [facility] MEDICINE [address] [place], [place] [phone] Huong David MD [address] [place], [place] [phone] returning call Social History Tobacco Use Types [...] a call back Please contact pt at [phone] documented in this encounter Plan of Treatment Not on file documented as of this encounter Visit Diagnoses Not on filedocumented in this encounter Care Teams Electronic Sales And Service Technician Relationship Specialty Start Date End Date Huong David MD [address] [place] [address] PCP - General Family Medicine 02/22/12 John Salgado, Vikki [address] [place] [address] Pharmacist Internal Medicine 01/16/23 documented as of this encounter
--- OUTSIDE RECORDS SUMMARY | 2024-07-14 13:46 | XMS_ITS | Encounter Summary ---
Author Organization [employer] Address [address] [facility] 7t [place] [address] Care Team Providers Care District Manager Postal Service Name Role Phone Huong David MD Primary Care Provider [phone] John Salgado PharmD Unavailable [phone] Encounter Details Date Type Department Care Team (Late st Contact Info) Description 10/06/2022 Orders Only [facility] MEDICINE [address] [place], [place] [phone] Huong David MD [address] [place], [place] [phone] Hypokalemia (Primary Dx) Social History Tobacco Use [...] as of this encounter Plan of Treatment Scheduled Orders Name Type Priority Associated Diagnoses [...] documented as of this encounter Care Teams District Manager Postal Service Relationship Specialty Start Date End Date Huong David MD [address] [place] [address] PCP - General Family Medicine 02/22/12 John Salgado, Vikki [address] [place] [address] Pharmacist Internal Medicine 01/16/23 documented as of this encounter
== END 2024-07-14 12:19 | disposition home or self-care (01) ==
LOC: HO.MAMMO 12:18
PROVIDERS: PCP Family Medicine; Visit Provider Obstetrics & Gynecology
DX: Z12.31 Encounter for screening mammogram for malignant neoplasm of breast (principal)
CPT/HCPCS: 77063; 77067

== ENCOUNTER → 2024-07-14 12:30 | Outpatient (BNV) | payer MEDICAID, SELFPAY | PROVIDERS: PCP Family Medicine; Visit Provider Internal Medicine | DX: Z12.31 Encounter for screening mammogram for malignant neoplasm of breast (principal) | CPT/HCPCS: 77063; 77067 ==

== ENCOUNTER 2024-07-21 14:15 | Outpatient (AMB) | payer MEDICAID, SELFPAY ==
--- NOTE | 2024-07-21 14:24 | A.OFFVIS_ITS ---
Vital Signs 07/21/24 14:25 Height 5 ft 6 in Weight 185 lb BMI 29.9 Intake Visit Reasons: Ultrasound Follow up/ EMB Aircraft General Repair Mechanic Required: Yes Aircraft General Repair Mechanic Language: Marriage And Family Teacher Services: Aircraft General Repair Mechanic Present (in person) Aircraft General Repair Mechanic Name: Arlin KUMAR Information Interpreted: non-clinical & clinical Numerical Tool Programmer: Numerical Tool Programmer Present (Arlin KUMAR) Accompanied by: Self / Same As Patient Allergies magnesium Allergy (Intermediate, Verified 07/21/24 14:26) rash Post menopausal: Yes HPI Comments Details: Presenting for ultrasound follow-up regarding postmenopausal bleeding. Pelvic ultrasound done on 06/17/2024 showed the following: Retroverted uterus, heterogeneous echotexture measuring 6.3 x 3.6 x 6.7 cm previously measuring 6.7 x 3.8 x 6.2 cm. Incidental nabothian cysts Well defined endometrium, measuring 4.0 mm in thickness. The horizontal and vertical limbs of the IUD are well postioned within the endometrial cavity. Minimal fluid in the endometrial cavity. Uterine fibroids as follows: Anterior fundal subserosal 3.5 x 2.9 x 2.9 cm previously 3.7 x 3.4 x 2.7 cm Anterior fundal intramural 1.3 x 1.3 x 1.3 cm not previously demonstrated. Posterior fundal intramural 1.2 x 0.9 x 1.2 cm The right ovary measures, 1.3 x 0.7 x 0.8 cm. Normal sonographic appearance right ovary. The left ovary measures, 2.0 x 1.1 x 1.5 cm. Normal sonographic appearance left ovary. No adnexal masses or fluid collections. No free fluid Last mammogram in 08/03 was BI-RADS 2 Last co testing in 06/03 was negative PFSH Medical History Family history of gastric cancer Vitamin D deficiency GERD (gastroesophageal reflux disease) History of depression Chronic allergic rhinitis Asthma Hypothyroid Hypertension Surgical History H/O colonoscopy Hx of cystoscopy H/O nasal polypectomy H/O tubal ligation Family History Mother HTN (hypertension) Diabetes Colon cancer Father HTN (hypertension) Diabetes Hyperlipidemia Colon cancer Social History Household Members: Spouse Household Members Other:: son Housing: Apartment Are you a primary home care manager to a significant other at home: No Do you presently have visiting nurse or other home services: No Alcohol intake: former Patient Tobacco Use Status: Never used Tobacco service: No Current occupational status: disabled Female Reproductive History Menstrual Age of Menarche: 10 Review of Systems Const All systems reviewed & are unremarkable except as noted in HPI and below Reports as per HPI and Reports no additional complaints GI Reports no additional complaints Reports no additional complaints Physical Exam Vital Signs: BMI result Body Mass Index 29.9 Assessment & Plan Assessment & Plan (1) Uterine leiomyoma: Code(s): D25.9 - Leiomyoma of uterus, unspecified Category: Medical Plan: Discussed with the patient the findings on pelvic ultrasound & the risk of myosarcoma; in addition reviewed with the patient that malignancy and pre malignancy cannot be ruled out without hysterectomy for pathological evaluation ; furthermore, explained to the patient the limitation of pelvic ultrasound and endometrial biopsy in the setting. Discussed with the patient the options of treatment including expectant management versus hysterectomy; the pros and cons, risks benefits of each approach were discussed with the patient including the fact that in cases of myosarcoma, surgical treatment can lead to early diagnosis and positively affects the prognosis; after further discussion, the patient decided to proceed with expectant management. Will repeat pelvic ultrasound periodically. Instructions given to patient to call in case any of the following occurs: pressure symptoms, abnormal uterine bleeding, pelvic pain; and to schedule a six-months pelvic ultrasound (order placed) and a follow-up appointment . All questions answered, the patient verbalized understanding and agreed with the plan . (2) Postmenopausal bleeding: Comment: With history of proliferative endometrium on Mirena IUD EMB 09/01, 12/02 and 09/02 showed benign endometrium Endometrial thickness 4 mm on ultrasound in 07/04 Code(s): N95.0 - Postmenopausal bleeding Category: Medical Plan: Discussed with the patient the results of the pelvic ultrasound showing an endometrial stripe thickness of 3 mm. Explained to the patient with an endometrial stripe of 4 mm &/or less, there is a high negative predictive value in detecting endometrial pathology including endometrial hyperplasia, polyps or malignancy. Therefore, there is no indication for endometrial sampling. Discussed with the patient the sensitivity, specificity, and positive and the negative predictive value of using ultrasound in detecting endometrial pathology. The patient was instructed to call if bleeding recurs, will proceed with endometrial sampling out endometrial pathology. All questions were answered and the patient verbalized understanding and agreed with the plan. Orders: Orders US pelvic and transvaginal 6 Months D25.9 - Leiomyoma of uterus, unspecified Coding Level of Care Code Est Pt Level 3 (76701) Diagnoses Uterine leiomyoma D25.9 Postmenopausal bleeding N95.0
[2024-07-21 14:25] VITALS: BMI 29.9
--- OUTSIDE RECORDS SUMMARY | 2024-07-21 14:27 | XMS_ITS | Encounter Summary ---
Author Organization [employer] Address [address] [facility] 7t [place] [address] Care Team Providers Care Maintenance Carpenter Name Role Phone Huong David MD Primary Care Provider [phone] John Salgado PharmD Unavailable [phone] Encounter Details Date Type Department Care Team (Late st Contact Info) Description 08/23/2022 Abstract [facility] MEDICINE [address] [place], [place] [phone] Huong David MD [address] [place], [place] [phone] Social History Tobacco Use Types Packs/Day Years [...] 2 Anatomical Region Laterality Modality Other 07/06/2022 [facility] Unassigned Pcp HEALTH MAINTENANCE Final Result documented in this encounter Visit Diagnoses Not on filedocumented in this encounter Additional Health Concerns Assessment Noted Time PHQ-9 Depression Total Score: 0 04/11/19 23 1:19 PM EST documented as of this encounter Care Teams Maintenance Carpenter Relationship Specialty Start Date End Date Huong David MD [address] [place] [address] PCP - General Family Medicine 02/22/12 John Salgado, DelmiD [address] [place] [address] Pharmacist Internal Medicine 01/16/23 documented as of this encounter
--- OUTSIDE RECORDS SUMMARY | 2024-07-21 14:27 | XMS_ITS | Clinical Summary ---
Author Organization [facility] Address [address] [facility] [address] [place] [address] Phone Care Team Providers Care Splitter Hand Name Role Phone Huong David MD Primary Care Provider [phone] Allergies No known active allergies Medications Zoster [...] 11/06/2022 Overview (11/06/2022): Last Assessment & Plan: -Steam Clothes Press Operator recommended repeat pelvic ultrasound, further evaluation and recommendation Hysteroscopy for endocervical polyp. Patient was reassured that the fibroids typically decrease in size and resolve in menopause. -Recommended removal of polyps. -Scheduled for hysteroscopy with elevator tender Urticaria 04/11/2022 11/06/2022 Degeneration of cervical intervertebral disc 11/06/2022 History of calculus of kidney 03/20/2022 Rheumatoid arthritis 03/20/2022 11/06/2022 Overview (11/06/2022): Last Assessment & Plan: -Seropositive rheumatoid arthritis -Dx September 2019 -03/20/22 ESR 41 -following with [facility] rheumatology providers, last seen in Oct 2020, [...] recent exacerbation in February 2019, hospitalized at [facility] -COVID19 clinical Dx in June 2019 (household member was positive) - did not test at that time due to strict Dx criteria at that time -Frequency of exacerbation, requiring systemic steroid 8 x /year, 2 hospitalizations in 2019, less frequent recently -No Hx of intubation -Followed by both sandblaster stone and ENT -Continue Advair as maintenance -Continue [...] 11/06/2022 Overview (11/06/2022): Last Assessment & Plan: -Steam Clothes Press Operator recommended repeat pelvic ultrasound, further evaluation and [...] 11/06/2022 Overview (11/06/2022): Last Assessment & Plan: -[facility] provider: ALBERTO -Current medication: escitalopram 10 [...] 1965 [address] [place] [address] Medicaid [place] * Guarantor: Ilene Dominguez Account Type Relation to Patient Date of Phone Billing Address Personal/Family Self [address] [place], [place] Care Teams Splitter Hand Relationship Specialty Start Date End Date Huong David MD [address] [place] [address] PCP - General Family Medicine 06/08/23
--- OUTSIDE RECORDS SUMMARY | 2024-07-21 14:27 | XMS_ITS | Encounter Summary ---
Author Organization [employer] Address [address] [facility] 7t [place] [address] Care Team Providers Care Emergency Medical Service Coordinator Name Role Phone Huong David MD Primary Care Provider [phone] John Salgado PharmD Unavailable [phone] Reason for Visit * Reason Onset Date Comments returning call 03/22/2022 Encounter Details Date Type Department Care Team ([facility] st Contact Info) Description 03/22/2022 Telephone [facility] MEDICINE [address] [place], [place] [phone] Huong David MD [address] [place], [place] [phone] returning call Social History Tobacco Use Types [...] a call back Please contact pt at [phone] documented in this encounter Plan of Treatment Not on file documented as of this encounter Visit Diagnoses Not on filedocumented in this encounter Care Teams Emergency Medical Service Coordinator Relationship Specialty Start Date End Date Huong David MD [address] [place] [address] PCP - General Family Medicine 02/22/12 John Salgado, Vikki [address] [place] [address] Pharmacist Internal Medicine 01/16/23 documented as of this encounter
--- OUTSIDE RECORDS SUMMARY | 2024-07-21 14:27 | XMS_ITS | Encounter Summary ---
Author Organization [facility] Address [address] [place] [address] Care Team Providers Care Conveyor Line Battery Charger Name Role Phone Huong David Primary Care Provider UnavailDimitri Rdz MD, PHD Unavailable Unava ilable Encounter Details Date Type Department Care Team Description 04/04/2022 Release of Information Medical Records [address] [place] [id number] Abstract, Provider Social History Tobacco Use Types [...] on filedocumented in this encounter Care Teams Conveyor Line Battery Charger Relationship Specialty Start Date End Date Huong David PCP - General Family Practice 09/03/18 Dimitri Jimenez MD, PHD Surgeon Neurosurgery 03/28/22 documented as of this encounter
--- OUTSIDE RECORDS SUMMARY | 2024-07-21 14:28 | XMS_ITS | Encounter Summary ---
Author Organization [employer] Address [address] [facility] [address] [place] [address] Care Team Providers Care Breaster Name Role Phone Huong David MD Primary Care Provider [phone] John Salgado PharmD Unavailable [phone] Reason for Visit * Reason Comments Med Refill Encounter Details Date Type Department Care Team ([facility] st Contact Info) Description 07/16/2024 Refill [facility] [address] [place], [place] [phone] Huong David MD [address] [place], [place] [phone] Social History Tobacco Use Types Packs/Day Years [...] documented as of this encounter Care Teams Breaster Relationship Specialty Start Date End Date Huong David MD [address] [place] [address] PCP - General Family Medicine 02/22/12 John Salgado, PharmD [address] [place] [address] Pharmacist Internal Medicine 01/16/23 documented as of this encounter
--- OUTSIDE RECORDS SUMMARY | 2024-07-21 14:28 | XMS_ITS | Encounter Summary ---
Author Organization [employer] Address [address] [facility] 7t [place] [address] Care Team Providers Care Press Operator Instant Print Shop Name Role Phone Huong David MD Primary Care Provider [phone] John Salgado PharmD Unavailable [phone] Encounter Details Date Type Department Care Team ([facility] st Contact Info) Description 09/29/2022 Abstract [facility] MEDICINE [address] [place], [place] [phone] Huong David MD [address] [place], [place] [phone] Social History Tobacco Use Types Packs/Day Years [...] Results * Colonoscopy (04/01/2013) Colonoscopy Normal Normal [facility] Pcp HEALTH MAINTENANCE Edited Result - Final documented in this encounter Visit Diagnoses Not on filedocumented in this encounter Additional Health Concerns Assessment Noted Time PHQ-9 Depression Total Score: 0 04/11/19 23 1:19 PM EST documented as of this encounter Care Teams Press Operator Instant Print Shop Relationship Specialty Start Date End Date Huong David MD [address] [place] [address] PCP - General Family Medicine 02/22/12 John Salgado, Vikki [address] [place] [address] Pharmacist Internal Medicine 01/16/23 documented as of this encounter
--- OUTSIDE RECORDS SUMMARY | 2024-07-21 14:28 | XMS_ITS | Clinical Summary ---
Author Organization [employer] Address [address] [facility] [facility] [address] [place] [address] Care Team Providers Care Director Of Sales Support Name Role Phone Huong David MD Primary Care Provider [phone] John Salgado PharmD Unavailable [phone] Allergies No known active allergies Medications alendronate [...] BEDTIME 90 tablet 3 09/19/19 24 Active montelukast (Singulair) 10 [...] chew. 90 capsule 3 07/14/19 25 Active Advair Diskus 500-50 MCG/ACT aerosol powder INHALE 1 PUFF BY MOUTH TWICE DAILY IN THE MORNING AND IN THE EVENING, APPROXIMATELY 12 HOURS APART. RINSE MOUTH AFTER USING. 60 each 3 07/18/19 25 Active omeprazole (PriLOSEC) [address] capsuleIndica tions:Heartbu rn TAKE 1 CAPSULE BY MOUTH EVERY DAY BEFORE BREAKFAST DO NOT BREAK, CRUSH, DISSOLVE OR CHEW 90 capsule 3 09/19/19 24 2024 Discontinued(R eorder (will not trigger notification to Pharmacy)) Advair Diskus 500-50 MCG/ACT aerosol powder INHALE 1 PUFF BY MOUTH TWICE DAILY IN THE MORNING AND IN THE EVENING, APPROXIMATELY 12 HOURS APART RINSE MOUTH AFTER USING. 60 each 09/19/19 24 2024 Discontinued albuterol (Ventolin HFA) 108 (90 Base) MCG/ACT inhaler INHALE 2 PUFFS BY MOUTH EVERY 4 TO 6 HOURS NEEDED FOR DIFFICULTY BREATHING, FOUR TIMES DAILY 18 g 3 09/19/19 24 2024 Discontinued lisinopril 40 MG tablet TAKE 1 TABLET BY MOUTH EVERY DAY 90 tablet 3 09/19/19 24 2024 Discontinued Active Problems Problem Noted Date [...] and Jan 2024 She was referred to rn document improvement specialist in the walk-in clinic in Jan [address] Jean [facility] pulmonology if she is [...] (12/24/2023 5:54 AM EDT): - following with [facility]STER - last EMBx in August 2023 - no sign of malignancy Assessment & Plan (06/03/2023 6:49 PM EDT): - following with [facility] - last EMBx in Nov 2022 - no sign of malignancy Assessment & Plan (01/19/2023 6:00 AM EST): - following with [facility] - last EMBx in Nov 2022 - no sign of malignancy Chronic left shoulder pain 01/19/2023 Assessment & Plan (01/19/2023 6:08 AM EST): - X-ray was normal and pt received steroid injection from rail assembler in Dec 2022 - no pain at [...] (07/08/2024 3:04 PM EDT): - following with [facility] pulmonology - status post 3 mo of prednisone treatment - CT showed improvement in July 2022 and near resolution in Nov 2022 - currently monitoring symptoms and with periodic imaging Assessment & Plan (03/26/2024 1:12 PM EST): - following with [facility] pulmonology - status post 3 mo of prednisone treatment - CT showed improvement in July 2022 and near resolution in Nov 2022 - currently monitoring symptoms and with periodic imaging Assessment & Plan (12/21/2023 4:33 PM EDT): - following with [facility] pulmonology - status post 3 mo of prednisone treatment - CT showed improvement in July 2022 and near resolution in Nov 2022 - currently monitoring symptoms and with periodic imaging Assessment & Plan (06/03/2023 6:45 PM EDT): - following with [facility] pulmonology - status post 3 mo of prednisone treatment - CT showed improvement in July 2022 and near resolution in Nov 2022 - currently monitoring symptoms and with periodic imaging Assessment & Plan (01/19/2023 5:56 AM EST): - following with [facility] pulmonology - status post 3 mo of prednisone treatment - CT showed improvement in July 2022 and near resolution in Nov 2022 - currently monitoring symptoms and with periodic imaging Assessment & Plan (10/09/2022 9:00 AM EDT): - following with [facility] pulmonology - currently taking prednisone 50 mg daily with a plan for slow tapering - CT on 08/01/22 showed improvement - continue current treatment plan and follow up with assistant dean Elevated erythrocyte sedimentation rate 07/12/19 Assessment & [...] 04/11/2022 Overview (01/15/2023): Last Assessment & Plan: -Primer Inspector recommended repeat pelvic ultrasound, further evaluation and recommendation Hysteroscopy for endocervical polyp. Patient was reassured that the fibroids typically decrease in size and resolve in menopause. -Recommended removal of polyps. -Scheduled for hysteroscopy with hand tier Assessment & Plan (07/11/2022 11:13 AM EDT): - 05/19/22 Hysteroscopy, D&C, polypectomy - benign polyp Assessment & Plan (04/22/2022 5:10 AM EST): -Primer Inspector recommended repeat pelvic ultrasound, further evaluation and recommendation Hysteroscopy for endocervical polyp. Patient was reassured that the fibroids typically decrease in size and resolve in menopause. -Recommended removal of polyps. -Scheduled for hysteroscopy with hand tier Degeneration of cervical intervertebral disc Rheumatoid arthritis 03/20/2022 Overview (01/15/2023): Last Assessment & Plan: -Seropositive rheumatoid arthritis -Dx September 2019 -03/20/22 ESR 41 -following with [facility] rheumatology providers, last seen [...] and CCP. -Dx September 2019 -following with [facility] rheumatology providers, last seen in Dec 2023 -previously prescribed hydroxychloroquine by rail assembler when she developed ILD and uveitis, with elevated ESR/CRP in [id number] -s/p prednisone treatment x 3 mo, which was prescribed by assistant dean for ILD in 2022 -elevated ESR/CRP and [...] and CCP. -Dx September 2019 -following with [facility] rheumatology providers, last seen in Dec 2023 -previously prescribed hydroxychloroquine by rail assembler when she developed ILD and uveitis, with elevated ESR/CRP in [id number] -s/p prednisone treatment x 3 mo, which was prescribed by assistant dean for ILD in 2022 -elevated ESR/CRP and [...] and CCP. -Dx September 2019 -following with [facility] rheumatology providers, last seen in September 2023 -previously prescribed hydroxychloroquine by rail assembler when she developed ILD and uveitis, with elevated ESR/CRP in 9284-1776 -s/p prednisone treatment x 3 mo, which was prescribed by assistant dean for ILD in 2022 -elevated ESR/CRP and evaluated for other rheumatological / autoimmune / connective tissue disorder, including vasculitis. Vasculitis work-up was negative. Current Dx interstitial lung disease -currently monitoring without DMARDs Assessment & Plan (06/03/2023 6:53 PM EDT): -Seropositive rheumatoid arthritis (RF and CCP) -Dx September 2019 -following with [facility] rheumatology providers, last seen in Apr 2023 -previously prescribed hydroxychloroquine by rail assembler when she developed ILD and uveitis, with elevated ESR/CRP -s/p prednisone treatment x 3 mo, which was prescribed by assistant dean for ILD -elevated ESR/CRP and evaluated for other rheumatological / autoimmune / connective tissue disorder, including vasculitis. Vasculitis work-up was negative. Current Dx interstitial lung disease -follow up as scheduled Assessment & Plan (01/19/2023 6:03 AM EST): -Seropositive rheumatoid arthritis (RF and CCP) -Dx September 2019 -following with [facility] rheumatology providers, last seen in 2022 -currently prescribed hydroxychloroquine by rail assembler -s/p prednisone treatment x 3 mo, which was prescribed by assistant dean for ILD -elevated ESR/CRP and evaluated for other rheumatological / autoimmune / connective tissue disorder, including vasculitis. Vasculitis work-up was negative. Current Dx interstitial lung disease -follow up as scheduled Assessment & Plan (10/09/2022 9:05 AM EDT): -Seropositive rheumatoid arthritis -Dx September 2019 -following with [facility] rheumatology providers, last seen in 2022 -currently prescribed hydroxychloroquine by rail assembler -currently prescribed prednisone by assistant dean for ILD -elevated ESR/CRP and evaluated for other rheumatological / autoimmune / connective tissue disorder, including vasculitis. Current Dx interstitial lung disease -follow up as scheduled Assessment & Plan (07/11/2022 11:17 AM EDT): -Seropositive rheumatoid arthritis -Dx September 2019 -03/20/22 ESR 41 -following with [facility] rheumatology providers, last seen in June 2022 -now being evaluated for other rheumatological / autoimmune / connective tissue disorder, including vaculitis -follow up as scheduled Assessment & Plan (04/22/2022 5:13 AM EST): -Seropositive rheumatoid arthritis -Dx September 2019 -03/20/22 ESR 41 -following with [facility] rheumatology providers, last seen in Oct 2020, q6m visit -pt does not need any mediation at this time because her symtoms are very mild -continue periodic appt, every 6 mo, which is overdue. Recommended to call to reschedule appt Assessment & Plan (03/20/2022 8:25 AM EST): -Seropositive rheumatoid arthritis -following with [facility] rheumatology providers, last seen in Oct 2020, q6m visit -pt does not need any mediation at this time because her symtoms are very mild -continue periodic appt -Follow up every 6 months History of renal calculi 03/20/2022 Allergic asthma 10/22/2018 Overview (01/15/2023): Last Assessment & Plan: -Most recent exacerbation in February 2019, hospitalized at [facility] -COVID19 clinical Dx in June 2019 (household member was positive) - did not test at that time due to strict Dx criteria at that time -Frequency of exacerbation, requiring systemic steroid 8 x /year, 2 hospitalizations in 2018, less frequent recently -No Hx of intubation -Followed by both assistant dean and ENT -Continue Advair as maintenance -Continue Singulair as maintenance -Continue albuterol as rescue -Discussed about the importance of medication adherence and avoidance of 2nd hand smoke / exposure -Use unscented and hypoallergenic products Assessment & Plan (07/08/2024 3:14 PM EDT): -Exacerbation in February 2019, hospitalized at [facility] -Mild exacerbation in May 2024, treated as outpatient with prednisone by assistant dean -Frequency of exacerbation, requiring systemic steroid 8 x /year, 2 hospitalizations in 2018, less frequent recently -No Hx of intubation -Followed by both assistant dean -Previously seeing ENT -Continue Advair as maintenance -Continue Singulair as maintenance -Continue albuterol as rescue -Discussed about the importance of medication adherence and avoidance of 2nd hand smoke / exposure -Use unscented and hypoallergenic products Assessment & Plan (03/31/2024 5:17 PM EST): -Exacerbation in February 2019, hospitalized at [facility] -Mild exacerbation in June 2023, treated as outpatient with azithromycin and prednisone by assistant dean -Frequency of exacerbation, requiring systemic steroid 8 x /year, 2 hospitalizations in 2018, less frequent recently -No Hx of intubation -Followed by both assistant dean -Previously seeing ENT -Continue Advair as maintenance -Continue Singulair as maintenance -Continue albuterol as rescue -Discussed about the importance of medication adherence and avoidance of 2nd hand smoke / exposure -Use unscented and hypoallergenic products Assessment & Plan (12/24/2023 5:52 AM EDT): -Exacerbation in February 2019, hospitalized at [facility] -Mild exacerbation in June 2023, treated as outpatient with azithromycin and prednisone by assistant dean -Frequency of exacerbation, requiring systemic steroid 8 x /year, 2 hospitalizations in 2018, less frequent recently -No Hx of intubation -Followed by both assistant dean and ENT -Continue Advair as maintenance -Continue Singulair as maintenance -Continue albuterol as rescue -Discussed about the importance of medication adherence and avoidance of 2nd hand smoke / exposure -Use unscented and hypoallergenic products Assessment & Plan (06/03/2023 6:45 PM EDT): -Most recent exacerbation in February 2019, hospitalized at [place] [address] clinical Dx in June 2019 (household member was positive) - did not test at that time due to strict Dx criteria at that time -Frequency of exacerbation, requiring systemic steroid 8 x /year, 2 hospitalizations in 2019, less frequent recently -No Hx of intubation -Followed by both assistant dean and ENT -Continue Advair as maintenance -Continue Singulair as maintenance -Continue albuterol as rescue -Discussed about the importance of medication adherence and avoidance of 2nd hand smoke / exposure -Use unscented and hypoallergenic products Assessment & Plan (01/19/2023 5:57 AM EST): -Most recent exacerbation in February 2019, hospitalized at [place] [address] clinical Dx in June 2019 (household member was positive) - did not test at that time due to strict Dx criteria at that time -Frequency of exacerbation, requiring systemic steroid 8 x /year, 2 hospitalizations in 2019, less frequent recently -No Hx of intubation -Followed by both assistant dean and ENT -Continue Advair as maintenance -Continue Singulair as maintenance -Continue albuterol as rescue -Discussed about the importance of medication adherence and avoidance of 2nd hand smoke / exposure -Use unscented and hypoallergenic products Assessment & Plan (10/09/2022 9:01 AM EDT): -Most recent exacerbation in February 2019, hospitalized at [place] [address] clinical Dx in June 2019 (household member was positive) - did not test at that time due to strict Dx criteria at that time -Frequency of exacerbation, requiring systemic steroid 8 x /year, 2 hospitalizations in 2019, less frequent recently -No Hx of intubation -Followed by both assistant dean -Continue Advair as maintenance -Continue Singulair as maintenance -Continue albuterol as rescue -Discussed about the importance of medication adherence and avoidance of 2nd hand smoke / exposure -Use unscented and hypoallergenic products Assessment & Plan (07/11/2022 11:12 AM EDT): -Most recent exacerbation in February 2019, hospitalized at [place] [address] clinical Dx in June 2019 (household member was positive) - did not test at that time due to strict Dx criteria at that time -Frequency of exacerbation, requiring systemic steroid 8 x /year, 2 hospitalizations in 2018, less frequent recently -No Hx of intubation -Followed by both assistant dean and ENT -Continue Advair as maintenance -Continue Singulair as maintenance -Continue albuterol as rescue -Discussed about the importance of medication adherence and avoidance of 2nd hand smoke / exposure -Use unscented and hypoallergenic products Assessment & Plan (04/11/2022 1:14 PM EST): -Most recent exacerbation in February 2019, hospitalized at [place] [address] clinical Dx in June 2019 (household member was positive) - did not test at that time due to strict Dx criteria at that time -Frequency of exacerbation, requiring systemic steroid 8 x /year, 2 hospitalizations in 2019, less frequent recently -No Hx of intubation -Followed by both assistant dean and ENT -Continue Advair as maintenance -Continue Singulair as maintenance -Continue albuterol as rescue -Discussed about the importance of medication adherence and avoidance of 2nd hand smoke / exposure -Use unscented and hypoallergenic products Assessment & Plan (03/20/2022 8:26 AM EST): -Most recent exacerbation in February 2019, hospitalized at [place] [address] clinical Dx in June 2019 (household member was positive) - did not test at that time due to strict Dx criteria at that time -Frequency of exacerbation, requiring systemic steroid 8 x /year, 2 hospitalizations in 2019, less frequent recently -No Hx of intubation -Followed by both assistant dean and ENT -Continue Advair as maintenance -Continue [...] to request a follow up appointment with [facility] Hypothyroidism due to [...] Assessment & Plan (04/22/2022 5:09 AM EST): -Primer Inspector recommended repeat pelvic ultrasound, further evaluation and [...] 05/02/2012 Overview (01/15/2023): Last Assessment & Plan: -[facility] provider: N -Current medication: escitalopram 10 mg daily; doxepin 10 mg qhs Assessment & Plan (12/21/2023 4:35 PM EDT): -[facility] provider: N -Current medication: escitalopram 10 mg daily; doxepin 10 mg qhs Assessment & Plan (04/22/2022 5:17 AM EST): -[facility] provider: N -Current medication: escitalopram 10 mg daily; doxepin 10 mg qhs Assessment & Plan (03/20/2022 8:29 AM EST): -[facility] provider: ALBERTO -Current medication: escitalopram 10 mg [...] -Will request 24 hour bp monitoring with lead installer Assessment & Plan (01/19/2023 5:59 AM [...] Encounters Date Type Department Care Team Description 07/16/2024 [facility] WALK-IN CENTER [address] [place] [phone] Huong David MD 07/11/2024 Refill [facility] WALK-IN CENTER [address] [place] [phone] Huong David MD 07/08/2024 2:15 PM EDT Office Visit 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; Prediabetes; Allergic rhinitis, unspecified seasonality, unspecified trigger; Rheumatoid arthritis with positive rheumatoid factor, involving unspecified site ([facility]); Rosacea; Gastroesophageal reflux disease, unspecified whether esophagitis present; Dietary counseling; Exercise counseling; Class 1 obesity due to excess calories with serious comorbidity and body mass index (BMI) of 30.0 to 30.9 in adult; Heartburn 07/08/2024 Travel 07/07/[address] [address] Huong David MD chart prep 06/19/[address] [address] Huong David MD 06/16/2024 Orders Only [facility] External Provider, [facility] 05/23/2024 Population Health Risk Score [facility] () Department [address] [place] [phone] Provider, Population Health Generic 05/16/2024 Orders Only [...] is your housing situation today? I have clairegood mae 05/21/[address] you [...] 07/08/2024, 07/09/19 25 SDOH Screening 07/08/2025 07/08/2024 Tobacco Screening 07/13/2025 07/13/2024 Mammogram 07/14/2026 07/14/2024, 05/0 04/2023, 07/06/2022, Additional history exists Lipid Panel 12/18/2028 [...] Procedure Name Priority Date/Time Associated Diagnosis Comments BI MAMMOGRAM SCREENING TOMOSYNTHESIS BILATERAL Routine 07/14/2024 12:30 PM EDT US PELVIS TRANSVAGINAL Routine 06/17/2024 11:11 AM [...] PANEL, GENERAL Routine 09/24/2023 1:58 PM EDT from Last 3 Months or Most Recently Relevant to Health Maintenance Results * BI Mammogram Screening Tomosynthesis Bilateral (07/14/2024 12:30 PM EDT) Anatomical Region Laterality Modality Breast Bilateral Mammography 07/14/2024 12:3 0 PM EDT Narrative 07/20/2024 9:21 PM EDT ? [facility] ? [address] ?[place] [address] ?[phone] ? Mammography Report ? Signed ? Patient: Ilene Dominguez ?MR#: [id number] ?? 5 ? : 1965 ?Acct:[id number] ? Age/Sex: 59 / F ?ADM Date: 05/05/25 ? Loc: HO.MAMMO ? Attending Dr: Joel Flores MD ? Ordering Physician: Joel Flores MD ?Results: 2Benign ?? Findings ? Date of Service: 07/14/24 ?Follow Up: 1 Year From Orig ?? inal Mammogram ? Procedure(s): MM tomosynthesis screening BI ?? Accession Number(s): [id number] ? cc: Huong David MD; Joel Flores MD ? EXAMINATION: ?? MM SCREENING DIGITAL BREAST TOMOSYNTHESIS, BILATERAL ? CLINICAL INFORMATION: ? Screening. Asymptomatic. ? COMPARISON: ?? Mammography: Comparison is made with available priors ? TECHNIQUE: ?? Digital breast mammography with tomosynthesis is performed in both the ?? craniocaudal and mediolateral oblique views along with computer-aided ?? detection (CAD). ? FINDINGS: ?? The breasts are almost entirely fatty (ACR BI-RADS breast composition ?? Category a). ?? Bilateral scattered focal asymmetries are stable. ?? There are no significant masses, abnormal calcifications, or other ?? abnormalities. ? MM/MM tomosynthesis screening BI ?? IMPRESSION: ?? No mammographic evidence of malignancy. ? ASSESSMENT: ? BI-RADS BI-RADS 2 - Benign Findings ? RECOMMENDATION: ?? Routine annual mammography screening. ? 1 year F/U ? This examination should not preclude the clinical evaluation of a ?? suspicious palpable abnormality. ? This patient's information was entered into a reminder system with a ?? target due date for their next mammogram. ? Electronically signed by: ??Michelle Sierra DO ??07/20/2024 09:18 PM EDT ?? RP ? Dictated By: ?Michelle Sierra DO ? Signed By: ?<Electronically signed by Michelle Sierra, DO in OV> ? 07/20/242117 ? DD/ 1230 ? TD/TT: 07/14/24 1236 ? Sequins Slinger: ? Procedure Note Donmikeyphyllister, Image - 07/20/2024 [facility] [address] [place] [address] Mammography Report Signed Patient: Charles Dominguez#: [id number] 5 : 1965Acct:[id number] Age/Sex: 59 / FADM Date: 07/14/24 Loc: HO.MAMMO Attending Dr: Joel Flores MD Ordering Physician: Joel Floresults: 2Benign Findings Date of Service: 07/14/24Follow Up: 1 Year From Orig ina Mammogram Procedure(s): MM tomosynthesis screening BI Accession Number(s): [id number] cc: Huong David MD; Joel Flores MD EXAMINATION: MM SCREENING DIGITAL BREAST TOMOSYNTHESIS, BILATERAL CLINICAL INFORMATION: Screening. Asymptomatic. COMPARISON: Mammography: Comparison is made with available priors TECHNIQUE: Digital breast mammography with tomosynthesis is performed in both the craniocaudal and mediolateral oblique views along with computer-aided detection (CAD). FINDINGS: The breasts are almost entirely fatty (ACR BI-RADS breast composition Category a). Bilateral scattered focal asymmetries are stable. There are no significant masses, abnormal calcifications, or other abnormalities. MM/MM tomosynthesis screening BI IMPRESSION: No mammographic evidence of malignancy. ASSESSMENT: BI-RADS BI-RADS 2 - Benign Findings RECOMMENDATION: Routine annual mammography screening. 1 year F/U This examination should not preclude the clinical evaluation of a suspicious palpable abnormality. This patient's information was entered into a reminder system with a target due date for their next mammogram. Electronically signed by: Michelle Sierra DO 07/20/2024 09:18 PM EDT RP Dictated By: Michelle Sierra DO Signed By: <Electronically signed by Michelle Sierra DO in OV> 07/20/242117 DD/ 1230 TD/TT: 07/14/24 1236 Sequins Slinger: [facility] External Provider IMG BI PROCEDURES Final Result * US Pelvis Transvaginal (06/17/2024 11:11 AM EDT) Anatomical Region Laterality Modality Pelvis Ultrasound 06/17/2024 11:1 1 AM EDT Narrative 06/17/2024 11:13 AM EDT ? [facility] ?[address] ?[place] [address] ? Ultrasound Report ? Signed ? Patient: Dominguez,Ilene ?MR#: [id number] ?? 5 ? : 1965 ?Acct:[id number] ? Age/Sex: 59 / F ?ADM Date: 06/16/24 ? Loc: HO.US ? Attending Dr: Joel Flores MD ? Ordering Physician: Joel Flores MD ?? Date of Service: 06/16/24 ?? Procedure(s): US pelvic and transvaginal ?? Accession Number(s): [id number] ? cc: Huong David MD; Joel Flores MD ? CLINICAL HISTORY: N95.0 - Postmenopausal bleeding ? US pelvis transabdominal and transvaginal with color Doppler ? Comparison: US/SR - US PELVIC AND TRANSVAGINAL - 10/08/23 14:45 EDT ?? US/LA/SR - US PELVIC AND TRANSVAGINAL - 04/17/22 [...] DD/ 1111 ? TD/TT: 06/17/24 1111 ? Sequins Slinger: ? Procedure Note Alena, Image - 06/17/2024 [place] [id number] Ultrasound Report Signed Patient: Charles Dominguez#: [id number] 5 : 1965Acct:[id number] Age/Sex: 59 / FADM Date: 06/16/24 Loc: HO.US Attending Dr: Joel Flores MD Ordering Physician: Joel Flores MD Date of Service: 06/16/24 Procedure(s): US pelvic and transvaginal Accession Number(s): [id number] cc: Huong David MD; Joel Flores MD CLINICAL HISTORY: N95.0 - Postmenopausal bleeding US pelvis transabdominal and transvaginal with color Doppler Comparison: US/SR - US PELVIC AND TRANSVAGINAL - 10/08/23 14:45 EDT US/LA/SR - US PELVIC AND TRANSVAGINAL - 04/17/22 [...] 06/17/24 1113 DD/ 1111 TD/TT: 06/17/24 1111 Sequins Slinger: [facility] External Provider IMG US PROCEDURES Final Result * Referral to Allergy (06/02/2024) Carmen Malone MD OUTPATIENT REFERRAL ORDERA BLES Final Result * HPV DNA, Low/High Risk (05/16/2024 8:57 AM EST) HPV High Risk Negative Negative [facility] HPV Genotype 16 Negative Negative [facility] HPV Genotype 18 Negative Negative [facility] Comment:HPV testing performe d at [facility] (CLIA#[id number]), [address] [place] [address] [phone].Testing for HPV was performed using the [employer] TILA [email or web address]. The presence of HPV in the female [...] ORDERAB LES Final Result Performing Organization Address City/State/[facility] Co de Phone Number [facility] [address] [place] [phone] * Pap Smear (05/16/2024 8:57 AM EST) 05/16/2024 8:57 AM EST 05/16/2024 11:39 AM EST Narrative [facility] - 05/20/2024 9:43 AM EDT ----- ------- Name: Ilene Dominguez ?Age/Sex: 59/F ? : 1965 Unit#: [id number] ?? Attend Dr: Joel Flores MD ?Re05/16/24 ?Status: DEP REF ? Location: HO.LNP ?Disch: ? ----- ------- SPEC : [id number] ? RECD: 05/16/24 ? STATUS: ??SOUT ? REQ NUM: [id number] ? ZE: 05/16/24 ? SUBM DR: Joel [...] Copies To: ?? Huong David MD ?? [facility] ?? [address] ?? [place] [address] ?? [phone] ?? Joel Flores MD ?? [facility] ?? [address] ?? [place] [address] ?? [phone] ----- ------- Signed (signature on file) ZOILA Little (ASCP) 05/20/24 0943 ? ----- ------- ? END OF REPORT ? us Generic External Data Provider LAB CYTOLOGY ORDE NIKOS Final Result [facility] [address] [place] [address] [phone] * Lipid Panel with Reflex to Direct LDL (12/19/2023 10:15 AM EDT) Triglycerides 56 <150 mg/dL [facility] Comment:Desirable Triglyceri de: less than 150 mg/dLBorderline High Triglyceride 150-199 mg/dLHigh Triglyceride: 200-499 mg/dLVery High Triglyceride: greater than or equal to 5OO mg/dL Cholesterol 173 <200 mg/dL [facility] Comment:Desirable Cholestero l: less than 200 mg/dLBorderline High Cholesterol: 200-239 mg/dLHigh Cholesterol: greater than 239 mg/dL LDL Cholesterol Calculated 98 <100 mg/dL [facility] Comment:Desirable LDL: less than 100 mg/dLNear Optimal/Above Optimal LDL: 110- 129 mg/dLBorderline High LDL: 130-159 mg/dLHigh LDL: 160-189 mg/dLVery High LDL: greater than or equal to 190 mg/dL HDL Cholesterol 64 >40 mg/dL [facility] Comment:Desirable HDL: great er than 40 mg/dL Note: This HDL assay may give artificially low results in patients with liver disease. Blood 12/19/2023 10:1 5 AM EDT 12/19/2023 11:31 AM EDT us Huong David MD LAB BLOOD ORDERABLES Final Resul t [facility] [address] [place] [phone] * Hemoglobin A1c (12/19/2023 10:15 AM EDT) Hemoglobin A1c 5.7 <6.0 % [facility] Comment:Hemoglobin A1C Refer ence Range Adults: 4.8 - 6.0 % Non diabetic: < 6.0 % Goal: < 7.0 %Additional Action Suggested: > 8.0 %Note: Hemoglobin A1c results are invalid for patients with abnormal amounts of HbF. Blood transfusions may impact the HbA1c concentration in the patient sample. Estimated Average Glucose 117 mg/dL [facility] Comment:eAG = Estimated ave rage glucose which is %A1C expressed asaverage glucose, using the formula of the J5S-IimuqbePeoqqrz Glucose study (ADAG), Diabetes Care, Vol.31,#8,Oct. 2007 Blood Venous blood specimen / Unknown 12/19/2023 10:15 AM EDT 12/19/2023 11:31 AM EDT Huong David MD LAB BLOOD ORDERABLES Final Resul t [facility] [address] [place] [phone] * Hm Colonoscopy (12/12/2023) Colonoscopy Normal Normal 12/12/2023 Yimi Provider HEALTH MAINTENANCE Final Result * Hepatitis Panel, General (09/24/2023 1:58 PM EDT) Hepatitis A IgM Nonreactive Nonreactive [facility] Comment:IgM antibodies to SCOTT V not detected; does not exclude earlyacute or recovered HAV infection. ~Hepatitis B Surface Antibody NONREACTIVE Nonreactive [facility] Comment:Nonreactive: < 8.00 mIU/mL Hepatitis B Core Antibody Nonreactive Nonreactive [facility] Hepatitis C Antibody Nonreactive Nonreactive [facility] Comment:Antibodies to HCV no t detected; does not exclude early acuteHCV infection. Hepatitis B Surface Ag Negative Negative [facility] 09/24/2023 1:58 PM EDT 09/24/2023 1:58 PM EDT Generic External Data Provider LAB BLOOD ORDERAB LES Final Result Performing Organization Address City/[facility]/ZIP Co de Phone Number [facility] [address] [place] [phone] from Last 3 Months or Most Recently Relevant to Health Maintenance Insurance * Guarantor: lIene Dominguez Account Type Relation to Patient Date of Phone Billing Address Personal/Family Self 1965 [address] [place], [place] [facility] * Guarantor: Ilene Dominguez Account Type Relation to Patient Date of Phone Billing Address Personal/Family Self [address] [place], [place] * Guarantor: Ilene Dominguez Account Type Relation to Patient Date of Phone Billing Address Personal/Family Self [address] [place] [address] * Guarantor: Ilene Dominguez Account Type Relation to Patient Date of Phone Billing Address Personal/Family Self [address] [facility] [address] [place], [place] Care Teams Director Of Sales Support Relationship Specialty Start Date End Date Huong David MD [address] [place] [address] PCP - General Family Medicine 02/22/12 John Salgado, Vikki [address] [place] [address] Pharmacist Internal Medicine 01/16/23
--- OUTSIDE RECORDS SUMMARY | 2024-07-21 14:28 | XMS_ITS | Encounter Summary ---
Author Organization [facility] Address [address] [place] [address] Care Team Providers Care Sleep Scientist Name Role Phone Huong David Primary Care Provider Unavailalia e Dimitri Jimenez MD, PHD Unavailable Unava ilable Encounter Details Date Type Department Care Team Description 08/28/2018 Sales Representative Rural Power Report Medical Records [address] [place] [phone] Huong David Social History Tobacco Use Types Packs/Day Years Used Date Smoking Tobacco: Never Assessed Sex Assigned at Date Recorded Not on file documented as of this encounter Plan of Treatment Not on file documented as of this encounter Visit Diagnoses Not on filedocumented in this encounter Care Teams Sleep Scientist Relationship Specialty Start Date End Date Huong David PCP - General Family Practice 09/03/18 Dimitri Jimenez MD, PHD Surgeon Neurosurgery 03/28/22 documented as of this encounter
--- OUTSIDE RECORDS SUMMARY | 2024-07-21 14:28 | XMS_ITS | Encounter Summary ---
Author Organization [employer] Address [address] [place] [address] Care Team Providers Care Boatwright Name Role Phone Huong David MD Primary Care Provider [phone] John Salgado PharmD Unavailable [phone] Encounter Details Date Type Department Care Team (Late st Contact Info) Description 04/04/2024 Abstract [facility] [address] [place], [place] [phone] Amaya Bhatia [place] Social History Tobacco Use [...] documented as of this encounter Care Teams Boatwright Relationship Specialty Start Date End Date Huong David MD [address] [place] [address] PCP - General Family Medicine 02/22/12 John Salgado, PharmD [address] [place] [address] Pharmacist Internal Medicine 01/16/23 documented as of this encounter
--- OUTSIDE RECORDS SUMMARY | 2024-07-21 14:28 | XMS_ITS | Encounter Summary ---
Author Organization [employer] Address [address] [place] [address] Care Team Providers Care Egg Separator Name Role Phone Huong David MD Primary Care Provider [phone] Jhon Salgado PharmD Unavailable [phone] Encounter Details Date Type Department Care Team (Late st Contact Info) Description 03/28/2024 Orders Only [facility]INE [address] [place], [place] [phone] Huong David MD [address] [place], [place] [phone] Social History Tobacco Use Types Packs/Day Years [...] documented as of this encounter Care Teams Egg Separator Relationship Specialty Start Date End Date Huong David MD [address] [place] [address] PCP - General Family Medicine 02/22/12 John Salgado, DelmiD [address] [place] [address] Pharmacist Internal Medicine 01/16/23 documented as of this encounter
--- OUTSIDE RECORDS SUMMARY | 2024-07-21 14:28 | XMS_ITS | Encounter Summary ---
Author Organization [employer] Address [address] [facility] 7t [place] [address] Care Team Providers Care Certified Court Interpreter Name Role Phone Huong David MD Primary Care Provider [phone] John Salgado PharmD Unavailable [phone] Reason for Visit * Reason Comments Med Refill Encounter Details Date Type Department Care Team (Late st Contact Info) Description 09/13/2022 Refill [facility] MED[facility]INE [address] [place], [place] [phone] Name, MD Jemal [address] [place], [place] [phone] Social History Tobacco Use Types Packs/Day Years [...] documented as of this encounter Care Teams Certified Court Interpreter Relationship Specialty Start Date End Date Huong David MD [address] [place] [address] [phone] PCP - General Family Medicine 02/22/12 John Salgado, PharmD [address] [place] [address] Pharmacist Internal Medicine 01/16/23 documented as of this encounter
--- OUTSIDE RECORDS SUMMARY | 2024-07-21 14:28 | XMS_ITS | Encounter Summary ---
Author Organization [employer] Address [address] [facility] 7t [place] [address] Care Team Providers Care Pretzel Twister Name Role Phone Huong David MD Primary Care Provider [phone] John Salgado PharmD Unavailable [phone] Encounter Details Date Type Department Care Team (Late st Contact Info) Description 10/06/2022 Orders Only [facility] MEDICINE [address] [place], [place] [phone] Huong David MD [address] [place], [place] [phone] Hypokalemia (Primary Dx) Social History Tobacco Use [...] documented as of this encounter Care Teams Pretzel Twister Relationship Specialty Start Date End Date Huong David MD [address] [place] [address] PCP - General Family Medicine 02/22/12 John Salgado PharmD [address] [place] [address] Pharmacist Internal Medicine 01/16/23 documented as of this encounter
--- OUTSIDE RECORDS SUMMARY | 2024-07-21 14:28 | XMS_ITS | Encounter Summary ---
Author Organization [facility] Address [address] [place] [address] Care Team Providers Care Nutritionist Name Role Phone Huong David Primary Care Provider Unavailalia e Dimitri Jimenez MD, PHD Unavailable Unava ilable Encounter Details Date Type Department Care Team Description 03/29/2022 SCAN [facility] Neurosurgery [place] [address] [place] [address] Dimitri Jimenez MD, PHD Social [...] on filedocumented in this encounter Care Teams Nutritionist Relationship Specialty Start Date End Date Huong David PCP - General Family Practice 09/03/18 Dimitri Jimenez MD, PHD Surgeon Neurosurgery 03/28/22 documented as of this encounter
== END 2024-07-21 14:40 | disposition home or self-care (01) ==
LOC: HO.HWS 14:15
PROVIDERS: PCP Family Medicine; Visit Provider Obstetrics & Gynecology
DX: D25.9 Leiomyoma of uterus, unspecified (principal); N95.0 Postmenopausal bleeding
CPT/HCPCS: 99213

== ENCOUNTER → 2024-07-21 14:15 | Outpatient (BNVA) | payer MEDICAID, SELFPAY | PROVIDERS: PCP Family Medicine; Visit Provider Obstetrics & Gynecology | DX: D25.9 Leiomyoma of uterus, unspecified (principal); N95.0 Postmenopausal bleeding | CPT/HCPCS: 99212 ==

== ENCOUNTER 2024-09-29 13:21 | Outpatient (AMB) | payer MEDICAID, SELFPAY ==
[2024-09-29 13:30] VITALS: BP 108/62; PULSE 91; O2SAT 94; BMI 29.0
--- NOTE | 2024-09-29 13:30 | MHC.OFFVIS ---
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 In 2022 patient completed 3 months prednisone 50 mg daily with significant improvement in her dyspnea symptoms and imaging. At that time her prednisone was stopped with no recurrence of symptoms and essentially normal CT chest. Patient has been using Advair and albuterol MDI to control her underlying asthma symptoms and Singulair for allergic component though with suboptimal outcome. She did complete her RAST testing and she does have significant allergic component to her symptoms. [facility] Medical History Family history of gastric cancer Vitamin D deficiency GERD (gastroesophageal reflux disease) History of depression Chronic allergic rhinitis Asthma Hypothyroid Hypertension Surgical History H/O colonoscopy Hx of cystoscopy H/O nasal polypectomy H/O tubal ligation Family History Mother HTN (hypertension) Diabetes Colon cancer Father HTN (hypertension) Diabetes Hyperlipidemia Colon cancer Social History Household Members: Spouse Household Members Other:: son Housing: Apartment Are you a primary child care attendant to a significant other at home: No Do you presently have visiting nurse or other home services: No Alcohol intake: former Patient Tobacco Use Status: Never used Tobacco service: No Current occupational status: disabled Female Reproductive History Menstrual Age of Menarche: 10 Review of Systems Const Denies daytime sleepiness, Denies excessive sweating, Denies fatigue, Denies fever(s), Denies lethargy, Denies malaise, Denies night sweats, Denies snoring and Denies weight loss Eyes Denies blurry vision and Denies itchy eyes ENT Denies nasal congestion, Denies post nasal drip, Denies sinus pain, Denies sinus pressure and Denies other ( Thrush) Card Denies chest pain, Denies pedal edema, Denies dyspnea, Denies orthopnea and Denies paroxysmal nocturnal dyspnea Resp Reports cough, Denies hemoptysis, Denies excessive phlegm production, Denies dyspnea, Denies snoring and Reports wheezing GI Denies abdominal pain and Denies heartburn Musc Denies myalgias, Denies arthralgias and Denies joint swelling Skin/Breast Denies rash Neuro Denies memory loss and Denies seizure-like activity Psych Denies abnormal sleep pattern, Denies anxiety and Denies memory loss Endo Denies excessive sweating, Denies fatigue and Denies heat intolerance Agustin/Lymph Denies easy bruising Aller/Immun Denies itchy eyes, Denies seasonal rhinorrhea and Reports wheezing Physical Exam Vital Signs: Last Vital Signs Pulse 91 09/29/24 13:30 BP 108/62 09/29/24 13:30 Pulse Ox 94 09/29/24 13:30 Oxygen Delivery Method Room Air 09/29/24 13:30 BMI result Body Mass Index 29.0 Const General: no acute distress and alert Nutritional Appearance: not obese Orientation/consciousness: Other orientation findings ( oriented) HEENT Head: Yes atraumatic Eyes General: appearance normal, both eyes and all related structures Sclerae: sclerae normal EOM: EOMs intact bilaterally Neck Neck: Yes supple Lymphatic: no lymphadenopathy noted Resp Effort & Inspection: normal respiratory effort and no use of accessory muscles Auscultation: clear to auscultation bilaterally Cardio Rate: regular rate Rhythm: regular rhythm Heart sounds: no gallops, no murmurs and no rubs Skin General skin exam: other ( warm) Extrem General: No clubbing, No cyanosis and No edema Assessment & Plan Assessment & Plan (1) Asthma: Code(s): J45.909 - Unspecified asthma, uncomplicated Category: Medical Plan: Suboptimal control on Advair, Singulair, and albuterol MDI. Will request Xolair approval. (2) Environmental allergies: Code(s): Z91.09 - Other allergy status, other than to drugs and biological substances Category: Medical Plan: Results of immunologic testing reviewed, patient does have significant allergic component to his symptoms. Expect to improve on Xolair. Continue Singulair. Coding Level of Care Code Est Pt Level 4 (35261) Complex EM visit Add On G2211 Diagnoses Asthma J45.909 Environmental allergies Z91.09
--- OUTSIDE RECORDS SUMMARY | 2024-09-29 14:04 | XMS_ITS | Clinical Summary ---
Author Organization [facility] Address [address] [facility] [address] [place] [address] Phone Care Team Providers Care Home Care Assistant Name Role Phone Huong David MD Primary Care Provider [phone] Allergies No known active allergies Medications Zoster [...] 11/06/2022 Overview (11/06/2022): Last Assessment & Plan: -Tour Manager recommended repeat pelvic ultrasound, further evaluation and recommendation Hysteroscopy for endocervical polyp. Patient was reassured that the fibroids typically decrease in size and resolve in menopause. -Recommended removal of polyps. -Scheduled for hysteroscopy with vp sales Urticaria 04/11/2022 11/06/2022 Degeneration of cervical intervertebral disc 11/06/2022 History of calculus of kidney 03/20/2022 Rheumatoid arthritis 03/20/2022 11/06/2022 Overview (11/06/2022): Last Assessment & Plan: -Seropositive rheumatoid arthritis -Dx September 2019 -03/20/22 ESR 41 -following with [facility] rheumatology providers, last seen [...] exacerbation in February 2019, hospitalized at [facility] -COVID19 clinical Dx in June 2019 (household member was positive) - did not test at that time due to strict Dx criteria at that time -Frequency of exacerbation, requiring systemic steroid 8 x /year, 2 hospitalizations in 2019, less frequent recently -No Hx of intubation -Followed by both motor vehicle field representative and ENT -Continue Advair as maintenance -Continue [...] 11/06/2022 Overview (11/06/2022): Last Assessment & Plan: -Tour Manager recommended repeat pelvic ultrasound, further evaluation and [...] 11/06/2022 Overview (11/06/2022): Last Assessment & Plan: -[facility] provider: ALBERTO -Current medication: escitalopram 10 [...] Colonoscopy 02/18/2012 Colorectal Cancer Screening: Sigmoidoscopy 02/18/2012 Influenza Vaccine (#1) 2024 , 01/18/2023, 03/20/2022, Additional history exists Hepatitis B Vaccine Aged Out 11/01/2006, 06/21/2006, 05/03/2006 No longer eligible based on patient's age to complete this topic Pneumococcal Vaccine: 50+ Years Completed 10/05/2022, 07/14/2018, 09/19/2006 Pneumococcal Vaccine: Peds (0 to 5 Years) and At-Risk Patients (6 to 49 Years) Discontinued 10/05/2022, 07/14/2018, 09/19/2006 Insurance * Guarantor: Ilene Dominguez Account Type Relation to Patient Date of Phone Billing Address Personal/Family Self 1965 [address] [place], [place] * Guarantor: Ilene Dominguez Account Type Relation to Patient Date of Phone Billing Address Personal/Family Self 1965 [address] [place], [place] Care Teams Home Care Assistant Relationship Specialty Start Date End Date Huong David MD [address] [place] [phone] PCP - General Family Medicine 06/08/23
--- OUTSIDE RECORDS SUMMARY | 2024-09-29 14:04 | XMS_ITS | Encounter Summary ---
Author Organization [employer] Address [address] [facility] 7t [place] [address] Care Team Providers Care Cnc Operator Name Role Phone Huong David MD Primary Care Provider [phone] John Salgado PharmD Unavailable [phone] Reason for Visit * Reason Onset Date Comments returning call 03/22/2022 Encounter Details Date Type Department Care Team ([facility] st Contact Info) Description 03/22/[address] [facility] [address] [place], [place] [phone] Huong David MD [address] [place], [place] [phone] returning call Social History Tobacco Use Types [...] a call back Please contact pt at [phone] documented in this encounter Plan of Treatment Upcoming Encounters Date Type Department Care Team (Late st Contact Info) Description 10/27/2024 3:00 PM EDT Office Visit [facility] [address] [place] [address] Huong David MD [address] [place] [address] documented as of this encounter Visit Diagnoses Not on filedocumented in this encounter Care Teams Cnc Operator Relationship Specialty Start Date End Date Huong David MD [address] [place] [address] [phone] PCP - General Family Medicine 02/22/12 John Salgado, PharmD [address] [place] [phone] Pharmacist Internal Medicine 01/16/23 documented as of this encounter
== END 2024-09-29 13:47 | disposition home or self-care (01) ==
LOC: HO.HPS 13:22
PROVIDERS: PCP Family Medicine; Visit Provider Internal Medicine Pulmonary Disease
DX: J45.909 Unspecified asthma, uncomplicated (principal); Z91.09 Other allergy status, other than to drugs and biological substances
CPT/HCPCS: 99214

== ENCOUNTER → 2024-09-29 13:21 | Outpatient (BNVA) | payer MEDICAID, SELFPAY | PROVIDERS: PCP Family Medicine; Visit Provider Internal Medicine Pulmonary Disease | DX: J45.909 Unspecified asthma, uncomplicated (principal); Z91.09 Other allergy status, other than to drugs and biological substances | CPT/HCPCS: 99212 ==

== ENCOUNTER 2025-01-12 11:12 | Outpatient (REF) | payer MEDICAID, SELFPAY ==
[2025-01-12 13:42] LABS: Alanine Aminotransferase 17 U/L (0-31); Albumin Level 4.0 g/dL (3.5-5.0); Alkaline Phosphatase 67 U/L (39-117); Anion Gap 7 (12-20); Aspartate Amino Transferase 28 U/L (5-31); Blood Urea Nitrogen 15 mg/dL (9-16); Calcium 8.4 mg/dL (8.4-10.2); Carbon Dioxide 29 mmol/L (22-29); Chloride 109 mmol/L (96-108); Cholesterol 176 mg/dL (<200); Estimated Glomerular Filt Rate > 60; HDL Cholesterol 67 mg/dL (>40); Potassium 4.0 mmol/L (3.3-5.1); Sodium 141 mmol/L (135-145); Total Protein 7.2 g/dL (6.5-8.0); Triglycerides 49 mg/dL (<150)
[2025-01-12 13:51] LABS: Reflex LDLD? No
--- OUTSIDE RECORDS SUMMARY | 2025-01-12 14:13 | XMS_ITS | Encounter Summary ---
Author Organization [employer] Address [address] [facility] [address] [place] [address] Care Team Providers Care Gluing Machine Offbearer Name Role Phone Huong David MD Primary Care Provider [phone] John Salgado PharmD Unavailable [phone] Reason for Visit * Reason Onset Date Comments returning call 03/22/2022 Encounter Details Date Type Department Care Team ([facility] st Contact Info) Description 03/22/2022 Telephone [facility] [address] [place], [place] [phone] Huong David MD [address] [place], [place] [phone] returning call Social History Tobacco Use Types [...] a call back Please contact pt at [phone] documented in this encounter Plan of Treatment Upcoming Encounters Date Type Department Care Team (Late st Contact Info) Description 01/20/2025 1:15 PM EST Office Visit [facility] [address] [place], [place] [phone] Huong David MD [address] [place] [phone] documented as of this encounter Visit Diagnoses Not on filedocumented in this encounter Care Teams Gluing Machine Offbearer Relationship Specialty Start Date End Date Huong David MD [address] [place] [address] [phone] PCP - General Family Medicine 02/22/12 John Salgado, PharmD [address] [place] [phone] Pharmacist Internal Medicine 01/16/23 documented as of this encounter
--- OUTSIDE RECORDS SUMMARY | 2025-01-12 14:13 | XMS_ITS | Encounter Summary ---
Author Organization [email or web address] Address [address] [place] [address] [address] [place] [address] Care Team Providers Care Insurance Examiner Name Role Phone Huong David MD Primary Care Provider [phone] John Salgado PharmD Unavailable [phone] Encounter Details Date Type Department Care Team (Late st Contact Info) Description 08/23/2022 Abstract [facility] [address] [place] [address] [phone] Huong David MD [address] [place] [address] [phone] Social History Tobacco Use Types Packs/Day Years [...] Description 01/20/2025 1:15 PM EST Office Visit [facility] [address] [place] [address] [phone] Huong David MD [address] [place] [address] [phone] documented as of this encounter Procedures Procedure Name Priority Date/Time Associated Diagnosis Comments MAMMOGRAPHY Routine 07/06/2022 documented in this encounter Results * Mammography (07/06/2022) Mammogram bi-rads 2 Anatomical Region Laterality Modality Other 07/06/2022 Result [facility] HEALTH MAINTENANCE Final Result documented in this encounter Visit Diagnoses Not on filedocumented in this encounter Additional Health Concerns Assessment Noted Time PHQ-9 Depression Total Score: 0 04/11/19 23 1:19 PM EST documented as of this encounter Care Teams Insurance Examiner Relationship Specialty Start Date End Date Huong David MD [address] [place] [address] PCP - General Family Medicine 02/22/12 John Salgado, DelmiD [address] [place] [phone] Pharmacist Internal Medicine 01/16/23 documented as of this encounter
--- OUTSIDE RECORDS SUMMARY | 2025-01-12 14:13 | XMS_ITS | Clinical Summary ---
Author Organization [facility] Address [address] [facility] [address] [place] [address] Phone Care Team Providers Care Grommet Man Name Role Phone Huong David MD Primary Care Provider [phone] Allergies No known active allergies Medications Zoster [...] 11/06/2022 Overview (11/06/2022): Last Assessment & Plan: -Vacuum Form Operator recommended repeat pelvic ultrasound, further evaluation and recommendation Hysteroscopy for endocervical polyp. Patient was reassured that the fibroids typically decrease in size and resolve in menopause. -Recommended removal of polyps. -Scheduled for hysteroscopy with tip stretcher Urticaria 04/11/2022 11/06/2022 Degeneration of cervical intervertebral disc 11/06/2022 History of calculus of kidney 03/20/2022 Rheumatoid arthritis 03/20/2022 11/06/2022 Overview (11/06/2022): Last Assessment & Plan: -Seropositive rheumatoid arthritis -Dx September 2019 -03/20/22 ESR 41 -following with [facility] rheumatology providers, last seen in Oct 2020, [...] recent exacerbation in February 2019, hospitalized at [facility] -COVID19 clinical Dx in June 2019 (household member was positive) - did not test at that time due to strict Dx criteria at that time -Frequency of exacerbation, requiring systemic steroid 8 x /year, 2 hospitalizations in 2019, less frequent recently -No Hx of intubation -Followed by both cattle examiner and ENT -Continue Advair as maintenance -Continue [...] 11/06/2022 Overview (11/06/2022): Last Assessment & Plan: -Vacuum Form Operator recommended repeat pelvic ultrasound, further evaluation [...] 11/06/2022 Overview (11/06/2022): Last Assessment & Plan: -[facility] provider: ALBERTO -Current medication: escitalopram 10 mg [...] 1965 [address] [place], [place] * Guarantor: Ilene Dominguez Account Type Relation to Patient Date of Phone Billing Address Personal/Family Self 1965 [address] [place], [place] Care Teams Grommet Man Relationship Specialty Start Date End Date Huong David MD [address] [place] [phone] PCP - General Family Medicine 06/08/23
--- OUTSIDE RECORDS SUMMARY | 2025-01-12 14:13 | XMS_ITS | Encounter Summary ---
Author Organization [employer] Address [address] [place] [address] [address] [place] [address] Care Team Providers Care Dice Manager Name Role Phone Huong David MD Primary Care Provider [phone] John Salgado PharmD Unavailable [phone] Encounter Details Date Type Department Care Team (Late st Contact Info) Description 10/06/2022 Orders Only [facility] [address] [place] [address] [phone] Huong David MD [address] [place] [address] [phone] Hypokalemia (Primary Dx) Social History Tobacco Use [...] 1:15 PM EST Office Visit [facility] [address] [place] [address] [phone] Huong David MD [address] [place] [address] [phone] Scheduled Orders Name Type Priority Associated Diagnoses [...] documented as of this encounter Care Teams Dice Manager Relationship Specialty Start Date End Date Huong David MD [address] [place] [address] PCP - General Family Medicine 02/22/12 John Salgado, DelmiD [address] [place] [phone] Pharmacist Internal Medicine 01/16/23 documented as of this encounter
--- OUTSIDE RECORDS SUMMARY | 2025-01-12 14:14 | XMS_ITS | Clinical Summary ---
Author Organization [employer] Address [address] [facility] [address] [place] [address] Care Team Providers Care It Software Engineer Name Role Phone Huong David MD Primary Care Provider John Salgado PharmD Unavailable [phone] Allergies No known active allergies Medications alendronate [...] and Jan 2024 She was referred to infantry operations specialist in the walk-in clinic in Jan [address] Jean [facility] pulmonology if she is interested in allergy [...] (11/01/2024 6:06 AM EDT): - following with [facility] CODE OFFICIAL - last EMBx in August 2023 (normal EMBx x 3) postmenopausal bleeding - last PAP/cotest NSIL with negative high-risk HPV in May 2024 - no sign of malignancy Assessment & Plan (12/24/2023 5:54 AM EDT): - following with [facility] CODE OFFICIAL - last EMBx in August 2023 - no sign of malignancy Assessment & Plan (06/03/2023 6:49 PM EDT): - following with [facility] CODE OFFICIAL - last EMBx in Nov 2022 - no sign of malignancy Assessment & Plan (01/19/2023 6:00 AM EST): - following with [facility] CODE OFFICIAL - last EMBx in Nov 2022 - no sign of malignancy Chronic left shoulder pain 01/19/2023 Assessment & Plan (01/19/2023 6:08 AM EST): - X-ray was normal and pt received steroid injection from ticket printer in Dec 2022 - no pain at [...] - monitor BP closely Interstitial lung disease ([facility]) 10/05/2022 Assessment & Plan (10/27/2024 9:22 AM EDT): - following with [facility] pulmonology - status post 3 mo of prednisone treatment - CT showed improvement in July 2022 and near resolution in Nov 2022 - currently monitoring symptoms and with periodic imaging Assessment & Plan (07/08/2024 3:04 PM EDT): - following with [facility] pulmonology - status post 3 mo of prednisone treatment - CT showed improvement in July 2022 and near resolution in Nov 2022 - currently monitoring symptoms and with periodic imaging Assessment & Plan (03/26/2024 1:12 PM EST): - following with [facility] pulmonology - status post 3 mo of prednisone treatment - CT showed improvement in July 2022 and near resolution in Nov 2022 - currently monitoring symptoms and with periodic imaging Assessment & Plan (12/21/2023 4:33 PM EDT): - following with [facility] pulmonology - status post 3 mo of prednisone treatment - CT showed improvement in July 2022 and near resolution in Nov 2022 - currently monitoring symptoms and with periodic imaging Assessment & Plan (06/03/2023 6:45 PM EDT): - following with [facility] pulmonology - status post 3 mo of prednisone treatment - CT showed improvement in July 2022 and near resolution in Nov 2022 - currently monitoring symptoms and with periodic imaging Assessment & Plan (01/19/2023 5:56 AM EST): - following with [facility] pulmonology - status post 3 mo of prednisone treatment - CT showed improvement in July 2022 and near resolution in Nov 2022 - currently monitoring symptoms and with periodic imaging Assessment & Plan (10/09/2022 9:00 AM EDT): - following with [facility] pulmonology - currently taking prednisone 50 mg daily with a plan for slow tapering - CT on 08/01/22 showed improvement - continue current treatment plan and follow up with business mgr Elevated erythrocyte sedimentation rate 07/12/19 Assessment & [...] 04/11/2022 Overview (01/15/2023): Last Assessment & Plan: -Personal Computer Network Analyst recommended repeat pelvic ultrasound, further evaluation and recommendation Hysteroscopy for endocervical polyp. Patient was reassured that the fibroids typically decrease in size and resolve in menopause. -Recommended removal of polyps. -Scheduled for hysteroscopy with electric razor assembler Assessment & Plan (07/11/2022 11:13 AM EDT): - 05/19/22 Hysteroscopy, D&C, polypectomy - benign polyp Assessment & Plan (04/22/2022 5:10 AM EST): -Personal Computer Network Analyst recommended repeat pelvic ultrasound, further evaluation and recommendation Hysteroscopy for endocervical polyp. Patient was reassured that the fibroids typically decrease in size and resolve in menopause. -Recommended removal of polyps. -Scheduled for hysteroscopy with electric razor assembler Degeneration of cervical intervertebral disc Rheumatoid arthritis ([facility]) 03/20/2022 Overview (01/15/2023): Last Assessment & Plan: -Seropositive rheumatoid arthritis -Dx September 2019 -03/20/22 ESR 41 -following with [facility] rheumatology providers, last seen in Oct 2020, [...] and CCP. -Dx September 2019 -following with [facility] rheumatology providers, last seen in Dec 2023 -previously prescribed hydroxychloroquine by ticket printer when she developed ILD and uveitis, with elevated ESR/CRP in [id number] -s/p prednisone treatment x 3 mo, which was prescribed by business mgr for ILD in 2022 -elevated ESR/CRP and [...] and CCP. -Dx September 2019 -following with [facility] rheumatology providers, last seen in Dec 2023 -previously prescribed hydroxychloroquine by ticket printer when she developed ILD and uveitis, with elevated ESR/CRP in [phone] -s/p prednisone treatment x 3 mo, which was prescribed by business mgr for ILD in 2022 -elevated ESR/CRP and [...] and CCP. -Dx September 2019 -following with [facility] rheumatology providers, last seen in Dec 2023 -previously prescribed hydroxychloroquine by ticket printer when she developed ILD and uveitis, with elevated ESR/CRP in [id number] -s/p prednisone treatment x 3 mo, which was prescribed by business mgr for ILD in 2022 -elevated ESR/CRP and [...] and CCP. -Dx September 2019 -following with [facility] rheumatology providers, last seen in September 2023 -previously prescribed hydroxychloroquine by ticket printer when she developed ILD and uveitis, with elevated ESR/CRP in [phone] -s/p prednisone treatment x 3 mo, which was prescribed by business mgr for ILD in 2022 -elevated ESR/CRP and evaluated for other rheumatological / autoimmune / connective tissue disorder, including vasculitis. Vasculitis work-up was negative. Current Dx interstitial lung disease -currently monitoring without DMARDs Assessment & Plan (06/03/2023 6:53 PM EDT): -Seropositive rheumatoid arthritis (RF and CCP) -Dx September 2019 -following with [facility] rheumatology providers, last seen in Apr 2023 -previously prescribed hydroxychloroquine by ticket printer when she developed ILD and uveitis, with elevated ESR/CRP -s/p prednisone treatment x 3 mo, which was prescribed by business mgr for ILD -elevated ESR/CRP and evaluated for other rheumatological / autoimmune / connective tissue disorder, including vasculitis. Vasculitis work-up was negative. Current Dx interstitial lung disease -follow up as scheduled Assessment & Plan (01/19/2023 6:03 AM EST): -Seropositive rheumatoid arthritis (RF and CCP) -Dx September 2019 -following with [facility] rheumatology providers, last seen in 2022 -currently prescribed hydroxychloroquine by ticket printer -s/p prednisone treatment x 3 mo, which was prescribed by business mgr for ILD -elevated ESR/CRP and evaluated for other rheumatological / autoimmune / connective tissue disorder, including vasculitis. Vasculitis work-up was negative. Current Dx interstitial lung disease -follow up as scheduled Assessment & Plan (10/09/2022 9:05 AM EDT): -Seropositive rheumatoid arthritis -Dx September 2019 -following with [facility] rheumatology providers, last seen in 2022 -currently prescribed hydroxychloroquine by ticket printer -currently prescribed prednisone by business mgr for ILD -elevated ESR/CRP and evaluated for other rheumatological / autoimmune / connective tissue disorder, including vasculitis. Current Dx interstitial lung disease -follow up as scheduled Assessment & Plan (07/11/2022 11:17 AM EDT): -Seropositive rheumatoid arthritis -Dx September 2019 -03/20/22 ESR 41 -following with [facility] rheumatology providers, last seen in June 2022 -now being evaluated for other rheumatological / autoimmune / connective tissue disorder, including vaculitis -follow up as scheduled Assessment & Plan (04/22/2022 5:13 AM EST): -Seropositive rheumatoid arthritis -Dx September 2019 -03/20/22 ESR 41 -following with [facility] rheumatology providers, last seen in Oct 2020, q6m visit -pt does not need any mediation at this time because her symtoms are very mild -continue periodic appt, every 6 mo, which is overdue. Recommended to call to reschedule appt Assessment & Plan (03/20/2022 8:25 AM EST): -Seropositive rheumatoid arthritis -following with [facility] rheumatology providers, last seen in Oct 2020, q6m visit -pt does not need any mediation at this time because her symtoms are very mild -continue periodic appt -Follow up every 6 months History of renal calculi 03/20/2022 Allergic asthma 10/22/2018 Overview (01/15/2023): Last Assessment & Plan: -Most recent exacerbation in February 2019, hospitalized at [facility] -COVID19 clinical Dx in June 2019 (household member was positive) - did not test at that time due to strict Dx criteria at that time -Frequency of exacerbation, requiring systemic steroid 8 x /year, 2 hospitalizations in 2019, less frequent recently -No Hx of intubation -Followed by both business mgr and ENT -Continue Advair as maintenance -Continue Singulair as maintenance -Continue albuterol as rescue -Discussed about the importance of medication adherence and avoidance of 2nd hand smoke / exposure -Use unscented and hypoallergenic products Assessment & Plan (11/01/2024 6:12 AM EDT): -Exacerbation in February 2019, hospitalized at [facility] -Mild exacerbation in May 2024, treated as outpatient with prednisone by business mgr -Mild exacerbation in July 2024, seen in the walk-in clinic, Rx prednisone -Frequency of exacerbation, requiring systemic steroid 8 x /year, 2 hospitalizations in 2019, less frequent recently -No Hx of intubation -Followed by both business mgr, possibly starting Omalizumab -Previously seeing ENT -Continue Advair as maintenance. Consider MART. -Continue montelukast as maintenance -Continue albuterol as rescue -Discussed about the importance of medication adherence and avoidance of 2nd hand smoke / exposure -Use unscented and hypoallergenic products Assessment & Plan (07/08/2024 3:14 PM EDT): -Exacerbation in February 2019, hospitalized at [facility] -Mild exacerbation in May 2024, treated as outpatient with prednisone by business mgr -Frequency of exacerbation, requiring systemic steroid 8 x /year, 2 hospitalizations in 2018, less frequent recently -No Hx of intubation -Followed by both business mgr -Previously seeing ENT -Continue Advair as maintenance -Continue Singulair as maintenance -Continue albuterol as rescue -Discussed about the importance of medication adherence and avoidance of 2nd hand smoke / exposure -Use unscented and hypoallergenic products Assessment & Plan (03/31/2024 5:17 PM EST): -Exacerbation in February 2019, hospitalized at [facility] -Mild exacerbation in June 2023, treated as outpatient with azithromycin and prednisone by business mgr -Frequency of exacerbation, requiring systemic steroid 8 x /year, 2 hospitalizations in 2019, less frequent recently -No Hx of intubation -Followed by both business mgr -Previously seeing ENT -Continue Advair as maintenance -Continue Singulair as maintenance -Continue albuterol as rescue -Discussed about the importance of medication adherence and avoidance of 2nd hand smoke / exposure -Use unscented and hypoallergenic products Assessment & Plan (12/24/2023 5:52 AM EDT): -Exacerbation in February 2019, hospitalized at [facility] -Mild exacerbation in June 2023, treated as outpatient with azithromycin and prednisone by business mgr -Frequency of exacerbation, requiring systemic steroid 8 x /year, 2 hospitalizations in 2018, less frequent recently -No Hx of intubation -Followed by both business mgr and ENT -Continue Advair as maintenance -Continue Singulair as maintenance -Continue albuterol as rescue -Discussed about the importance of medication adherence and avoidance of 2nd hand smoke / exposure -Use unscented and hypoallergenic products Assessment & Plan (06/03/2023 6:45 PM EDT): -Most recent exacerbation in February 2019, hospitalized at [place] [address] clinical Dx in June 2019 (household member was positive) - did not test at that time due to strict Dx criteria at that time -Frequency of exacerbation, requiring systemic steroid 8 x /year, 2 hospitalizations in 2019, less frequent recently -No Hx of intubation -Followed by both business mgr and ENT -Continue Advair as maintenance -Continue Singulair as maintenance -Continue albuterol as rescue -Discussed about the importance of medication adherence and avoidance of 2nd hand smoke / exposure -Use unscented and hypoallergenic products Assessment & Plan (01/19/2023 5:57 AM EST): -Most recent exacerbation in February 2019, hospitalized at [place] [address] clinical Dx in June 2019 (household member was positive) - did not test at that time due to strict Dx criteria at that time -Frequency of exacerbation, requiring systemic steroid 8 x /year, 2 hospitalizations in 2019, less frequent recently -No Hx of intubation -Followed by both business mgr and ENT -Continue Advair as maintenance -Continue Singulair as maintenance -Continue albuterol as rescue -Discussed about the importance of medication adherence and avoidance of 2nd hand smoke / exposure -Use unscented and hypoallergenic products Assessment & Plan (10/09/2022 9:01 AM EDT): -Most recent exacerbation in February 2019, hospitalized at [place] [address] clinical Dx in June 2019 (household member was positive) - did not test at that time due to strict Dx criteria at that time -Frequency of exacerbation, requiring systemic steroid 8 x /year, 2 hospitalizations in 2019, less frequent recently -No Hx of intubation -Followed by both business mgr -Continue Advair as maintenance -Continue Singulair as maintenance -Continue albuterol as rescue -Discussed about the importance of medication adherence and avoidance of 2nd hand smoke / exposure -Use unscented and hypoallergenic products Assessment & Plan (07/11/2022 11:12 AM EDT): -Most recent exacerbation in February 2019, hospitalized at [place] [address] clinical Dx in June 2019 (household member was positive) - did not test at that time due to strict Dx criteria at that time -Frequency of exacerbation, requiring systemic steroid 8 x /year, 2 hospitalizations in 2019, less frequent recently -No Hx of intubation -Followed by both business mgr and ENT -Continue Advair as maintenance -Continue Singulair as maintenance -Continue albuterol as rescue -Discussed about the importance of medication adherence and avoidance of 2nd hand smoke / exposure -Use unscented and hypoallergenic products Assessment & Plan (04/11/2022 1:14 PM EST): -Most recent exacerbation in February 2019, hospitalized at [place] [address] clinical Dx in June 2019 (household member was positive) - did not test at that time due to strict Dx criteria at that time -Frequency of exacerbation, requiring systemic steroid 8 x /year, 2 hospitalizations in 2019, less frequent recently -No Hx of intubation -Followed by both business mgr and ENT -Continue Advair as maintenance -Continue Singulair as maintenance -Continue albuterol as rescue -Discussed about the importance of medication adherence and avoidance of 2nd hand smoke / exposure -Use unscented and hypoallergenic products Assessment & Plan (03/20/2022 8:26 AM EST): -Most recent exacerbation in February 2019, hospitalized at [place] [address] clinical Dx in June 2019 (household member was positive) - did not test at that time due to strict Dx criteria at that time -Frequency of exacerbation, requiring systemic steroid 8 x /year, 2 hospitalizations in 2019, less frequent recently -No Hx of intubation -Followed by both business mgr and ENT -Continue Advair as maintenance -Continue [...] to request a follow up appointment with [facility] GI 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 Overview [...] Assessment & Plan (04/22/2022 5:09 AM EST): -Personal Computer Network Analyst recommended repeat pelvic ultrasound, further evaluation and [...] 05/02/2012 Overview (01/15/2023): Last Assessment & Plan: -[facility] provider: BHN -Current medication: escitalopram 10 mg daily; doxepin 10 mg qhs Assessment & Plan (12/21/2023 4:35 PM EDT): -[facility] provider: N -Current medication: escitalopram 10 mg daily; doxepin 10 mg qhs Assessment & Plan (04/22/2022 5:17 AM EST): -[facility] provider: N -Current medication: escitalopram 10 mg daily; doxepin 10 mg qhs Assessment & Plan (03/20/2022 8:29 AM EST): -[facility] provider: N -Current medication: escitalopram 10 [...] -Will request 24 hour bp monitoring with him assistant Assessment & Plan (01/19/2023 5:59 AM EST): [...] Description 10/27/2024 3:00 PM EDT Office Visit [facility] [address] [place] [address] Huong David MD Primary hypertension (Primary Dx); Allergic rhinitis, unspecified seasonality, unspecified trigger; 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; Interstitial lung disease (CMS/HCC); 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; Rheumatoid arthritis with positive rheumatoid factor, involving unspecified site (CMS/HCC); Prediabetes; Gastroesophageal reflux disease, unspecified whether esophagitis present; Constipation, unspecified constipation type; Chronic endometritis 10/27/2024 Travel 10/24/2024 Telephone [facility] [address] [place] [address] Huong David MD chart prep [...] Description 01/20/2025 1:15 PM EST Office Visit [facility] [address] [place] [address] Huong David MD [address] [place] [address] Health Maintenance Due Date Last Done Comments CT Colonography 1963 FIT DNA/Cologuard 1963 FIT 1963 FOBT 1963 HIV Screening 1963 Sigmoidoscopy 1963 Alcohol/Substance Use Screening 1975 RSV Patients and Patients Aged 60 years or older (1 - Risk 60-74 years 1-dose series) 2023 COVID-19 Vaccine ( season) 2024 04/12/2021 Influenza Vaccine (#1) 2024 4, 01/18/2023, 03/20/2022, Additional history exists Diabetes: Hemoglobin A1C 12/18/2024 025, 12/19/2023, 01/18/2023, Additional history exists Depression Screening 07/08/2025 07/08/2024, 04/29/20 25 Disability Screening 07/08/2025 07/08/2024 SDOH Screening 07/08/2025 07/08/2024 Tobacco Screening 10/27/2025 10/27/2024 Mammogram 07/14/2026 07/14/2024, 04/2023, 07/06/2022, Additional history exists Lipid Panel 12/18/2028 01/12/2025, 11/2023, 01/25/2023, Additional history exists Cervical Cancer Screening 05/16/2029 [...] Procedure Name Priority Date/Time Associated Diagnosis Comments LIPID PANEL WITH REFLEX TO DIRECT LDL Routine 01/12/2025 11:23 AM EST Primary hypertension COMPREHENSIVE METABOLIC PANEL Routine 01/12/2025 11:23 AM EST Primary hypertension HEMOGLOBIN A1C Routine 01/12/2025 11:23 AM EST Prediabetes TSH W/REFLEX TO FT4 Routine 01/12/2025 1 1:23 AM EST 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 BI MAMMOGRAM SCREENING TOMOSYNTHESIS BILATERAL Routine 07/14/2024 12:30 PM EDT HPV DNA, LOW/HIGH RISK Routine 05/16/2024 8:57 AM EST PAP SMEAR Routine 05/16/2024 8:57 AM EST HM COLONOSCOPY Routine 12/12/2023 HEPATITIS PANEL, GENERAL Routine 09/24/2023 1:58 PM EDT from Last 3 Months or Most Recently Relevant to Health Maintenance Results * TSH with Reflex to Free T4 (01/12/2025 11:23 AM EST) TSH reflex Free T4 3.69 0.32 - 4.0 uIU/mL [facility] Blood 01/12/2025 11:2 3 AM EST 01/12/2025 12:56 PM EST us Huong David MD LAB BLOOD ORDERABLES Final Resul t [facility] [address] [place] [phone] * (ABNORMAL) Lipid Panel with Reflex to Direct LDL (01/12/2025 11:23 AM EST) Triglycerides 49 <150 mg/dL [facility] Comment:Desirable Triglyceri de: less than 150 mg/dLBorderline High Triglyceride 150-199 mg/dLHigh Triglyceride: 200-499 mg/dLVery High Triglyceride: greater than or equal to 5OO mg/dL Cholesterol 176 <200 mg/dL [facility] Comment:Desirable Cholestero l: less than 200 mg/dLBorderline High Cholesterol: 200-239 mg/dLHigh Cholesterol: greater than 239 mg/dL LDL Cholesterol Calculated 100(H) <100 mg/dL [facility] Comment:Desirable LDL: less than 100 mg/dLNear Optimal/Above Optimal LDL: 110- 129 mg/dLBorderline High LDL: 130-159 mg/dLHigh LDL: 160-189 mg/dLVery High LDL: greater than or equal to 190 mg/dL HDL Cholesterol 67 >40 mg/dL [facility] Comment:Desirable HDL: great er than 40 mg/dL Note: This HDL assay may give artificially low results in patients with liver disease. Blood 01/12/2025 11:2 3 AM EST 01/12/2025 12:56 PM EST us Huong David MD LAB BLOOD ORDERABLES Final Resul t [facility] [address] [place] [address] [phone] * Hemoglobin A1c (01/12/2025 11:23 AM EST) Hemoglobin A1c 6.0 <6.0 % [facility] Comment:Hemoglobin A1C Refer ence Range Adults: 4.8 - 6.0 % Non diabetic: < 6.0 % Goal: < 7.0 %Additional Action Suggested: > 8.0 %Note: Hemoglobin A1c results are invalid for patients with abnormal amounts of HbF. Blood transfusions may impact the HbA1c concentration in the patient sample. Estimated Average Glucose 126 mg/dL [facility] Comment:eAG = Estimated ave rage glucose which is %A1C expressed asaverage glucose, using the formula of the [id number] Glucose study (ADAG), Diabetes Care, Vol.31,#8,Oct. 2007 Blood Venous blood specimen / Unknown 01/12/2025 11:23 AM EST 01/12/2025 12:56 PM EST us Huong David MD LAB BLOOD ORDERABLES Final Resul t [facility] [address] [place] [phone] * (ABNORMAL) Comprehensive Metabolic Panel (01/12/2025 11:23 AM EST) Sodium 141 135 - 145 mmol/L [facility] Potassium 4.0 3.3 - 5.1 mmol/L [facility] Chloride 109(H) 96 - 108 mmol/L [facility] Carbon Dioxide 29 22 - 29 mmol/L [facility] Anion Gap 7(L) 12 - 20 [facility] Urea Nitrogen (BUN) 15 9 - 16 mg/dL [facility] Creatinine, Serum 0.68 0.5 - 1.4 mg/dL [facility] Estimated Glomerular Filt Rate >60 [facility] Comment:Chronic Kidney Disea se: Estimated GFR < 60 mL/min/1.42b4Amzacf Kidney Disease: Estimated GFR < 15 mL/min/1.73m2 Glucose 97 60 - 115 mg/dL [facility] Calcium 8.4 8.4 - 10.2 mg/dL [facility] Bilirubin, Total 0.8 0.0 - 1.0 mg/dL [facility] Aspartate Amino Transferase 28 5 - 31 U/L [facility] Alanine Aminotransferase 17 0 - 31 U/L [facility] Total Protein 7.2 6.5 - 8.0 g/dL [facility] Albumin Level 4.0 3.5 - 5.0 g/dL [facility] Alkaline Phosphatase 67 39 - 117 U/L [facility] Blood Venous blood specimen / Unknown 01/12/2025 11:23 AM EST 01/12/2025 12:56 PM EST us Huong David MD LAB BLOOD ORDERABLES Final Resul t [facility] [address] [facility] [place] [phone] * BI Mammogram Screening Tomosynthesis Bilateral (07/14/2024 12:30 PM EDT) Anatomical Region Laterality Modality Breast Bilateral Mammography 07/14/2024 12:3 0 PM EDT Narrative 07/20/2024 9:21 PM EDT [address] [place] [id number] Mammography Report Signed Patient: Ilene Dominguez MR#: [id number] 5 : 1965 Acct:[id number] Age/Sex: 59 / F ADM Date: 07/14/24 Loc: MAMMMary Attending Dr: Joel Flores MD Ordering Physician: Joel Flores MD Results: 2Benign Findings Date of Service: 07/14/24 Follow Up: 1 Year From [facility] ina Mammogram Procedure(s): MM tomosynthesis screening BI Accession Number(s): [id number] cc: Huong David MD; Joel Flroes MD EXAMINATION: MM SCREENING DIGITAL BREAST TOMOSYNTHESIS, [...] signed by Michelle Sierra DO in OV> 07/20/248 DD/ 1230 TD/TT: 07/14/24 1236 Nurseryperson: Procedure Note Donotuseinterpreter, Image - 07/20/2024 [facility] [address] [place] [address] Mammography Report Signed Patient: Charles Dominguez#: [id number] 5 : 1965Acct:[id number] Age/Sex: 59 / FADM Date: 07/14/24 Loc: JOAN Attending Dr: Joel Flores MD Ordering Physician: Joel Flores MDResults: 2Benign Findings Date of Service: 07/14/24Follow Up: 1 Year From Orig ina Mammogram Procedure(s): MM tomosynthesis screening BI Accession Number(s): [id number] cc: Huong David MD; Joel Flores MD [...] signed by Michelle Sierra DO in OV> 07/20/248 DD/ 1230 TD/TT: 07/14/24 1236 Nurseryperson: [facility] External Provider IMG BI PROCEDURES Final Result * HPV DNA, Low/High Risk (05/16/2024 8:57 AM EST) HPV High Risk Negative Negative [facility] HPV Genotype 16 Negative Negative [facility] HPV Genotype 18 Negative Negative [facility] Comment:HPV testing performe d at [facility] (CLIA#[id number]), [address] [place] [address].Testing for HPV was performed using the Benjamín [...] Provider LAB BLOOD ORDERAB LES Final Result [facility] [address] [place] [phone] * Pap Smear (05/16/2024 8:57 AM EST) 05/16/2024 8:57 AM EST 05/16/2024 11:39 AM EST Narrative [facility] - 05/20/2024 9:43 AM EDT ----- ------- Name: Ilene Dominguez Age/Sex: 59/F : 1965 Unit#: [id number] Attend Dr: Joel Flores MD Re05/16/24 Status: DEP REF Location: [facility] Disch: ----- ------- SPEC : [id number] RECD: 05/16/24 STATUS: TAYLOR CORRALES NUM: [id number] ZE: 05/16/2457 [facility] DR: Joel Flores MD ENTERED: 05/16/24-1151 SP TYPE: Pap Smr OTHR DR: Huong David MD ORDERED: Pap Smear Interpretation Satisfactory for evaluation. Negative for intraepithelial lesion or malignancy. HPV High Risk: Negative HPV Genotyping 16: Negative HPV Genotyping 18: Negative Clinical Information LMP:Unknown date Previous PAP test: 03/28/22, Unknown findings Material Received ThinPrep-Cervical Copies To: Huong David MD [address] [phone] Joel Flores MD [facility] [address] [place] [address] [place] [address] [phone] ----- ------- Signed (signature on file) ZOILA Little (ASCP) 05/20/24 0943 ----- ------- END OF REPORT Generic External Data Provider LAB CYTOLOGY ERIS KNOTT Final Result [facility] [address] [place] [phone] * Colonoscopy (12/12/2023) [facility] Colonoscopy Normal Normal 12/12/2023 Historical Provider HEALTH MAINTENANCE Final Result * Hepatitis Panel, General (09/24/2023 1:58 PM EDT) Pathologist [facility] Hepatitis A IgM Nonreactive Nonreactive [facility] Comment:IgM antibodies to SCOTT V not detected; does not exclude earlyacute or recovered HAV infection. ~Hepatitis B Surface Antibody NONREACTIVE Nonreactive [facility] Comment:Nonreactive: < 8.00 mIU/mL Hepatitis B Core Antibody Nonreactive Nonreactive [facility] Hepatitis C Antibody Nonreactive Nonreactive [facility] Comment:Antibodies to HCV no t detected; does not exclude early acuteHCV infection. Hepatitis B Surface Ag Negative Negative [facility] 09/24/2023 1:58 PM EDT 09/24/2023 1:58 PM EDT us Generic External Data Provider LAB BLOOD ORDERAB LES Final Result [facility] [address] [place] [phone] from Last 3 Months or Most Recently Relevant to Health Maintenance Insurance * Guarantor: Ilene Dominguez Account Type Relation to Patient Date of Phone Billing Address Personal/Family Self [address] [place], [place] [employer] * Guarantor: Ilene Dominguez Account Type Relation to Patient Date of Phone Billing Address Personal/Family Self [address] [place] [phone] * Guarantor: Ilene Dominguez Account Type Relation to Patient Date of Phone Billing Address Personal/Family Self [address] [place] [phone] * Guarantor: Ilene Dominguez Account Type Relation to Patient Date of Phone Billing Address Personal/Family Self [address] [address] Care Teams It Software Engineer Relationship Specialty Start Date End Date Huong David MD [address] [place] [address] PCP - General Family Medicine 02/22/12 John Salgado, PharmD [address] [place] [address] Pharmacist Internal Medicine 01/16/23
--- OUTSIDE RECORDS SUMMARY | 2025-01-12 14:14 | XMS_ITS | Encounter Summary ---
Author Organization [employer] Address [address] [place] [address] Care Team Providers Care Commercial Tire Service Technician Name Role Phone Huong David MD Primary Care Provider [phone] John Salgado PharmD Unavailable [phone] Encounter Details Date Type Department Care Team (Late st Contact Info) Description 03/28/2024 Orders Only [facility] [address] [place], [place] [phone] Huong David MD [address] [place], [place] [phone] Social History Tobacco Use Types Packs/Day Years [...] Description 01/20/2025 1:15 PM EST Office Visit [facility] [address] [place] [phone] Huong David MD [address] [place] [address] documented as of this encounter Goals Goal [...] documented as of this encounter Care Teams Commercial Tire Service Technician Relationship Specialty Start Date End Date Huong David MD [address] [place] [phone] PCP - General Family Medicine 02/22/12 John Salgado, PharmD [address] [facility] [place] [address] Pharmacist Internal Medicine 01/16/23 documented as of this encounter
--- OUTSIDE RECORDS SUMMARY | 2025-01-12 14:14 | XMS_ITS | Encounter Summary ---
Author Organization [employer] Address [address] [place] [address] [address] [address] Care Team Providers Care Buffing And Polishing Wheel Repairer Name Role Phone Huong David MD Primary Care Provider [phone] John Salgado PharmD Unavailable [phone] Reason for Visit * Reason Comments Med Refill Encounter Details Date Type Department Care Team (Late st Contact Info) Description 09/13/2022 Refill [facility] [address] [place] [address] [phone] Name, MD Jemal [address] [place] [address] [phone] Social History Tobacco Use Types Packs/Day Years [...] Description 01/20/2025 1:15 PM EST Office Visit [facility] [address] [place] [address] [phone] Huong David MD [address] [place] [address] [phone] documented as of this encounter Visit Diagnoses Not on filedocumented in this encounter Additional Health Concerns Assessment Noted Time PHQ-9 Depression Total Score: 0 04/11/19 23 1:19 PM EST documented as of this encounter Care Teams Buffing And Polishing Wheel Repairer Relationship Specialty Start Date End Date Huong David MD [address] [place] [address] PCP - General Family Medicine 02/22/12 John Salgado, Vikki [address] [place] [address] Pharmacist Internal Medicine 01/16/23 documented as of this encounter
--- OUTSIDE RECORDS SUMMARY | 2025-01-12 14:14 | XMS_ITS | Encounter Summary ---
Author Organization [employer] Address [address] [place] [address] [address] [address] Care Team Providers Care Desktop Architect Name Role Phone Huong David MD Primary Care Provider [phone] John Salgado PharmD Unavailable [phone] Encounter Details Date Type Department Care Team (Late st Contact Info) Description 09/29/2022 Abstract [facility] [address] [place] [address] [phone] Huong David MD [address] [place] [address] [phone] Social History Tobacco Use Types Packs/Day Years [...] Description 01/20/2025 1:15 PM EST Office Visit [facility] [address] [place] [address] [phone] Huong David MD [address] [place] [address] [phone] documented as of this encounter Procedures Procedure Name Priority Date/Time Associated Diagnosis Comments HM COLONOSCOPY Routine 04/01/2013 documented in this encounter Results * Hm Colonoscopy (04/01/2013) Colonoscopy Normal Normal [facility] HEALTH MAINTENANCE Edited Result - Final documented in this encounter Visit Diagnoses Not on filedocumented in this encounter Additional Health Concerns Assessment Noted Time PHQ-9 Depression Total Score: 0 04/11/19 23 1:19 PM EST documented as of this encounter Care Teams Desktop Architect Relationship Specialty Start Date End Date Huong David MD [address] [place] [address] PCP - General Family Medicine 02/22/12 John Salgado, DelmiD [address] [place] [address] Pharmacist Internal Medicine 01/16/23 documented as of this encounter
--- OUTSIDE RECORDS SUMMARY | 2025-01-12 14:14 | XMS_ITS | Encounter Summary ---
Author Organization [employer] Address [address] [place] [address] Care Team Providers Care Ui Ux Engineer Name Role Phone Huong David MD Primary Care Provider [phone] John Salgado PharmD Unavailable [phone] Encounter Details Date Type Department Care Team (Late st Contact Info) Description 04/04/2024 Abstract [facility] [address] [place], [place] [phone] Amaya Bhatia [place] Social History Tobacco Use [...] Description 01/20/2025 1:15 PM EST Office Visit [facility] [address] [place] [phone] Huong David MD [address] [place] [phone] documented as of this encounter Goals Goal [...] documented as of this encounter Care Teams Ui Ux Engineer Relationship Specialty Start Date End Date Huong David MD [address] [place] [address] [phone] PCP - General Family Medicine 02/22/12 John Salgado, Vikki [address] [place] [phone] Pharmacist Internal Medicine 01/16/23 documented as of this encounter
[2025-01-22 00:48] LABS: IgE Antibody (Anti-IgE IgG) 50 ng/mL (<168)
== END 2025-01-12 11:13 | disposition home or self-care (01) ==
LOC: HO.HHCL 11:12
PROVIDERS: Internal Medicine Pulmonary Disease; PCP Family Medicine; Visit Provider Family Medicine
DX: I10 Essential (primary) hypertension (principal); J45.909 Unspecified asthma, uncomplicated; E06.3 Autoimmune thyroiditis; R73.03 Prediabetes; Z01.84 Encounter for antibody response examination
CPT/HCPCS: 36415; 80053; 80061; 83036; 83520; 84443

== ENCOUNTER 2025-01-13 08:51 | Day surgery (SDC) | payer MEDICAID, SELFPAY ==
--- OUTSIDE RECORDS SUMMARY | 2024-12-30 19:33 | XMS_ITS | Encounter Summary ---
Author Organization [employer] Address [address] [place] [address] 7t [place] [address] Care Team Providers Care Logging Specialist Name Role Phone Huong David MD Primary Care Provider [phone] John Salgado PharmD Unavailable [phone] Encounter Details Date Type Department Care Team (Late st Contact Info) Description 08/23/2022 Abstract [facility] MEDICINE [address] [place] [address] [phone] Huong David MD [address] [place] [address] [phone] Social History Tobacco Use Types Packs/Day Years [...] Care Team (Late st Contact Info) Description 01/20/2025 1:15 PM EST Office Visit [facility] MEDICINE [address] [place] [address] [phone] Huong David MD [address] [place] [address] [phone] documented as of this encounter Procedures Procedure Name Priority Date/Time Associated Diagnosis Comments MAMMOGRAPHY Routine 07/06/2022 documented in this encounter Results * Mammography (07/06/2022) Mammogram bi-rads 2 Anatomical Region Laterality Modality Other 07/06/[address] [facility] HEALTH MAINTENANCE Final Result documented in this encounter Visit Diagnoses Not on filedocumented in this encounter Additional Health Concerns Assessment Noted Time PHQ-9 Depression Total Score: 0 04/11/19 23 1:19 PM EST documented as of this encounter Care Teams Logging Specialist Relationship Specialty Start Date End Date Huong David MD [address] [place] [address] PCP - General Family Medicine 02/22/12 John Salgado, DelmiD [address] [place] [phone] Pharmacist Internal Medicine 01/16/23 documented as of this encounter
--- OUTSIDE RECORDS SUMMARY | 2024-12-30 19:33 | XMS_ITS | Encounter Summary ---
Author Organization [employer] Address [address] [facility] [address] [place] [address] Care Team Providers Care Program Director Name Role Phone Huong David MD Primary Care Provider [phone] John Salgado PharmD Unavailable [phone] Reason for Visit * Reason Onset Date Comments returning call 03/22/2022 Encounter Details Date Type Department Care Team ([facility] st Contact Info) Description 03/22/2022 Telephone [facility] [address] [place], [place] [phone] Huong David MD [address] [place], [place] [phone] returning call Social History Tobacco Use Types [...] a call back Please contact pt at [phone] documented in this encounter Plan of Treatment Upcoming Encounters Date Type Department Care Team (Late st Contact Info) Description 01/20/2025 1:15 PM EST Office Visit [facility] [address] [place], [place] [phone] Huong David MD [address] [place] [phone] documented as of this encounter Visit Diagnoses Not on filedocumented in this encounter Care Teams Program Director Relationship Specialty Start Date End Date Huong David MD [address] [place] [address] [phone] PCP - General Family Medicine 02/22/12 John Salgado, PharmD [address] [place] [phone] Pharmacist Internal Medicine 01/16/23 documented as of this encounter
--- OUTSIDE RECORDS SUMMARY | 2024-12-30 19:34 | XMS_ITS | Encounter Summary ---
Author Organization [employer] Address [address] [place] [address] Care Team Providers Care Ceramic Painter Name Role Phone Huong David MD Primary Care Provider [phone] John Salgado PharmD Unavailable [phone] Encounter Details Date Type Department Care Team (Late st Contact Info) Description 04/04/2024 Abstract [facility] [address] [place], [place] [phone] Amaya Bhatia [place] Social History Tobacco Use [...] Description 01/20/2025 1:15 PM EST Office Visit [facility] [address] [place] [phone] Huong David MD [address] [place] [phone] documented as of this encounter Goals Goal Patient Goal Type Associated Problems Recent Progress Patient-Stated? Author Blood Pressure < 150/90 Blood Pressure 128/80(2024 3:12 PM EDT) No John Salgado, Vikki Note: Per JNC-8, Age 60+ without history of CKD or DM documented as of this encounter Visit Diagnoses Not on filedocumented in this encounter Additional Health Concerns Assessment Noted Time PHQ-9 Depression Total Score: 0 05/21/19 24 3:22 PM EDT documented as of this encounter Care Teams Ceramic Painter Relationship Specialty Start Date End Date Huong David MD [address] [place] [address] [phone] PCP - General Family Medicine 02/22/12 John Salgado, Vikki [address] [place] [phone] Pharmacist Internal Medicine 01/16/23 documented as of this encounter
--- OUTSIDE RECORDS SUMMARY | 2024-12-30 19:34 | XMS_ITS | Encounter Summary ---
Author Organization [employer] Address [address] [place] [address] Care Team Providers Care Produce Specialist Name Role Phone Huong David MD Primary Care Provider [phone] John Salgado PharmD Unavailable [phone] Encounter Details Date Type Department Care Team (Late st Contact Info) Description 03/28/2024 Orders Only [facility] [address] [place], [place] [phone] Huong David MD [address] [place], [place] [phone] Social History Tobacco Use Types Packs/Day Years [...] Description 01/20/2025 1:15 PM EST Office Visit [facility] [address] [place] [phone] Huong David MD [address] [place] [phone] documented as of this encounter Goals Goal Patient Goal Type Associated Problems Recent Progress Patient-Stated? Author Blood Pressure < 150/90 Blood Pressure 128/80(2024 3:12 PM EDT) No John Salgado PharmD Note: Per JNC-8, Age 60+ without history of CKD or DM documented as of this encounter Visit Diagnoses Not on filedocumented in this encounter Additional Health Concerns Assessment Noted Time PHQ-9 Depression Total Score: 0 05/21/19 24 3:22 PM EDT documented as of this encounter Care Teams Produce Specialist Relationship Specialty Start Date End Date Huong David MD [address] [place] [phone] PCP - General Family Medicine 02/22/12 John Salgado, PharmD [address] [facility] [place] [address] Pharmacist Internal Medicine 01/16/23 documented as of this encounter
--- OUTSIDE RECORDS SUMMARY | 2024-12-30 19:34 | XMS_ITS | Encounter Summary ---
Author Organization [employer] Address [address] [place] [address] [address] [place] [address] Care Team Providers Care Box Toe Stitcher Name Role Phone Huong David MD Primary Care Provider [phone] John Salgado PharmD Unavailable [phone] Reason for Visit * Reason Comments Med Refill Encounter Details Date Type Department Care Team (Late st Contact Info) Description 09/13/2022 Refill [facility] [address] [place] [address] [phone] Name, MD Jemal [address] [place] [address] [phone] Social History Tobacco Use Types Packs/Day Years [...] Description 01/20/2025 1:15 PM EST Office Visit [facility] [address] [place] [address] [phone] Huong David MD [address] [place] [address] [phone] documented as of this encounter Visit Diagnoses Not on filedocumented in this encounter Additional Health Concerns Assessment Noted Time PHQ-9 Depression Total Score: 0 04/11/19 23 1:19 PM EST documented as of this encounter Care Teams Box Toe Stitcher Relationship Specialty Start Date End Date Huong David MD [address] [place] [address] PCP - General Family Medicine 02/22/12 John Salgado, Vikki [address] [place] [phone] Pharmacist Internal Medicine 01/16/23 documented as of this encounter
--- OUTSIDE RECORDS SUMMARY | 2024-12-30 19:34 | XMS_ITS | Encounter Summary ---
Author Organization [employer] Address [address] [place] [address] [address] [place] [address] Care Team Providers Care Forest Manager Name Role Phone Huong David MD Primary Care Provider [phone] John Salgado PharmD Unavailable [phone] Encounter Details Date Type Department Care Team (Late st Contact Info) Description 09/29/[address] [facility] [address] [place] [address] [phone] Huong David MD [address] [place] [address] [phone] Social History Tobacco Use Types Packs/Day Years [...] Description 01/20/2025 1:15 PM EST Office Visit [facility] [address] [place] [address] [phone] Huong David MD [address] [place] [address] [phone] documented as of this encounter Procedures Procedure Name Priority Date/Time Associated Diagnosis Comments HM COLONOSCOPY Routine 04/01/2013 documented in this encounter Results * Hm Colonoscopy (04/01/2013) Colonoscopy Normal Normal [place] [facility] Pcp HEALTH MAINTENANCE Edited Result - Final documented in this encounter Visit Diagnoses Not on filedocumented in this encounter Additional Health Concerns Assessment Noted Time PHQ-9 Depression Total Score: 0 04/11/19 23 1:19 PM EST documented as of this encounter Care Teams Forest Manager Relationship Specialty Start Date End Date Huong David MD [address] [place] [address] PCP - General Family Medicine 02/22/12 John Salgado, DelmiD [address] [place] [address] Pharmacist Internal Medicine 01/16/23 documented as of this encounter
--- OUTSIDE RECORDS SUMMARY | 2024-12-30 19:34 | XMS_ITS | Clinical Summary ---
Author Organization [employer] Address [address] [place] [address] Care Team Providers Care Bill Peddler Name Role Phone Huong David MD Primary Care Provider [phone] John Salgado PharmD Unavailable [phone] Allergies No known active allergies Medications alendronate (Fosamax) 70 MG tablet take 1 tablet once a week with 6 to 8 oz of water 30 min before first food of day. do not lie down for 30 minutes 12/20/19 23 Active ibuprofen 600 MG tablet TAKE 1 TABLET BY MOUTH THREE TIMES DAILY 09/14/19 23 Active famotidine (Pepcid) 40 MG tabletIndication s:Heartburn TAKE 1 TABLET BY MOUTH AT BEDTIME 90 tablet 3 09/19/19 24 Active diphenhydrAMINE (BENADryl) 25 MG tabletIndication s:Allergic reaction, subsequent encounter Take 1 tablet (25 [...] per day. 90 tablet 3 07/09/19 25 026 Active albuterol (Ventolin HFA) 108 (90 Base) MCG/ACT inhaler INHALE 2 PUFFS BY MOUTH EVERY 4 TO 6 HOURS NEEDED FOR DIFFICULTY BREATHING UP TO FOUR TIMES DAILY. 18 g 3 07/12/19 25 Active omeprazole (PriLOSEC) [address] capsuleIndicatio ns:Heartburn Take 1 capsule (20 mg) by mouth before breakfast. Do not crush or chew. 90 capsule 3 07/14/19 25 Active Advair Diskus 500-50 MCG/ACT aerosol powder INHALE 1 PUFF BY MOUTH TWICE DAILY IN THE MORNING AND IN THE EVENING, APPROXIMATELY 12 HOURS APART. RINSE MOUTH AFTER USING. 60 each 3 07/18/19 25 Active albuterol (2.5 MG/3ML) 0.083% nebulizer solutionIndicati ons:Moderate persistent asthma with exacerbation Take 3 mL (2.5 mg) by nebulization every 6 (six) hours if needed for wheezing. 75 mL 3 07/31/19 25 026 Active levothyroxine (Synthroid, Levoxyl) 75 MCG tablet TAKE 1 TABLET BY MOUTH EVERY DAY 90 tablet 3 09/17/19 25 Active montelukast (Singulair) 10 MG tablet TAKE 1 TABLET BY MOUTH EVERY EVENING 90 tablet 3 09/17/19 25 Active EPINEPHrine (Epipen) 0.3 MG/0.3ML injection syringe INJECT INTRAMUSCULARLY DIRECTED ON PACKAGE AND GO TO EMERGENCY ROOM 2 each 3 09/24/19 25 Active Active Problems Problem Noted Date Diagnosed Date Rosacea 07/08/2024 Assessment & Plan (07/08/2024 3:17 PM EDT): - Presumptive diagnosis at this time - Will try metronidazole gel 07/08/24 Constipation 03/25/2024 Assessment & Plan (11/01/2024 5:58 AM EDT): - s/p colonoscopy in Dec [address] Ritchie. Patient was found to have internal hemorrhoids and polyp. The pathology of polyp is not available. Patient was recommended to repeat colonoscopy in 5 years due to family history. Assessment & Plan (03/31/2024 5:22 PM EST): [...] and Jan 2024 She was referred to corrections specialist in the walk-in clinic in Jan [address] Jean [facility] pulmonology if she is interested in allergy [...] prescribe Epi-pen Prediabetes 06/03/2023 Assessment & Plan (10/30/2024 11:16 PM EDT): - due to chronic prednisone treatment for ILD - now off, but episodic use - highest A1C 6.1% in Oct 2022 - most recent A1C 5.7% in Jan 2024 Assessment & Plan (07/13/2024 5:36 PM EDT): [...] 2023 Chronic endometritis 01/19/2023 Assessment & Plan (11/01/2024 6:06 AM EDT): - following with [facility] - last EMBx in August 2023 (normal EMBx x 3) postmenopausal bleeding - last PAP/cotest NSIL with negative high-risk HPV in May 2024 - no sign of malignancy Assessment & Plan (12/24/2023 5:54 AM EDT): - following with [facility] - last EMBx in August 2023 - no sign of malignancy Assessment & Plan (06/03/2023 6:49 PM EDT): - following with [facility] - last EMBx in Nov 2022 - no sign of malignancy Assessment & Plan (01/19/2023 6:00 AM EST): - following with [facility] - last EMBx in Nov 2022 - no sign of malignancy Chronic left shoulder pain 01/19/2023 Assessment & Plan (01/19/2023 6:08 AM EST): - X-ray was normal and pt received steroid injection from sanitation laborer in Dec 2022 - no pain at [...] - monitor BP closely Interstitial lung disease ([facility]) 10/05/2022 Assessment & Plan (10/27/2024 9:22 AM EDT): - following with [facility] pulmonology - status post 3 mo of prednisone treatment - CT showed improvement in July 2022 and near resolution in Nov 2022 - currently monitoring symptoms and with periodic imaging Assessment & Plan (07/08/2024 3:04 PM EDT): - following with [facility] pulmonology - status post 3 mo of prednisone treatment - CT showed improvement in July 2022 and near resolution in Nov 2022 - currently monitoring symptoms and with periodic imaging Assessment & Plan (03/26/2024 1:12 PM EST): - following with [facility] pulmonology - status post 3 mo of prednisone treatment - CT showed improvement in July 2022 and near resolution in Nov 2022 - currently monitoring symptoms and with periodic imaging Assessment & Plan (12/21/2023 4:33 PM EDT): - following with [facility] pulmonology - status post 3 mo of prednisone treatment - CT showed improvement in July 2022 and near resolution in Nov 2022 - currently monitoring symptoms and with periodic imaging Assessment & Plan (06/03/2023 6:45 PM EDT): - following with [facility] pulmonology - status post 3 mo of prednisone treatment - CT showed improvement in July 2022 and near resolution in Nov 2022 - currently monitoring symptoms and with periodic imaging Assessment & Plan (01/19/2023 5:56 AM EST): - following with [facility] pulmonology - status post 3 mo of prednisone treatment - CT showed improvement in July 2022 and near resolution in Nov 2022 - currently monitoring symptoms and with periodic imaging Assessment & Plan (10/09/2022 9:00 AM EDT): - following with [facility] pulmonology - currently taking prednisone 50 mg daily with a plan for slow tapering - CT on 08/01/22 showed improvement - continue current treatment plan and follow up with flight control tower operator Elevated erythrocyte sedimentation rate 07/12/19 Assessment & [...] 04/11/2022 Overview (01/15/2023): Last Assessment & Plan: -Coping Machine Assembler recommended repeat pelvic ultrasound, further evaluation and recommendation Hysteroscopy for endocervical polyp. Patient was reassured that the fibroids typically decrease in size and resolve in menopause. -Recommended removal of polyps. -Scheduled for hysteroscopy with electronic prepress system operator Assessment & Plan (07/11/2022 11:13 AM EDT): - 05/19/22 Hysteroscopy, D&C, polypectomy - benign polyp Assessment & Plan (04/22/2022 5:10 AM EST): -Coping Machine Assembler recommended repeat pelvic ultrasound, further evaluation and recommendation Hysteroscopy for endocervical polyp. Patient was reassured that the fibroids typically decrease in size and resolve in menopause. -Recommended removal of polyps. -Scheduled for hysteroscopy with electronic prepress system operator Degeneration of cervical intervertebral disc Rheumatoid arthritis ([facility]) 03/20/2022 Overview (01/15/2023): Last Assessment & Plan: -Seropositive rheumatoid arthritis -Dx September 2019 -03/20/22 ESR 41 -following with [facility] rheumatology providers, last seen in Oct 2020, q6m visit -pt does not need any mediation at this time because her symtoms are very mild -continue periodic appt, every 6 mo, which is overdue. 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 -Dx September 2019 -following with [facility] rheumatology providers, last seen in Dec 2023 -previously prescribed hydroxychloroquine by sanitation laborer when she developed ILD and uveitis, with elevated ESR/CRP in 3530-0775 -s/p prednisone treatment x 3 mo, which was prescribed by flight control tower operator for ILD in 2022 -elevated ESR/CRP and evaluated for other rheumatological / autoimmune / connective tissue disorder, including vasculitis. Vasculitis work-up was negative. Current Dx interstitial lung disease -currently monitoring without DMARDs -discussed about DMARD and recommended to have another discussion with Dr. 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 -Dx September 2019 -following with [facility] rheumatology providers, last seen in Dec 2023 -previously prescribed hydroxychloroquine by sanitation laborer when she developed ILD and uveitis, with elevated ESR/CRP in 5335-6146 -s/p prednisone treatment x 3 mo, which was prescribed by flight control tower operator for ILD in 2022 -elevated ESR/CRP and [...] and CCP. -Dx September 2019 -following with [facility] rheumatology providers, last seen in Dec 2023 -previously prescribed hydroxychloroquine by sanitation laborer when she developed ILD and uveitis, with elevated ESR/CRP in 0840-6345 -s/p prednisone treatment x 3 mo, which was prescribed by flight control tower operator for ILD in 2022 -elevated ESR/CRP and [...] and CCP. -Dx September 2019 -following with [facility] rheumatology providers, last seen in September 2023 -previously prescribed hydroxychloroquine by sanitation laborer when she developed ILD and uveitis, with elevated ESR/CRP in 3827-2217 -s/p prednisone treatment x 3 mo, which was prescribed by flight control tower operator for ILD in 2022 -elevated ESR/CRP and evaluated for other rheumatological / autoimmune / connective tissue disorder, including vasculitis. Vasculitis work-up was negative. Current Dx interstitial lung disease -currently monitoring without DMARDs Assessment & Plan (06/03/2023 6:53 PM EDT): -Seropositive rheumatoid arthritis (RF and CCP) -Dx September 2019 -following with [facility] rheumatology providers, last seen in Apr 2023 -previously prescribed hydroxychloroquine by sanitation laborer when she developed ILD and uveitis, with elevated ESR/CRP -s/p prednisone treatment x 3 mo, which was prescribed by flight control tower operator for ILD -elevated ESR/CRP and evaluated for other rheumatological / autoimmune / connective tissue disorder, including vasculitis. Vasculitis work-up was negative. Current Dx interstitial lung disease -follow up as scheduled Assessment & Plan (01/19/2023 6:03 AM EST): -Seropositive rheumatoid arthritis (RF and CCP) -Dx September 2019 -following with [facility] rheumatology providers, last seen in 2022 -currently prescribed hydroxychloroquine by sanitation laborer -s/p prednisone treatment x 3 mo, which was prescribed by flight control tower operator for ILD -elevated ESR/CRP and evaluated for other rheumatological / autoimmune / connective tissue disorder, including vasculitis. Vasculitis work-up was negative. Current Dx interstitial lung disease -follow up as scheduled Assessment & Plan (10/09/2022 9:05 AM EDT): -Seropositive rheumatoid arthritis -Dx September 2019 -following with [facility] rheumatology providers, last seen in 2022 -currently prescribed hydroxychloroquine by sanitation laborer -currently prescribed prednisone by flight control tower operator for ILD -elevated ESR/CRP and evaluated for other rheumatological / autoimmune / connective tissue disorder, including vasculitis. Current Dx interstitial lung disease -follow up as scheduled Assessment & Plan (07/11/2022 11:17 AM EDT): -Seropositive rheumatoid arthritis -Dx September 2019 -03/20/22 ESR 41 -following with [facility] rheumatology providers, last seen in June 2022 -now being evaluated for other rheumatological / autoimmune / connective tissue disorder, including vaculitis -follow up as scheduled Assessment & Plan (04/22/2022 5:13 AM EST): -Seropositive rheumatoid arthritis -Dx September 2019 -03/20/22 ESR 41 -following with [facility] rheumatology providers, last seen in Oct 2020, q6m visit -pt does not need any mediation at this time because her symtoms are very mild -continue periodic appt, every 6 mo, which is overdue. Recommended to call to reschedule appt Assessment & Plan (03/20/2022 8:25 AM EST): -Seropositive rheumatoid arthritis -following with [facility] rheumatology providers, last seen in Oct 2020, q6m visit -pt does not need any mediation at this time because her symtoms are very mild -continue periodic appt -Follow up every 6 months History of renal calculi 03/20/2022 Allergic asthma 10/22/2018 Overview (01/15/2023): Last Assessment & Plan: -Most recent exacerbation in February 2019, hospitalized at [facility] -COVID19 clinical Dx in June 2019 (household member was positive) - did not test at that time due to strict Dx criteria at that time -Frequency of exacerbation, requiring systemic steroid 8 x /year, 2 hospitalizations in 2019, less frequent recently -No Hx of intubation -Followed by both flight control tower operator and ENT -Continue Advair as maintenance -Continue Singulair as maintenance -Continue albuterol as rescue -Discussed about the importance of medication adherence and avoidance of 2nd hand smoke / exposure -Use unscented and hypoallergenic products Assessment & Plan (11/01/2024 6:12 AM EDT): -Exacerbation in February 2019, hospitalized at [facility] -Mild exacerbation in May 2024, treated as outpatient with prednisone by flight control tower operator -Mild exacerbation in July 2024, seen in the walk-in clinic, Rx prednisone -Frequency of exacerbation, requiring systemic steroid 8 x /year, 2 hospitalizations in 2019, less frequent recently -No Hx of intubation -Followed by both flight control tower operator, possibly starting Omalizumab -Previously seeing ENT -Continue Advair as maintenance. Consider [facility]. -Continue montelukast as maintenance -Continue albuterol as rescue -Discussed about the importance of medication adherence and avoidance of 2nd hand smoke / exposure -Use unscented and hypoallergenic products Assessment & Plan (07/08/2024 3:14 PM EDT): -Exacerbation in February 2019, hospitalized at [facility] -Mild exacerbation in May 2024, treated as outpatient with prednisone by flight control tower operator -Frequency of exacerbation, requiring systemic steroid 8 x /year, 2 hospitalizations in 2018, less frequent recently -No Hx of intubation -Followed by both flight control tower operator -Previously seeing ENT -Continue Advair as maintenance -Continue Singulair as maintenance -Continue albuterol as rescue -Discussed about the importance of medication adherence and avoidance of 2nd hand smoke / exposure -Use unscented and hypoallergenic products Assessment & Plan (03/31/2024 5:17 PM EST): -Exacerbation in February 2019, hospitalized at [facility] -Mild exacerbation in June 2023, treated as outpatient with azithromycin and prednisone by flight control tower operator -Frequency of exacerbation, requiring systemic steroid 8 x /year, 2 hospitalizations in 2019, less frequent recently -No Hx of intubation -Followed by both flight control tower operator -Previously seeing ENT -Continue Advair as maintenance -Continue Singulair as maintenance -Continue albuterol as rescue -Discussed about the importance of medication adherence and avoidance of 2nd hand smoke / exposure -Use unscented and hypoallergenic products Assessment & Plan (12/24/2023 5:52 AM EDT): -Exacerbation in February 2019, hospitalized at [facility] -Mild exacerbation in June 2023, treated as outpatient with azithromycin and prednisone by flight control tower operator -Frequency of exacerbation, requiring systemic steroid 8 x /year, 2 hospitalizations in 2018, less frequent recently -No Hx of intubation -Followed by both flight control tower operator and ENT -Continue Advair as maintenance -Continue Singulair as maintenance -Continue albuterol as rescue -Discussed about the importance of medication adherence and avoidance of 2nd hand smoke / exposure -Use unscented and hypoallergenic products Assessment & Plan (06/03/2023 6:45 PM EDT): -Most recent exacerbation in February 2019, hospitalized at [place] [address] clinical Dx in June 2019 (household member was positive) - did not test at that time due to strict Dx criteria at that time -Frequency of exacerbation, requiring systemic steroid 8 x /year, 2 hospitalizations in 2019, less frequent recently -No Hx of intubation -Followed by both flight control tower operator and ENT -Continue Advair as maintenance -Continue Singulair as maintenance -Continue albuterol as rescue -Discussed about the importance of medication adherence and avoidance of 2nd hand smoke / exposure -Use unscented and hypoallergenic products Assessment & Plan (01/19/2023 5:57 AM EST): -Most recent exacerbation in February 2019, hospitalized at [place] [address] clinical Dx in June 2019 (household member was positive) - did not test at that time due to strict Dx criteria at that time -Frequency of exacerbation, requiring systemic steroid 8 x /year, 2 hospitalizations in 2019, less frequent recently -No Hx of intubation -Followed by both flight control tower operator and ENT -Continue Advair as maintenance -Continue Singulair as maintenance -Continue albuterol as rescue -Discussed about the importance of medication adherence and avoidance of 2nd hand smoke / exposure -Use unscented and hypoallergenic products Assessment & Plan (10/09/2022 9:01 AM EDT): -Most recent exacerbation in February 2019, hospitalized at [place] [address] clinical Dx in June 2019 (household member was positive) - did not test at that time due to strict Dx criteria at that time -Frequency of exacerbation, requiring systemic steroid 8 x /year, 2 hospitalizations in 2019, less frequent recently -No Hx of intubation -Followed by both flight control tower operator -Continue Advair as maintenance -Continue Singulair as maintenance -Continue albuterol as rescue -Discussed about the importance of medication adherence and avoidance of 2nd hand smoke / exposure -Use unscented and hypoallergenic products Assessment & Plan (07/11/2022 11:12 AM EDT): -Most recent exacerbation in February 2019, hospitalized at [place] [address] clinical Dx in June 2019 (household member was positive) - did not test at that time due to strict Dx criteria at that time -Frequency of exacerbation, requiring systemic steroid 8 x /year, 2 hospitalizations in 2019, less frequent recently -No Hx of intubation -Followed by both flight control tower operator and ENT -Continue Advair as maintenance -Continue Singulair as maintenance -Continue albuterol as rescue -Discussed about the importance of medication adherence and avoidance of 2nd hand smoke / exposure -Use unscented and hypoallergenic products Assessment & Plan (04/11/2022 1:14 PM EST): -Most recent exacerbation in February 2019, hospitalized at [place] [address] clinical Dx in June 2019 (household member was positive) - did not test at that time due to strict Dx criteria at that time -Frequency of exacerbation, requiring systemic steroid 8 x /year, 2 hospitalizations in 2019, less frequent recently -No Hx of intubation -Followed by both flight control tower operator and ENT -Continue Advair as maintenance -Continue Singulair as maintenance -Continue albuterol as rescue -Discussed about the importance of medication adherence and avoidance of 2nd hand smoke / exposure -Use unscented and hypoallergenic products Assessment & Plan (03/20/2022 8:26 AM EST): -Most recent exacerbation in February 2019, hospitalized at [place] [address] clinical Dx in June 2019 (household member was positive) - did not test at that time due to strict Dx criteria at that time -Frequency of exacerbation, requiring systemic steroid 8 x /year, 2 hospitalizations in 2019, less frequent recently -No Hx of intubation -Followed by both flight control tower operator and ENT -Continue Advair as maintenance [...] Gastroesophageal reflux disease 02/18/2015 Assessment & Plan (11/01/2024 5:58 AM EDT): - previously prescribed famotidine and omeprazole - s/p EGD in June 2024. No significant abnormality. Continue omeprazole. Assessment & Plan (07/13/2024 5:38 PM EDT): - previously prescribed famotidine and omeprazole - s/p EGD in June 2024. No significant abnormality. Continue omeprazole. 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 -Most recent TSH 3.04 on 03/20/22. -Continue current treatment plan. Assessment & Plan (10/27/2024 9:21 AM EDT): -Current replacement: levothyroxine 75 mcg [...] Assessment & Plan (04/22/2022 5:09 AM EST): -Coping Machine Assembler recommended repeat pelvic ultrasound, further evaluation and [...] 05/02/2012 Overview (01/15/2023): Last Assessment & Plan: -[facility] provider: [facility] -Current medication: escitalopram 10 mg daily; doxepin 10 mg qhs Assessment & Plan (12/21/2023 4:35 PM EDT): -[facility] provider: N -Current medication: escitalopram 10 mg daily; doxepin 10 mg qhs Assessment & Plan (04/22/2022 5:17 AM EST): -[facility] provider: N -Current medication: escitalopram 10 mg daily; doxepin 10 mg qhs Assessment & Plan (03/20/2022 8:29 AM EST): -[facility] provider: N -Current medication: escitalopram 10 mg daily; doxepin 10 mg qhs Allergic rhinitis 05/02/2012 Assessment & Plan (10/27/2024 9:21 AM EDT): -ENT: Dr. Abdi, Safely discharged due to her improvement -s/p nasal polypectomy in 2013 -Plan to start Tx with biologics, either Nucala or Xolair -Continue Singulair, loratadine, and Xhance Assessment & Plan (07/08/2024 3:05 PM EDT): [...] if any problem arises Assessment & Plan (11/01/2024 5:56 AM EDT): -Goal BP < 130 per ACC/AHA guideline -Previously had frequent asthma exacerbation and prednisone use -EKG no ischemic change in Apr 2018 -Co-managed with our pharmacist, John Salgado RPh, Pharm D, through [facility] -Often elevated in our clinic, likely white-coat hypertension as her home blood pressure measurements are normal -Continue working on lifestyle modifications. -Continue monitoring home BP. -Continue olmesartan 40 mg daily -Treatment Hx: Previously prescribed hydrochlorothiazide 12.5 mg daily, which was discontinued due to hypokalemia. Switched lisinopril to olmesartan due to possible allergic reaction / side effect from ACEI in June 2024. Assessment & Plan (07/30/2024 3:29 PM EDT): Today her blood pressure is elevated, she tells me she forgot to take her blood pressure today, I advised for her to take her medication every day without missing any dose and low-sodium diet Assessment & Plan (07/08/2024 3:16 PM EDT): [...] -Will request 24 hour bp monitoring with commercial loan coordinator Assessment & Plan (01/19/2023 5:59 AM EST): [...] Problem Noted Date Diagnosed Date Resolved Date Moderate persistent asthma with exacerbation 5 11/01/2024 Assessment & Plan (10/27/2024 9:22 AM EDT): Patient educated to avoid triggers I will treat with prednisone 40 mg daily for 5 days Albuterol nebulization every 6 hours as needed Last nebulization treatment was yesterday night I will prescribe in office nebulization today Cough syrup prescribed If symptoms persist or worse he will come back for reevaluation Assessment & Plan (07/30/2024 3:28 PM EDT): Patient educated to avoid triggers I will treat with prednisone 40 mg daily for 5 days Albuterol nebulization every 6 hours as needed Last nebulization treatment was yesterday night I will prescribe in office nebulization today Cough syrup prescribed If symptoms persist or worse he will come back for reevaluation Hypokalemia 01/18/2023 06/03/2023 Assessment & Plan (01/19/2023 [...] Encounters Date Type Department Care Team Description 10/27/2024 3:00 PM EDT Office Visit [facility] [address] [place] [address] Huong David MD Primary hypertension (Primary Dx); Allergic rhinitis, unspecified seasonality, unspecified trigger; 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; Interstitial lung disease (CMS/HCC); 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; Rheumatoid arthritis with positive rheumatoid factor, involving unspecified site (CMS/HCC); Prediabetes; Gastroesophageal reflux disease, unspecified whether esophagitis present; Constipation, unspecified constipation type; Chronic endometritis 10/27/2024 Travel 10/24/2024 Telephone [facility] [address] [place] [address] Huong David MD chart prep from Last 3 Months Immunizations Immunization Administration Dates Next Due Hep B, adult [...] Sign Reading Time Taken Comments Blood Pressure 128/80 10/27/2024 3:12 PM EDT Pulse 90 10/27/2024 3:01 PM EDT Temperature 35.9 C (96.6 F) 10/27/2024 3:01 PM EDT Respiratory Rate 23 10/27/2024 3:01 PM EDT Oxygen Saturation 98% 10/27/2024 3:01 PM EDT Inhaled Oxygen Concentration - - Weight 83.9 kg (185 lb) 10/27/2024 3:01 PM EDT Height 165.1 cm (5' 5 ) 10/27/2024 3:01 PM EDT Body Mass Index 30.79 10/27/2024 3:01 PM EDT Plan of Treatment Upcoming Encounters Date Type Department Care Team (Late st Contact Info) Description 01/20/2025 1:15 PM EST Office Visit [facility] [address] [place] [address] Huong David MD [address] [place] [address] Health Maintenance Due Date Last Done Comments CT Colonography 1965 FIT DNA/Cologuard 1965 FIT 1965 FOBT 1965 HIV Screening 1965 Sigmoidoscopy 1965 Alcohol/Substance Use Screening 1975 RSV Patients and Patients Aged 60 years or older (1 - Risk 60-74 years 1-dose series) 2023 COVID-19 Vaccine ( season) 2024 04/12/2021 Influenza Vaccine (#1) 2024 4, 01/18/2023, 03/20/2022, Additional history exists Diabetes: Hemoglobin A1C 12/18/2024 024, 01/18/2023, 10/05/2022, Additional history exists Depression Screening 07/08/2025 07/08/2024, 04/29/20 25 Disability Screening 07/08/2025 07/08/2024 SDOH Screening 07/08/2025 07/08/2024 Tobacco Screening 10/27/2025 10/27/2024 Mammogram 07/14/2026 07/14/2024, 04/2023, 07/06/2022, Additional history exists Lipid Panel [...] 11/07/2021 Hepatitis C Screening Completed 09/24/2023, 023 HIB Vaccines Aged Out No longer eligi [...] patient's age to complete this topic Meningococcal B Vaccine Aged Out No l onger eligible based on patient's age to complete [...] 128/80(2024 3:12 PM EDT) No John Salgado, DelmiD Note: Per JNC-8, Age 60+ without history of CKD or DM Procedures Procedure Name Priority Date/Time Associated Diagnosis Comments BI MAMMOGRAM SCREENING TOMOSYNTHESIS BILATERAL Routine 07/14/2024 12:30 PM EDT HPV DNA, LOW/HIGH RISK Routine 05/16/2024 8:57 AM EST PAP SMEAR Routine 05/16/2024 8:57 AM EST HEMOGLOBIN A1C [...] PM EDT Narrative 07/20/2024 9:21 PM EDT [facility] [address] [place] [address] Mammography Report Signed Patient: Ilene Dominguez MR#: [id number] 5 : 1965 Acct:[id number] Age/Sex: 59 / F ADM Date: 07/14/24 Loc: HO.MAMMO Attending Dr: Joel Flores MD Ordering Physician: Joel Flores MD Results: 2Benign Findings Date of Service: 07/14/24 Follow Up: 1 Year From Orig inal Mammogram Procedure(s): MM tomosynthesis screening BI Accession Number(s): [id number] cc: Huong David MD; Joel Flores MD [...] OV> 07/20/242117 DD/ 1230 TD/TT: 07/14/24 1236 Rug Designer: Procedure Note Donotuseinterpreter, Image - 07/20/2024 [facility] [address] [place] [address] Mammography Report Signed Patient: Robert DomingueznMR#: [id number] 5 : 1965Acct:[id number] Age/Sex: 59 / FADM Date: 07/14/24 Loc: [facility] Attending Dr: Joel Flores MD Ordering Physician: Joel Flores MDResults: 2Benign Findings Date of Service: 07/14/24Follow Up: 1 Year From Orig inal Mammogram Procedure(s): MM tomosynthesis screening BI Accession Number(s): [id number] cc: Huong David MD; Joel Flores MD [...] Michelle Sierra DO 07/20/2024 09:18 PM EDT Dictated By: Michelle Sierra DO Signed By: <Electronically signed by Michelle Sierra DO in OV> 07/20/242117 DD/ 1230 TD/TT: 07/14/24 1236 Rug Designer: [facility] External Provider IMG BI PROCEDURES Final Result * HPV DNA, Low/High Risk (05/16/2024 8:57 AM EST) HPV High Risk Negative Negative [facility] HPV Genotype 16 Negative Negative [facility] HPV Genotype 18 Negative Negative [facility] Comment:HPV testing performe d at [facility] ([id number]), [address] [place] [address].Testing for HPV was performed using the [employer]system. The presence of HPV in the female [...] Provider LAB BLOOD ORDERAB LES Final Result [facility] [address] [place] [phone] * Pap Smear (05/16/2024 8:57 AM EST) 05/16/2024 8:57 AM EST 05/16/2024 11:39 AM EST Narrative [facility] - 05/20/2024 9:43 AM EDT ----- ------- Name: Ilene Dominguez Age/Sex: 59/F : 1965 Unit#: [id number] Attend Dr: Joel Flores MD Re05/16/24 Status: DEP REF Location: HO.LNP Disch: ----- ------- SPEC : [id number] RECD: 05/16/24-4857 STATUS: TAYLOR CORRALES NUM: [id number] ZE: 05/16/2457 [facility] DR: Joel Flores MD ENTERED: 05/16/24 SP TYPE: Pap Smr OTHR DR: Huong David MD ORDERED: Pap Smear Interpretation Satisfactory for evaluation. Negative for intraepithelial lesion or malignancy. HPV High Risk: Negative HPV Genotyping 16: Negative HPV Genotyping 18: Negative Clinical Information LMP:Unknown date Previous PAP test: 03/28/22, Unknown findings Material Received ThinPrep-Cervical Copies To: Huong David MD [address] [address] Joel Flores MD [facility] [address] [place], [place] [phone] ----- ------- Signed (signature on file) ZOILA Little (ASCP) 05/20/24 0943 ----- ------- END OF REPORT us Generic External Data Provider LAB CYTOLOGY ERIS KNOTT Final Result [facility] [address] [place] [address] [phone] * Lipid Panel with Reflex to Direct LDL (12/19/2023 10:15 AM EDT) Triglycerides 56 <150 mg/dL [facility] Comment:Desirable Triglyceri de: less than 150 mg/dLBorderline High Triglyceride 150-199 mg/dLHigh Triglyceride: 200-499 mg/dLVery High Triglyceride: greater than or equal to 5OO mg/dL Cholesterol 173 <200 mg/dL [facility] Comment:Desirable Cholestero l: less than 200 mg/dLBorderline High Cholesterol: 200-239 mg/dLHigh Cholesterol: greater than 239 mg/dL LDL Cholesterol Calculated 98 <100 mg/dL [facility] Comment:Desirable LDL: less than 100 mg/dLNear Optimal/Above Optimal LDL: 110- 129 mg/dLBorderline High LDL: 130-159 mg/dLHigh LDL: 160-189 mg/dLVery High LDL: greater than or equal to 190 mg/dL HDL Cholesterol 64 >40 mg/dL [facility] Comment:Desirable HDL: great er than 40 mg/dL Note: This HDL assay may give artificially low results in patients with liver disease. Blood 12/19/2023 10:1 5 AM EDT 12/19/2023 11:31 AM EDT us Huong David MD LAB BLOOD ORDERABLES Final Resul t [facility] [address] [place] [phone] * Hemoglobin A1c (12/19/2023 10:15 AM EDT) Hemoglobin A1c 5.7 <6.0 % [facility] Comment:Hemoglobin A1C Refer ence Range Adults: 4.8 - 6.0 % Non diabetic: < 6.0 % Goal: < 7.0 %Additional Action Suggested: > 8.0 %Note: Hemoglobin A1c results are invalid for patients with abnormal amounts of HbF. Blood transfusions may impact the HbA1c concentration in the patient sample. Estimated Average Glucose 117 mg/dL [facility] Comment:eAG = Estimated ave rage glucose which is %A1C expressed asaverage glucose, using the formula of the D7Y-AzpjdfrKsrzdbi Glucose study (ADAG), Diabetes Care, Vol.31,#8,Aug. 2007 Blood Venous blood specimen / Unknown 12/19/2023 10:15 AM EDT 12/19/2023 11:31 AM EDT Huong David MD LAB BLOOD ORDERABLES Final Resul t Performing Organization Address City/[facility]/ZIP Co de Phone Number [facility] [address] [place] [phone] [phone] * Colonoscopy (12/12/2023) Colonoscopy Normal Normal 12/12/2023 Yimi Provider HEALTH MAINTENANCE Final Result * Hepatitis Panel, General (09/24/2023 1:58 PM EDT) Hepatitis A IgM Nonreactive Nonreactive [facility] Comment:IgM antibodies to SCOTT V not detected; does not exclude earlyacute or recovered HAV infection. ~Hepatitis B Surface Antibody NONREACTIVE Nonreactive [facility] Comment:Nonreactive: < 8.00 mIU/mL Hepatitis B Core Antibody Nonreactive Nonreactive [facility] Hepatitis C Antibody Nonreactive Nonreactive [facility] Comment:Antibodies to HCV no t detected; does not exclude early acuteHCV infection. Hepatitis B Surface Ag Negative Negative [facility] 09/24/2023 1:58 PM EDT 09/24/2023 1:58 PM EDT Generic External Data Provider LAB BLOOD ORDERAB LES Final Result Performing Organization Address City/[facility]/ZIP Co de Phone Number [facility] [address] [place] [address] [phone] from Last 3 Months or Most Recently Relevant to Health Maintenance Insurance * Guarantor: Ilene Dominguez Account Type Relation to Patient Date of Phone Billing Address Personal/Family Self 1965 [address] [place] [address] [facility] * Guarantor: Ilene Dominguez Account Type Relation to Patient Date of Phone Billing Address Personal/Family Self [address] [place] [address] * Guarantor: Ilene Dominguez Account Type Relation to Patient Date of Phone Billing Address Personal/Family Self [address] [place] [address] * Guarantor: Renee Dominguezelyn Account Type Relation to Patient Date of Phone Billing Address Personal/Family Self [address] [place] [address] Care Teams Bill Peddler Relationship Specialty Start Date End Date Huong David MD [address] [place] [address] PCP - General Family Medicine 02/22/12 John Salgado, DelmiD [address] [place] [address] Pharmacist Internal Medicine 01/16/23
--- OUTSIDE RECORDS SUMMARY | 2024-12-30 19:34 | XMS_ITS | Encounter Summary ---
Author Organization [employer] Address [address] [place] [address] [address] [place] [address] Care Team Providers Care Adolescent Counselor Name Role Phone Huong David MD Primary Care Provider [phone] John Salgado PharmD Unavailable [phone] Encounter Details Date Type Department Care Team (Late st Contact Info) Description 10/06/2022 Orders Only [facility] [address] [place] [address] [phone] Huong David MD [address] [place] [address] [phone] Hypokalemia (Primary Dx) Social History Tobacco Use [...] Description 01/20/2025 1:15 PM EST Office Visit [facility] [address] [place] [address] [phone] Huong David MD [address] [place] [address] [phone] Scheduled Orders Name Type Priority Associated Diagnoses [...] documented as of this encounter Care Teams Adolescent Counselor Relationship Specialty Start Date End Date Huong David MD [address] [place] [address] PCP - General Family Medicine 02/22/12 John Salgado, DelmiD [address] [place] [phone] Pharmacist Internal Medicine 01/16/23 documented as of this encounter
--- NOTE | 2025-01-09 12:00 | HO.ANESPROP2 ---
Documented by User: Marjorie Valle NP 01/09/25 12:01 HPI - Anesthesia Eval Consult details Narrative: 59yo F for Upper Endoscopy PMFSH Active Problems Active Problems: All Active Problems Postmenopausal bleeding (Acute) Well woman exam (Acute) Environmental allergies (Acute) De Quervain's tenosynovitis, left (Acute) Seropositive rheumatoid arthritis (Acute) Tendinitis of left rotator cuff (Acute) Osteopenia (Acute) On prednisone therapy (Acute) Post-menopausal (Acute) ILD (interstitial lung disease) (Acute) Asthma (Acute) Abnormal CT scan, chest (Acute) Scleritis (Acute) Uveitis (Acute) Proteinuria (Acute) Hypothyroid (Acute) CASIE positive (Acute) Neck muscle spasm (Acute) Retropharyngeal and parapharyngeal abscess (Acute) Retropharyngeal lymphadenopathy (Acute) Uterine leiomyoma (Acute) Polyp of corpus uteri (Acute) Past Medical History Medical History Family history of gastric cancer Vitamin D deficiency GERD (gastroesophageal reflux disease) History of depression Chronic allergic rhinitis Asthma Hypothyroid Hypertension Family History Family History Mother HTN (hypertension) Diabetes Colon cancer Father HTN (hypertension) Diabetes Hyperlipidemia Colon cancer Family history of problems with anesthesia: No Surgical History Surgical History H/O colonoscopy Hx of cystoscopy H/O nasal polypectomy H/O tubal ligation History of Problems with Anesthesia: No Social History Social History Household Members: Spouse Household Members Other:: son Housing: Apartment Are you a primary medical care evaluation specialist to a significant other at home: No Do you presently have visiting nurse or other home services: No Alcohol intake: former Patient Tobacco Use Status: Never used Tobacco service: No Current occupational status: disabled Meds Allergies Allergy/AdvReac Type Severity Reaction Status Date / Time magnesium Allergy Intermediate rash Verified 01/13/25 10:56 Home Medications ?Medication ?Instructions ?Recorded ?Confirmed ?Last Taken ?Type fluticasone 500 mcg-salmeterol 50 1 inh inhalation Q12H 05/11/20 01/09/25 Unknown History mcg/dose blistr powdr for inhalation (Advair Diskus) montelukast 10 mg tablet 10 mg PO DAILY 05/11/20 01/09/25 Unknown History (Singulair) levothyroxine 75 mcg tablet 75 mcg PO DAILY 12/21/21 01/09/25 Unknown History albuterol sulfate 90 mcg/actuation 2 puff inhalation QID PRN dyspnea 12/25/23 01/09/25 Unknown History aerosol inhaler (Ventolin HFA) epinephrine 0.3 mg/0.3 mL IM DIRECTED 12/26/23 01/02/24 Unknown History injection, auto-injector melatonin 2.5 mg chewable tablet mg PO 12/26/23 01/02/24 Unknown History (VitaJoy Melatonin) omeprazole 20 mg capsule,delayed 20 mg PO QAM 12/26/23 01/09/25 Unknown History release olmesartan 40 mg tablet 40 mg PO DAILY 01/13/25 01/13/25 01/13/25 History Assessment and Plan Assessment Anesthesia Assessment: Chart Reviewed Final Anesthetic Review Family History of Problems with Anesthesia: No History of Problems with Anesthesia: No Documented by User: Seth Arauz MD 01/13/25 11:24 [facility] Past Medical History Medical History Family history of gastric cancer Vitamin D deficiency GERD (gastroesophageal reflux disease) History of depression Chronic allergic rhinitis Asthma Hypothyroid Hypertension Family History Family History Mother HTN (hypertension) Diabetes Colon cancer Father HTN (hypertension) Diabetes Hyperlipidemia Colon cancer Surgical History Surgical History H/O colonoscopy Hx of cystoscopy H/O nasal polypectomy H/O tubal ligation Social History Social History Household Members: Spouse Household Members Other:: son Housing: Apartment Are you a primary medical care evaluation specialist to a significant other at home: No Do you presently have visiting nurse or other home services: No Alcohol intake: former Patient Tobacco Use Status: Never used Tobacco service: No Current occupational status: disabled Meds Allergies Allergy/AdvReac Type Severity Reaction Status Date / Time magnesium Allergy Intermediate rash Verified 01/13/25 10:56 Home Medications ?Medication ?Instructions ?Recorded ?Confirmed ?Last Taken ?Type fluticasone 500 mcg-salmeterol 50 1 inh inhalation Q12H 05/11/20 01/09/25 Unknown History mcg/dose blistr powdr for inhalation (Advair Diskus) montelukast 10 mg tablet 10 mg PO DAILY 05/11/20 01/09/25 Unknown History (Singulair) levothyroxine 75 mcg tablet 75 mcg PO DAILY 12/21/21 01/09/25 Unknown History albuterol sulfate 90 mcg/actuation 2 puff inhalation QID PRN dyspnea 12/25/23 01/09/25 Unknown History aerosol inhaler (Ventolin HFA) epinephrine 0.3 mg/0.3 mL IM DIRECTED 12/26/23 01/02/24 Unknown History injection, auto-injector melatonin 2.5 mg chewable tablet mg PO 12/26/23 01/02/24 Unknown History (VitaJoy Melatonin) omeprazole 20 mg capsule,delayed 20 mg PO QAM 12/26/23 01/09/25 Unknown History release olmesartan 40 mg tablet 40 mg PO DAILY 01/13/25 01/13/25 01/13/25 History Exam Airway Mallampati Class: II TM Dist: <=3cm Neck ROM: Full Loose/Missing/Broken Teeth: No Heart: ok Lungs: ok Assessment and Plan Assessment Anesthesia Assessment: Anesthesia Plan Discussed Final Anesthetic Review NPO: Yes ASA Class: II Final Preanesthetic Review: No Changes in Pt Med Stat, Meds/Allgs Chart Reviewed, Consent Obtained/Reviewed and Anes Risks/Benef Reviewed Patient Risk: Intermediate Procedure Risk: Intermediate Anesthetic Plan Anesthetic Plan: Agree w/ Assess. and Plan and TIVA Disposition: Standard PACU
[2025-01-09 13:26] VITALS: BMI 29.0
[2025-01-13] MEDS: Lactated Ringers 1,000 ML 100 ML IVCONT (11:09)
--- NOTE | 2025-01-13 11:09 | MHC.SHP ---
Pre-Procedural Eval Section A - 24 Hr Update-Section A only Date of Service: 01/13/25 Section B - Complete if H&P > 30 days Chief Complaint: Fam hx of gastric ca Details of Present Illness: Family history of gastric cancer Vitamin D deficiency GERD (gastroesophageal reflux disease) History of depression Chronic allergic rhinitis Asthma Hypothyroid Hypertension Surgical History (Updated 06/13/24 @ 15:27 by Francy Rutherford [facility]-) H/O colonoscopy Hx of cystoscopy H/O nasal polypectomy H/O tubal ligation Allergies: Allergies Allergy/AdvReac Type Severity Reaction Status Date / Time magnesium Allergy Intermediate rash Verified 01/13/25 10:56 Review of Systems Review of Systems Comment: Ten point ROS negative Exam Exam Comment: Gen appear: No acute distress HEENT: no icterus Chest: No overt resp distress Abd: soft, nontender, nondistended Psych: Stable affect, answering questions appropriately Neuro: A/Ox3 noted to move all extremities spontaneously Ext: no peripheral edema Plan Diagnosis/Plan: Unchanged I have reviewed the history and physical and performed a pertinent physical examination on my patient. No changes have occurred unless specified. Time Spent With Patient Time: Total time managing care of this patient today ____ minutes.
[2025-01-13 11:18] VITALS: BP 149/85; PULSE 69; RESP 18; TEMP 36.7; O2SAT 96
[2025-01-13 12:38] VITALS: BP 118/74; PULSE 83; RESP 14; TEMP 36.6; O2SAT 94
--- NOTE | 2025-01-13 12:46 | P.OP_ITS ---
Operative Note Operative Note Date of Service: 01/13/25 Narrative: Procedure: Esophagogastroduodenoscopy Endoscopist: Migdalia Hoffman MD Indication: Fam hx of gastric ca Anesthesia Provider: Caitlyn Driver CRNA Anesthesia Type: MAC ?? EGD Procedure:?? The procedure, indications, preparation and potential complications were reviewed with the patient, who indicated understanding and gave written informed consent to proceed. A physical exam was performed. []The patient was electively intubated for airway protection the anesthesiologist. The endoscope was introduced through the mouth, and advanced to the second part of duodenum. The mucosa was carefully examined on slow withdrawal of the endoscope. The patient tolerated the procedure well. There were no immediate complications.? ? EGD Findings:? * Esophagus:? Normal mucosa noted in the entire esophagus. The Z line was at 37 cm with a small hiatal hernia with the diaphragmatic hiatus at 39 cm. The Z line was irregular to 35 cm. Cold forceps biopsies were taken to r/o BE. * Stomach:? Normal mucosa was noted in the stomach. A few benign appearing polyps were noted in the gastric fundus. Retroflexion was performed in the cardia that showed Hill grade II hiatal hernia. Cold forceps biopsies were taken as per Anna protocol and sent for histology. * Duodenum:? Erythema with erosions was noted in duodenal bulb. Cold forceps biopsies were taken for histology. ? EGD Impressions:? * Irregular Z line (biopsy) * Hiatal hernia * Normal gastric mucosa (biopsy) * Fundic gland polyps * Bulbar duodenitis (biopsy) ?? Recommendations:?? * Follow biopsy results. Our office will call or send a letter with results within 7-10 days. * Continue PPI therapy. * Avoid NSAIDs. * If no GIM or atrophic gastritis noted on bx, further screening be deferred Above has been reviewed with the patient.
[2025-01-13 12:48] VITALS: BP 124/80; PULSE 79; RESP 15; TEMP 36.6; O2SAT 93
== END 2025-01-13 13:13 | disposition home or self-care (01) ==
PROVIDERS: PCP Family Medicine; Visit Provider Internal Medicine
PROC: 0DJ08ZZ Inspection of Upper Intestinal Tract, Via Natural or Artificial Opening Endoscopic (ICD-10-PCS; CPT 43235; principal; 2025-01-13 12:10)
DX: Z80.0 Family history of malignant neoplasm of digestive organs (principal); K21.9 Gastro-esophageal reflux disease without esophagitis; K31.7 Polyp of stomach and duodenum; K29.70 Gastritis, unspecified, without bleeding; B96.81 Helicobacter pylori [H. pylori] as the cause of diseases classified elsewhere; K44.9 Diaphragmatic hernia without obstruction or gangrene; K29.80 Duodenitis without bleeding
CPT/HCPCS: 43239; 88305; 88313; 88342; J2003; J2704; J3010

== ENCOUNTER → 2025-01-13 08:51 | Outpatient (BNV) | payer MEDICAID, SELFPAY | PROVIDERS: PCP Family Medicine; Visit Provider Internal Medicine | DX: K31.7 Polyp of stomach and duodenum (principal); K22.89 Other specified disease of esophagus; K29.80 Duodenitis without bleeding; Z80.0 Family history of malignant neoplasm of digestive organs | CPT/HCPCS: 43239 ==

== ENCOUNTER 2025-01-15 13:34 | Outpatient (AMB) | payer MEDICAID, SELFPAY ==
--- NOTE | 2025-01-15 13:53 | A.OFFVIS_ITS ---
Vital Signs 01/15/25 14:04 Height 5 ft 6 in Weight 182 lb 8.684 oz BMI 29.5 BP 142/84 H Blood Pressure Location Lt brachial Position Sitting Pulse 75 Pulse Oximetry (%) 98 Oxygen Delivery Method Room Air Intake Visit Reasons: IPAF/RA Intake Note: Patient presents for IPAF/RA follow up. Patient c/o pain all over and especially LT hip pain. Restaurant Operations Manager Required: Yes Restaurant Operations Manager Language: Door Manager Services: Restaurant Operations Manager Present Restaurant Operations Manager Name: Ember [id number] Information Interpreted: non-clinical & clinical Allergies magnesium Allergy (Intermediate, Verified 01/15/25 14:00) rash Medication List - Last Reconciled 01/15/25 by Rachele Lei MD albuterol sulfate 90 mcg/actuation (Ventolin HFA) 2 puffs inhalation QID PRN alendronate 70 mg PO QWEEK diclofenac sodium 1% 2 grams topical QID epinephrine IM DIRECTED fluticasone propion-salmeterol 500-50 mcg/dose (Advair Diskus) 1 inh inhalation Q12H ipratropium bromide 2 sprays intranasal TID-QID PRN levothyroxine 75 mcg PO DAILY melatonin (VitaJoy Melatonin) mg PO montelukast (Singulair) 10 mg PO DAILY olmesartan 40 mg PO DAILY omeprazole 20 mg PO QAM [thumb spica plint wear as much as possible throughout the day] HPI Comments Details: Patient is a 59-year-old female with hypothyroidism, GERD, asthma, 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 Jiang - Not on DMARDs - Patient continues to have pain at the base of her left thumb. She but an OTC splint. - Unfortunately it was not a thumb spica splint like I prescribed. It is a wrist splint. She denies any other joint pains. 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 She has c hronically elevated inflammatory markers. I think she likely has early rheumatoid arthritis versus palindromic rheumatism however given her chronically elevated inflammatory markers, her episode of pneumonitis and history of uveitis as well as high titer positive rheumatoid factor and anti CCP needs be started on a DMARD. Patient refused Initial History: 55yoF referred by her PCP presents for evaluation of elevated RF and anti-CCP. Patient denies daily joint pain. States that she can occasionally get pain in her knees and in her low back but states that she was told she has osteoarthritis in her low back. She denies any joint pain, swelling or morning stiffness in her hands or feet. States that the back of her hands can become itchy. She denies any skin thickening/tightening, denies any dyspnea at rest or with exertion, denies GERD. Patient denies Raynaud's, photosensitivity, oral or nasal ulcers, sicca symptoms, fevers, alopecia, history of miscarriage. Mother is but had RA per patient. No family history of SLE. Current Rheumatology Medication(s): [facility] Medical History Family history of gastric cancer Vitamin D deficiency GERD (gastroesophageal reflux disease) History of depression Chronic allergic rhinitis Asthma Hypothyroid Hypertension Surgical History H/O colonoscopy Hx of cystoscopy H/O nasal polypectomy H/O tubal ligation Family History Mother HTN (hypertension) Diabetes Colon cancer Father HTN (hypertension) Diabetes Hyperlipidemia Colon cancer Social History Household Members: Spouse Household Members Other:: son Housing: Apartment Are you a primary manager respiratory care to a significant other at home: No Do you presently have visiting nurse or other home services: No Alcohol intake: former Patient Tobacco Use Status: Never used Tobacco service: No Current occupational status: disabled Female Reproductive History Menstrual Age of Menarche: 10 Review of Systems Narrative Review of Systems Constitutional: Denies fever, chills, weight loss ENT: Denies vision changes, eye pain or eye redness, dental caries, dry mouth GI: Denies nausea, vomiting, diarrhea, abdominal pain, change in BM Pulm: Denies SOB, BORJA, hemoptysis, wheezing Cards: Denies chest pain, palpitations Skin: Denies Raynaud's, rash, nail changes, photosensitivity, PRODUCTION SUPPLY EQUIPMENT TENDER: Denies headaches, weakness, paresthesias, recurrent falls MSK: as per HPI All other systems reviewed and are unremarkable except noted above Physical Exam Exam Exam: Vital signs reviewed Physical Examination CONSTITUITIONAL Patient alert and cooperative. Well appearing and in no apparent painful distress MSK Hands * Right Hand: Able to make a fist. No swelling or tenderness to palpation of the MCPs, PIPs or DIPs. * Left Hand: Able to make a fist. No swelling or tenderness to palpation of the MCPs, PIPs or DIPs. * Herbedens nodes noted bilaterally Wrists * Right Wrist: Full ROM to flexion and extension. No swelling or TTP * Left Wrist: Full ROM to flexion and extension. No swelling or TTP Elbows * Right Elbow: Full ROM. No swelling or TTP. No TTP of the medial epicondyle. No TTP of the lateral epicondyle * Left Elbow: Full ROM. No swelling or TTP. No TTP of the medial epicondyle. No TTP of the lateral epicondyle Shoulders * Right shoulder: Full ROM. No swelling noted. No TTP of the AC joint. No TTP of the subacromial bursa. No TTP of the posterior shoulder * Left shoulder: Full ROM. No swelling noted. No TTP of the AC joint. No TTP of the subacromial bursa. No TTP of the posterior shoulder Hip bursa: Left TTP Knees * Right knee: Full ROM. No swelling noted. No TTP of the knee joint line. No TTP of pes anserine bursa * Left knee: Full ROM. No swelling noted. No TTP of the knee joint line. No TTP of pes anserine bursa. * Crepitations felt bilaterally Ankles * Right ankle: Good ankle dorsiflexion and plantar flexion. No swelling. No TTP of the ankle joint * Left ankle: Good ankle dorsiflexion and plantar flexion. No swelling. No TTP of the ankle joint Feet * Right foot: Negative squeeze test * Left foot: Negative squeeze test Tender points? * No tenderness to palpation of the bilateral trapezius, supraspinatus, anterior costochondral junctions, bilateral suboccipital muscle insertions SKIN No rashes Vital Signs: Last Vital Signs Pulse 75 01/15/25 14:04 BP 142/84 H 01/15/25 14:04 Pulse Ox 98 01/15/25 14:04 Oxygen Delivery Method Room Air 01/15/25 14:04 BMI result Body Mass Index 29.5 Office Procedures AMB Joint Injection/Aspiration Joint Injection/Aspiration Details: Procedure was explained to the patient and informed consent was obtained. ? Risks associated with the procedure were discussed with the patient including but not limited to bleeding, infection, drug reactions and reactions to the topical anesthetic. Patient made aware of signs to look out for infectious complications. The area of interest was identified and confirmed with patient. ?This was subsequently cleaned with chlorhexidine x 2. ? The area was then anesthetized using ethyl chloride spray. 40 mg Kenalog with 1 cc 1% lidocaine was injected without issue. ?Minimal to no bleeding. ?Patient tolerated procedure. Primary Site: other (left trochanteric bursa) Prep: site was prepped using aseptic technique and ethochloride spray was applied Injected: 40 mg of, Kenalog, with 1 mL of and 1% plain lidocaine Procedure: The patient tolerated the procedure well Coding 87899 - Glenohumeral/Tronchanteric Bursa/Intraarticular Procedure code (CPT) selection complete Office Meds lidocaine (PF) 10 mg/mL (1 %) injection solution Performing Provider: Rachele Lei MD Performing Location: [facility] Administered by: Piedad Brar RN on 01/15/25 15:13 Dose Route Admin Location Dispensed Lot Number Expiration Date [facility] Hot Air Furnace Installer And Repairer 1 mL Infiltration left hip bursa 2 mL [id number] 08/09/26 38584-868-6 4 [employer] Total Dispensed Waste 2 mL 50 % Kenalog 40 mg/mL suspension for injection Performing Provider: Rachele Lei MD Performing Location: [facility] Administered by: Piedad Brar RN on 01/15/25 15:13 Dose Route Admin Location Dispensed Lot Number Expiration Date [facility] Hot Air Furnace Installer And Repairer 40 mg intrabursal left hip bursa 1 mL [id number] 09/08/26 [id number]- 1 [employer] Total Dispensed Waste 1 mL 0 % Results Reviewed Results Reviewed: Laboratory Tests 05/28/24 01/12/25 13:58 11:23 WBC 9.7 RBC 4.50 Hgb 13.2 Hct 39.2 Plt Count 300 ESR 34 H Sodium 141 Potassium 4.0 Chloride 109 H Carbon Dioxide 29 BUN 15 Creatinine 0.68 AST 28 ALT 17 C-Reactive Protein 1.57 H DEXA 08/2022 FINDINGS: AP SPINE L1-L4: BMD 1.238 g/cm2, Z-score 1.1, T-score 0.5, normal. LEFT FEMUR, NECK: BMD 0.825 g/cm2, Z-score -0.7, T-score -1.5, osteopenia. LEFT FEMUR, TOTAL: BMD 0.913 g/cm2, Z-score -0.3, T-score -0.8, normal. LEFT FOREARM RADIUS 33%: BMD 0.916 g/cm2, Z-score 1.3, T-score 0.5, normal. 10-YEAR FRACTURE RISK PREDICTION, FRAX: Major osteoporotic fracture (clinical spine, forearm, hip or shoulder) 7.1%. Hip fracture 0.7%. Assessment & Plan Assessment & Plan (1) Seropositive rheumatoid arthritis: Comment: ++RF ++CCP hx of uveitis & scleritis 2022. palindromic pneumonitis 2022 Refused MTX Code(s): M05.9 - Rheumatoid arthritis with rheumatoid factor, unspecified Category: Medical Plan: #RA Patient is a 59-year-old female with presumed seropositive rheumatoid arthritis on a background of positive antibodies, history of uveitis and scleritis as well as pneumonitis. No evidence of active synovitis today on examination. No indication to start DMARD at this time. Plan - No DMARDs at this time - RTC 6 months - Labs before visit: CBC, CMP, ESR, CRP (2) Osteopenia: Comment: DEXA 08/2022: AP Spine 0.5, Left femur neck -1.5, Left femur total -0.8. FRAX 7.1/0.7 Alendronate 2022 Code(s): M85.80 - Other specified disorders of bone density and structure, unspecified site Category: Medical Qualifiers: Osteopenia location: femoral neck Laterality: left Qualified Code(s): M85.852 - Other specified disorders of bone density and structure, left thigh Plan: #Osteopenia Currently on alendronate Will update DEXA to evaluate alendronate efficacy Plan - Repeat DEXA - Alendronate 70mg weekly PO (3) Greater trochanteric bursitis of left hip: Code(s): M70.62 - Trochanteric bursitis, left hip Plan: #Left greater trochanteric bursitis History and exam consistent with left greater trochanteric bursitis periods status post steroid injection Plan - s/p steroid injection Plan I spent 30 minutes reviewing the record and labs, taking a history, examining the patient, discussing the treatment plan, ordering diagnostic work up and documenting in the medical record Orders: Orders Complete Blood Count Auto Diff 6 Months Z79.899 - Other terminal system operator (current) drug therapy C Reactive Protein 6 Months Z79.899 - Other terminal system operator (current) drug therapy Erythrocyte Sedimentation Rate 6 Months Z79.899 - Other intermediate (current) drug therapy AMB Joint Injection/Aspiration Today M70.62 - Trochanteric bursitis, left hip XR DEXA axial skeleton Today M81.0 - Age-related osteoporosis without current pathological fracture Comprehensive Met. Panel 6 Months Z79.899 - Other intermediate (current) drug therapy Medications: Refilled diclofenac sodium 1% apply to single elbow, wrist or hand; for hand includes palm/fingers/back of hand 2 grams topical QID 100 grams 0RF alendronate 70 mg PO QWEEK 12 tabs 3RF M85.80 - Other specified disorders of bone density and structure, unspecified site Coding Level of Care Code Est Pt Level 4 (01585) Complex EM visit Add On G2211 Diagnoses Seropositive rheumatoid arthritis M05.9 Osteopenia of neck of left femur M85.852 Osteopenia location: femoral neck Laterality: left Greater trochanteric bursitis of left hip M70.62 CPT Codes Coding - Joint 7: 79854 - Glenohumeral/Tronchanteric Bursa/Intraarticular ([id number])
[2025-01-15 14:04] VITALS: BP 142/84; PULSE 75; O2SAT 98; BMI 29.5
--- OUTSIDE RECORDS SUMMARY | 2025-01-15 16:32 | XMS_ITS | Encounter Summary ---
Author Organization [employer] Address [address] [place] [address] Care Team Providers Care Pattern Assembler Name Role Phone Huong David MD Primary Care Provider [phone] John Salgado PharmD Unavailable [phone] Encounter Details Date Type Department Care Team (Late st Contact Info) Description 01/13/2025 Orders Only GENERIC EXTERNAL DATA DEPARTMENT Provider, [...] Description 01/20/2025 1:15 PM EST Office Visit [facility] [address] [place] [address] Huong David MD [address] [place] [address] documented as of this encounter Goals Goal Patient Goal Type Associated Problems Recent Progress Patient-Stated? Author Blood Pressure < 150/90 Blood Pressure 128/80(2024 3:12 PM EDT) John Spear, PharmD Note: Per JNC-8, Age 60+ without history of CKD or DM documented as of this encounter Procedures Procedure Name Priority Date/Time Associated Diagnosis Comments HEMATOXYLIN AND EOSIN STAIN Routine 01/13/2025 12:23 PM EST documented in this encounter Results * Hematoxylin and Eosin Stain (01/13/2025 12:23 PM EST) 01/13/2025 12:2 3 PM EST 01/13/2025 12:50 PM EST [facility] - 01/15/2025 3:54 PM EST ----- ------- Name: Ilene Dominguez Age/Sex: 59/F : 1965 [facility]#: [id number] Unit#: [id number] Attend Dr: Migdalia Hoffman MD Re01/13/25 Status: [facility] Location: [facility] Disch: ----- ------- SPEC : [id number] RECD: 01/13/25-1250 STATUS: TAYLOR CORRALES NUM: [id number] ZE: 01/13/25-[address] [facility] [address]: Migdalia Hoffman MD ENTERED: 01/13/25-1257 SP TYPE: Surgical OTHR DR: Huong David MD ORDERED: HE Stain/12, Gross Micro L4/4, IHC/3, Special st. 2/2, H. pylori/3, AB/PAS/2 Diagnosis A. Duodenum, biopsy: Duodenal mucosa with preserved villi and no specific change. B. Gastric antrum, biopsy: Chronic Helicobacter gastritis with mild activity; negative for intestinal metaplasia and dysplasia. C. Gastric body, biopsy: Chronic Helicobacter gastritis with focal minimal activity; negative for intestinal metaplasia and dysplasia. D. Esophagogastric junction, biopsy: Squamocolumnar mucosa with moderate chronic active inflammation and H. pylori bacteria; negative for intestinal metaplasia and dysplasia. Clinical History Pre-Op Dx: Family hx of gastric ca Post-Op Dx: Duodenitis, irregular z line, gastric polyps, hiatal hernia Microscopic Description Microscopic sections reviewed. AB/PAS on A shows no evidence of chronic injury. Immunostains for H. pylori on B, C and D are positive with many organisms. AB/PAS on D is negative for intestinal metaplasia. Controls stain appropriately. Material Received A. Duodenum bxs B. Gastric antrum bxs C. Gastric body bxs D. EG junction bxs r/o Summers's Gross Description A. Received in formalin are 4 benz 1-2 mm soft tissue fragments, totally submitted in cassette A1. B. Received in formalin are multiple benz 1-3 mm soft tissue fragments, totally submitted in cassette B1. C. Received in formalin are multiple benz 1-4 mm soft tissue fragments, totally submitted in cassette C1. D. Received in formalin are 3 benz 1-3 mm soft tissue fragments, totally submitted in cassette D1. (DTL) Special studies ordered and performed: Immunostain for H. pylori on B1, C1 and D1; AB/PAS stain on A1 and D1. CONTINUED ON NEXT PAGE ----- ------- Name: Ilene Dominguez Age/Sex: 59/F : 1965 Unit#: [id number] Attend Dr: Migdalia Hoffman MD Re01/13/25 [place]: [facility] Location: [facility] Disch: ----- ------- SPEC : [id number] RECD: 01/13/25-125 STATUS: TAYLOR CORRALES NUM: [id number] ZE: 01/13/25-[address] [facility] [address]: Migdalia Hoffman MD ENTERED: 01/13/25-1256 SP TYPE: Surgical OTHR DR: Huong David MD ORDERED: HE Stain/12, Gross Micro L4/4, IHC/3, Special st. 2/2, H. pylori/3, AB/PAS/2 IHC S/NG Disclaimer NOTE: Unless otherwise stated, all tissue is formalin-fixed and paraffin-embedded. Some or all of the immunohistochemical tests reported herein may have been developed and their performance characteristics determined by [facility]. They have not been cleared or approved by the U.S. Food and Drug Administration (FDA). However, the FDA has determined that such clearance or approval is not necessary. This laboratory is certified under the Clinical Laboratory Improvement Amendments of 1988 (CLIA) as qualified to perform high complexity clinical laboratory testing. Copies To: Huong David MD [address] [id number] Migdalia Hoffman MD [facility] [address] [place] [address] [phone] [email or web address] ----- ------- Signed (signature on file) Alejandra Pilo 01/15/25 1554 ----- ------- END OF REPORT us Generic External Data Provider LAB BLOOD ORDERAB LES Final Result [facility] [address] [place] [address] [phone] documented in this encounter Visit Diagnoses Not on filedocumented in this encounter Additional Health Concerns Assessment Noted Time PHQ-9 Depression Total Score: 1 07/09/19 25 3:36 PM EDT documented as of this encounter Care Teams Pattern Assembler Relationship Specialty Start Date End Date Huong David MD [address] [place] [address] PCP - General Family Medicine 02/22/12 John Salgado, DelmiD [address] [place] [address] Pharmacist Internal Medicine 01/16/23 documented as of this encounter
--- OUTSIDE RECORDS SUMMARY | 2025-01-15 16:32 | XMS_ITS | Encounter Summary ---
Author Organization [employer] Address [address] [place] [address] [address] [place] [address] Care Team Providers Care Automotive Diagnostic Technician Name Role Phone Huong David MD Primary Care Provider [phone] John Salgado PharmD Unavailable [phone] Encounter Details Date Type Department Care Team (Late st Contact Info) Description 10/06/2022 Orders Only [facility] [address] [place] [address] [phone] Huong David MD [address] [place] [address] [phone] Hypokalemia (Primary Dx) Social History Tobacco Use [...] [facility] [address] [place] [address] [phone] Huong David MD [address] [place] [address] [phone] Scheduled Orders Name Type Priority Associated Diagnoses [...] documented as of this encounter Care Teams Automotive Diagnostic Technician Relationship Specialty Start Date End Date Huong David MD [address] [place] [address] PCP - General Family Medicine 02/22/12 John Salgado, DelmiD [address] [place] [phone] Pharmacist Internal Medicine 01/16/23 documented as of this encounter
--- OUTSIDE RECORDS SUMMARY | 2025-01-15 16:32 | XMS_ITS | Encounter Summary ---
Author Organization [employer] Address [address] [facility] [address] [place] [address] Care Team Providers Care Software Configuration Specialist Name Role Phone Huong David MD Primary Care Provider [phone] John Salgado PharmD Unavailable [phone] Reason for Visit * Reason Onset Date Comments returning call 03/22/2022 Encounter Details Date Type Department Care Team ([facility] st Contact Info) Description 03/22/2022 Telephone [facility] [address] [place], [place] [phone] Huong David MD [address] [place], [place] [phone] returning call Social History Tobacco Use Types [...] a call back Please contact pt at [phone] documented in this encounter Plan of Treatment Upcoming Encounters Date Type Department Care Team (Late st Contact Info) Description 01/20/2025 1:15 PM EST Office Visit [facility] [address] [place], [place] [phone] Huong David MD [address] [place] [phone] documented as of this encounter Visit Diagnoses Not on filedocumented in this encounter Care Teams Software Configuration Specialist Relationship Specialty Start Date End Date Huong David MD [address] [place] [address] [phone] PCP - General Family Medicine 02/22/12 John Salgado, PharmD [address] [place] [phone] Pharmacist Internal Medicine 01/16/23 documented as of this encounter
--- OUTSIDE RECORDS SUMMARY | 2025-01-15 16:32 | XMS_ITS | Encounter Summary ---
Author Organization [employer] Address [address] [place] [address] [address] [place] [address] Care Team Providers Care Mechanical Maintenance Foreman Name Role Phone Huong David MD Primary Care Provider [phone] John Salgado PharmD Unavailable [phone] Reason for Visit * Reason Comments Med Refill Encounter Details Date Type Department Care Team (Late st Contact Info) Description 09/13/2022 Refill [facility] [address] [place] [address] [phone] Name, MD Jemal [address] [place] [address] [phone] Social History Tobacco Use Types Packs/Day Years [...] [facility] [address] [place] [address] [phone] Huong David MD [address] [place] [address] [phone] documented as of this encounter Visit Diagnoses Not on filedocumented in this encounter Additional Health Concerns Assessment Noted Time PHQ-9 Depression Total Score: 0 04/11/19 23 1:19 PM EST documented as of this encounter Care Teams Mechanical Maintenance Foreman Relationship Specialty Start Date End Date Huong David MD [address] [place] [address] PCP - General Family Medicine 02/22/12 John Salgado, Vikki [address] [place] [address] Pharmacist Internal Medicine 01/16/23 documented as of this encounter
--- OUTSIDE RECORDS SUMMARY | 2025-01-15 16:32 | XMS_ITS | Clinical Summary ---
Author Organization [facility] Address [address] [facility] [address] [place] [address] Phone Care Team Providers Care Landing Scaler Name Role Phone Huong David MD Primary Care Provider [phone] Allergies No known active allergies Medications Zoster [...] 11/06/2022 Overview (11/06/2022): Last Assessment & Plan: -Pediatric Speech Language Pathologist recommended repeat pelvic ultrasound, further evaluation and recommendation Hysteroscopy for endocervical polyp. Patient was reassured that the fibroids typically decrease in size and resolve in menopause. -Recommended removal of polyps. -Scheduled for hysteroscopy with school counsellor Urticaria 04/11/2022 11/06/2022 Degeneration of cervical intervertebral disc 11/06/2022 History of calculus of kidney 03/20/2022 Rheumatoid arthritis 03/20/2022 11/06/2022 Overview (11/06/2022): Last Assessment & Plan: -Seropositive rheumatoid arthritis -Dx September 2019 -03/20/22 ESR 41 -following with [facility] [place]ology providers, last seen in Oct 2020, [...] recent exacerbation in February 2019, hospitalized at [facility] -COVID19 clinical Dx in June 2019 (household member was positive) - did not test at that time due to strict Dx criteria at that time -Frequency of exacerbation, requiring systemic steroid 8 x /year, 2 hospitalizations in 2019, less frequent recently -No Hx of intubation -Followed by both boot trimmer and ENT -Continue Advair as maintenance -Continue [...] 11/06/2022 Overview (11/06/2022): Last Assessment & Plan: -Pediatric Speech Language Pathologist recommended repeat pelvic ultrasound, further evaluation and [...] 11/06/2022 Overview (11/06/2022): Last Assessment & Plan: -[facility] provider: ALBERTO -Current medication: escitalopram [...] 1965 [address] [place], [place] * Guarantor: Ilene Dominguez Account Type Relation to Patient Date of Phone Billing Address Personal/Family Self 1965 [address] [place], [place] Care Teams Landing Scaler Relationship Specialty Start Date End Date Huong David MD [address] [place] [id number] PCP - General Family Medicine 06/08/23
--- OUTSIDE RECORDS SUMMARY | 2025-01-15 16:32 | XMS_ITS | Clinical Summary ---
Author Organization [employer] Address [address] [facility] [address] [place] [address] Care Team Providers Care Tool Crib Attendant Name Role Phone Huong David MD Primary Care Provider [phone] John Salgado PharmD Unavailable [phone] Allergies No known active allergies Medications alendronate [...] and Jan 2024 She was referred to operations support specialist in the walk-in clinic in Jan [address] Jean [facility] pulmonology if she is interested in allergy [...] (11/01/2024 6:06 AM EDT): - following with [facility] ADDICTION THERAPIST - last EMBx in August 2023 (normal EMBx x 3) postmenopausal bleeding - last PAP/cotest NSIL with negative high-risk HPV in May 2024 - no sign of malignancy Assessment & Plan (12/24/2023 5:54 AM EDT): - following with [facility] ADDICTION THERAPIST - last EMBx in August 2023 - no sign of malignancy Assessment & Plan (06/03/2023 6:49 PM EDT): - following with [facility] ADDICTION THERAPIST - last EMBx in Nov 2022 - no sign of malignancy Assessment & Plan (01/19/2023 6:00 AM EST): - following with [facility] ADDICTION THERAPIST - last EMBx in Nov 2022 - no sign of malignancy Chronic left shoulder pain 01/19/2023 Assessment & Plan (01/19/2023 6:08 AM EST): - X-ray was normal and pt received steroid injection from dumpman in Dec 2022 - no pain at [...] - monitor BP closely Interstitial lung disease ([facility]) 10/05/2022 Assessment & Plan (10/27/2024 9:22 AM EDT): - following with [facility] pulmonology - status post 3 mo of prednisone treatment - CT showed improvement in July 2022 and near resolution in Nov 2022 - currently monitoring symptoms and with periodic imaging Assessment & Plan (07/08/2024 3:04 PM EDT): - following with [facility] pulmonology - status post 3 mo of prednisone treatment - CT showed improvement in July 2022 and near resolution in Nov 2022 - currently monitoring symptoms and with periodic imaging Assessment & Plan (03/26/2024 1:12 PM EST): - following with [facility] pulmonology - status post 3 mo of prednisone treatment - CT showed improvement in July 2022 and near resolution in Nov 2022 - currently monitoring symptoms and with periodic imaging Assessment & Plan (12/21/2023 4:33 PM EDT): - following with [facility] pulmonology - status post 3 mo of prednisone treatment - CT showed improvement in July 2022 and near resolution in Nov 2022 - currently monitoring symptoms and with periodic imaging Assessment & Plan (06/03/2023 6:45 PM EDT): - following with [facility] pulmonology - status post 3 mo of prednisone treatment - CT showed improvement in July 2022 and near resolution in Nov 2022 - currently monitoring symptoms and with periodic imaging Assessment & Plan (01/19/2023 5:56 AM EST): - following with [facility] pulmonology - status post 3 mo of prednisone treatment - CT showed improvement in July 2022 and near resolution in Nov 2022 - currently monitoring symptoms and with periodic imaging Assessment & Plan (10/09/2022 9:00 AM EDT): - following with [facility] pulmonology - currently taking prednisone 50 mg daily with a plan for slow tapering - CT on 08/01/22 showed improvement - continue current treatment plan and follow up with senior mobile solutions architect Elevated erythrocyte sedimentation rate 07/12/19 Assessment & [...] 04/11/2022 Overview (01/15/2023): Last Assessment & Plan: -Data Capture Specialist recommended repeat pelvic ultrasound, further evaluation and recommendation Hysteroscopy for endocervical polyp. Patient was reassured that the fibroids typically decrease in size and resolve in menopause. -Recommended removal of polyps. -Scheduled for hysteroscopy with residential remodeling subcontractor Assessment & Plan (07/11/2022 11:13 AM EDT): - 05/19/22 Hysteroscopy, D&C, polypectomy - benign polyp Assessment & Plan (04/22/2022 5:10 AM EST): -Data Capture Specialist recommended repeat pelvic ultrasound, further evaluation and recommendation Hysteroscopy for endocervical polyp. Patient was reassured that the fibroids typically decrease in size and resolve in menopause. -Recommended removal of polyps. -Scheduled for hysteroscopy with residential remodeling subcontractor Degeneration of cervical intervertebral disc Rheumatoid arthritis ([facility]) 03/20/2022 Overview (01/15/2023): Last Assessment & Plan: [...] and CCP. -Dx September 2019 -following with [facility] rheumatology providers, last seen in Dec 2023 -previously prescribed hydroxychloroquine by dumpman when she developed ILD and uveitis, with elevated ESR/CRP in 4400-8966 -s/p prednisone treatment x 3 mo, which was prescribed by senior mobile solutions architect for ILD in 2022 -elevated ESR/CRP and [...] and CCP. -Dx September 2019 -following with [facility] rheumatology providers, last seen in Dec 2023 -previously prescribed hydroxychloroquine by dumpman when she developed ILD and uveitis, with elevated ESR/CRP in 3087-3177 -s/p prednisone treatment x 3 mo, which was prescribed by senior mobile solutions architect for ILD in 2022 -elevated ESR/CRP and [...] and CCP. -Dx September 2019 -following with [facility] rheumatology providers, last seen in Dec 2023 -previously prescribed hydroxychloroquine by dumpman when she developed ILD and uveitis, with elevated ESR/CRP in 6112-4169 -s/p prednisone treatment x 3 mo, which was prescribed by senior mobile solutions architect for ILD in 2022 -elevated ESR/CRP and [...] and CCP. -Dx September 2019 -following with [facility] rheumatology providers, last seen in September 2023 -previously prescribed hydroxychloroquine by dumpman when she developed ILD and uveitis, with elevated ESR/CRP in 2231-4476 -s/p prednisone treatment x 3 mo, which was prescribed by senior mobile solutions architect for ILD in 2022 -elevated ESR/CRP and evaluated for other rheumatological / autoimmune / connective tissue disorder, including vasculitis. Vasculitis work-up was negative. Current Dx interstitial lung disease -currently monitoring without DMARDs Assessment & Plan (06/03/2023 6:53 PM EDT): -Seropositive rheumatoid arthritis (RF and CCP) -Dx September 2019 -following with [facility] rheumatology providers, last seen in Apr 2023 -previously prescribed hydroxychloroquine by dumpman when she developed ILD and uveitis, with elevated ESR/CRP -s/p prednisone treatment x 3 mo, which was prescribed by senior mobile solutions architect for ILD -elevated ESR/CRP and evaluated for other rheumatological / autoimmune / connective tissue disorder, including vasculitis. Vasculitis work-up was negative. Current Dx interstitial lung disease -follow up as scheduled Assessment & Plan (01/19/2023 6:03 AM EST): -Seropositive rheumatoid arthritis (RF and CCP) -Dx September 2019 -following with [facility] rheumatology providers, last seen in 2022 -currently prescribed hydroxychloroquine by dumpman -s/p prednisone treatment x 3 mo, which was prescribed by senior mobile solutions architect for ILD -elevated ESR/CRP and evaluated for other rheumatological / autoimmune / connective tissue disorder, including vasculitis. Vasculitis work-up was negative. Current Dx interstitial lung disease -follow up as scheduled Assessment & Plan (10/09/2022 9:05 AM EDT): -Seropositive rheumatoid arthritis -Dx September 2019 -following with [facility] rheumatology providers, last seen in 2022 -currently prescribed hydroxychloroquine by dumpman -currently prescribed prednisone by senior mobile solutions architect for ILD -elevated ESR/CRP and evaluated for other rheumatological / autoimmune / connective tissue disorder, including vasculitis. Current Dx interstitial lung disease -follow up as scheduled Assessment & Plan (07/11/2022 11:17 AM EDT): -Seropositive rheumatoid arthritis -Dx September 2019 -03/20/22 ESR 41 -following with [facility] rheumatology providers, last seen in June 2022 [...] AM EST): -Seropositive rheumatoid arthritis -[facility] [...] -No Hx of intubation -Followed by both senior mobile solutions architect and ENT -Continue Advair as maintenance -Continue Singulair as maintenance -Continue albuterol as rescue -Discussed about the importance of medication adherence and avoidance of 2nd hand smoke / exposure -Use unscented and hypoallergenic products Assessment & Plan (11/01/2024 6:12 AM EDT): -Exacerbation in February 2019, hospitalized at [facility] -Mild exacerbation in May 2024, treated as outpatient with prednisone by senior mobile solutions architect -Mild exacerbation in July 2024, seen in the walk-in clinic, Rx prednisone -Frequency of exacerbation, requiring systemic steroid 8 x /year, 2 hospitalizations in 2019, less frequent recently -No Hx of intubation -Followed by both senior mobile solutions architect, possibly starting Omalizumab -Previously seeing ENT -Continue Advair as maintenance. Consider MART. -Continue montelukast as maintenance -Continue albuterol as rescue -Discussed about the importance of medication adherence and avoidance of 2nd hand smoke / exposure -Use unscented and hypoallergenic products Assessment & Plan (07/08/2024 3:14 PM EDT): -Exacerbation in February 2019, hospitalized at [facility] -Mild exacerbation in May 2024, treated as outpatient with prednisone by senior mobile solutions architect -Frequency of exacerbation, requiring systemic steroid 8 x /year, 2 hospitalizations in 2018, less frequent recently -No Hx of intubation -Followed by both senior mobile solutions architect -Previously seeing ENT -Continue Advair as maintenance -Continue Singulair as maintenance -Continue albuterol as rescue -Discussed about the importance of medication adherence and avoidance of 2nd hand smoke / exposure -Use unscented and hypoallergenic products Assessment & Plan (03/31/2024 5:17 PM EST): -Exacerbation in February 2019, hospitalized at [facility] -Mild exacerbation in June 2023, treated as outpatient with azithromycin and prednisone by senior mobile solutions architect -Frequency of exacerbation, requiring systemic steroid 8 x /year, 2 hospitalizations in 2019, less frequent recently -No Hx of intubation -Followed by both senior mobile solutions architect -Previously seeing ENT -Continue Advair as maintenance -Continue Singulair as maintenance -Continue albuterol as rescue -Discussed about the importance of medication adherence and avoidance of 2nd hand smoke / exposure -Use unscented and hypoallergenic products Assessment & Plan (12/24/2023 5:52 AM EDT): -Exacerbation in February 2019, hospitalized at [facility] -Mild exacerbation in June 2023, treated as outpatient with azithromycin and prednisone by senior mobile solutions architect -Frequency of exacerbation, requiring systemic steroid 8 x /year, 2 hospitalizations in 2018, less frequent recently -No Hx of intubation -Followed by both senior mobile solutions architect and ENT -Continue Advair as maintenance -Continue Singulair as maintenance -Continue albuterol as rescue -Discussed about the importance of medication adherence and avoidance of 2nd hand smoke / exposure -Use unscented and hypoallergenic products Assessment & Plan (06/03/2023 6:45 PM EDT): -Most recent exacerbation in February 2019, hospitalized at [place] [address] clinical Dx in June 2019 (household member was positive) - did not test at that time due to strict Dx criteria at that time -Frequency of exacerbation, requiring systemic steroid 8 x /year, 2 hospitalizations in 2019, less frequent recently -No Hx of intubation -Followed by both senior mobile solutions architect and ENT -Continue Advair as maintenance -Continue Singulair as maintenance -Continue albuterol as rescue -Discussed about the importance of medication adherence and avoidance of 2nd hand smoke / exposure -Use unscented and hypoallergenic products Assessment & Plan (01/19/2023 5:57 AM EST): -Most recent exacerbation in February 2019, hospitalized at [place] [address] clinical Dx in June 2019 (household member was positive) - did not test at that time due to strict Dx criteria at that time -Frequency of exacerbation, requiring systemic steroid 8 x /year, 2 hospitalizations in 2019, less frequent recently -No Hx of intubation -Followed by both senior mobile solutions architect and ENT -Continue Advair as maintenance -Continue Singulair as maintenance -Continue albuterol as rescue -Discussed about the importance of medication adherence and avoidance of 2nd hand smoke / exposure -Use unscented and hypoallergenic products Assessment & Plan (10/09/2022 9:01 AM EDT): -Most recent exacerbation in February 2019, hospitalized at [place] [address] clinical Dx in June 2019 (household member was positive) - did not test at that time due to strict Dx criteria at that time -Frequency of exacerbation, requiring systemic steroid 8 x /year, 2 hospitalizations in 2019, less frequent recently -No Hx of intubation -Followed by both senior mobile solutions architect -Continue Advair as maintenance -Continue Singulair as maintenance -Continue albuterol as rescue -Discussed about the importance of medication adherence and avoidance of 2nd hand smoke / exposure -Use unscented and hypoallergenic products Assessment & Plan (07/11/2022 11:12 AM EDT): -Most recent exacerbation in February 2019, hospitalized at [place] [address] clinical Dx in June 2019 (household member was positive) - did not test at that time due to strict Dx criteria at that time -Frequency of exacerbation, requiring systemic steroid 8 x /year, 2 hospitalizations in 2019, less frequent recently -No Hx of intubation -Followed by both senior mobile solutions architect and ENT -Continue Advair as maintenance -Continue Singulair as maintenance -Continue albuterol as rescue -Discussed about the importance of medication adherence and avoidance of 2nd hand smoke / exposure -Use unscented and hypoallergenic products Assessment & Plan (04/11/2022 1:14 PM EST): -Most recent exacerbation in February 2019, hospitalized at [place] [address] clinical Dx in June 2019 (household member was positive) - did not test at that time due to strict Dx criteria at that time -Frequency of exacerbation, requiring systemic steroid 8 x /year, 2 hospitalizations in 2019, less frequent recently -No Hx of intubation -Followed by both senior mobile solutions architect and ENT -Continue Advair as maintenance -Continue Singulair as maintenance -Continue albuterol as rescue -Discussed about the importance of medication adherence and avoidance of 2nd hand smoke / exposure -Use unscented and hypoallergenic products Assessment & Plan (03/20/2022 8:26 AM EST): -Most recent exacerbation in February 2019, hospitalized at [place] [address] clinical Dx in June 2019 (household member was positive) - did not test at that time due to strict Dx criteria at that time -Frequency of exacerbation, requiring systemic steroid 8 x /year, 2 hospitalizations in 2019, less frequent recently -No Hx of intubation -Followed by both senior mobile solutions architect and ENT -Continue Advair as maintenance -Continue [...] to request a follow up appointment with 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 Overview [...] Assessment & Plan (04/22/2022 5:09 AM EST): -Data Capture Specialist recommended repeat pelvic ultrasound, further evaluation and [...] 05/02/2012 Overview (01/15/2023): Last Assessment & Plan: -[facility] provider: BHN -Current medication: escitalopram 10 mg daily; doxepin 10 mg qhs Assessment & Plan (12/21/2023 4:35 PM EDT): -[facility] provider: N -Current medication: escitalopram 10 mg daily; doxepin 10 mg qhs Assessment & Plan (04/22/2022 5:17 AM EST): -[facility] provider: N -Current medication: escitalopram 10 mg daily; doxepin 10 mg qhs Assessment & Plan (03/20/2022 8:29 AM EST): -[facility] provider: N -Current medication: escitalopram 10 [...] -Will request 24 hour bp monitoring with physical therapy professor Assessment & Plan (01/19/2023 5:59 AM EST): [...] Encounters Date Type Department Care Team Description 01/13/2025 Orders Only GENERIC EXTERNAL DATA DEPARTMENT Provider, Generic External Data 10/27/2024 3:00 PM EDT Office Visit [facility] [address] [place] [address] Huong David MD Primary hypertension (Primary Dx); Allergic rhinitis, unspecified seasonality, unspecified trigger; 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; Interstitial lung disease (CMS/HCC); 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; Rheumatoid arthritis with positive rheumatoid factor, involving unspecified site (CMS/HCC); Prediabetes; Gastroesophageal reflux disease, unspecified whether esophagitis present; Constipation, unspecified constipation type; Chronic endometritis 10/27/2024 Travel 10/24/2024 Telephone [facility] [address] [place] [address] Huong David MD chart prep [...] 1:15 PM EST Office Visit [facility] [address] [place] [address] Huong David MD [address] [place] [address] Health Maintenance Due Date Last Done Comments CT Colonography 1965 FIT DNA/Cologuard 1965 FIT 1965 FOBT 1965 HIV Screening 1965 Sigmoidoscopy 1965 Alcohol/Substance Use Screening 1975 RSV Patients and Patients Aged 60 years or older (1 - Risk 60-74 years 1-dose series) 2023 COVID-19 Vaccine ( season) 2024 04/12/2021 Influenza Vaccine (#1) 2024 , 01/18/2023, 03/20/2022, Additional history exists Depression Screening 07/08/2025 07/08/2024, 07/09/19 25 Disability Screening 07/08/2025 07/08/2024 SDOH Screening 07/08/2025 07/08/2024 Tobacco Screening 10/27/2025 10/27/2024 Diabetes: Hemoglobin A1C 01/12/2026 025, 12/19/2023, 01/18/2023, Additional history exists Mammogram 07/14/2026 07/14/2024, 04/2023, 07/06/2022, Additional history exists Cervical Cancer Screening 05/16/2029 HPV/Cotest 05/16/2029 05/16/2024, 03/12, 04/09/2017 Pap Smear 05/16/2029 05/16/2024, 03/27/2022 Lipid Panel 01/12/2030 01/12/2025, 11/2023, 01/25/2023, Additional history exists DTaP/Tdap/Td Vaccines (3 - [...] EOSIN STAIN Routine 01/13/2025 12:23 PM EST LIPID PANEL WITH REFLEX TO DIRECT LDL [...] Recently Relevant to Health Maintenance Results * Hematoxylin and Eosin Stain (01/13/2025 12:23 PM EST) 01/13/2025 12:2 3 PM EST 01/13/2025 12:50 PM EST Narrative [facility] - 01/15/2025 3:54 PM EST ----- ------- Name: Ilene Dominguez Age/Sex: 59/F [facility] 1965 [id number]#: [id number] Attend Dr: Migdalia Hoffman MD Re01/13/25 Status: [facility] Location: [facility] Disch: ----- ------- SPEC : [id number] RECD: 01/13/25-1250 STATUS: TAYLOR CORRALES NUM: [id number] ZE: 01/13/25-[address] [facility] [address]: Migdalia Hoffman MD ENTERED: 01/13/25-1256 [...] Ilene Dominguez Age/Sex: 59/F : 1965 Unit#: [id number] Attend Dr: Migdalia Hoffman MD Re01/13/25 Status: [facility] Location: [facility] Disch: ----- ------- SPEC : [id number] RECD: 01/13/25-1249 STATUS: TAYLOR CORRALES NUM: [id number] ZE: 01/13/25-[address] [facility] [address]: Migdalia Hofmfan MD ENTERED: 01/13/25-1256 SP TYPE: Surgical OTHR DR: Huong David MD ORDERED: HE Stain/12, Gross Micro L4/4, IHC/3, Special st. 2/2, H. pylori/3, AB/PAS/2 IHC S/NG Disclaimer NOTE: Unless otherwise stated, all tissue is formalin-fixed and paraffin-embedded. Some or all of the immunohistochemical tests reported herein may have been developed and their performance characteristics determined by [facility]. They have not been cleared or approved by the U.S. Food and Drug Administration (FDA). However, the FDA has determined that such clearance or approval is not necessary. This laboratory is certified under the Clinical Laboratory Improvement Amendments of 1988 (CLIA) as qualified to perform high complexity clinical laboratory testing. Copies To: Huong David MD [address] [id number] Migdalia Hoffman MD [facility] [address] [place] [phone] [email or web address] ----- ------- Signed (signature on file) Alejandra Daigle 01/15/25 1554 ----- ------- END OF REPORT us Generic External Data Provider LAB BLOOD ORDERAB LES Final Result [facility] [address], [place] [phone] * TSH with Reflex to Free T4 (01/12/2025 11:23 AM EST) TSH reflex Free T4 3.69 0.32 - 4.0 uIU/mL [facility] Blood 01/12/2025 11:2 3 AM EST 01/12/2025 12:56 PM EST Huong David MD LAB BLOOD ORDERABLES Final Resul t Performing Organization Address [facility] Co de Phone Number [facility] [address] [place] [phone] * (ABNORMAL) Lipid Panel with Reflex to Direct LDL (01/12/2025 11:23 AM EST) Triglycerides 49 <150 mg/dL [facility] Comment:Desirable Triglyceri de: less than 150 mg/dLBorderline High Triglyceride 150-199 mg/dLHigh Triglyceride: 200-499 mg/dLVery High Triglyceride: greater than or equal to 5OO mg/dL Cholesterol 176 <200 mg/dL [facility] Comment:Desirable Cholestero l: less than 200 mg/dLBorderline High Cholesterol: 200-239 mg/dLHigh Cholesterol: greater than 239 mg/dL LDL Cholesterol Calculated 100(H) <100 mg/dL [facility] Comment:Desirable LDL: less than 100 mg/dLNear Optimal/Above Optimal LDL: 110- 129 mg/dLBorderline High LDL: 130-159 mg/dLHigh LDL: 160-189 mg/dLVery High LDL: greater than or equal to 190 mg/dL HDL Cholesterol 67 >40 mg/dL [facility] Comment:Desirable HDL: great er than 40 mg/dL Note: This HDL assay may give artificially low results in patients with liver disease. Blood 01/12/2025 11:2 3 AM EST 01/12/2025 12:56 PM EST Huong David MD LAB BLOOD ORDERABLES Final Resul t [facility] [address] [place] [address] [phone] * Hemoglobin A1c (01/12/2025 11:23 AM EST) Hemoglobin A1c 6.0 <6.0 % [facility] Comment:Hemoglobin A1C Refer ence Range Adults: 4.8 - 6.0 % Non diabetic: < 6.0 % Goal: < 7.0 %Additional Action Suggested: > 8.0 %Note: Hemoglobin A1c results are invalid for patients with abnormal amounts of HbF. Blood transfusions may impact the HbA1c concentration in the patient sample. Estimated Average Glucose 126 mg/dL [facility] Comment:eAG = Estimated ave rage glucose which is %A1C expressed asaverage glucose, using the formula of the N1R-GoublzoOowuhnb Glucose study (ADAG), Diabetes Care, Vol.31,#8,2007 Blood Venous blood specimen / Unknown 01/12/2025 11:23 AM EST 01/12/2025 12:56 PM EST us Huong David MD LAB BLOOD ORDERABLES Final Resul t [facility] [address] [place] [phone] * (ABNORMAL) Comprehensive Metabolic Panel (01/12/2025 11:23 AM EST) Sodium 141 135 - 145 mmol/L [facility] Potassium 4.0 3.3 - 5.1 mmol/L [facility] Chloride 109(H) 96 - 108 mmol/L [facility] Carbon Dioxide 29 22 - 29 mmol/L [facility] Anion Gap 7(L) 12 - 20 [facility] Urea Nitrogen (BUN) 15 9 - 16 mg/dL [facility] Creatinine, Serum 0.68 0.5 - 1.4 mg/dL [facility] Estimated Glomerular Filt Rate >60 [facility] Comment:Chronic Kidney Disea se: Estimated GFR < 60 mL/min/1.52t0Rifrds Kidney Disease: Estimated GFR < 15 mL/min/1.73m2 Glucose 97 60 - 115 mg/dL [facility] Calcium 8.4 8.4 - 10.2 mg/dL [facility] Bilirubin, Total 0.8 0.0 - 1.0 mg/dL [facility] Aspartate Amino Transferase 28 5 - 31 U/L [facility] Alanine Aminotransferase 17 0 - 31 U/L [facility] Total Protein 7.2 6.5 - 8.0 g/dL [facility] Albumin Level 4.0 3.5 - 5.0 g/dL [facility] Alkaline Phosphatase 67 39 - 117 U/L [facility] Blood Venous blood specimen / Unknown 01/12/2025 11:23 AM EST 01/12/2025 12:56 PM EST Huong David MD LAB BLOOD ORDERABLES Final Resul t Performing Organization Address City/State/[facility] Co de Phone Number [facility] [address] [place] [phone] * BI Mammogram Screening Tomosynthesis Bilateral (07/14/2024 12:30 PM EDT) Anatomical Region Laterality Modality Breast Bilateral Mammography 07/14/2024 12:3 0 PM EDT Narrative 07/20/2024 9:21 PM EDT [facility] [address] [place] [address] Mammography Report Signed Patient: Ilene Dominguez MR#: [id number] 5 : 1965 Acct:[id number] Age/Sex: 59 / F ADM Date: 07/14/24 Loc: [facility] Attending Dr: Joel Flores MD Ordering Physician: Joel Flores MD Results: 2Benign Findings Date of Service: 07/14/24 Follow Up: 1 Year From Orig inal Mammogram Procedure(s): MM tomosynthesis screening BI Accession Number(s): [id number] cc: Huong David MD; Joel Flores MD [...] OV> 07/20/248 DD/ 1230 TD/TT: 07/14/24 1236 Scrap Stripper Hand: Procedure Note Donotuseinterpreter, Image - 07/20/2024 [facility] [address] [place] [address] Mammography Report Signed Patient: Charles Dominguez#: [id number] 5 : 1965Acct:[id number] Age/Sex: 59 / FADM Date: 07/14/24 Loc: [facility] Attending Dr: Joel Flores MD Ordering Physician: Joel Flores MDResults: 2Benign Findings Date of Service: 07/14/24Follow Up: 1 Year From Orig inal Mammogram Procedure(s): MM tomosynthesis screening BI Accession Number(s): [id number] cc: Huong David MD; Joel Flores MD [...] DO 07/20/2024 09:18 PM EDT Dictated By: Mihcelle Sierra DO Signed By: <Electronically signed by Michelle Sierra DO in OV> 07/20/248 DD/ 1230 TD/TT: 07/14/24 1236 Scrap Stripper Hand: [facility] External Provider IMG BI PROCEDURES Final Result * HPV DNA, Low/High Risk (05/16/2024 8:57 AM EST) HPV High Risk Negative Negative [facility] HPV Genotype 16 Negative Negative [facility] HPV Genotype 18 Negative Negative [facility] Comment:HPV testing performe d at [facility] (CLIA#[id number]), [address] [place] [address].Testing for HPV was performed using the Benjamín [...] Provider LAB BLOOD ORDERAB LES Final Result [facility] [address] [place] [phone] * Pap Smear (05/16/2024 8:57 AM EST) 05/16/2024 8:57 AM EST 05/16/2024 11:39 AM EST Narrative [facility] - 05/20/2024 9:43 AM EDT ----- ------- Name: Ilene Dominguez Age/Sex: 59/F : 1965 Unit#: [id number] Attend Dr: Joel Flores MD Re05/16/24 Status: [facility] REF Location: [facility] Disch: ----- ------- SPEC : [id number] RECD: 05/16/24787 STATUS: TAYLOR CORRALES NUM: [id number] ZE: 05/16/[address] [facility] [address]: Joel Flores MD ENTERED: 05/16/24-2856 SP TYPE: Pap Smr OTHR DR: Huong David MD ORDERED: Pap Smear Interpretation Satisfactory for evaluation. Negative for intraepithelial lesion or malignancy. HPV High Risk: Negative HPV Genotyping 16: Negative HPV Genotyping 18: Negative Clinical Information LMP:Unknown date Previous PAP test: 03/28/22, Unknown findings Material Received ThinPrep-Cervical Copies To: Huong David MD [facility] [address] [place] [address] Joel Flores MD [facility] [address] [place] [address] ----- ------- Signed (signature on file) ZOILA Little (ASCP) 05/20/24 0943 ----- ------- END OF REPORT Generic External Data Provider LAB CYTOLOGY ERIS KNOTT Final Result [facility] [address] [place] [address] [phone] * Colonoscopy (12/12/2023) Pathologist [facility] Colonoscopy Normal Normal 12/12/2023 us Historical Provider HEALTH MAINTENANCE Final Result * Hepatitis Panel, General (09/24/2023 1:58 PM EDT) Hepatitis A IgM Nonreactive Nonreactive [facility] Comment:IgM antibodies to SCOTT V not detected; does not exclude earlyacute or recovered HAV infection. ~Hepatitis B Surface Antibody NONREACTIVE Nonreactive [facility] Comment:Nonreactive: < 8.00 mIU/mL Hepatitis B Core Antibody Nonreactive Nonreactive [facility] Hepatitis C Antibody Nonreactive Nonreactive [facility] Comment:Antibodies to HCV no t detected; does not exclude early acuteHCV infection. Hepatitis B Surface Ag Negative Negative [facility] 09/24/2023 1:58 PM EDT 09/24/2023 1:58 PM EDT us Generic External Data Provider LAB BLOOD ORDERAB LES Final Result [facility] [address] [place] [phone] [phone] from Last 3 Months or Most Recently Relevant to Health Maintenance Insurance * Guarantor: Ilene Dominguez Account Type Relation to Patient Date of Phone Billing Address Personal/Family Self 1965 [address] [facility] [employer] * Guarantor: Ilene Dominguez Account Type Relation to Patient Date of Phone Billing Address Personal/Family Self [address] * Guarantor: Ilene Dominguez Account Type Relation to Patient Date of Phone Billing Address Personal/Family Self [address] [place] [address] * Guarantor: Ilene Dominguez Account Type Relation to Patient Date of Phone Billing Address Personal/Family Self [address] [place] [address] Care Teams Tool Crib Attendant Relationship Specialty Start Date End Date Huong David MD [address] [place], [place] [phone] PCP - General Family Medicine 02/22/12 John Salgado, DelmiD [address] [place], [place] [phone] Pharmacist Internal Medicine 01/16/23
--- OUTSIDE RECORDS SUMMARY | 2025-01-15 16:32 | XMS_ITS | Encounter Summary ---
Author Organization [employer] Address [address] [place] [address] [address] [place] [address] Care Team Providers Care Sheet Rock Nailer Name Role Phone Huong David MD Primary Care Provider [phone] John Salgado PharmD Unavailable [phone] Encounter Details Date Type Department Care Team (Late st Contact Info) Description 08/23/2022 Abstract [facility] [address] [place] [address] [phone] Huong David MD [address] [place] [address] [phone] Social History Tobacco Use Types Packs/Day Years [...] Description 01/20/2025 1:15 PM EST Office Visit [facility] [address] [place] [address] [phone] Huong David MD [address] [place] [address] [phone] documented as of this encounter Procedures Procedure Name Priority Date/Time Associated Diagnosis Comments MAMMOGRAPHY Routine 07/06/2022 documented in this encounter Results * Mammography (07/06/2022) Mammogram bi-rads 2 Anatomical Region Laterality Modality Other 07/06/2022 Result [facility] P[facility] HEALTH MAINTENANCE Final Result documented in this encounter Visit Diagnoses Not on filedocumented in this encounter Additional Health Concerns Assessment Noted Time PHQ-9 Depression Total Score: 0 04/11/19 23 1:19 PM EST documented as of this encounter Care Teams Sheet Rock Nailer Relationship Specialty Start Date End Date Huong David MD [address] [place] [address] PCP - General Family Medicine 02/22/12 John Salgado, DelmiD [address] [place] [phone] Pharmacist Internal Medicine 01/16/23 documented as of this encounter
--- OUTSIDE RECORDS SUMMARY | 2025-01-15 16:32 | XMS_ITS | Encounter Summary ---
Author Organization [employer] Address [address] [facility] [address] [place] [address] Care Team Providers Care Toe Puller Name Role Phone Huong David MD Primary Care Provider [phone] John Salgado PharmD Unavailable [phone] Encounter Details Date Type Department Care Team (Late st Contact Info) Description 04/04/2024 Abstract [facility] [address] [place], [place] [phone] Amaya Bhatia [place] Social History Tobacco Use [...] Description 01/20/2025 1:15 PM EST Office Visit [facility] [address] [place] [phone] Huong David MD [address] [place] [phone] documented as of this encounter Goals Goal [...] documented as of this encounter Care Teams Toe Puller Relationship Specialty Start Date End Date Huong David MD [address] [place] [address] [phone] PCP - General Family Medicine 02/22/12 John Salgado, Vikki [address] [place] [phone] Pharmacist Internal Medicine 01/16/23 documented as of this encounter
--- OUTSIDE RECORDS SUMMARY | 2025-01-15 16:32 | XMS_ITS | Encounter Summary ---
Author Organization [employer] Address [address] [place] [address] [address] [place] [address] Care Team Providers Care Armature Inspector Name Role Phone Huong David MD Primary Care Provider John Salgado PharmD Unavailable [phone] Encounter Details Date Type Department Care Team (Late st Contact Info) Description 09/29/2022 Abstract [facility] [address] [place] [address] [phone] Huong David MD [address] [place] [address] [phone] Social History Tobacco Use Types Packs/Day Years [...] Description 01/20/2025 1:15 PM EST Office Visit [facility] [address] [place] [address] [phone] Huong David MD [address] [place] [address] [phone] documented as of this encounter Procedures Procedure Name Priority Date/Time Associated Diagnosis Comments HM COLONOSCOPY Routine 04/01/2013 documented in this encounter Results * Hm Colonoscopy (04/01/2013) Colonoscopy Normal Normal [facility] Pcp HEALTH MAINTENANCE Edited Result - Final documented in this encounter Visit Diagnoses Not on filedocumented in this encounter Additional Health Concerns Assessment Noted Time PHQ-9 Depression Total Score: 0 04/11/19 23 1:19 PM EST documented as of this encounter Care Teams Armature Inspector Relationship Specialty Start Date End Date Huong David MD [address] [place] [address] PCP - General Family Medicine 02/22/12 John Salgado, DelmiD [address] [place] [address] Pharmacist Internal Medicine 01/16/23 documented as of this encounter
--- OUTSIDE RECORDS SUMMARY | 2025-01-15 16:33 | XMS_ITS | Encounter Summary ---
Author Organization [employer] Address [address] [facility] [address] 7t [place] [address] Care Team Providers Care First Aid Director Name Role Phone Huong David MD Primary Care Provider [phone] John Salgado PharmD Unavailable [phone] Encounter Details Date Type Department Care Team (Late st Contact Info) Description 03/28/2024 Orders Only [facility] [address] [place], [place] [phone] Huong David MD [address] [place], [place] [phone] Social History Tobacco Use Types Packs/Day Years [...] 01/20/2025 1:15 PM EST Office Visit [facility] [address] [place] [phone] Huong David MD [address] [place] [address] documented as of this encounter Goals Goal [...] documented as of this encounter Care Teams First Aid Director Relationship Specialty Start Date End Date Huong David MD [address] [place] [phone] PCP - General Family Medicine 02/22/12 John Salgado, PharmD [address] [facility] [place] [address] Pharmacist Internal Medicine 01/16/23 documented as of this encounter
== END 2025-01-15 14:53 | disposition home or self-care (01) ==
LOC: HO.RHES 13:35
PROVIDERS: PCP Family Medicine; Visit Provider Student in an Organized Health Care Education/Training Program
DX: M05.79 Rheumatoid arthritis with rheumatoid factor of multiple sites without organ or systems involvement (principal); M85.852 Other specified disorders of bone density and structure, left thigh; M70.62 Trochanteric bursitis, left hip
CPT/HCPCS: 20610; 99214

== ENCOUNTER → 2025-01-15 13:34 | Outpatient (BNVA) | payer MEDICAID, SELFPAY | PROVIDERS: PCP Family Medicine; Visit Provider Student in an Organized Health Care Education/Training Program | DX: M70.62 Trochanteric bursitis, left hip (principal); M05.79 Rheumatoid arthritis with rheumatoid factor of multiple sites without organ or systems involvement; M85.852 Other specified disorders of bone density and structure, left thigh | CPT/HCPCS: 20610; 99212; J2003; J3301 ==

== ENCOUNTER 2025-01-21 16:01 | Outpatient (REF) | payer MEDICAID, SELFPAY ==
--- OUTSIDE RECORDS SUMMARY | 2025-01-20 13:15 | XMS_ITS | Encounter Summary ---
Author Organization [employer] Address [address] 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; Rheumatoid arthritis with positive rheumatoid factor, involving unspecified site (CMS/HCC) (HCC); Interstitial lung disease (CMS/HCC) (HCC); 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; Encounter for immunization Social History Tobacco Use Types Packs/Day Years [...] Sign Reading Time Taken Comments Blood Pressure 130/82 01/20/2025 1:17 PM EST Pulse 64 01/20/2025 1:15 PM EST Temperature 36.2 C (97.1 F) 01/20/2025 1:15 PM EST Respiratory Rate 20 01/20/2025 1:15 PM EST Oxygen Saturation 98% 01/20/2025 1:15 PM EST Inhaled Oxygen Concentration - - Weight 84.4 kg (186 lb) 01/20/2025 1:15 PM EST Height 165.1 cm (5' 5 ) 01/20/2025 1:15 PM EST Body Mass Index 30.95 01/20/2025 1:15 PM EST documented in this encounter Miscellaneous Notes * Assessment & Plan Note - Huong David MD - 01/20/2025 5:52 AM ESTAssociated Problem(s): Hypertension -Goal BP < 130 per ACC/AHA guideline [...] due to hypokalemia. Switched lisinopril to olmesartan because ANKIT inhibitor can cause angioedema in predisposed individuals, by activating Kallikrein activation, leading to elevated levels of bradykinin, substance P and other inflammatory markers. * Assessment & Plan Note - Huong David MD - 01/20/2025 5:46 AM ESTAssociated Problem(s): Hypersensitivity reaction Moderate - severe allergic reaction in Dec 2023 and Jan 2024 grain origination specialist: [facility] Allergy Mechanical Maintenance Worker: [facility] documented in this encounter Plan of Treatment Not on file documented as of this encounter Goals Goal Patient Goal Type Associated Problems Recent Progress Patient-Stated? 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
--- NOTE | ~2025-01-21 | US_ITS ---
EXAMINATION: US PELVIS CLINICAL INFORMATION: D25.9 - Leiomyoma of uterus, unspecified COMPARISON: Ultrasound on June 16, 2024 TECHNIQUE: Ultrasound of the pelvis is performed using both transabdominal and transvaginal transducers along with Doppler. Transvaginal imaging is performed due to inadequate visualization transabdominally. FINDINGS: Uterus: The uterus is retroverted and retroflexed and measures 6.9 x 2.7 x 4.3 cm. The double wall endometrial thickness is 0.6 cm. An intrauterine device is in place. Trace endometrial fluid is present. Heterogeneous echotexture of the uterus. Identified focal lesions are located in the right fundus measuring 3.2 x 2.5 x 2.8 cm and left posterior fundal measuring 1.1 x 0.8 x 0.9 cm. Right ovary measures 1.4 x 1.0 x 0.6 cm (volume of 0.4 ml). Unremarkable sonographic appearance. Left ovary measures 1.7 x 0.7 x 0.5 cm volume of 0.3 ml). Unremarkable sonographic appearance. No free fluid. US/US pelvic and transvaginal IMPRESSION: Two focal uterine lesion is identified, likely representing uterine leiomyomas, the largest measuring 3.2 cm. Electronically signed by: Saturnino Calloway MD 01/21/2025 06:07 PM [facility]
--- OUTSIDE RECORDS SUMMARY | 2025-01-21 18:54 | XMS_ITS | Encounter Summary ---
Author Organization [employer] Address [address] [facility] [address] 7[address] [place] [address] Care Team Providers Care Ship Rigger Apprentice Name Role Phone Huong David MD Primary Care Provider [phone] John Salgado PharmD Unavailable [phone] Encounter Details Date Type Department Care Team (Late st Contact Info) Description 01/19/2025 Telephone [facility] [address] [place], [place] [phone] Huong David MD [address] [place], [place] [phone] Social History Tobacco Use Types Packs/Day Years [...] AM EDT documented as of this encounter Miscellaneous Notes * Telephone Encounter - Lindsay Marcano MA - 01/19/2025 2:16 PM EST ..Chart Prep Labs: done Images: done Mammo Vaccines due: Covid Due, Flu Due, and RSV in Pharmacy Due Referrals: Not Applicable Screenings: HIV screening Overdue care gaps: Sbirt and Oral Health documented in this encounter Plan of Treatment [...] documented as of this encounter Care Teams Ship Rigger Apprentice Relationship Specialty Start Date End Date Huong David MD [address] [place] [address] PCP - General Family Medicine 02/22/12 John Salgado, DelmiD [address] [place] [address] Pharmacist Internal Medicine 01/16/23 documented as of this encounter
--- OUTSIDE RECORDS SUMMARY | 2025-01-21 18:54 | XMS_ITS | Encounter Summary ---
Author Organization [employer] Address [address] [facility] 7t [place] [address] Care Team Providers Care Marble Setter Name Role Phone Huong David MD Primary Care Provider [phone] John Salgado PharmD Unavailable [phone] Reason for Visit * Reason Onset Date Comments returning call 03/22/2022 Encounter Details Date Type Department Care Team ([facility] st Contact Info) Description 03/22/2022 Telephone [facility] [address] [place], [place] [phone] Huong David MD [address] [place], [place] [phone] returning call Social History Tobacco Use Types [...] a call back Please contact pt at [phone] documented in this encounter Plan of Treatment Not on file documented as of this encounter Visit Diagnoses Not on filedocumented in this encounter Care Teams Marble Setter Relationship Specialty Start Date End Date Huong David MD [address] [place] [address] PCP - General Family Medicine 02/22/12 John Salgado, Vikki [address] [place] [address] Pharmacist Internal Medicine 01/16/23 documented as of this encounter
--- OUTSIDE RECORDS SUMMARY | 2025-01-21 18:54 | XMS_ITS | Clinical Summary ---
Author Organization [facility] Address [address] [facility] [address] [place] [address] Phone Care Team Providers Care Bleach Plant Operator Name Role Phone Huong David MD Primary Care Provider [phone] Allergies No known active allergies Medications Zoster [...] 11/06/2022 Overview (11/06/2022): Last Assessment & Plan: -Account Supervisor recommended repeat pelvic ultrasound, further evaluation and recommendation Hysteroscopy for endocervical polyp. Patient was reassured that the fibroids typically decrease in size and resolve in menopause. -Recommended removal of polyps. -Scheduled for hysteroscopy with referral agent Urticaria 04/11/2022 11/06/2022 Degeneration of cervical intervertebral disc 11/06/2022 History of calculus of kidney 03/20/2022 Rheumatoid arthritis 03/20/2022 11/06/2022 Overview (11/06/2022): Last Assessment & Plan: -Seropositive rheumatoid arthritis -Dx September 2019 -03/20/22 ESR 41 -following with [facility] rheumatology providers, last [...] exacerbation in February 2019, hospitalized at [facility] -COVID19 clinical Dx in June 2019 (household member was positive) - did not test at that time due to strict Dx criteria at that time -Frequency of exacerbation, requiring systemic steroid 8 x /year, 2 hospitalizations in 2019, less frequent recently -No Hx of intubation -Followed by both respiratory scientist and ENT -Continue Advair as maintenance -Continue [...] 11/06/2022 Overview (11/06/2022): Last Assessment & Plan: -Account Supervisor recommended repeat pelvic ultrasound, further evaluation [...] 11/06/2022 Overview (11/06/2022): Last Assessment & Plan: -[facility] provider: ALBERTO -Current medication: escitalopram 10 mg [...] 1965 [address] [place], [place] * Guarantor: Ilene Dominguez Account Type Relation to Patient Date of Phone Billing Address Personal/Family Self 1965 [address] [place], [place] Care Teams Bleach Plant Operator Relationship Specialty Start Date End Date Huong David MD [address] [place] [phone] PCP - General Family Medicine 06/08/23
--- OUTSIDE RECORDS SUMMARY | 2025-01-21 18:54 | XMS_ITS | Encounter Summary ---
Author Organization [employer] Address [address] [facility] 7t [place] [address] Care Team Providers Care Maintainer Operator Name Role Phone Huong David MD Primary Care Provider [phone] John Salgado PharmD Unavailable [phone] Encounter Details Date Type Department Care Team (Late st Contact Info) Description 09/29/2022 Abstract [facility] [address] [place], [place] [phone] Huong David MD [address] [place], [place] [phone] Social History Tobacco Use Types Packs/Day Years [...] Results * Colonoscopy (04/01/2013) Colonoscopy Normal Normal [facility] Pcp HEALTH MAINTENANCE Edited Result - Final documented in this encounter Visit Diagnoses Not on filedocumented in this encounter Additional Health Concerns Assessment Noted Time PHQ-9 Depression Total Score: 0 04/11/19 1:19 PM EST documented as of this encounter Care Teams Maintainer Operator Relationship Specialty Start Date End Date Huong David MD [address] [place] [address] PCP - General Family Medicine 02/22/12 John Salgado, Vikki [address] [place] [address] Pharmacist Internal Medicine 01/16/23 documented as of this encounter
--- OUTSIDE RECORDS SUMMARY | 2025-01-21 18:54 | XMS_ITS | Encounter Summary ---
Author Organization [employer] Address [address] [facility] 7t [place] [address] Care Team Providers Care Subscription Agent Name Role Phone Huong David MD Primary Care Provider [phone] John Salgado PharmD Unavailable [phone] Encounter Details Date Type Department Care Team (Late st Contact Info) Description 10/06/2022 Orders Only [facility] [address] [place], [place] [phone] Huong David MD [address] [place], [place] [phone] Hypokalemia (Primary Dx) Social History Tobacco Use [...] documented as of this encounter Care Teams Subscription Agent Relationship Specialty Start Date End Date Huong David MD [address] [place] [address] PCP - General Family Medicine 02/22/12 John Salgado PharmD [address] [place] [address] Pharmacist Internal Medicine 01/16/23 documented as of this encounter
--- OUTSIDE RECORDS SUMMARY | 2025-01-21 18:54 | XMS_ITS | Encounter Summary ---
Author Organization [employer] Address [address] [facility] [address] [facility] [address] [place] [address] Care Team Providers Care Tapping Machine Operator Automatic Name Role Phone Huong David MD Primary Care Provider [phone] John Salgado PharmD Unavailable [phone] Encounter Details Date Type Department Care Team (Latest Contact Info) Description 01/20/2025 Travel Social History Tobacco Use Types Packs/Day Years Used Date Smoking Tobacco: Never Passive Smoke Exposure: Never Smokeless Tobacco: Never Alcohol Answer Date Recorded Frequency of Alcohol Consumption Not on file 12/17/2023 Average Number of Drinks Not on file 024 Frequency of Binge Drinking Not on file 1009/2023 Score 0 12/17/2023 Depression Answer Date Recorded [...] 150/90 Blood Pressure 130/82(2024 1:17 PM EST) No John Salgado, Vikki Note: Per JNC-8, Age 60+ without history of CKD or DM documented as of this encounter Visit Diagnoses Not on filedocumented in this encounter Additional Health Concerns Assessment Noted Time PHQ-9 Depression Total Score: 1 07/09/19 25 3:36 PM EDT documented as of this encounter Care Teams Tapping Machine Operator Automatic Relationship Specialty Start Date End Date Huong David MD [address] [place] [address] PCP - General Family Medicine 02/22/12 John Salgado, DelmiD [address] [place] [address] Pharmacist Internal Medicine 01/16/23 documented as of this encounter
--- OUTSIDE RECORDS SUMMARY | 2025-01-21 18:54 | XMS_ITS | Encounter Summary ---
Author Organization [employer] Address [address] [facility] [address] [place] [address] Care Team Providers Care Roaster Supervisor Name Role Phone Huong David MD Primary Care Provider [phone] John Salgado PharmD Unavailable [phone] Encounter Details Date Type Department Care Team (Late st Contact Info) Description 08/23/2022 Abstract [facility] MEDICINE [address] [place], [place] [phone] Huong David MD [address] [place], [place] [phone] Social History Tobacco Use Types Packs/Day Years [...] 2 Anatomical Region Laterality Modality Other 07/06/2022 [facility] Unassigned Pcp HEALTH MAINTENANCE Final Result documented in this encounter Visit Diagnoses Not on filedocumented in this encounter Additional Health Concerns Assessment Noted Time PHQ-9 Depression Total Score: 0 04/11/19 23 1:19 PM EST documented as of this encounter Care Teams Roaster Supervisor Relationship Specialty Start Date End Date Huong David MD [address] [place] [address] PCP - General Family Medicine 02/22/12 John Saglado, DelmiD [address] [place] [address] Pharmacist Internal Medicine 01/16/23 documented as of this encounter
--- OUTSIDE RECORDS SUMMARY | 2025-01-21 18:54 | XMS_ITS | Encounter Summary ---
Author Organization [employer] Address [address] [place] [address] [address] [place] [address] Care Team Providers Care Sand Buffer Name Role Phone Huong David MD Primary Care Provider [phone] John Salgado PharmD Unavailable [phone] Reason for Visit * Reason Comments Med Refill Encounter Details Date Type Department Care Team (Late st Contact Info) Description 09/13/2022 Refill [facility] MEDICINE [address] [place], [place] [phone] Name, MD Jemal [address] [place], [place] [phone] Social History Tobacco Use Types Packs/Day Years [...] documented as of this encounter Care Teams Sand Buffer Relationship Specialty Start Date End Date Huong David MD [address] [place] [phone] PCP - General Family Medicine 02/22/12 John Salgado, PharmD [address] [place] [phone] Pharmacist Internal Medicine 01/16/23 documented as of this encounter
--- OUTSIDE RECORDS SUMMARY | 2025-01-21 18:54 | XMS_ITS | Encounter Summary ---
Author Organization [employer] Address [address] [facility] [address] [place] [address] Care Team Providers Care Train Operator Name Role Phone Huong David MD Primary Care Provider [phone] John Salgado PharmD Unavailable [phone] Encounter Details Date Type Department Care Team (Late st Contact Info) Description 03/28/2024 Orders Only [facility] MEDICINE [address] [place], [place] [phone] Huong David MD [address] [place], [place] [phone] Social History Tobacco Use Types Packs/Day Years [...] documented as of this encounter Care Teams Train Operator Relationship Specialty Start Date End Date Huong David MD [address] [place] [address] PCP - General Family Medicine 02/22/12 John Salgado, DelmiD [address] [place] [address] Pharmacist Internal Medicine 01/16/23 documented as of this encounter
--- OUTSIDE RECORDS SUMMARY | 2025-01-21 18:54 | XMS_ITS | Clinical Summary ---
Author Organization [employer] Address [address] [facility] [address] [place] [address] Care Team Providers Care Medical Assistant Per Diem Name Role Phone Huong Knox MD Primary Care Provider [phone] John Salgado PharmD Unavailable Allergies No known active allergies Medications alendronate [...] ROOM 2 each 3 09/24/19 25 Active lidocaine (Lidoderm) 5 % patch Apply 1 patch topically Once per day. Remove & discard patch within 12 hours or as directed by MD. 30 patch 11 01/21/20 25 Active Active Problems Problem Noted Date Diagnosed Date Angioedema 01/20/2025 Rosacea 07/08/2024 Assessment & Plan (07/08/2024 3:17 [...] in 5 years due to family history. De Quervain's tenosynovitis, left 12/21/2023 Assessment & [...] diclofenac Hypersensitivity reaction 12/17/2023 Assessment & Plan (01/20/2025 5:46 AM EST): Moderate - severe allergic reaction in Dec 2023 and Jan 2024 artillery specialist: [facility] Allergy Pipe Bender: [facility] [place] Assessment & Plan (01/20/2025 5:45 AM EST): >>ASSESSMENT AND PLAN FOR ALLERGIC REACTION WRITTEN ON 02/05/2024 2:26 PM BY WILFRIDO ARMANDO MA Etiology unknown. Possible allergic reaction - Advised no ibuprofen, alcohol, perfumes, or scented cleaning products 02/05/24 - Prescribed diphenhydrAMINE (BENADryl) 25 MG tablet 02/05/24 - Referral to Allergy 02/05/24 -ER precautions discussed. -Seek medical attention for worsening symptoms. Assessment & Plan (01/20/2025 5:45 AM EST): >>ASSESSMENT AND PLAN FOR ALLERGIC REACTION WRITTEN ON 03/31/2024 5:05 PM BY HUOGN KNOX MD Moderate - severe allergic reaction in Dec 2023 and Jan 2024 She was referred to coding specialist in the walk-in clinic in Jan [address] Jean [facility] [place] pulmonology if she is interested in allergy testing and treatment Assessment & Plan (01/20/2025 5:45 AM EST): >>ASSESSMENT AND PLAN FOR HYPERSENSITIVITY REACTION WRITTEN ON 12/24/2023 6:05 AM BY HUONG KNOX MD - no identifiable offending agent - will prescribe Epi-pen >>ASSESSMENT AND PLAN FOR ALLERGIC REACTION WRITTEN ON 12/21/2023 4:34 PM BY SUBHASH BARBER Reports tongue swelling, unknown allergen. - given EPIPen with instructions on how to use. Prediabetes 06/03/2023 Assessment & Plan (10/30/2024 11:16 [...] (11/01/2024 6:06 AM EDT): - following with [facility] [place] [facility] - last EMBx in August 2023 (normal EMBx x 3) postmenopausal bleeding - last PAP/cotest NSIL with negative high-risk HPV in May 2024 - no sign of malignancy Assessment & Plan (12/24/2023 5:54 AM EDT): - following with [facility] [place] [facility] - last EMBx in August 2023 - no sign of malignancy Assessment & Plan (06/03/2023 6:49 PM EDT): - following with [facility] [place] [facility] - last EMBx in Nov 2022 - no sign of malignancy Assessment & Plan (01/19/2023 6:00 AM EST): - following with [facility] [place] [facility] - last EMBx in Nov 2022 - no sign of malignancy Chronic left shoulder pain 01/19/2023 Assessment & Plan (01/19/2023 6:08 AM EST): - X-ray was normal and pt received steroid injection from audit manager in Dec 2022 - no pain [...] - monitor BP closely Interstitial lung disease (CMS/HCC) 10/05/2022 Assessment & Plan (10/27/2024 9:22 AM EDT): - following with [facility] [place] [facility]ology - status post 3 mo of prednisone treatment - CT showed improvement in July 2022 and near resolution in Nov 2022 - currently monitoring symptoms and with periodic imaging Assessment & Plan (07/08/2024 3:04 PM EDT): - following with [facility] [place] pulmonology - status post 3 mo of prednisone treatment - CT showed improvement in July 2022 and near resolution in Nov 2022 - currently monitoring symptoms and with periodic imaging Assessment & Plan (03/26/2024 1:12 PM EST): - following with [facility] [place] pul[facility]ology - status post 3 mo of prednisone treatment - CT showed improvement in July 2022 and near resolution in Nov 2022 - currently monitoring symptoms and with periodic imaging Assessment & Plan (12/21/2023 4:33 PM EDT): - following with [facility] [place] pulmonology - status post 3 mo of prednisone treatment - CT showed improvement in July 2022 and near resolution in Nov 2022 - currently monitoring symptoms and with periodic imaging Assessment & Plan (06/03/2023 6:45 PM EDT): - following with [facility] [place] pulmonology - status post 3 mo of prednisone treatment - CT showed improvement in July 2022 and near resolution in Nov 2022 - currently monitoring symptoms and with periodic imaging Assessment & Plan (01/19/2023 5:56 AM EST): - following with [facility] [place] pulmonology - status post 3 mo of prednisone treatment - CT showed improvement in July 2022 and near resolution in Nov 2022 - currently monitoring symptoms and with periodic imaging Assessment & Plan (10/09/2022 9:00 AM EDT): - following with [facility] [place] pulmonology - currently taking prednisone 50 mg daily with a plan for slow tapering - CT on 08/01/22 showed improvement - continue current treatment plan and follow up with web development director Elevated erythrocyte sedimentation rate 07/12/19 Assessment & [...] 04/11/2022 Overview (01/15/2023): Last Assessment & Plan: -Liability Claims Representative recommended repeat pelvic ultrasound, further evaluation and recommendation Hysteroscopy for endocervical polyp. Patient was reassured that the fibroids typically decrease in size and resolve in menopause. -Recommended removal of polyps. -Scheduled for hysteroscopy with banking representative Assessment & Plan (07/11/2022 11:13 AM EDT): - 05/19/22 Hysteroscopy, D&C, polypectomy - benign polyp Assessment & Plan (04/22/2022 5:10 AM EST): -Liability Claims Representative recommended repeat pelvic ultrasound, further evaluation and recommendation Hysteroscopy for endocervical polyp. Patient was reassured that the fibroids typically decrease in size and resolve in menopause. -Recommended removal of polyps. -Scheduled for hysteroscopy with banking representative Degeneration of cervical intervertebral disc Rheumatoid arthritis ([facility]/HCC) 03/20/2022 Overview (01/15/2023): Last Assessment & Plan: -Seropositive rheumatoid arthritis -Dx September 2019 -03/20/22 ESR 41 -following with [facility] [place] rheumatology providers, last seen in Oct 2020, [...] and CCP. -Dx September 2019 -following with [facility] [place] rheumatology providers, last seen in Dec 2023 -previously prescribed hydroxychloroquine by audit manager when she developed ILD and uveitis, with elevated ESR/CRP in 6630-3819 -s/p prednisone treatment x 3 mo, which was prescribed by web development director for ILD in 2022 -elevated ESR/CRP and [...] and CCP. -Dx September 2019 -following with [facility] [place] rheumatology providers, last seen in Dec 2023 -previously prescribed hydroxychloroquine by audit manager when she developed ILD and uveitis, with elevated ESR/CRP in 3068-6302 -s/p prednisone treatment x 3 mo, which was prescribed by web development director for ILD in 2022 -elevated ESR/CRP and [...] and CCP. -Dx September 2019 -following with [facility] [place] rheumatology providers, last seen in Dec 2023 -previously prescribed hydroxychloroquine by audit manager when she developed ILD and uveitis, with elevated ESR/CRP in 7719-8477 -s/p prednisone treatment x 3 mo, which was prescribed by web development director for ILD in 2022 -elevated ESR/CRP and [...] and CCP. -Dx September 2019 -following with [facility] [place] rheumatology providers, last seen in September 2023 -previously prescribed hydroxychloroquine by audit manager when she developed ILD and uveitis, with elevated ESR/CRP in 5997-1783 -s/p prednisone treatment x 3 mo, which was prescribed by web development director for ILD in 2022 -elevated ESR/CRP and evaluated for other rheumatological / autoimmune / connective tissue disorder, including vasculitis. Vasculitis work-up was negative. Current Dx interstitial lung disease -currently monitoring without DMARDs Assessment & Plan (06/03/2023 6:53 PM EDT): -Seropositive rheumatoid arthritis (RF and CCP) -Dx September 2019 -following with [facility] [place] rheumatology providers, last seen in Apr 2023 -previously prescribed hydroxychloroquine by audit manager when she developed ILD and uveitis, with elevated ESR/CRP -s/p prednisone treatment x 3 mo, which was prescribed by web development director for ILD -elevated ESR/CRP and evaluated for other rheumatological / autoimmune / connective tissue disorder, including vasculitis. Vasculitis work-up was negative. Current Dx interstitial lung disease -follow up as scheduled Assessment & Plan (01/19/2023 6:03 AM EST): -Seropositive rheumatoid arthritis (RF and CCP) -Dx September 2019 -following with [facility] [place] rheumatology providers, last seen in 2022 -currently prescribed hydroxychloroquine by audit manager -s/p prednisone treatment x 3 mo, which was prescribed by web development director for ILD -elevated ESR/CRP and evaluated for other rheumatological / autoimmune / connective tissue disorder, including vasculitis. Vasculitis work-up was negative. Current Dx interstitial lung disease -follow up as scheduled Assessment & Plan (10/09/2022 9:05 AM EDT): -Seropositive rheumatoid arthritis -Dx September 2019 -following with [facility] [place] rheumatology providers, last seen in 2022 -currently prescribed hydroxychloroquine by audit manager -currently prescribed prednisone by web development director for ILD -elevated ESR/CRP and evaluated for other rheumatological / autoimmune / connective tissue disorder, including vasculitis. Current Dx interstitial lung disease -follow up as scheduled Assessment & Plan (07/11/2022 11:17 AM EDT): -Seropositive rheumatoid arthritis -Dx September 2019 -03/20/22 ESR 41 -following with [facility] [place] rheumatology providers, last seen in June 2022 -now being evaluated for other rheumatological / autoimmune / connective tissue disorder, including vaculitis -follow up as scheduled Assessment & Plan (04/22/2022 5:13 AM EST): -Seropositive rheumatoid arthritis -Dx September 2019 -03/20/22 ESR 41 -following with [facility] [place] rheumatology providers, last seen in Oct 2020, q6m visit -pt does not need any mediation at this time because her symtoms are very mild -continue periodic appt, every 6 mo, which is overdue. Recommended to call to reschedule appt Assessment & Plan (03/20/2022 8:25 AM EST): -Seropositive rheumatoid arthritis -following with [facility] [place] rheumatology providers, last seen in Oct 2020, q6m visit -pt does not need any mediation at this time because her symtoms are very mild -continue periodic appt -Follow up every 6 months History of renal calculi 03/20/2022 Allergic asthma 10/22/2018 Overview (01/15/2023): Last Assessment & Plan: -Most recent exacerbation in February 2019, hospitalized at [facility] [place] -COVID19 clinical Dx in June 2019 (household member was positive) - did not test at that time due to strict Dx criteria at that time -Frequency of exacerbation, requiring systemic steroid 8 x /year, 2 hospitalizations in 2019, less frequent recently -No Hx of intubation -Followed by both web development director and ENT -Continue Advair as maintenance -Continue Singulair as maintenance -Continue albuterol as rescue -Discussed about the importance of medication adherence and avoidance of 2nd hand smoke / exposure -Use unscented and hypoallergenic products Assessment & Plan (11/01/2024 6:12 AM EDT): -Exacerbation in February 2019, hospitalized at [facility] [place] -Mild exacerbation in May 2024, treated as outpatient with prednisone by web development director -Mild exacerbation in July 2024, seen in the walk-in clinic, Rx prednisone -Frequency of exacerbation, requiring systemic steroid 8 x /year, 2 hospitalizations in 2019, less frequent recently -No Hx of intubation -Followed by both web development director, possibly starting Omalizumab -Previously seeing ENT -Continue Advair as maintenance. Consider MART. -Continue montelukast as maintenance -Continue albuterol as rescue -Discussed about the importance of medication adherence and avoidance of 2nd hand smoke / exposure -Use unscented and hypoallergenic products Assessment & Plan (07/08/2024 3:14 PM EDT): -Exacerbation in February 2019, hospitalized at [facility] [place] -Mild exacerbation in May 2024, treated as outpatient with prednisone by web development director -Frequency of exacerbation, requiring systemic steroid 8 x /year, 2 hospitalizations in 2018, less frequent recently -No Hx of intubation -Followed by both web development director -Previously seeing ENT -Continue Advair as maintenance -Continue Singulair as maintenance -Continue albuterol as rescue -Discussed about the importance of medication adherence and avoidance of 2nd hand smoke / exposure -Use unscented and hypoallergenic products Assessment & Plan (03/31/2024 5:17 PM EST): -Exacerbation in February 2019, hospitalized at [facility] [place] -Mild exacerbation in June 2023, treated as outpatient with azithromycin and prednisone by web development director -Frequency of exacerbation, requiring systemic steroid 8 x /year, 2 hospitalizations in 2019, less frequent recently -No Hx of intubation -Followed by both web development director -Previously seeing ENT -Continue Advair as maintenance -Continue Singulair as maintenance -Continue albuterol as rescue -Discussed about the importance of medication adherence and avoidance of 2nd hand smoke / exposure -Use unscented and hypoallergenic products Assessment & Plan (12/24/2023 5:52 AM EDT): -Exacerbation in February 2019, hospitalized at [facility] [place] -Mild exacerbation in June 2023, treated as outpatient with azithromycin and prednisone by web development director -Frequency of exacerbation, requiring systemic steroid 8 x /year, 2 hospitalizations in 2019, less frequent recently -No Hx of intubation -Followed by both web development director and ENT -Continue Advair as maintenance -Continue Singulair as maintenance -Continue albuterol as rescue -Discussed about the importance of medication adherence and avoidance of 2nd hand smoke / exposure -Use unscented and hypoallergenic products Assessment & Plan (06/03/2023 6:45 PM EDT): -Most recent exacerbation in February 2019, hospitalized at [facility] [place] -COVID19 clinical Dx in June 2019 (household member was positive) - did not test at that time due to strict Dx criteria at that time -Frequency of exacerbation, requiring systemic steroid 8 x /year, 2 hospitalizations in 2019, less frequent recently -No Hx of intubation -Followed by both web development director and ENT -Continue Advair as maintenance -Continue Singulair as maintenance -Continue albuterol as rescue -Discussed about the importance of medication adherence and avoidance of 2nd hand smoke / exposure -Use unscented and hypoallergenic products Assessment & Plan (01/19/2023 5:57 AM EST): -Most recent exacerbation in February 2019, hospitalized at [facility] [place] -COVID19 clinical Dx in June 2019 (household member was positive) - did not test at that time due to strict Dx criteria at that time -Frequency of exacerbation, requiring systemic steroid 8 x /year, 2 hospitalizations in 2019, less frequent recently -No Hx of intubation -Followed by both web development director and ENT -Continue Advair as maintenance -Continue Singulair as maintenance -Continue albuterol as rescue -Discussed about the importance of medication adherence and avoidance of 2nd hand smoke / exposure -Use unscented and hypoallergenic products Assessment & Plan (10/09/2022 9:01 AM EDT): -Most recent exacerbation in February 2019, hospitalized at [place] [address] clinical Dx in June 2019 (household member was positive) - did not test at that time due to strict Dx criteria at that time -Frequency of exacerbation, requiring systemic steroid 8 x /year, 2 hospitalizations in 2018, less frequent recently -No Hx of intubation -Followed by both web development director -Continue Advair as maintenance -Continue Singulair as maintenance -Continue albuterol as rescue -Discussed about the importance of medication adherence and avoidance of 2nd hand smoke / exposure -Use unscented and hypoallergenic products Assessment & Plan (07/11/2022 11:12 AM EDT): -Most recent exacerbation in February 2019, hospitalized at [place] [address] clinical Dx in June 2019 (household member was positive) - did not test at that time due to strict Dx criteria at that time -Frequency of exacerbation, requiring systemic steroid 8 x /year, 2 hospitalizations in 2019, less frequent recently -No Hx of intubation -Followed by both web development director and ENT -Continue Advair as maintenance -Continue Singulair as maintenance -Continue albuterol as rescue -Discussed about the importance of medication adherence and avoidance of 2nd hand smoke / exposure -Use unscented and hypoallergenic products Assessment & Plan (04/11/2022 1:14 PM EST): -Most recent exacerbation in February 2019, hospitalized at [place] [address] clinical Dx in June 2019 (household member was positive) - did not test at that time due to strict Dx criteria at that time -Frequency of exacerbation, requiring systemic steroid 8 x /year, 2 hospitalizations in 2019, less frequent recently -No Hx of intubation -Followed by both web development director and ENT -Continue Advair as maintenance -Continue Singulair as maintenance -Continue albuterol as rescue -Discussed about the importance of medication adherence and avoidance of 2nd hand smoke / exposure -Use unscented and hypoallergenic products Assessment & Plan (03/20/2022 8:26 AM EST): -Most recent exacerbation in February 2019, hospitalized at [facility] [place] -COVID19 clinical Dx in June 2019 (household member was positive) - did not test at that time due to strict Dx criteria at that time -Frequency of exacerbation, requiring systemic steroid 8 x /year, 2 hospitalizations in 2019, less frequent recently -No Hx of intubation -Followed by both web development director and ENT -Continue Advair as maintenance -Continue [...] CT in 2015 Gastroesophageal reflux disease 02/18/2015 Assessment & Plan [...] to request a follow up appointment with [facility] [place] 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 Overview [...] Assessment & Plan (04/22/2022 5:09 AM EST): -Liability Claims Representative recommended repeat pelvic ultrasound, further evaluation and [...] 05/02/2012 Overview (01/15/2023): Last Assessment & Plan: -[facility] provider: N -Current medication: escitalopram 10 mg daily; doxepin 10 mg qhs Assessment & Plan (12/21/2023 4:35 PM EDT): -[facility] provider: N -Current medication: escitalopram 10 mg daily; doxepin 10 mg qhs Assessment & Plan (04/22/2022 5:17 AM EST): -[facility] provider: N -Current medication: escitalopram 10 mg daily; doxepin 10 mg qhs Assessment & Plan (03/20/2022 8:29 AM EST): -[facility] provider: N -Current medication: escitalopram 10 mg [...] Singulair, loratadine, and Xhance Hypertension 05/02/2012 Overview (01/20/2025): Last Assessment & Plan: -Goal BP < 140/90 per JNC-8, < 130/80 per ACC/AHA guideline -Previously had frequent asthma exacerbation and prednisone use -EKG no ischemic change in Apr 2018 -Continue working on lifestyle modifications. -Continue monitoring home BP. -Continue olmesartan 40 mg daily -Continue HCTZ 12.5 mg daily (to be taken when pt is on prednisone or when her BP is > 140/90) -Treatment history: Previously on lisinopril, which was discontinued due to angioedema reaction (not to ACEI itself, but it will increase the risk, therefore, coding specialist recommended alternative medication) -Follow-up in 4-6 mo or sooner if any problem arises Assessment & Plan (01/20/2025 5:52 AM EST): -Goal BP < 130 per ACC/AHA guideline [...] bradykinin, substance P and other inflammatory markers. Assessment & Plan (11/01/2024 5:56 AM EDT): [...] in Apr 2018 -Co-managed with our pharmacist, Jhon Salgado RPh, Pharm D, through [facility] -Elevated [...] -Will request 24 hour bp monitoring with program coordinator for residence life Assessment & Plan (01/19/2023 5:59 AM EST): [...] Resolved Date Moderate persistent asthma with exacerbation 11/01/2024 Assessment & Plan (10/27/2024 9:22 AM [...] Encounters Date Type Department Care Team Description 01/20/2025 1:15 PM EST Office Visit [address] [address] Huong Knox MD Angioedema, sequela (Primary Dx); Hypersensitivity reaction, sequela; Primary hypertension; Prediabetes; Osteopenia of neck of left femur; 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; Rheumatoid arthritis with positive rheumatoid factor, involving unspecified site (CMS/HCC) (HCC); Interstitial lung disease (CMS/HCC) (HCC); 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; Encounter for immunization 01/20/2025 Travel 01/19/[address] [address] Huong Knox MD 01/13/2025 Orders Only GENERIC EXTERNAL DATA DEPARTMENT Provider, Generic External Data 10/27/2024 3:00 PM EDT Office Visit [address] [address] Huong Knox MD Primary hypertension (Primary Dx); Allergic rhinitis, unspecified seasonality, unspecified trigger; 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; Interstitial lung disease (CMS/HCC); 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; Rheumatoid arthritis with positive rheumatoid factor, involving unspecified site (CMS/HCC); Prediabetes; Gastroesophageal reflux disease, unspecified whether esophagitis present; Constipation, unspecified constipation type; Chronic endometritis 10/27/2024 Travel 10/24/[address] [address] Huong Knox MD chart prep from Last 3 Months Immunizations Immunization Administration Dates Next Due Hep B, adult 11/01/2006,06/21/2006,05/03/2006 Influenza Injectable Quadriv alant Preservative Free IIV4 MDCK 04/01/2021 Influenza injectable quadriv alent IIV4 with preservative 03/20/2022,12/10/2017,04/09/2017,01/12,02/18/2015 Influenza injectable quadriv alent preservative free 01/18/2023,12/19/2018 Influenza, IIV3, injectable 12/30/2013, 1 Influenza, Split (incl. nabeel fied surface antigen) 12/04/2012 Influenza, Unspecified 12/30/2013,12/15/2010 Influenza, seasonal, injecta ble, preservative free 01/20/2025,12/17/2023 Moderna Covid-19 Vaccine 12+ 04/12/2021 Pneumococcal Conjugate [...] the past 12 months, has t he [employer], gas, oil or water company threatened to [...] Mass Index 30.95 01/20/2025 1:15 PM EST Plan of Treatment Health Maintenance Due Date Last Done Comments CT Colonography 1963 FIT DNA/Cologuard 1963 FIT 1963 FOBT 1963 HIV Screening 1963 Sigmoidoscopy 1963 RSV Patients and Patients Aged 60 years or older (1 - Risk 50-74 years 1-dose series) 2013 COVID-19 Vaccine ( season) 2024 04/12/2021 Depression Screening 07/08/2025 07/08/2024, 07/09/19 25 Disability Screening 07/08/2025 07/08/2024 SDOH Screening 07/08/2025 07/08/2024 Diabetes: Hemoglobin A1C 01/12/2026 025, 12/19/2023, 01/18/2023, Additional history exists Alcohol/Substance Use Screening 01/20/2026 01/20/2025 Tobacco Screening 01/20/2026 01/20/2025 Mammogram 07/14/2026 07/14/2024, 04/2023, 07/06/2022, Additional history [...] Screening Completed 09/24/2023, 023 Influenza Vaccine Completed 01/20/2025, , 01/18/2023, Additional history exists HIB Vaccines Aged Out [...] Pressure 130/82(2024 1:17 PM EST) John Spear, DelmiD Note: Per JNC-8, Age 60+ without history of CKD or DM Procedures Procedure Name Priority Date/Time Associated Diagnosis Comments US PELVIS TRANSVAGINAL Routine 01/21/2025 4:22 PM EST HEMATOXYLIN AND EOSIN STAIN Routine 01/13/2025 12:23 [...] Health Maintenance Results * US Pelvis Transvaginal (01/21/2025 4:22 PM EST) Anatomical Region Laterality Modality Pelvis Ultrasound 01/21/2025 4:22 PM EST Narrative 01/21/2025 6:09 PM EST [address] [address] Ultrasound Report Signed Patient: Ilene Dominguez MR#: [id number] 5 : 1965 Acct:[id number] Age/Sex: 59 / F ADM Date: 01/21/25 Loc: .US Attending Dr: Joel Flores MD Ordering Physician: Joel Flores MD Date of Service: 01/21/25 Procedure(s): US pelvic and transvaginal Accession Number(s): [id number] cc: Huong Knox MD; Joel Floers MD Reason for Exam: D25.9 - Leiomyoma of uterus, unspecified EXAMINATION: US PELVIS CLINICAL INFORMATION: D25.9 - Leiomyoma of uterus, unspecified COMPARISON: Ultrasound on June 16, 2024 TECHNIQUE: Ultrasound of the pelvis is performed using both transabdominal and transvaginal transducers along with Doppler. Transvaginal imaging is performed due to inadequate visualization transabdominally. FINDINGS: Uterus: The uterus is retroverted and retroflexed and measures 6.9 x 2.7 x 4.3 cm. The double wall endometrial thickness is 0.6 cm. An intrauterine device is in place. Trace endometrial fluid is present. Heterogeneous echotexture of the uterus. Identified focal lesions are located in the right fundus measuring 3.2 x 2.5 x 2.8 cm and left posterior fundal measuring 1.1 x 0.8 x 0.9 cm. Right ovary measures 1.4 x 1.0 x 0.6 cm (volume of 0.4 ml). Unremarkable sonographic appearance. Left ovary measures 1.7 x 0.7 x 0.5 cm volume of 0.3 ml). Unremarkable sonographic appearance. No free fluid. US/US pelvic and transvaginal IMPRESSION: Two focal uterine lesion is identified, likely representing uterine leiomyomas, the largest measuring 3.2 cm. Electronically signed by: Saturnino Calloway MD 01/21/2025 06:07 PM [facility] Dictated By: Saturnino Calloway MD Signed By: <Electronically signed by Saturnino Calloway MD in OV> 01/21/25 1807 DD/ 1622 TD/TT: 01/21/25 1629 Wash Oil Pump Operator Helper: Procedure Note Donotuseinterpreter, Image - 01/21/[address] [address] Ultrasound Report Signed Patient: Charles Dominguez#: [id number] 5 : 1965Acct:[id number] Age/Sex: 59 / FADM Date: 01/21/25 Loc: HO.US Attending Dr: Joel Flores MD Ordering Physician: Joel Flores MD Date of Service: 01/21/25 Procedure(s): US pelvic and transvaginal Accession Number(s): [id number] cc: Huong Knox MD; Joel Flores MD Reason for Exam: D25.9 - Leiomyoma of uterus, unspecified EXAMINATION: US PELVIS CLINICAL INFORMATION: D25.9 - Leiomyoma of uterus, unspecified COMPARISON: Ultrasound on June 16, 2024 TECHNIQUE: Ultrasound of the pelvis is performed using both transabdominal and transvaginal transducers along with Doppler. Transvaginal imaging is performed due to inadequate visualization transabdominally. FINDINGS: Uterus: The uterus is retroverted and retroflexed and measures 6.9 x 2.7 x 4.3 cm. The double wall endometrial thickness is 0.6 cm. An intrauterine device is in place. Trace endometrial fluid is present. Heterogeneous echotexture of the uterus. Identified focal lesions are located in the right fundus measuring 3.2 x 2.5 x 2.8 cm and left posterior fundal measuring 1.1 x 0.8 x 0.9 cm. Right ovary measures 1.4 x 1.0 x 0.6 cm (volume of 0.4 ml). Unremarkable sonographic appearance. Left ovary measures 1.7 x 0.7 x 0.5 cm volume of 0.3 ml). Unremarkable sonographic appearance. No free fluid. US/US pelvic and transvaginal IMPRESSION: Two focal uterine lesion is identified, likely representing uterine leiomyomas, the largest measuring 3.2 cm. Electronically signed by: Saturnino Calloway MD 01/21/2025 06:07 PM [facility] Dictated By: Saturnino Calloway MD Signed By: <Electronically signed by Saturnino Calloway MD in OV> 01/21/25 1807 DD/ 1622 TD/TT: 01/21/25 1629 Wash Oil Pump Operator Helper: [facility] External Provider IMG US PROCEDURES Final Result * Hematoxylin and Eosin Stain (01/13/2025 12:23 PM EST) 01/13/2025 12:2 3 PM EST 01/13/2025 12:50 PM EST Narrative [facility] - 01/15/2025 3:54 PM EST ----- ------- Name: Ilene Dominguez Age/Sex: 59/F : 1965 Unit#: [id number] Attend Dr: Migdalia Hoffman MD Re01/13/25 Status: [facility] Location: [facility] Disch: ----- ------- SPEC : [id number] RECD: 01/13/25-1250 STATUS: TAYLOR CORRALES NUM: [id number] ZE: 01/13/25-[address] [facility] [address]: Migdalia Hoffman MD ENTERED: 01/13/25-1256 SP TYPE: Surgical OTHR DR: Huong Knox MD ORDERED: HE Stain/12, Gross Micro L4/4, [...] Ilene Dominguez Age/Sex: 59/F : 1965 Unit#: [id number] Attend Dr: Migdalia Hoffman MD Re01/13/25 Status: [facility] Location: [facility] Disch: ----- ------- SPEC : [id number] RECD: 01/13/25 STATUS: TAYLOR CORRALES NUM: [id number] ZE: 01/13/251223 [facility] DR: Migdalia Hoffman MD ENTERED: 01/13/25 SP TYPE: Surgical OTHR DR: Huong Knox MD ORDERED: HE Stain/12, Gross Micro L4/4, IHC/3, Special st. 2/2, H. pylori/3, AB/PAS/2 IHC S/NG Disclaimer NOTE: Unless otherwise stated, all tissue is formalin-fixed and paraffin-embedded. Some or all of the immunohistochemical tests reported herein may have been developed and their performance characteristics determined by [facility]. They have not been cleared or approved by the U.S. Food and Drug Administration (FDA). However, the FDA has determined that such clearance or approval is not necessary. This laboratory is certified under the Clinical Laboratory Improvement Amendments of 1988 (CLIA) as qualified to perform high complexity clinical laboratory testing. Copies To: Huong Knox MD [address] [phone] Migdalia Hoffman MD [facility] [address] [place] [address] [id number] [email or web address] ----- ------- Signed (signature on file) Alejandra Daigle 01/15/25 1554 ----- ------- END OF REPORT Generic External Data Provider LAB BLOOD ORDERAB LES Final Result Performing Organization Address [facility] de Phone Number [facility] [address] [place] [phone] * TSH with Reflex to Free T4 (01/12/2025 11:23 AM EST) TSH reflex Free T4 3.69 0.32 - 4.0 uIU/mL [facility] Blood 01/12/2025 11:2 3 AM EST 01/12/2025 12:56 PM EST Huong Knox MD LAB BLOOD ORDERABLES Final Resul t Performing Organization Address [facility] de Phone Number [facility] [address] [place] [phone] * (ABNORMAL) Lipid Panel with Reflex to Direct LDL (01/12/2025 11:23 AM EST) Triglycerides 49 <150 mg/dL [facility] Comment:Desirable Triglyceri de: less than 150 mg/dLBorderline High Triglyceride 150-199 mg/dLHigh Triglyceride: 200-499 mg/dLVery High Triglyceride: greater than or equal to 5OO mg/dL Cholesterol 176 <200 mg/dL [facility] Comment:Desirable Cholestero l: less than 200 mg/dLBorderline High Cholesterol: 200-239 mg/dLHigh Cholesterol: greater than 239 mg/dL LDL Cholesterol Calculated 100(H) <100 mg/dL [facility] Comment:Desirable LDL: less than 100 mg/dLNear Optimal/Above Optimal LDL: 110- 129 mg/dLBorderline High LDL: 130-159 mg/dLHigh LDL: 160-189 mg/dLVery High LDL: greater than or equal to 190 mg/dL HDL Cholesterol 67 >40 mg/dL [facility] Comment:Desirable HDL: great er than 40 mg/dL Note: This HDL assay may give artificially low results in patients with liver disease. Blood 01/12/2025 11:2 3 AM EST 01/12/2025 12:56 PM EST us Huong Knox MD LAB BLOOD ORDERABLES Final Resul t Performing Organization Address [facility]/ZIP Co de Phone Number [facility] [address] [place] [phone] * Hemoglobin A1c (01/12/2025 11:23 AM EST) Hemoglobin A1c 6.0 <6.0 % [facility] Comment:Hemoglobin A1C Refer ence Range Adults: 4.8 - 6.0 % Non diabetic: < 6.0 % Goal: < 7.0 %Additional Action Suggested: > 8.0 %Note: Hemoglobin A1c results are invalid for patients with abnormal amounts of HbF. Blood transfusions may impact the HbA1c concentration in the patient sample. Estimated Average Glucose 126 mg/dL [facility] Comment:eAG = Estimated ave rage glucose which is %A1C expressed asaverage glucose, using the formula of the P2B-CagltdmXzthlqg Glucose study (ADAG), Diabetes Care, Vol.31,#8,Oct. 2007 Blood Venous blood specimen / Unknown 01/12/2025 11:23 AM EST 01/12/2025 12:56 PM EST us Huong Knox MD LAB BLOOD ORDERABLES Final Resul t Performing Organization Address [facility]/ZIP Co de Phone Number [facility] [address] [place] [phone] * (ABNORMAL) Comprehensive Metabolic Panel (01/12/2025 11:23 AM EST) Sodium 141 135 - 145 mmol/L [facility] Potassium 4.0 3.3 - 5.1 mmol/L [facility] Chloride 109(H) 96 - 108 mmol/L [facility] Carbon Dioxide 29 22 - 29 mmol/L [facility] Anion Gap 7(L) 12 - 20 [facility] Urea Nitrogen (BUN) 15 9 - 16 mg/dL [facility] Creatinine, Serum 0.68 0.5 - 1.4 mg/dL [facility] Estimated Glomerular Filt Rate >60 [facility] Comment:Chronic Kidney Disea se: Estimated GFR < 60 mL/min/1.46j7Dfhksp Kidney Disease: Estimated GFR < 15 mL/min/1.73m2 Glucose 97 60 - 115 mg/dL [facility] Calcium 8.4 8.4 - 10.2 mg/dL [facility] Bilirubin, Total 0.8 0.0 - 1.0 mg/dL [facility] Aspartate Amino Transferase 28 5 - 31 U/L [facility] Alanine Aminotransferase 17 0 - 31 U/L [facility] Total Protein 7.2 6.5 - 8.0 g/dL [facility] Albumin Level 4.0 3.5 - 5.0 g/dL [facility] Alkaline Phosphatase 67 39 - 117 U/L [facility] Blood Venous blood specimen / Unknown 01/12/2025 11:23 AM EST 01/12/2025 12:56 PM EST us Huong Knox MD LAB BLOOD ORDERABLES Final Resul t [facility] [address], [place] [phone] * BI Mammogram Screening Tomosynthesis Bilateral (07/14/2024 12:30 PM EDT) Anatomical Region Laterality Modality Breast Bilateral Mammography 07/14/2024 12:3 0 PM EDT Narrative 07/20/2024 9:21 PM EDT [facility] [place] [address] Mammography Report Signed Patient: Ilene Dominguez MR#: [id number] 5 : 1965 Acct:[id number] Age/Sex: 59 / F ADM Date: 07/14/24 Loc: HO.MAMMO Attending Dr: Joel Flores MD Ordering Physician: Joel Flores MD Results: 2Benign Findings Date of Service: 07/14/24 Follow Up: 1 Year From Orig inal Mammogram Procedure(s): MM tomosynthesis screening BI Accession Number(s): [id number] cc: Huong Knox MD; Joel Flores MD EXAMINATION: MM SCREENING [...] OV> 07/20/242117 DD/ 1230 TD/TT: 07/14/24 1236 Wash Oil Pump Operator Helper: Procedure Note Donotuseinterpreter, Image - 07/20/[address] [place] [address] Mammography Report Signed Patient: Charles Dominguez#: [id number] 5 : 1965Acct:[id number] Age/Sex: 59 / FADM Date: 07/14/24 Loc: HO.MAMMO Attending Dr: Joel Flores MD Ordering Physician: Joel Floresults: 2Benign Findings Date of Service: 07/14/24Follow Up: 1 Year From Orig inal Mammogram Procedure(s): MM tomosynthesis screening BI Accession Number(s): [id number] cc: Huong Knox MD; Joel Flores MD EXAMINATION: MM SCREENING [...] OV> 07/20/242117 DD/ 1230 TD/TT: 07/14/24 1236 Wash Oil Pump Operator Helper: [facility] External Provider IMG BI PROCEDURES Final Result * HPV DNA, Low/High Risk (05/16/2024 8:57 AM EST) HPV High Risk Negative Negative [facility] HPV Genotype 16 Negative Negative [facility] HPV Genotype 18 Negative Negative [facility] Comment:HPV testing performe d at [facility] (CLIA#[id number]), [address] [place] [phone].Testing for HPV was performed using the Benjamín [...] ORDERAB LES Final Result Performing Organization Address City/State/[facility] Co de Phone Number [facility] [address] [place] [phone] * Pap Smear (05/16/2024 8:57 AM EST) 05/16/2024 8:57 AM EST 05/16/2024 11:39 AM EST Narrative [facility] - 05/20/2024 9:43 AM EDT ----- ------- Name: Ilene Dominguez Age/Sex: 59/F : 1965 Unit#: [id number] Attend Dr: Joel Flores MD Re05/16/24 Status: DEP REF Location: HO.LNP Disch: ----- ------- SPEC : [id number] RECD: 05/16/24 STATUS: TAYLOR CORRALES NUM: [id number] ZE: 05/16/[address] [facility] [address]: Joel Flores MD ENTERED: 05/16/24 SP TYPE: Pap Smr OTHR DR: Huong Knox MD ORDERED: Pap Smear Interpretation Satisfactory for evaluation. Negative for intraepithelial lesion or malignancy. HPV High Risk: Negative HPV Genotyping 16: Negative HPV Genotyping 18: Negative Clinical Information LMP:Unknown date Previous PAP test: 03/28/22, Unknown findings Material Received ThinPrep-Cervical Copies To: Huong Knox MD [address] [address] Joel Flores MD [facility] [address] [place] [address] [place] [phone] ----- ------- Signed (signature on file) ZOILA Little ([facility]) 05/20/24 0943 ----- ------- END OF REPORT Generic External Data Provider LAB CYTOLOGY ORDE RABLES Final Result Performing Organization Address City/[facility]/ZIP Co de Phone Number [facility] [address] [place] [phone] * Colonoscopy (12/12/2023) Colonoscopy Normal Normal 12/12/2023 Historical Provider MD HEALTH MAINTENANCE Final Result * Hepatitis Panel, General (09/24/2023 1:58 PM EDT) Hepatitis A IgM Nonreactive Nonreactive [facility] Comment:IgM antibodies to SCOTT V not detected; does not exclude earlyacute or recovered HAV infection. ~Hepatitis B Surface Antibody NONREACTIVE Nonreactive [facility] Comment:Nonreactive: < 8.00 mIU/mL Hepatitis B Core Antibody Nonreactive Nonreactive [facility] Hepatitis C Antibody Nonreactive Nonreactive [facility] Comment:Antibodies to HCV no t detected; does not exclude early acuteHCV infection. Hepatitis B Surface Ag Negative Negative [facility] 09/24/2023 1:58 PM EDT 09/24/2023 1:58 PM EDT Generic External Data Provider LAB BLOOD ORDERAB LES Final Result Performing Organization Address City/[facility]/ZIP Co de Phone Number [facility] [address] [place] [phone] from Last 3 Months or Most Recently Relevant to Health Maintenance Insurance * Guarantor: Ilene Dominguez Account Type Relation to Patient Date of Phone Billing Address Personal/Family Self 1965 [address] [place] [address] [facility] [employer] * Guarantor: Robert Dominguezn Account Type Relation to Patient Date of Phone Billing Address Personal/Family Self [address] [place] [address] * Guarantor: Renee Dominguezelyn Account Type Relation to Patient Date of Phone Billing Address Personal/Family Self [address] [place] [address] * Guarantor: Robert Dominguezn Account Type Relation to Patient Date of Phone Billing Address Personal/Family Self [address] [place], [place] Care Teams Medical Assistant Per Diem Relationship Specialty Start Date End Date Huong Knox MD [address] [place] [address] PCP - General Family Medicine 02/22/12 John Salgado, DelmiD [address] [place] [address] Pharmacist Internal Medicine 01/16/23
--- OUTSIDE RECORDS SUMMARY | 2025-01-21 18:54 | XMS_ITS | Encounter Summary ---
Author Organization [employer] Address [address] [place] [address] Care Team Providers Care Oil Laboratory Analyst Name Role Phone Huong David MD Primary Care Provider [phone] John Salgado PharmD Unavailable [phone] Encounter Details Date Type Department Care Team (Late st Contact Info) Description 04/04/2024 Abstract [facility] [address] [place], [place] [phone] Amaya Bhatia [place] Social History Tobacco Use [...] 130/82(2024 1:17 PM EST) No John Salgado, PharmD Note: Per JNC-8, Age 60+ without history of CKD or DM documented as of this encounter Visit Diagnoses Not on filedocumented in this encounter Additional Health Concerns Assessment Noted Time PHQ-9 Depression Total Score: 0 05/21/19 24 3:22 PM EDT documented as of this encounter Care Teams Oil Laboratory Analyst Relationship Specialty Start Date End Date Huong David MD [address] [place] [address] PCP - General Family Medicine 02/22/12 John Salgado, PharmD [address] [place] [phone] Pharmacist Internal Medicine 01/16/23 documented as of this encounter
== END 2025-01-21 16:02 | disposition home or self-care (01) ==
LOC: HO.US 16:01
PROVIDERS: PCP Family Medicine; Visit Provider Obstetrics & Gynecology
DX: D25.9 Leiomyoma of uterus, unspecified (principal)
CPT/HCPCS: 76830; 76856

== ENCOUNTER → 2025-01-21 16:03 | Outpatient (BNV) | payer MEDICAID, SELFPAY | PROVIDERS: PCP Family Medicine; Visit Provider Radiology Body Imaging | DX: D25.2 Subserosal leiomyoma of uterus (principal) | CPT/HCPCS: 76830; 76856 ==

== ENCOUNTER 2025-02-11 14:46 | Outpatient (AMB) | payer MEDICAID, SELFPAY ==
--- NOTE | 2025-02-11 14:54 | A.OFFVIS_ITS ---
Vital Signs 02/11/25 14:57 Height 5 ft 6 in Weight 182 lb BMI 29.4 BP 132/80 Intake Visit Reasons: ultrasound results Director Marketing Communications Required: Yes Director Marketing Communications Language: [employer]: Director Marketing Communications Present (in person) Director Marketing Communications Name: Arlin Diana Information Interpreted: non-clinical & clinical Accompanied by: Self / Same As Patient Allergies magnesium Allergy (Intermediate, Verified 01/15/25 14:00) rash HPI Comments Details: Presenting for ultrasound follow-up regarding postmenopausal bleeding which was done recently and showed the following: Uterus: The uterus is retroverted and retroflexed and measures 6.9 x 2.7 x 4.3 cm. The double wall endometrial thickness is 0.6 cm. An intrauterine device is in place. Trace endometrial fluid is present. Heterogeneous echotexture of the uterus. Identified focal lesions are located in the right fundus measuring 3.2 x 2.5 x 2.8 cm and left posterior fundal measuring 1.1 x 0.8 x 0.9 cm. Right ovary measures 1.4 x 1.0 x 0.6 cm (volume of 0.4 ml). Unremarkable sonographic appearance. Left ovary measures 1.7 x 0.7 x 0.5 cm volume of 0.3 ml). Unremarkable sonographic appearance. No free fluid. [facility] Medical History Family history of gastric cancer Vitamin D deficiency GERD (gastroesophageal reflux disease) History of depression Chronic allergic rhinitis Asthma Hypothyroid Hypertension Surgical History H/O colonoscopy Hx of cystoscopy H/O nasal polypectomy H/O tubal ligation Family History Mother HTN (hypertension) Diabetes Colon cancer Father HTN (hypertension) Diabetes Hyperlipidemia Colon cancer Social History Household Members: Spouse Household Members Other:: son Housing: Apartment Are you a primary urgent care technician to a significant other at home: No Do you presently have visiting nurse or other home services: No Alcohol intake: former Patient Tobacco Use Status: Never used Tobacco service: No Current occupational status: disabled Female Reproductive History Menstrual Age of Menarche: 10 Physical Exam Vital Signs: Last Vital Signs BP 132/80 02/11/25 14:57 BMI result Body Mass Index 29.4 Office Procedures Endometrial Biopsy Details: The patient was counseled regarding the indication and benefits of endometrial sampling to rule out endometrial pathology including not limited to endometrial hyperplasia or endometrial cancer and others; The alternatives (Either do nothing vs. hysteroscopy D&C) & the risks were discussed with the patient including but not limited: pain, uterine perforation, bleeding, infection, poss ible injury to bladder, bowel, ureter, possible need for blood transfusion with all its possible risks. The patient verbalized understanding all questions answered and signed consent. The patient was placed into the dorsal lithotomy position; a speculum was inserted in the vagina. Using aseptic technique for the procedure, the cervix was cleansed with Betadine. The anterior lip of the cervix was grasped with a single tooth tenaculum. The uterus was sounded to 7 cm with a 4 mm Pipelle was used. Tissues samples were obtained and placed in formalin, in a patient labeled container and sent to the pathology department. At the end of the procedure, there was minimal bleeding noted The patient tolerated the procedure well and was discharged in good condition with the following instructions: Nothing in the vagina until the bleeding stops. No sex until the bleeding stops, to call if any of the following occurs: fever (>100.4), flu-like symptoms, abdominal pain, heavy bleeding, four smelling vaginal discharge. The patient was instructed to schedule a Follow up appointment in 2 weeks to discuss pathology results of the biopsy and treatment options. This note was generated with a voice recognition program. Some errors may have been overlooked during the review of this note. Sometimes these errors may affect the content or meaning of a given sentence. [id number] Biopsy Assessment & Plan Assessment & Plan (1) Uterine leiomyoma: Code(s): D25.9 - Leiomyoma of uterus, unspecified Category: Medical Plan: Discussed with the patient the findings on pelvic ultrasound & the risk of myosarcoma; in addition reviewed with the patient that malignancy and pre malignancy cannot be ruled out without hysterectomy for pathological evaluation ; furthermore, explained to the patient the limitation of pelvic ultrasound and endometrial biopsy in the setting. Discussed with the patient the options of treatment including expectant management versus hysterectomy; the pros and cons, risks benefits of each approach were discussed with the patient including the fact that in cases of myosarcoma, surgical treatment can lead to early diagnosis and positively affects the prognosis; after further discussion, the patient decided to proceed with expectant management. Will repeat pelvic ultrasound periodically. Instructions given to patient to call in case any of the following occurs: pressure symptoms, abnormal uterine bleeding, pelvic pain; and to schedule a 12 months pelvic ultrasound (order placed) and a follow-up appointment . All questions answered, the patient verbalized understanding and agreed with the plan . (2) Endometrial thickening on ultrasound: Comment: With endometrial fluid Code(s): R93.89 - Abnormal findings on diagnostic imaging of other specified body structures Category: Medical Plan: Discussed with the patient the finding of fluid in the endometrial cavity, in spite of no vaginal bleeding the concern is the endometrial fluid visualized on ultrasound in case of cervical stenosis might be bleeding into the endometrial cavity and the blood and/or tissue was are unable to pass through the cervical os. Endometrial sampling in postmenopausal bleeding with endometrial fluid is indicated in case endometrial thickness is above 4 mm, however in cases with thin endometrial stripe, 4 mm and below, without any focal lesions, is a reassuring finding with a high negative predictive value for endometrial pathology including endometrial hyperplasia and/or malignancy or polyps. Instructions given to patient to call in case of vaginal bleeding will proceed with endometrial sampling to rule out endometrial pathology Orders: Orders AMB Endometrial Biopsy Today R93.89 - Abnormal findings on diagnostic imaging of other specified body structures US pelvic and transvaginal 1 Year D25.9 - Leiomyoma of uterus, unspecified Coding Level of Care Code Est Pt Level 3 (63996) Procedure Only Diagnoses Uterine leiomyoma D25.9 Endometrial thickening on ultrasound R93.89 CPT Codes Endometrial Biopsy - CPT: 76428-Lhrjyxyrxfl Biopsy ([id number])
[2025-02-11 14:57] VITALS: BP 132/80; BMI 29.4
--- OUTSIDE RECORDS SUMMARY | 2025-02-11 17:41 | XMS_ITS | Clinical Summary ---
Author Organization [employer] Address [address] [place] [address] Care Team Providers Care Primer Waterproofing Machine Operator Name Role Phone Huong Knox MD Primary Care Provider [phone] John Salgado PharmD Unavailable [phone] Allergies No known active allergies Medications alendronate [...] as directed by MD. 30 patch 11 3:22 PM EST 01/21/20 25 Active Active Problems Problem Noted [...] reaction in Dec 2023 and Jan 2024 customer relationship specialist: [facility] Pre Sales Technical Engineer: [facility] Assessment & Plan (01/20/2025 5:45 AM EST): [...] REACTION WRITTEN ON 03/31/2024 5:05 PM BY HUONG KNOX MD Moderate - severe allergic reaction in Dec 2023 and Jan 2024 She was referred to account development specialist in the walk-in clinic in Jan [address] Jean [facility] pulmonology if she is interested in [...] to use. 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 in May 2024 - no sign of malignancy Assessment & Plan (12/24/2023 5:54 AM EDT): - following with [facility] [facility] [facility] - last EMBx in August 2023 - no sign of malignancy Assessment & Plan (06/03/2023 6:49 PM EDT): - following with [facility] [facility]A [facility] - last EMBx in Nov 2022 - no sign of malignancy Assessment & Plan (01/19/2023 6:00 AM EST): - following with [facility] [facility] [facility] - last EMBx in Nov 2022 - no sign of malignancy Chronic left shoulder pain 01/19/2023 Assessment & Plan (01/19/2023 6:08 AM EST): - X-ray was normal and pt received steroid injection from marketing administrative assistant in Dec 2022 - no pain at [...] lung disease (CMS/HCC) 10/05/2022 Assessment & Plan (01/30/2025 10:50 AM EST): - following with [facility] pulmonology - status post 3 mo of prednisone treatment - CT showed improvement in July 2022 and near resolution in Nov 2022 - currently monitoring symptoms and with periodic imaging Assessment & Plan (10/27/2024 9:22 AM EDT): - following with [facility] pulmonology - status post 3 mo of prednisone treatment - CT showed improvement in July 2022 and near resolution in Nov 2022 - currently monitoring symptoms and with periodic imaging Assessment & Plan (07/08/2024 3:04 PM EDT): - following with [facility] pulmonology - status post 3 mo of prednisone treatment - CT showed improvement in July 2022 and near resolution in Nov 2022 - currently monitoring symptoms and with periodic imaging Assessment & Plan (03/26/2024 1:12 PM EST): - following with [facility] pulmonology - status post 3 mo of prednisone treatment - CT showed improvement in July 2022 and near resolution in Nov 2022 - currently monitoring symptoms and with periodic imaging Assessment & Plan (12/21/2023 4:33 PM EDT): - following with [facility] pulmonology - status post 3 mo of prednisone treatment - CT showed improvement in July 2022 and near resolution in Nov 2022 - currently monitoring symptoms and with periodic imaging Assessment & Plan (06/03/2023 6:45 PM EDT): - following with [facility] pulmonology - status post 3 mo of prednisone treatment - CT showed improvement in July 2022 and near resolution in Nov 2022 - currently monitoring symptoms and with periodic imaging Assessment & Plan (01/19/2023 5:56 AM EST): - following with [facility] pulmonology - status post 3 mo of prednisone treatment - CT showed improvement in July 2022 and near resolution in Nov 2022 - currently monitoring symptoms and with periodic imaging Assessment & Plan (10/09/2022 9:00 AM EDT): - following with [facility] pulmonology - currently taking prednisone 50 mg daily with a plan for slow tapering - CT on 08/01/22 showed improvement - continue current treatment plan and follow up with general superintendent Elevated erythrocyte sedimentation rate 07/12/19 Assessment & [...] 04/11/2022 Overview (01/15/2023): Last Assessment & Plan: -Platen Builder Up recommended repeat pelvic ultrasound, further evaluation and recommendation Hysteroscopy for endocervical polyp. Patient was reassured that the fibroids typically decrease in size and resolve in menopause. -Recommended removal of polyps. -Scheduled for hysteroscopy with birth attendant Assessment & Plan (07/11/2022 11:13 AM EDT): - 05/19/22 Hysteroscopy, D&C, polypectomy - benign polyp Assessment & Plan (04/22/2022 5:10 AM EST): -Platen Builder Up recommended repeat pelvic ultrasound, further evaluation and recommendation Hysteroscopy for endocervical polyp. Patient was reassured that the fibroids typically decrease in size and resolve in menopause. -Recommended removal of polyps. -Scheduled for hysteroscopy with birth attendant Degeneration of cervical intervertebral disc Rheumatoid arthritis (CMS/HCC) 03/20/2022 Overview (01/15/2023): Last Assessment & Plan: -Seropositive rheumatoid arthritis -Dx September 2019 -03/20/22 ESR 41 -following with [facility] rheumatology providers, last seen in Oct 2020, q6m visit -pt does not need any mediation at this time because her symtoms are very mild -continue periodic appt, every 6 mo, which is overdue. 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 -Dx September 2019 -following with [facility] rheumatology providers, last seen in January 2025 -previously prescribed hydroxychloroquine by marketing administrative assistant when she developed ILD and uveitis, with elevated ESR/CRP in 2592-9215 -s/p prednisone treatment x 3 mo, which was prescribed by general superintendent for ILD in 2022 -elevated ESR/CRP and evaluated for other rheumatological / autoimmune / connective tissue disorder, including vasculitis. Vasculitis work-up was negative. 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 -Dx September 2019 -following with [facility] rheumatology providers, last seen in Dec 2023 -previously prescribed hydroxychloroquine by marketing administrative assistant when she developed ILD and uveitis, with elevated ESR/CRP in 4830-2587 -s/p prednisone treatment x 3 mo, which was prescribed by general superintendent for ILD in 2022 -elevated ESR/CRP and [...] and CCP. -Dx September 2019 -following with [facility] rheumatology providers, last seen in Dec 2023 -previously prescribed hydroxychloroquine by marketing administrative assistant when she developed ILD and uveitis, with elevated ESR/CRP in 2475-6489 -s/p prednisone treatment x 3 mo, which was prescribed by general superintendent for ILD in 2022 -elevated ESR/CRP and [...] and CCP. -Dx September 2019 -following with [facility] rheumatology providers, last seen in Dec 2023 -previously prescribed hydroxychloroquine by marketing administrative assistant when she developed ILD and uveitis, with elevated ESR/CRP in 4936-2671 -s/p prednisone treatment x 3 mo, which was prescribed by general superintendent for ILD in 2022 -elevated ESR/CRP and [...] and CCP. -Dx September 2019 -following with [facility] rheumatology providers, last seen in September 2023 -previously prescribed hydroxychloroquine by marketing administrative assistant when she developed ILD and uveitis, with elevated ESR/CRP in 6534-2459 -s/p prednisone treatment x 3 mo, which was prescribed by general superintendent for ILD in 2022 -elevated ESR/CRP and evaluated for other rheumatological / autoimmune / connective tissue disorder, including vasculitis. Vasculitis work-up was negative. Current Dx interstitial lung disease -currently monitoring without DMARDs Assessment & Plan (06/03/2023 6:53 PM EDT): -Seropositive rheumatoid arthritis (RF and CCP) -Dx September 2019 -following with [facility] rheumatology providers, last seen in Apr 2023 -previously prescribed hydroxychloroquine by marketing administrative assistant when she developed ILD and uveitis, with elevated ESR/CRP -s/p prednisone treatment x 3 mo, which was prescribed by general superintendent for ILD -elevated ESR/CRP and evaluated for other rheumatological / autoimmune / connective tissue disorder, including vasculitis. Vasculitis work-up was negative. Current Dx interstitial lung disease -follow up as scheduled Assessment & Plan (01/19/2023 6:03 AM EST): -Seropositive rheumatoid arthritis (RF and CCP) -Dx September 2019 -following with [facility] rheumatology providers, last seen in 2022 -currently prescribed hydroxychloroquine by marketing administrative assistant -s/p prednisone treatment x 3 mo, which was prescribed by general superintendent for ILD -elevated ESR/CRP and evaluated for other rheumatological / autoimmune / connective tissue disorder, including vasculitis. Vasculitis work-up was negative. Current Dx interstitial lung disease -follow up as scheduled Assessment & Plan (10/09/2022 9:05 AM EDT): -Seropositive rheumatoid arthritis -Dx September 2019 -following with [facility] rheumatology providers, last seen in 2022 -currently prescribed hydroxychloroquine by marketing administrative assistant -currently prescribed prednisone by general superintendent for ILD -elevated ESR/CRP and evaluated for other rheumatological / autoimmune / connective tissue disorder, including vasculitis. Current Dx interstitial lung disease -follow up as scheduled Assessment & Plan (07/11/2022 11:17 AM EDT): -Seropositive rheumatoid arthritis -Dx September 2019 -03/20/22 ESR 41 -following with [facility] rheumatology providers, last seen in June 2022 -now being evaluated for other rheumatological / autoimmune / connective tissue disorder, including vaculitis -follow up as scheduled Assessment & Plan (04/22/2022 5:13 AM EST): -Seropositive rheumatoid arthritis -Dx September 2019 -03/20/22 ESR 41 -following with [facility] rheumatology providers, last seen in Oct 2020, q6m visit -pt does not need any mediation at this time because her symtoms are very mild -continue periodic appt, every 6 mo, which is overdue. Recommended to call to reschedule appt Assessment & Plan (03/20/2022 8:25 AM EST): -Seropositive rheumatoid arthritis -following with [facility] rheumatology providers, last seen in Oct 2020, q6m visit -pt does not need any mediation at this time because her symtoms are very mild -continue periodic appt -Follow up every 6 months History of renal calculi 03/20/2022 Allergic asthma 10/22/2018 Overview (01/15/2023): Last Assessment & Plan: -Most recent exacerbation in February 2019, hospitalized at [facility] -COVID19 clinical Dx in June 2019 (household member was positive) - did not test at that time due to strict Dx criteria at that time -Frequency of exacerbation, requiring systemic steroid 8 x /year, 2 hospitalizations in 2019, less frequent recently -No Hx of intubation -Followed by both general superintendent and ENT -Continue Advair as maintenance -Continue Singulair as maintenance -Continue albuterol as rescue -Discussed about the importance of medication adherence and avoidance of 2nd hand smoke / exposure -Use unscented and hypoallergenic products Assessment & Plan (01/30/2025 10:50 AM EST): -Exacerbation in February 2019, hospitalized at [facility] -Mild exacerbation in May 2024, treated as outpatient with prednisone by general superintendent -Mild exacerbation in July 2024, seen in the walk-in clinic, Rx prednisone -Frequency of exacerbation, requiring systemic steroid 8 x /year, 2 hospitalizations in 2019, less frequent recently -No Hx of intubation -Followed by both general superintendent, possibly starting Omalizumab -Previously seeing ENT -Continue Advair as maintenance. Consider MART. -Continue montelukast as maintenance -Continue albuterol as rescue -Discussed about the importance of medication adherence and avoidance of 2nd hand smoke / exposure -Use unscented and hypoallergenic products Assessment & Plan (11/01/2024 6:12 AM EDT): -Exacerbation in February 2019, hospitalized at [facility] -Mild exacerbation in May 2024, treated as outpatient with prednisone by general superintendent -Mild exacerbation in July 2024, seen in the walk-in clinic, Rx prednisone -Frequency of exacerbation, requiring systemic steroid 8 x /year, 2 hospitalizations in 2019, less frequent recently -No Hx of intubation -Followed by both general superintendent, possibly starting Omalizumab -Previously seeing ENT -Continue Advair as maintenance. Consider MART. -Continue montelukast as maintenance -Continue albuterol as rescue -Discussed about the importance of medication adherence and avoidance of 2nd hand smoke / exposure -Use unscented and hypoallergenic products Assessment & Plan (07/08/2024 3:14 PM EDT): -Exacerbation in February 2019, hospitalized at [facility] -Mild exacerbation in May 2024, treated as outpatient with prednisone by general superintendent -Frequency of exacerbation, requiring systemic steroid 8 x /year, 2 hospitalizations in 2018, less frequent recently -No Hx of intubation -Followed by both general superintendent -Previously seeing ENT -Continue Advair as maintenance -Continue Singulair as maintenance -Continue albuterol as rescue -Discussed about the importance of medication adherence and avoidance of 2nd hand smoke / exposure -Use unscented and hypoallergenic products Assessment & Plan (03/31/2024 5:17 PM EST): -Exacerbation in February 2019, hospitalized at [facility] -Mild exacerbation in June 2023, treated as outpatient with azithromycin and prednisone by general superintendent -Frequency of exacerbation, requiring systemic steroid 8 x /year, 2 hospitalizations in 2019, less frequent recently -No Hx of intubation -Followed by both general superintendent -Previously seeing ENT -Continue Advair as maintenance -Continue Singulair as maintenance -Continue albuterol as rescue -Discussed about the importance of medication adherence and avoidance of 2nd hand smoke / exposure -Use unscented and hypoallergenic products Assessment & Plan (12/24/2023 5:52 AM EDT): -Exacerbation in February 2019, hospitalized at [facility] -Mild exacerbation in June 2023, treated as outpatient with azithromycin and prednisone by general superintendent -Frequency of exacerbation, requiring systemic steroid 8 x /year, 2 hospitalizations in 2019, less frequent recently -No Hx of intubation -Followed by both general superintendent and ENT -Continue Advair as maintenance -Continue Singulair as maintenance -Continue albuterol as rescue -Discussed about the importance of medication adherence and avoidance of 2nd hand smoke / exposure -Use unscented and hypoallergenic products Assessment & Plan (06/03/2023 6:45 PM EDT): -Most recent exacerbation in February 2019, hospitalized at [facility] -COVID19 clinical Dx in June 2019 (household member was positive) - did not test at that time due to strict Dx criteria at that time -Frequency of exacerbation, requiring systemic steroid 8 x /year, 2 hospitalizations in 2019, less frequent recently -No Hx of intubation -Followed by both general superintendent and ENT -Continue Advair as maintenance -Continue Singulair as maintenance -Continue albuterol as rescue -Discussed about the importance of medication adherence and avoidance of 2nd hand smoke / exposure -Use unscented and hypoallergenic products Assessment & Plan (01/19/2023 5:57 AM EST): -Most recent exacerbation in February 2019, hospitalized at [facility] -COVID19 clinical Dx in June 2019 (household member was positive) - did not test at that time due to strict Dx criteria at that time -Frequency of exacerbation, requiring systemic steroid 8 x /year, 2 hospitalizations in 2019, less frequent recently -No Hx of intubation -Followed by both general superintendent and ENT -Continue Advair as maintenance -Continue Singulair as maintenance -Continue albuterol as rescue -Discussed about the importance of medication adherence and avoidance of 2nd hand smoke / exposure -Use unscented and hypoallergenic products Assessment & Plan (10/09/2022 9:01 AM EDT): -Most recent exacerbation in February 2019, hospitalized at [place] [address] clinical Dx in June 2019 (household member was positive) - did not test at that time due to strict Dx criteria at that time -Frequency of exacerbation, requiring systemic steroid 8 x /year, 2 hospitalizations in 2018, less frequent recently -No Hx of intubation -Followed by both general superintendent -Continue Advair as maintenance -Continue Singulair as maintenance -Continue albuterol as rescue -Discussed about the importance of medication adherence and avoidance of 2nd hand smoke / exposure -Use unscented and hypoallergenic products Assessment & Plan (07/11/2022 11:12 AM EDT): -Most recent exacerbation in February 2019, hospitalized at [place] [address] clinical Dx in June 2019 (household member was positive) - did not test at that time due to strict Dx criteria at that time -Frequency of exacerbation, requiring systemic steroid 8 x /year, 2 hospitalizations in 2019, less frequent recently -No Hx of intubation -Followed by both general superintendent and ENT -Continue Advair as maintenance -Continue Singulair as maintenance -Continue albuterol as rescue -Discussed about the importance of medication adherence and avoidance of 2nd hand smoke / exposure -Use unscented and hypoallergenic products Assessment & Plan (04/11/2022 1:14 PM EST): -Most recent exacerbation in February 2019, hospitalized at [place] [address] clinical Dx in June 2019 (household member was positive) - did not test at that time due to strict Dx criteria at that time -Frequency of exacerbation, requiring systemic steroid 8 x /year, 2 hospitalizations in 2019, less frequent recently -No Hx of intubation -Followed by both general superintendent and ENT -Continue Advair as maintenance -Continue Singulair as maintenance -Continue albuterol as rescue -Discussed about the importance of medication adherence and avoidance of 2nd hand smoke / exposure -Use unscented and hypoallergenic products Assessment & Plan (03/20/2022 8:26 AM EST): -Most recent exacerbation in February 2019, hospitalized at [facility] -COVID19 clinical Dx in June 2019 (household member was positive) - did not test at that time due to strict Dx criteria at that time -Frequency of exacerbation, requiring systemic steroid 8 x /year, 2 hospitalizations in 2019, less frequent recently -No Hx of intubation -Followed by both general superintendent and ENT -Continue Advair as maintenance -Continue [...] to request a follow up appointment with [facility] GI 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 Obesity 09/27/2012 Assessment & Plan (01/30/2025 10:49 AM EST): - continue lifestyle modifications - she is comfortable with BMI 27-29, overweight range. She does not lose weight excessively, below BMI < 26 Assessment & Plan (12/24/2023 5:57 AM EDT): - continue lifestyle modifications - she is comfortable with BMI 27-29, overweight range. She does not lose weight excessively, below BMI < 26 Uterine leiomyoma 08/09/2012 Assessment & Plan (04/22/2022 5:09 AM EST): -Platen Builder Up recommended repeat pelvic ultrasound, further evaluation and recommendation Hysteroscopy for endocervical polyp. Patient was reassured that the fibroids typically decrease in size and resolve in menopause. -Recommended removal of polyps. -last Pelvic US on 7/11/22 showed Small endometrial cyst versus focal fluid [...] 05/02/2012 Overview (01/15/2023): Last Assessment & Plan: -[facility] provider: N -Current medication: escitalopram 10 mg daily; doxepin 10 mg qhs Assessment & Plan (01/30/2025 10:49 AM EST): -[facility] provider: N -Current medication: escitalopram 10 mg daily; doxepin 10 mg qhs Assessment & Plan (12/21/2023 4:35 PM EDT): -[facility] provider: N -Current medication: escitalopram 10 mg daily; doxepin 10 mg qhs Assessment & Plan (04/22/2022 5:17 AM EST): -[facility] provider: N -Current medication: escitalopram 10 mg daily; doxepin 10 mg qhs Assessment & Plan (03/20/2022 8:29 AM EST): -[facility] provider: N -Current medication: escitalopram [...] but it will increase the risk, therefore, account development specialist recommended alternative medication) -Follow-up in 4-6 mo or sooner if any problem arises Assessment & Plan (01/20/2025 5:52 AM EST): -Goal BP < 130 per ACC/AHA guideline -Previously had frequent asthma exacerbation and prednisone use -EKG no ischemic change in Apr 2018 -Co-managed with our pharmacist, John Salgado [facility], Pharm D, through [facility] -Often elevated in [...] -Will request 24 hour bp monitoring with shoe sprayer Assessment & Plan (01/19/2023 5:59 AM EST): [...] Description 01/20/2025 1:15 PM EST Office Visit [facility] [address] [place] [id number] Huong Knox MD Angioedema, sequela (Primary Dx); Hypersensitivity reaction, sequela; Primary hypertension; Prediabetes; Osteopenia of neck of left femur; 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; Rheumatoid arthritis with positive rheumatoid factor, involving unspecified site (CMS/HCC) (HCC); Interstitial lung disease (CMS/HCC) ([facility]); 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; Encounter for immunization; Class 1 obesity without serious comorbidity with body mass index (BMI) of 30.0 to 30.9 in adult, unspecified obesity type; Current moderate episode of major depressive disorder, unspecified whether recurrent (CMS/HCC) (HCC) 01/20/2025 Travel 01/19/2025 Telephone [facility] [address] [place] [address] Huong Knox MD 01/13/2025 Orders Only GENERIC EXTERNAL DATA DEPARTMENT Provider, Generic External Data 01/12/2025 Orders Only GENERIC EXTERNAL DATA DEPARTMENT Provider, Generic External Data from Last 3 Months Immunizations Immunization Administration [...] the past 12 months, has t he [employer], 5 CUPS and some sugar, oil or water [employer] threatened to shut off services in your [...] EOSIN STAIN Routine 01/13/2025 12:23 PM EST IGE ANTIBODY (ANTI IGE IGG) Routine 01/12/2025 11:23 AM EST LIPID PANEL WITH REFLEX TO DIRECT [...] PM EST Narrative 01/21/2025 6:09 PM EST [address] [address] Ultrasound Report Signed Patient: Ilene Dominguez MR#: [id number] 5 : 1965 Acct:[id number] Age/Sex: 59 / F ADM Date: 01/21/25 Loc: .US Attending Dr: Joel Flores MD Ordering Physician: Joel Flores MD Date of Service: 01/21/25 Procedure(s): US pelvic and transvaginal Accession Number(s): [id number] cc: Huong Knox MD; Joel Flores MD [...] by: Saturnino Calloway MD 01/21/2025 06:07 PM EST Dictated By: Saturnino Calloway MD Signed By: <Electronically signed by Saturnino Calloway MD in OV> 01/21/25 1807 DD/ 1622 TD/TT: 01/21/25 1629 Home Theatre Technician: Procedure Note Donotuseinterpreter, Image - 01/21/[address] [address] Ultrasound Report Signed Patient: Charles Dominguez#: [id number] 5 : 1965Acct:[id number] Age/Sex: 59 / FADM Date: 01/21/25 Loc: HO.US Attending Dr: Joel Flores MD Ordering Physician: Joel Flores MD Date of Service: 01/21/25 Procedure(s): US pelvic and transvaginal Accession Number(s): [id number] cc: Huong Knox MD; Joel Flores MD [...] by: Saturnino Calloway MD 01/21/2025 06:07 PM EST RP Dictated By: Saturnino Calloway MD Signed By: <Electronically signed by Saturnino Calloway MD in OV> 01/21/251806 DD/ 21 TD/TT: 01/21/251628 Home Theatre Technician: us [facility] External Provider IMG US PROCEDURES Final Result * Hematoxylin and Eosin Stain (01/13/2025 12:23 PM EST) 01/13/2025 12:2 3 PM EST 01/13/2025 12:50 PM EST Narrative [facility] - 01/15/2025 3:54 PM EST ----- ------- Name: Ilene Dominguez Age/Sex: 59/F : 1965 Unit#: [id number] Attend Dr: Migdalia Hoffman MD Re01/13/25 Status: [facility] Location: [facility] Disch: ----- ------- SPEC : [id number] RECD: 01/13/25-125 STATUS: TAYLOR CORRALES NUM: [id number] ZE: 01/13/25-[address]: Migdalia Hoffman MD ENTERED: 01/13/25-1256 SP [...] Ilene Dominguez Age/Sex: 59/F : 1965 Unit#: [id number] Attend Dr: Migdalia Hoffman MD Re01/13/25 Status: [facility] Location: [place] Disch: ----- ------- SPEC : [id number] RECD: 01/13/25 STATUS: TAYLOR CORRALES NUM: [id number] ZE: 01/13/[address]: Migdalia Hoffman MD ENTERED: 01/13/25 SP TYPE: Surgical OTHR DR: Huong Knox MD ORDERED: HE Stain/12, Gross Micro L4/4, IHC/3, Special st. 2/2, H. pylori/3, AB/PAS/2 IHC S/NG Disclaimer NOTE: Unless otherwise stated, all tissue is formalin-fixed and paraffin-embedded. Some or all of the immunohistochemical tests reported herein may have been developed and their performance characteristics determined by [facility]. They have not been cleared or approved by the U.S. Food and Drug Administration (FDA). However, the FDA has determined that such clearance or approval is not necessary. This laboratory is certified under the Clinical Laboratory Improvement Amendments of 1988 (CLIA) as qualified to perform high complexity clinical laboratory testing. Copies To: Huong Knox MD [address] [address] Migdalia Hoffman MD [facility] [address] [place] [phone] [email or web address] ----- ------- Signed (signature on file) Alejandra Daigle 01/15/25 1554 ----- ------- END OF REPORT Generic External Data Provider LAB BLOOD ORDERAB LES Final Result Performing Organization Address [facility] de Phone Number [facility] [address] [place] [phone] * TSH with Reflex to Free T4 (01/12/2025 11:23 AM EST) TSH reflex Free T4 3.69 0.32 - 4.0 uIU/mL [facility] Blood 01/12/2025 11:2 3 AM EST 01/12/2025 12:56 PM EST Huong Knox MD LAB BLOOD ORDERABLES Final Resul t Performing Organization Address [facility] Co de Phone Number [facility] [address] [place] [phone] * (ABNORMAL) Lipid Panel with Reflex to Direct LDL (01/12/2025 11:23 AM EST) Triglycerides 49 <150 mg/dL [facility] Comment:Desirable Triglyceri de: less than 150 mg/dLBorderline High Triglyceride 150-199 mg/dLHigh Triglyceride: 200-499 mg/dLVery High Triglyceride: greater than or equal to 5OO mg/dL Cholesterol 176 <200 mg/dL [facility] Comment:Desirable Cholestero l: less than 200 mg/dLBorderline High Cholesterol: 200-239 mg/dLHigh Cholesterol: greater than 239 mg/dL LDL Cholesterol Calculated 100(H) <100 mg/dL [facility] Comment:Desirable LDL: less than 100 [...] ORDERABLES Final Resul t Performing Organization Address [facility] Co de Phone Number [facility] [address] [place] [phone] * IgE Antibody (Anti-IgE IgG) (01/12/2025 11:23 AM EST) IgE Antibody (Anti-IgE IgG) 50 <168 ng/mL [facility] Comment:This test was develo ped and its analytical performancecharacteristics have been determined by [employer].It has not been cleared or approved by the FDA. This assayhas been validated pursuant to the CLIA regulations and isused for clinical purposes.THIS TEST WAS PERFORMED AT:[employer]/FERRARA [id number] [facility] [place] [address]NMHVACARLEE SMITH MD,PHD,REKHA 01/12/2025 11:2 3 AM EST 01/12/2025 12:56 PM EST us Generic External Data Provider LAB BLOOD ORDERAB LES Final Result Performing Organization Address [facility] Co de Phone Number [facility] [address] [place] [phone] * Hemoglobin A1c (01/12/2025 11:23 AM EST) Hemoglobin A1c 6.0 <6.0 % [facility] Comment:Hemoglobin A1C Refer ence Range Adults: 4.8 - 6.0 % Non diabetic: < 6.0 % Goal: < 7.0 %Additional Action Suggested: > 8.0 %Note: Hemoglobin A1c results are invalid for patients with abnormal amounts of HbF. Blood transfusions may impact the HbA1c concentration in the patient sample. Estimated Average Glucose 126 mg/dL [facility] Comment:eAG = Estimated ave rage glucose which is %A1C expressed asaverage glucose, using the formula of the J9B-TryhwolZepbqwi Glucose study (ADAG), Diabetes Care, Vol.31,#8,Oct. 2007 Blood Venous blood specimen / Unknown 01/12/2025 11:23 AM EST 01/12/2025 12:56 PM EST us Huong Knox MD LAB BLOOD ORDERABLES Final Resul t [facility] [address] [place] [phone] * (ABNORMAL) Comprehensive Metabolic Panel (01/12/2025 11:23 AM EST) Sodium 141 135 - 145 mmol/L [facility] Potassium 4.0 3.3 - 5.1 mmol/L [facility] Chloride 109(H) 96 - 108 mmol/L [facility] Carbon Dioxide 29 22 - 29 mmol/L [facility] Anion Gap 7(L) 12 - 20 [facility] Urea Nitrogen (BUN) 15 9 - 16 mg/dL [facility] Creatinine, Serum 0.68 0.5 - 1.4 mg/dL [facility] Estimated Glomerular Filt Rate >60 [facility] Comment:Chronic Kidney Disea se: Estimated GFR < 60 mL/min/1.39k3Buxcah Kidney Disease: Estimated GFR < 15 mL/min/1.73m2 Glucose 97 60 - 115 mg/dL [facility] Calcium 8.4 8.4 - 10.2 mg/dL [facility] Bilirubin, Total 0.8 0.0 - 1.0 mg/dL [facility] Aspartate Amino Transferase 28 5 - 31 U/L [facility] Alanine Aminotransferase 17 0 - 31 U/L [facility] Total Protein 7.2 6.5 - 8.0 g/dL [facility] Albumin Level 4.0 3.5 - 5.0 g/dL [facility] Alkaline Phosphatase 67 39 - 117 U/L [facility] Blood Venous blood specimen / Unknown 01/12/2025 11:23 AM EST 01/12/2025 12:56 PM EST us Huong Knox MD LAB BLOOD ORDERABLES Final Resul t [facility] [address] [place] [phone] * BI Mammogram Screening Tomosynthesis Bilateral (07/14/2024 12:30 PM EDT) Anatomical Region Laterality Modality Breast Bilateral Mammography 07/14/2024 12:3 0 PM EDT Narrative 07/20/2024 9:21 PM EDT [address] [place] [address] Mammography Report Signed Patient: Ilene Dominguez MR#: [id number] 5 : 1965 Acct:[id number] Age/Sex: 59 / F ADM Date: 07/14/24 Loc: [facility] Attending Dr: Joel Flores MD Ordering Physician: Joel Flores MD Results: 2Benign Findings Date of Service: 07/14/24 Follow Up: 1 Year From [facility] ina Mammogram Procedure(s): MM tomosynthesis screening BI Accession Number(s): [id number] cc: Huong Knox MD; Joel Flores MD [...] OV> 07/20/242117 DD/ 1230 TD/TT: 07/14/24 1236 Home Theatre Technician: Procedure Note Donotuseinterpreter, Image - 07/20/2024 [facility] [address] [place] [address] Mammography Report Signed Patient: Charles Dominguez#: [id number] 5 : 1965Acct:[id number] Age/Sex: 59 / FADM Date: 07/14/24 Loc: .MAMMO Attending Dr: Joel Flores MD Ordering Physician: Joel Flores MDResults: 2Benign Findings Date of Service: 07/14/24Follow Up: 1 Year From [facility] ina Mammogram Procedure(s): MM tomosynthesis screening BI Accession Number(s): [id number] cc: Huong Knox MD; Joel Flores MD [...] OV> 07/20/242117 DD/ 1230 TD/TT: 07/14/24 1236 Home Theatre Technician: [facility] External Provider IMG BI PROCEDURES Final Result * HPV DNA, Low/High Risk (05/16/2024 8:57 AM EST) HPV High Risk Negative Negative [facility] HPV Genotype 16 Negative Negative [facility] HPV Genotype 18 Negative Negative [facility] Comment:HPV testing performe d at [facility] (CLIA#[id number]), [address] [place] [address].Testing for HPV was performed using the Benjamín [...] LAB BLOOD ORDERAB LES Final Result [facility] [address] [place] [phone] * Pap Smear (05/16/2024 8:57 AM EST) 05/16/2024 8:57 AM EST 05/16/2024 11:39 AM EST Narrative [facility] - 05/20/2024 9:43 AM EDT ----- ------- Name: Ilene Dominguez Age/Sex: 59/F : 1965 Unit#: [id number] Attend Dr: Joel Flores MD Re05/16/24 Status: [facility] REF Location: [facility] Disch: ----- ------- SPEC : [id number] RECD: 05/16/24113 STATUS: TAYLOR REKobi NUM: [id number] ZE: 05/16/[address] [facility] [address]: Joel Flores MD ENTERED: 05/16/24-2432 SP TYPE: Pap Smr OTHR DR: Huong Knox MD ORDERED: Pap Smear Interpretation Satisfactory for evaluation. Negative for intraepithelial lesion or malignancy. HPV High Risk: Negative HPV Genotyping 16: Negative HPV Genotyping 18: Negative Clinical Information LMP:Unknown date Previous PAP test: 03/28/22, Unknown findings Material Received ThinPrep-Cervical Copies To: Huong Knox MD [facility] [address] [place] [address] Joel Flores MD [facility] Women's Services [address] [place] [address] ----- ------- Signed (signature on file) ZOILA Little (ASCP) 05/20/24 0943 ----- ------- END OF REPORT Generic External Data Provider LAB CYTOLOGY ERIS KNOTT Final Result [facility] [address] [place] [phone] * Colonoscopy (12/12/2023) Pathologist [facility] Colonoscopy Normal Normal 12/12/2023 Historical Provider HEALTH MAINTENANCE Final Result * Hepatitis Panel, General (09/24/2023 1:58 PM EDT) [facility] Hepatitis A IgM Nonreactive Nonreactive [facility] Comment:IgM antibodies to SCOTT V not detected; does not exclude earlyacute or recovered HAV infection. ~Hepatitis B Surface Antibody NONREACTIVE Nonreactive [facility] Comment:Nonreactive: < 8.00 mIU/mL Hepatitis B Core Antibody Nonreactive Nonreactive [facility] Hepatitis C Antibody Nonreactive Nonreactive [facility] Comment:Antibodies to HCV no t detected; does not exclude early acuteHCV infection. Hepatitis B Surface Ag Negative Negative [facility] 09/24/2023 1:58 PM EDT 09/24/2023 1:58 PM EDT us Generic External Data Provider LAB BLOOD ORDERAB LES Final Result [facility] [address] [place], [place] [phone] from Last 3 Months or Most Recently Relevant to Health Maintenance Insurance * Guarantor: Ilene Dominguez Account Type Relation to Patient Date of Phone Billing Address Personal/Family Self 1965 [address] [facility] * Guarantor: Ilene Dominguez Account Type Relation to Patient Date of Phone Billing Address Personal/Family Self [address] * Guarantor: Ilene Dominguez Account Type Relation to Patient Date of Phone Billing Address Personal/Family Self [address] * Guarantor: Ilene Dominguez Account Type Relation to Patient Date of Phone Billing Address Personal/Family Self [address] Care Teams Primer Waterproofing Machine Operator Relationship Specialty Start Date End Date Huong Knox MD [address] [place] [address] PCP - General Family Medicine 02/22/12 John Salgado, PharmD [address] [place] [phone] Pharmacist Internal Medicine 01/16/23
--- OUTSIDE RECORDS SUMMARY | 2025-02-11 17:41 | XMS_ITS | Encounter Summary ---
Author Organization [employer] Address [address] [place] [address] Care Team Providers Care Pipe Insulator Helper Name Role Phone Huong David MD Primary Care Provider [phone] John Salgado PharmD Unavailable [phone] Encounter Details Date Type Department Care Team (Late st Contact Info) Description 04/04/2024 Abstract [facility] [address] [place], [place] [phone] Amaya Bhatia [place] Social History Tobacco Use [...] documented as of this encounter Care Teams Pipe Insulator Helper Relationship Specialty Start Date End Date Huong David MD [address] [place] [address] PCP - General Family Medicine 02/22/12 John Salgado, PharmD [address] [place] [address] Pharmacist Internal Medicine 01/16/23 documented as of this encounter
--- OUTSIDE RECORDS SUMMARY | 2025-02-11 17:41 | XMS_ITS | Encounter Summary ---
Author Organization [employer] Address [address] [place] [address] Care Team Providers Care Mixing Technician Name Role Phone Huong David MD Primary Care Provider [phone] John Salgado PharmD Unavailable [phone] Encounter Details Date Type Department Care Team (Late st Contact Info) Description 03/28/2024 Orders Only [facility] [address] [place], [place] [phone] Huong David MD [address] [place], [place] [phone] Social History Tobacco Use Types Packs/Day Years [...] documented as of this encounter Care Teams Mixing Technician Relationship Specialty Start Date End Date Huong David MD [address] [place] [address] PCP - General Family Medicine 02/22/12 John Salgado, DelmiD [address] [place] [address] Pharmacist Internal Medicine 01/16/23 documented as of this encounter
--- OUTSIDE RECORDS SUMMARY | 2025-02-11 17:41 | XMS_ITS | Encounter Summary ---
Author Organization [employer] Address [address] [facility] [address] [place] [address] Care Team Providers Care Distribution Center Manager Name Role Phone Huong David MD Primary Care Provider [phone] John Salgado PharmD Unavailable [phone] Encounter Details Date Type Department Care Team (Late st Contact Info) Description 10/06/2022 Orders Only [facility] [address] [place], [place] [phone] Huong David MD [address] [place], [place] [phone] Hypokalemia (Primary Dx) Social History Tobacco Use [...] documented as of this encounter Care Teams Distribution Center Manager Relationship Specialty Start Date End Date Huong David MD [address] [place] [address] PCP - General Family Medicine 02/22/12 John Salgado PharmD [address] [place] [address] Pharmacist Internal Medicine 01/16/23 documented as of this encounter
--- OUTSIDE RECORDS SUMMARY | 2025-02-11 17:41 | XMS_ITS | Encounter Summary ---
Author Organization [employer] Address [address] [facility] [address] [place] [address] Care Team Providers Care Booking Officer Name Role Phone Huong David MD Primary Care Provider [phone] John Salgado PharmD Unavailable [phone] Reason for Visit * Reason Onset Date Comments returning call 03/22/2022 Encounter Details Date Type Department Care Team ([facility] st Contact Info) Description 03/22/2022 Telephone [facility] [address] [place], [place] [phone] Huong David MD [address] [place], [place] [phone] returning call Social History Tobacco Use Types [...] a call back Please contact pt at [phone] documented in this encounter Plan of Treatment Not on file documented as of this encounter Visit Diagnoses Not on filedocumented in this encounter Care Teams Booking Officer Relationship Specialty Start Date End Date Huong David MD [address] [place] [address] PCP - General Family Medicine 02/22/12 John Salgado, Vikki [address] [place] [address] Pharmacist Internal Medicine 01/16/23 documented as of this encounter
--- OUTSIDE RECORDS SUMMARY | 2025-02-11 17:41 | XMS_ITS | Encounter Summary ---
Author Organization [employer] Address [address] [place] [address] [address] [place] [address] Care Team Providers Care Learning And Development Administrator Name Role Phone Huong David MD Primary Care Provider [phone] John Salgado PharmD Unavailable [phone] Reason for Visit * Reason Comments Med Refill Encounter Details Date Type Department Care Team (Late st Contact Info) Description 09/13/2022 Refill [facility] [address] [place], [place] [phone] Name, MD Jemal [address] [place], [place] [phone] Social History Tobacco Use Types Packs/Day Years [...] documented as of this encounter Care Teams Learning And Development Administrator Relationship Specialty Start Date End Date Huong David MD [address] [place] [address] [phone] PCP - General Family Medicine 02/22/12 John Salgado, PharmD [address] [place] [phone] Pharmacist Internal Medicine 01/16/23 documented as of this encounter
--- OUTSIDE RECORDS SUMMARY | 2025-02-11 17:41 | XMS_ITS | Encounter Summary ---
Author Organization [employer] Address [address] [facility] [address] [place] [address] Care Team Providers Care Geosciences Associate Professor Name Role Phone Huong David MD Primary Care Provider [phone] John Salgado PharmD Unavailable [phone] Encounter Details Date Type Department Care Team (Late st Contact Info) Description 09/29/2022 Abstract [facility]INE [address] [place], [place] [phone] Huong David MD [address] [place], [place] [phone] Social History Tobacco Use Types Packs/Day Years [...] Results * Colonoscopy (04/01/2013) Colonoscopy Normal Normal [facility] Pcp HEALTH MAINTENANCE Edited Result - Final documented in this encounter Visit Diagnoses Not on filedocumented in this encounter Additional Health Concerns Assessment Noted Time PHQ-9 Depression Total Score: 0 04/11/19 1:19 PM EST documented as of this encounter Care Teams Geosciences Associate Professor Relationship Specialty Start Date End Date Huong David MD [address] [place] [address] PCP - General Family Medicine 02/22/12 John Salgado, Vikki [address] [place] [address] Pharmacist Internal Medicine 01/16/23 documented as of this encounter
--- OUTSIDE RECORDS SUMMARY | 2025-02-11 17:41 | XMS_ITS | Encounter Summary ---
Author Organization [email or web address] Address [address] [facility] 7t [place] [address] Care Team Providers Care Freight [place] Name Role Phone Huong David MD Primary Care Provider [phone] John Salgado PharmD Unavailable Encounter Details Date Type Department Care Team (Late st Contact Info) Description 08/23/2022 Abstract [facility]INE [address] [place], [place] [phone] Huong David MD [address] [place], [place] [phone] Social History Tobacco Use Types Packs/Day Years [...] 2 Anatomical Region Laterality Modality Other 07/06/2022 [facility] Unassigned Pcp HEALTH MAINTENANCE Final Result documented in this encounter Visit Diagnoses Not on filedocumented in this encounter Additional Health Concerns Assessment Noted Time PHQ-9 Depression Total Score: 0 04/11/19 23 1:19 PM EST documented as of this encounter Care Teams Freight [place] Relationship Specialty Start Date End Date Huong David MD [address] [place] [address] PCP - General Family Medicine 02/22/12 John Salgado, DelmiD [address] [place] [address] Pharmacist Internal Medicine 01/16/23 documented as of this encounter
== END 2025-02-11 15:41 | disposition home or self-care (01) ==
LOC: HO.HWS 14:47
PROVIDERS: PCP Family Medicine; Visit Provider Obstetrics & Gynecology
DX: D25.9 Leiomyoma of uterus, unspecified (principal); R93.89 Abnormal findings on diagnostic imaging of other specified body structures
CPT/HCPCS: 58100; 99213

== ENCOUNTER 2025-02-11 14:46 | Outpatient (REF) | payer MEDICAID, SELFPAY | END 2025-02-11 14:47 | disposition home or self-care (01) | LOC: HO.LNP 14:46 | PROVIDERS: PCP Family Medicine; Visit Provider Obstetrics & Gynecology | DX: D25.9 Leiomyoma of uterus, unspecified (principal); R93.89 Abnormal findings on diagnostic imaging of other specified body structures; Z78.0 Asymptomatic menopausal state | CPT/HCPCS: 58100; 88305; 99212 ==